=== PATIENT | male | born 1955 | race Caucasian/White ===

== ENCOUNTER 2020-01-04 22:34 | Inpatient (IN) ==
[2020-01-04 22:41] LABS: ABG Base Excess -8.2 mmol/L (-2.4-2.3); ABG HCO3 18.3 mmhg (22.0-26.0); ABG Oxygen Saturation 96 % (90-100); ABG PCO2 38.4 mmhg (35.0-45.0); ABG PO2 85.3 mmhg (80-100); ABG TCO2 19.5 mmhg (23-27)
[2020-01-04 22:43] LABS: Allen's Test Acceptable
--- NOTE | 2020-01-04 22:56 | Emergency Department Note ---
ED Disposition Clinical Impression: Acute exacerbation of chronic obstructive airways disease, Non-STEMI (non-ST elevated myocardial infarction) Disposition: Admitted as Observation Condition on Discharge: Good Additional Instructions: Dr. Crum for admission for this patient I also spoke to Dr. Espinal who agreed to consult and see this patient in the morning. Referrals: Provider,Referral, [Primary Care Provider] - - Critical Care Critical Care Time: No Attestation: On 01/04/20, the high probability of a clinically significant, sudden or life threatening deterioration of the following system(s) required my full and direct attention, intervention and personal management. The time I documented below is in addition to time spent performing reported procedures but includes the following listed in this critical care notation. Medical Decision Making - Medical Records Medical records reviewed: Yes: I reviewed the patient's medical records. - [place] Inquiry Pt receiving controlled substance: No Vital Signs: 01/04/20 22:33 01/04/20 22:34 01/04/20 22:49 Temperature 97.8 F Temperature Source Oral Pulse Rate 128 H Pulse Rate [Left Radial] 125 H Respiratory Rate 21 Blood Pressure [Right Arm] 139/59 L Blood Pressure Mean [Right Arm] 85 Blood Pressure Source [Right Arm] Automatic Cuff Blood Pressure Position [Right Arm] Sitting 02 Sat by Pulse Oximetry 86 L 95 Oxygen Delivery Method Room Air Nasal Cannula Oxygen Flow Rate (LPM) 4 01/04/20 23:39 Temperature Temperature Source Pulse Rate 122 H Pulse Rate [Left Radial] Respiratory Rate Blood Pressure [Right Arm] Blood Pressure Mean [Right Arm] Blood Pressure Source [Right Arm] Blood Pressure Position [Right Arm] 02 Sat by Pulse Oximetry Oxygen Delivery Method Oxygen Flow Rate (LPM) - Lab Data Lab results reviewed: Yes: I reviewed the patient's lab results. Lab Results 01/04/20 22:35: Specimen Source Right radial, O2 % 4 lpm nc, 36%., ABG pH 7.30 L , ABG pCO2 38.4, ABG pO2 85.3, ABG HCO3 18.3 L, ABG Total CO2 19.5 L, ABG O2 Saturation 96, ABG Base Excess -8.2 L, Artur Test Acceptable 01/04/20 22:59: NT-Pro-B Natriuret Pep 1240 H 01/04/20 22:59: WBC 11.1 H, RBC 4.83, Hgb 16.4, Hct 47.5, MCV 98.3 H, MCH 33.9 H , MCHC 34.5, RDW 13.5, Plt Count 233, MPV 9.2, Neut % (Auto) 85.9 H, Lymph % (Auto) 5.2 L, [place] % (Auto) 8.4, Eos % (Auto) 0.3, Baso % (Auto) 0.2, Neut # (Auto) 9.6 H, Lymph # (Auto) 0.6 L, [place] # (Auto) 0.9, Eos # (Auto) 0.0, Baso # (Auto) 0.0, Total Counted 100, Neutrophils % (Manual) 88 H, Lymphocytes % (Manual) 8 L, Monocytes % (Manual) 3, Basophils % (Manual) 1.0, Platelet Estimate Normal, RBC Morphology Not Reportable, Macrocytosis 1+ 01/04/20 22:59: Sodium 114 L*, Potassium 4.5, Chloride 75 L, Carbon Dioxide 21 L , Anion Gap 22.5 H, BUN 5 L, Creatinine 0.80, Estimated Creat Clear 84, Estimated GFR 97, Est GFR ( Amer) 117, Glucose 121 H, Calcium 8.3 L, Troponin I 3.14 H 01/04/20 22:59: Lactate 2.5 H 01/05/20 00:00: D-Dimer 0 H* 01/05/20 02:12: Troponin I 4.34 H Result diagrams: 01/04/20 22:59 01/04/20 22:59 Orders (Tests/Meds): ED MEDICATIONS Generic Name Dose Route Start Last Admin Trade Name Pascualq PRN Reason Stop Dose Admin Atorvastatin Calcium 80 mg 01/05/20 21:00 Lipitor 40mg Tablet PO 02/04/20 20:59 HS MIRANDA Sodium Chloride 1,000 mls @ 999 mls/hr 01/05/20 00:15 Sod Chlor 0.9% 1000ml Bag IV 01/05/20 01:15 .Q1H1M MIRANDA Sodium Chloride 1,000 mls @ 999 mls/hr 01/05/20 01:30 Sod Chlor 0.9% 1000ml Bag IV 01/05/20 02:30 .Q1H1M MIRANDA Ceftriaxone Sodium 1 gm/ 50 mls @ 100 mls/hr 03/04/20 23:47 Sodium Chloride IV 01/18/20 23:46 Q24H [facility] Protocol Levalbuterol HCl 1.25 mg 01/05/20 23:21 01/04/20 23:38 Xopenex 1.25mg/3ml [facility] 01/05/20 23:22 1.25 mg ONCE ONE Administration Sodium Chloride 10 ml 01/04/20 22:50 Sodium Chloride 0.9% 10ml Vial IV 02/03/20 22:49 NEEDED PRN to Dilute Lorazepam inj Sodium Chloride 3 ml 01/05/20 00:19 Sodium Chloride 3% 15ml [facility] 02/04/20 00:18 ONCE PRN INDUCE [employer] Discontinued Medications Generic Name Dose Route Start Last Admin Trade Name Freq PRN Reason Stop Dose Admin Albuterol/Ipratropium 3 ml 01/04/20 22:35 01/04/20 22:51 Duoneb 3ml [facility] 01/04/20 22:36 3 ml ONCE ONE Administration Albuterol/Ipratropium 3 ml 01/04/20 22:50 01/05/20 02:40 Duoneb 3ml [facility] 01/04/20 22:51 Not Given ONCE ONE Aspirin 325 mg 01/05/20 00:25 01/05/20 00:49 Aspirin 325mg Tablet PO 01/05/20 00:26 325 mg ONCE ONE Administration Clopidogrel Bisulfate 300 mg 01/05/20 00:24 01/05/20 00:49 Plavix 300mg Tablet PO 01/05/20 00:25 300 mg ONCE ONE Administration Enoxaparin Sodium 90 mg 01/05/20 00:25 01/05/20 00:48 Lovenox 100mg/Ml Syringe SQ 01/05/20 00:26 90 mg ONCE ONE Administration Lorazepam 1 mg 01/04/20 22:50 01/04/20 23:01 Ativan 2mg/Ml Vial IV 01/04/20 22:51 1 mg ONCE ONE Administration Metoprolol Succinate 50 mg 01/05/20 01:08 01/05/20 01:10 Toprol Xl 50mg Tablet PO 01/05/20 01:09 50 mg ONCE ONE Administration Metoprolol Tartrate 25 mg 01/05/20 01:05 01/05/20 01:10 Lopressor 50mg Tablet PO 01/05/20 01:06 Not Given ONCE ONE Morphine Sulfate 4 mg 01/05/20 00:37 01/05/20 00:49 Morphine 4mg/Ml Syringe IV 01/05/20 00:38 4 mg ONCE ONE Administration ORDERS Category Date Time Status CTA Chest [CT angio chest] Stat Cat Scan 01/05/20 01:06 Ordered XR chest portable Stat Exams 01/04/20 23:34 Taken Troponin I Q3H Lab 01/05/20 05:30 Ordered Urinalysis and Microscopic Stat Lab 01/04/20 23:21 Ordered Blood Culture Stat Micro 01/04/20 22:59 Received Sputum Culture & Gram Stain Stat Micro 01/05/20 00:19 Received Arterial Blood Gas Stat RT 01/04/20 23:21 Ordered - Radiology Data #1 Image(s): Chest Preliminary Findings: Normal/NAD - CT Data CT Scan: Chest Time Received: 02:00 Preliminary Findings: Normal/NAD (No PE) - ECG Data Tracing #1 Normal Sinus Rhythm: No Arrhythmias present: sinus tach (ST segment deviations) - Tissue Perfus/Sepsis Re-Eval Sepsis Re-Evaluation Performed: Yes Date Performed: 01/05/20 Time Performed: 02:00 Medical Decision Narrative: Patient received 2 DuoNeb's and 1 Xopenex nebulizer here in the ED along with IV Solu-Medrol his acute shortness of breath has resolved he still feels quite anxious he did receive dual platelet therapy with aspirin and Plavix and also Lovenox for a non-STEMI with an elevated troponin at 3.19 his second troponin did come back at 4.29 the patient never complained of any chest pain. CTA of the chest was negative for PE. Resp/SOB HPI - General Chief Complaint: Shortness of Breath/Dyspnea Stated Complaint: SOB Time Seen by Provider: 01/04/20 22:34 Mode of Arrival: EMS Source of Information: Patient, Relative Limitations: No Limitations - History of Present Illness 64-year-old man presents to the ED with acute shortness of breath. He states that the shortness of breath really started this morning about 12 hours ago but has had a nonproductive cough over the last 2 to 3 days. Patient does have COPD and denies any chest pain. Patient also denies any diaphoresis. He is on a couple different inhalers he is on albuterol but has been without his ICS. Family states that he denies any recent sick contacts and they also deny that he has had any fever shakes or chills or any nausea or vomiting. Patient also denies any pain. - Related Data Home Medications Medication Instructions Recorded Confirmed Budesonide/Formoterol Fumarate 2 puffs IH BID 01/05/20 01/05/20 [Symbicort 160-4.5 Mcg Inhaler] Allergies Allergy/AdvReac Type Severity Reaction Status Date / Time No Known Allergies Allergy Verified 03/09/18 14:25 [facility] History - Hepatitis A Screen Attestation statement:: This patient has been screened for Hepatitis A risk factors. I have reviewed the patient's past medical history: Yes Amputation: No Fractures: Yes - Social History Smoking Status: Current every day smoker Tobacco Type: cigarettes # Packs/Day (cigarettes): 1 Alcohol Intake: never Alcohol Intake Frequency:: 3 or more drinks per day Occupational Status: disabled ROS Obtained: Yes All systems reviewed & no additional complaints - Constitutional Constitutional: Reports system reviewed and no additional complaints, except as docu - Eyes Eyes: Reports system reviewed and no additional complaints, except as docu - ENT Ears, Nose, Mouth, and Throat: Reports system reviewed and no additional complaints, except as docu - Cardiovascular Cardiovascular: Reports system reviewed and no additional complaints, except as docu - Respiratory Respiratory: Yes system reviewed and no additional complaints, except as docu - Gastrointestinal Gastrointestingal: Reports: system reviewed and no additional complaints, except as docu - Genitourinary Male Genitourinary: Reports system reviewed and no additional complaints, except as docu Female Genitourinary: Reports system reviewed and no additional complaints, except as docu - Musculoskeletal Musculoskeletal: Reports system reviewed and no additional complaints, except as docu - Integumentary/Breasts Skin/Breast: Reports system reviewed and no additional complaints, except as docu - Neurologic Neurologic: Reports system reviewed and no additional complaints, except as docu - Endocrine Endocrine: Reports system reviewed and no additional complaints, except as docu - Hematologic/Lymphatic Henatologic/Lymphatic: Reports system reviewed and no additional complaints, except as docu - Allergic/Immunologic Allergic/Immunologic: Reports system reviewed and no additional complaints, except as docu Physical Exam - General General appearance: alert, in distress - Head Head exam: atraumatic - Eye Eye exam: Present: normal appearance - ENT ENT exam: Present: normal exam, normal oropharynx - Neck Neck exam: Present: normal inspection, full ROM - Chest Chest inspection: Present: normal inspection, symmetric chest wall rise - Respiratory Respiratory exam: Present: wheezes, stridor - Cardiovascular Cardiovascular exam: Present: regular rate - Abdominal Exam Abdominal exam: Present: soft - Extremities Exam Extremities exam: Present: normal inspection - Back Exam Back exam: Present: normal inspection - Neurological Exam Neurological exam: Present: alert, oriented X3 - Psychiatric Psychiatric exam: Present: normal affect - Skin Skin exam: Present: warm - Lymphatic Lymphatic Findings: no adenopathy
[2020-01-04 23:37] LABS: Basophils % 0.2 % (0.1-2.0); Eosinophils % 0.3 % (0.1-12.0); Hematocrit 47.5 % (42.0-52.0); Hemoglobin 16.4 g/dL (14.1-18.0); Lymphocytes # 0.6 K/mm3 (0.7-4.5); Lymphocytes % 5.2 % (10-50); Mean Corpuscular HGB Conc 34.5 g/dL (31.8-35.4); Mean Corpuscular Volume 98.3 fl (80-94); Mean Platelet Volume 9.2 fl (7.4-10.4); Monocytes # 0.9 K/mm3 (0.1-1.0); Monocytes % 8.4 % (1.7-9.3); Neutrophils # 9.6 K/mm3 (1.8-7.8); Neutrophils % 85.9 % (37.0-80.0); Platelet Count 233 K/mm3 (142-424); Red Blood Count 4.83 M/mm3 (4.60-6.20); Red Cell Distribution Width 13.5 % (11.5-17.5); White Blood Count 11.1 K/mm3 (4.8-10.8)
[2020-01-04 23:43] LABS: Calcium 8.3 mg/dl (8.4-10.2)
[2020-01-05] LABS: Anion Gap 22.5 mEq/L (5-15)
[2020-01-05 00:06] LABS: Lymphocytes % 8 % (10-50); Macrocytosis 1+; Monocytes % 3 % (2-9); Neutrophils % 88 % (42-76); Total Cells Counted 100
[2020-01-05 06:23] LABS: Microscopic, Urine URINE MICROSCOPIC (MICROSCOPIC)
[2020-01-05 06:25] LABS: Appearance,Urine CLEAR (Clear); Blood, Urine TRACE-I (Negative); Color,Urine YELLOW (Yellow); Glucose,Urine (UA) Negative (Negative); Ketones,Urine TRACE (Negative); Leukocyte Esterase,Urine Negative (Negative); Protein,Urine TRACE (Negative); Urobilinogen,Urine 0.2 EU/dl (0.2)
[2020-01-05 06:46] LABS: Bacteria,Urine 1+ /lpf; Bilirubin,Urine Negative (Negative)
--- NOTE | 2020-01-05 07:47 | Pharmacy Consult Notes ---
[facility] Pharmacy VTE Monitoring - Patient Demographics Admission date: 01/05/20 Report Date: 01/05/20 Time: 07:47 Allergies/Adverse Reactions: Patient Allergies No Known Allergies Allergy (Verified 03/09/18 14:25) Height: 1.8 m Weight: 74.843 kg Patient Problems: Current Active Problems Acute exacerbation of chronic obstructive airways disease (Acute) Non-STEMI (non-ST elevated myocardial infarction) (Acute) - VTE Risk Labs: VTE Related Lab Results Hgb 16.4 g/dL (14.1-18.0) 01/04/20 22:59 Hct 47.5 % (42.0-52.0) 01/04/20 22:59 Plt Count 233 K/mm3 (142-424) 01/04/20 22:59 BUN 5 mg/dl (9-20) L 01/04/20 22:59 Creatinine 0.80 mg/dl (0.66-1.25) 01/04/20 22:59 Estimated Creat Clear 84 mL/min (50-200) 01/04/20 22:59 VTE Score: 6 VTE Risk Level: Moderate Risk - Prophylaxis VTE Prophylaxis Ordered?: Yes Types of VTE Prophylaxis: TEDS Knee High Location of Applied Device: Bilateral Lower Extremeties
--- NOTE | 2020-01-05 08:01 | Consult Report ---
History of Present Illness Consult date: 01/05/20 Requesting physician: Blayne Crum Consult reason: shortness of breath Chief complaint: NSTEMI Additional Medical History:: 1. Alcohol abuse 2. Hyponatremia, chronic, likely due to ETOH abuse A. CTA of chest, 01/2020, no evidence of suspicious pulmonary nodules/masses 3. COPD A. Tobacco use, since age 14 4. FH of heart disease in parents 5. elevated D-dimer, 01/2020, CTA of chest negative for PE History of present illness: 64-year-old man presents to the ED with acute shortness of breath. He states that the shortness of breath really started this morning about 12 hours ago but has had a nonproductive cough over the last 2 to 3 days. Patient does have COPD and denies any chest pain. Patient also denies any diaphoresis. He is on a couple different inhalers he is on albuterol but has been without his ICS. Family states that he denies any recent sick contacts and they also deny that he has had any fever shakes or chills or any nausea or vomiting. Patient also denies any pain. The above per Dr. Orozco Denies chest pain but relates some chest tightness recently. No history of CAD, HTN, HLD or diabetes per his knowledge. EKG in ER is sinus tach without acute ST segment changes. HR has improved since respiratory status has improved. BP is stable but borderline low. Elevated D-dimer noted but CTA of chest negative for PE. Pt with history of low Na and currently Na is 114. [facility] History Medical History: Denies:: Cancer, Diabetes Mellitus Type 1, Diabetes Mellitus Type 2 *Have you ever received a pneumonia vaccine?: Yes *Have you received a flu vaccine this season?: Yes Laterality Cases: Right: Arthroscopy Knee Other Surgeries: Yes: Colonoscopy, Hernia Repair (Inguinal) Amputation: No Fractures: Yes (R ankle) - *Social History Smoking Status: Current every day smoker Tobacco Type: cigarettes # Packs/Day (cigarettes): 2 Alcohol Intake: current Alcohol Intake Frequency:: 3 or more drinks per day Substance Use Type: marijuana, crack/cocaine, amphetamines *Occupational Status:: employed Housing: house Household Members: spouse *Travel in the last 8 weeks: None Family Hx:: Cancer, Coronary Artery Disease, Diabetes, Substance abuse, Alcoholism Meds Home Medications Medication Instructions Recorded Confirmed Type Budesonide/Formoterol Fumarate 2 puffs INHALATION BID 01/05/20 01/05/20 History [Symbicort 160-4.5 Mcg Inhaler] Ipratropium/Albuterol Sulfate 3 ml IH QIDP PRN 01/05/20 01/05/20 History [Duoneb 3mL neb] Allergies Allergy/AdvReac Type Severity Reaction Status Date / Time No Known Allergies Allergy Verified 03/09/18 14:25 Review of Systems - Review of Systems Review of systems:: pertinent systems reviewed and negative unless documented below - *Cardiovascular Reports shortness of breath with activity - *Respiratory Reports cough, Reports shortness of breath, Reports shortness of breath with activity - *Gastrointestinal Denies loose stools, Denies nausea, Denies vomiting - *Genitourinary Denies blood in urine - *Musculoskeletal Denies joint pain, Denies back pain - *Neurologic Denies dizziness, Denies fainting, Denies weakness Exam Vital signs and Labs for Last 24 Hours: Temp Pulse Resp BP Pulse Ox 97.8 F 82 21 100/64 L 95 01/05/20 05:00 01/05/20 07:00 01/05/20 07:00 01/05/20 07:00 01/05/20 07:00 Laboratory Results - last 24 hr 01/04/20 22:35: Specimen Source Right radial, O2 % 4 lpm nc, 36%., ABG pH 7.30 L , ABG pCO2 38.4, ABG pO2 85.3, ABG HCO3 18.3 L, ABG Total CO2 19.5 L, ABG O2 Saturation 96, ABG Base Excess -8.2 L, Artur Test Acceptable 01/04/20 22:59: NT-Pro-B Natriuret Pep 1240 H 01/04/20 22:59: WBC 11.1 H, RBC 4.83, Hgb 16.4, Hct 47.5, MCV 98.3 H, MCH 33.9 H , MCHC 34.5, RDW 13.5, Plt Count 233, MPV 9.2, Neut % (Auto) 85.9 H, Lymph % (Auto) 5.2 L, [place] % (Auto) 8.4, Eos % (Auto) 0.3, Baso % (Auto) 0.2, Neut # (Auto) 9.6 H, Lymph # (Auto) 0.6 L, [place] # (Auto) 0.9, Eos # (Auto) 0.0, Baso # (Auto) 0.0, Total Counted 100, Neutrophils % (Manual) 88 H, Lymphocytes % ([place]) 8 L, Monocytes % (Manual) 3, Basophils % (Manual) 1.0, Platelet Estimate Normal, RBC Morphology Not Reportable, Macrocytosis 1+ 01/04/20 22:59: Sodium 114 L*, Potassium 4.5, Chloride 75 L, Carbon Dioxide 21 L , Anion Gap 22.5 H, BUN 5 L, Creatinine 0.80, Estimated Creat Clear 84, Estimated GFR 97, Est GFR ( Amer) 117, Glucose 121 H, Calcium 8.3 L, Troponin I 3.14 H 01/04/20 22:59: Lactate 2.5 H 01/05/20 00:00: D-Dimer 2090 H* 01/05/20 02:12: Troponin I 4.34 H 01/05/20 03:46: Lactate 2.4 H 01/05/20 05:40: Troponin I 3.81 H 01/05/20 05:40: Lactate 2.0 01/05/20 06:15: Urine Color Yellow, Urine Appearance Clear, Urine pH 6.0, Ur Specific [place] 1.020, Urine Protein Trace, Urine Glucose (UA) Negative, Urine Ketones Trace, Urine Blood Trace-i, Urine Nitrate Negative, Urine Bilirubin Negative, Urine Urobilinogen 0.2, Ur Leukocyte Esterase Negative, Urine RBC 3-5, Urine WBC 5-10, Ur Squamous Epith Cells 3-5, Urine Bacteria 1+ I & O for Last 24 hours: Intake & Output 01/02/20 01/03/20 01/04/20 01/05/20 11:59 11:59 11:59 11:59 Intake Total Output Total 250 / 250 Balance -240 / -240 Weight 165 lb Microbiology Reports for the Last 24 Hours: Microbiology 01/05/20 00:19 Sputum - Expectorated Sputum Gram Stain - Final - *Routine HEENT Exam Head: Present: normocephalic Eye: Present: EOMI, PERRL ENT: Present: mucous membranes moist - *Routine Neck Exam Present: supple. Absent: JVD, carotid bruit - *Routine Respiratory Exam Present: decreased breath sounds, rhonchi, diminished air movement. Absent: ac cessory muscle use, rales, wheezes - *Routine Cardiovascular Exam Present: RRR. Absent: murmur, gallop, rubs - *Routine Abdominal Exam Present: soft. Absent: tenderness, distended, guarding - *Routine Extremities Exam Present: edema. Absent: calf tenderness - *Routine Neurological Exam Present: alert, oriented X3, moving all extremities Assessment and Plan (1) Acute exacerbation of chronic obstructive airways disease Current visit: Yes Status: Acute Category: Medical Code(s): J44.1 - Chronic obstructive pulmonary disease with (acute) exacerbation (2) Non-STEMI (non-ST elevated myocardial infarction) Current visit: Yes Status: Acute Category: Medical Code(s): I21.4 - Non-ST elevation (NSTEMI) myocardial infarction (3) Smoker Current visit: Yes Status: Acute Category: Social Hx Code(s): F17.200 - Nicotine dependence, unspecified, uncomplicated (4) Alcohol abuse Current visit: Yes Status: Acute Category: Social Hx Code(s): F10.10 - Alcohol abuse, uncomplicated (5) Hyponatremia Current visit: Yes Status: Acute Category: Medical Code(s): E87.1 - Hypo-osmolality and hyponatremia (6) Cor pulmonale Current visit: Yes Status: Acute Category: Medical Code(s): I27.81 - Cor pulmonale (chronic) - Assessment and plan all Dx Assessment and Plan for all problems:: 1. NSTEMI in conjunction with acute exacerbation of COPD. Peak troponin 4.34. Received ASA, plavix and lovenox in ER. No chest pain/tightness. Plan to proceed with [facility]. Will get echo to reassess biatrial enlargement noted on CTA of chest as well as LVEF. 2. COPD with acute exacerbation, defer to Dr. Crum 3. Tobacco use, cessation encouraged 4. ETOH abuse 5. Hyponatremia, chronic, replace slowly due to high fatality risk of central pontine myelinolysis 6. CHF with Cor pulmonale secondary to COPD/continued tobacco use
--- NOTE | 2020-01-05 09:19 | History & Physical Report ---
*Admission Date: 01/05/20 *Chief complaint: SOA *History of present illness: Mr Wells is a 64-year-old man who presents to the ED with acute shortness of breath. He states that the shortness of breath started yesterday. He has had a nonproductive cough over the last 2 to 3 days. He does have COPD and denies any chest pain, although he says his chest feels tight. Patient also denies any diaphoresis. He has no history of CAD, HTN, HLD or diabetes. EKG in ER showed sinus tach without acute ST segment changes. HR did improve when his respiratory status improved. BP has been stable but borderline low. He had an elevated D-dimer but CTA of chest was negative for PE. He does have a history of low Na and his sodium was 114 in the ER. He smokes approximately 2 packs of cigarettes a day and drinks about 6 alcoholic beverages daily. He is also a drug abuser. He has been seen by cardiology and they plan a cardiac cath today. [facility] History I have reviewed the patient's past medical history: Yes Medical History: Reports:: Chronic Obstructive Pulmonary Disease (COPD) Denies:: Cancer, Diabetes Mellitus Type 1, Diabetes Mellitus Type 2 *Have you ever received a pneumonia vaccine?: Yes *Have you received a flu vaccine this season?: Yes Laterality Cases: Right: Arthroscopy Knee Other Surgeries: Yes: Colonoscopy, Hernia Repair (Inguinal) Amputation: No Fractures: Yes (R ankle) - *Social History Smoking Status: Current every day smoker Tobacco Type: cigarettes # Packs/Day (cigarettes): 2 Alcohol Intake: current Alcohol Intake Frequency:: 3 or more drinks per day Substance Use Type: marijuana, crack/cocaine, amphetamines *Occupational Status:: employed Housing: house Household Members: spouse *Travel in the last 8 weeks: None Family Hx:: Cancer, Coronary Artery Disease, Diabetes, Substance abuse, Alcoholism Review of Systems - Constitutional Denies chills, Denies fever(s) - Eyes Denies blurry vision, Denies double vision - ENT Denies nasal congestion, Denies sore throat, Denies dizziness - *Cardiovascular Reports shortness of breath, Reports leg swelling, Denies chest pain - *Respiratory Reports cough, Reports shortness of breath, Reports wheezing - *Gastrointestinal Denies abdominal pain, Denies loose stools, Denies nausea, Denies vomiting - *Genitourinary Denies difficulty urinating, Denies painful urination - *Musculoskeletal Denies joint pain - *Neurologic Denies dizziness, Denies headache(s), Denies fainting, Denies weakness Meds Home Medications Medication Instructions Recorded Confirmed Type Budesonide/Formoterol Fumarate 2 puffs IH BID 01/05/20 01/05/20 History [Symbicort 160-4.5 Mcg Inhaler] Ipratropium/Albuterol Sulfate 3 ml IH QIDP PRN 01/05/20 01/05/20 History [Duoneb 3mL neb] Allergies Allergy/AdvReac Type Severity Reaction Status Date / Time No Known Allergies Allergy Verified 03/09/18 14:25 Exam Vital signs and Labs for Last 24 Hours: Temp Pulse Resp BP Pulse Ox 98.5 F 98 H 26 H 115/85 96 01/05/20 08:00 01/05/20 08:17 01/05/20 08:00 01/05/20 08:00 01/05/20 08:00 Laboratory Results - last 24 hr 01/04/20 22:35: Specimen Source Right radial, O2 % 4 lpm nc, 36%., ABG pH 7.30 L , ABG pCO2 38.4, ABG pO2 85.3, ABG HCO3 18.3 L, ABG Total CO2 19.5 L, ABG O2 Saturation 96, ABG Base Excess -8.2 L, Artur Test Acceptable 01/04/20 22:59: NT-Pro-B Natriuret Pep 1240 H 01/04/20 22:59: WBC 11.1 H, RBC 4.83, Hgb 16.4, Hct 47.5, MCV 98.3 H, MCH 33.9 H , MCHC 34.5, RDW 13.5, Plt Count 233, MPV 9.2, Neut % (Auto) 85.9 H, Lymph % (Auto) 5.2 L, [place] % (Auto) 8.4, Eos % (Auto) 0.3, Baso % (Auto) 0.2, Neut # (Auto) 9.6 H, Lymph # (Auto) 0.6 L, [place] # (Auto) 0.9, Eos # (Auto) 0.0, Baso # (Auto) 0.0, Total Counted 100, Neutrophils % (Manual) 88 H, Lymphocytes % (Manual) 8 L, Monocytes % (Manual) 3, Basophils % (Manual) 1.0, Platelet Estimate Normal, RBC Morphology Not Reportable, Macrocytosis 1+ 01/04/20 22:59: Sodium 114 L*, Potassium 4.5, Chloride 75 L, Carbon Dioxide 21 L , Anion Gap 22.5 H, BUN 5 L, Creatinine 0.80, Estimated Creat Clear 84, Estimated GFR 97, Est GFR ( Amer) 117, Glucose 121 H, Calcium 8.3 L, Troponin I 3.14 H 01/04/20 22:59: Lactate 2.5 H 01/05/20 00:00: D-Dimer 2090 H* 01/05/20 02:12: Troponin I 4.34 H 01/05/20 03:46: Lactate 2.4 H 01/05/20 05:40: Troponin I 3.81 H 01/05/20 05:40: Lactate 2.0 01/05/20 06:15: Urine Color Yellow, Urine Appearance Clear, Urine pH 6.0, Ur Specific [place] 1.020, Urine Protein Trace, Urine Glucose (UA) Negative, Urine Ketones Trace, Urine Blood Trace-i, Urine Nitrate Negative, Urine Bilirubin Negative, Urine Urobilinogen 0.2, Ur Leukocyte Esterase Negative, Urine RBC 3-5, Urine WBC 5-10, Ur Squamous Epith Cells 3-5, Urine Bacteria 1+ I & O for Last 24 hours: Intake & Output 01/02/20 01/03/20 01/04/20 01/05/20 11:59 11:59 11:59 11:59 Intake Total Output Total 250 / 250 Balance -240 / -240 Weight 165 lb Microbiology Reports for the Last 24 Hours: Microbiology 01/05/20 00:19 Sputum - Expectorated Sputum Gram Stain - Final - Constitutional no acute distress - *Routine HEENT Exam Head: Present: normocephalic Eye: Present: EOMI, PERRL ENT: Present: mucous membranes dry - *Routine Neck Exam Present: supple. Absent: lymphadenopathy - *Routine Respiratory Exam Present: wheezes (bilaterally) - *Routine Cardiovascular Exam Present: RRR - *Routine Abdominal Exam Present: soft, normoactive bowel sounds. Absent: tenderness - *Routine Extremities Exam Present: edema (1+ LE edema bilaterally). Absent: cyanosis, clubbing - *Routine Skin Exam Present: warm. Absent: rash - *Routine Neurological Exam Present: alert, oriented X3 H&P: Result - Impressions CXR - COPD with CHF and interstitial edema with right lower lobe atelectasis CTA - 1. No evidence of pulmonary embolus. 2. COPD with centrilobular emphysema. 3. CHF with interstitial edema with dilated right and left atrium andprominent reflux of contrast into the hepatic veins which may be seen with right heart strain Assessment and Plan (1) Acute exacerbation of chronic obstructive airways disease Current visit: Yes Status: Acute Category: Medical Code(s): J44.1 - Chronic obstructive pulmonary disease with (acute) exacerbation (2) Non-STEMI (non-ST elevated myocardial infarction) Current visit: Yes Status: Acute Category: Medical Code(s): I21.4 - Non-ST elevation (NSTEMI) myocardial infarction (3) Smoker Current visit: Yes Status: Acute Category: Social Hx Code(s): F17.200 - Nicotine dependence, unspecified, uncomplicated (4) Alcohol abuse Current visit: Yes Status: Acute Category: Social Hx Code(s): F10.10 - Alcohol abuse, uncomplicated (5) Hyponatremia Current visit: Yes Status: Acute Category: Medical Code(s): E87.1 - Hypo- osmolality and hyponatremia (6) Cor pulmonale Current visit: Yes Status: Acute Category: Medical Code(s): I27.81 - Cor pulmonale (chronic) - Assessment and plan all Dx Assessment and Plan for all problems:: Cardiology has seen the patient and ordered an echo. They plan a cardiac cath today.
--- NOTE | 2020-01-05 16:55 | Progress Note ---
Internal Medicine - PN: Subj *Date: 01/05/20 *Time: 16:51 Interval history: Patient is currently resting in bed. He is undergone left heart catheterization. At present he denies chest pain or tightness. His shortness of breath has improved. Nursing staff reports no wheezing although patient states he has been wheezing periodically over the last 24 hours. He tells me he drinks 6 beers per day and it is getting close to 48 hours since his last drink of alcohol. Exam Vital signs and Labs for Last 24 Hours: Temp Pulse Resp BP Pulse Ox 98.4 F 103 H 26 H 120/66 90 L 01/05/20 14:05 01/05/20 16:05 01/05/20 16:05 01/05/20 16:05 01/05/20 16:05 Laboratory Results - last 24 hr 01/04/20 22:35: Specimen Source Right radial, O2 % 4 lpm nc, 36%., ABG pH 7.30 L , ABG pCO2 38.4, ABG pO2 85.3, ABG HCO3 18.3 L, ABG Total CO2 19.5 L, ABG O2 Saturation 96, ABG Base Excess -8.2 L, Artur Test Acceptable 01/04/20 22:59: NT-Pro-B Natriuret Pep 1240 H 01/04/20 22:59: WBC 11.1 H, RBC 4.83, Hgb 16.4, Hct 47.5, MCV 98.3 H, MCH 33.9 H , MCHC 34.5, RDW 13.5, Plt Count 233, MPV 9.2, Neut % (Auto) 85.9 H, Lymph % (Auto) 5.2 L, [place] % (Auto) 8.4, Eos % (Auto) 0.3, Baso % (Auto) 0.2, Neut # (Auto) 9.6 H, Lymph # (Auto) 0.6 L, [place] # (Auto) 0.9, Eos # (Auto) 0.0, Baso # (Auto) 0.0, Total Counted 100, Neutrophils % (Manual) 88 H, Lymphocytes % (Manual) 8 L, Monocytes % (Manual) 3, Basophils % (Manual) 1.0, Platelet Estimate Normal, RBC Morphology Not Reportable, Macrocytosis 1+ 01/04/20 22:59: Sodium 114 L*, Potassium 4.5, Chloride 75 L, Carbon Dioxide 21 L , Anion Gap 22.5 H, BUN 5 L, Creatinine 0.80, Estimated Creat Clear 84, Estimated GFR 97, Est GFR ( Amer) 117, Glucose 121 H, Calcium 8.3 L, Troponin I 3.14 H 01/04/20 22:59: Lactate 2.5 H 01/05/20 00:00: D-Dimer 2090 H* 01/05/20 02:12: Troponin I 4.34 H 01/05/20 03:46: Lactate 2.4 H 01/05/20 05:40: Troponin I 3.81 H 01/05/20 05:40: Lactate 2.0 01/05/20 06:15: Urine Color Yellow, Urine Appearance Clear, Urine pH 6.0, Ur Specific [place] 1.020, Urine Protein Trace, Urine Glucose (UA) Negative, Urine Ketones Trace, Urine Blood Trace-i, Urine Nitrate Negative, Urine Bilirubin Negative, Urine Urobilinogen 0.2, Ur Leukocyte Esterase Negative, Urine RBC 3-5, Urine WBC 5-10, Ur Squamous Epith Cells 3-5, Urine Bacteria 1+ 01/05/20 12:52: Sodium 116 L I & O for Last 24 hours: Intake & Output 01/03/20 01/04/20 01/05/20 01/06/20 11:59 11:59 11:59 11:59 Intake Total 30 30 Output Total 550 / 550 500 / 500 Balance -540 / -540 -470 / -470 Weight 165 lb Microbiology Reports for the Last 24 Hours: Microbiology 01/05/20 00:19 Sputum - Expectorated Sputum Gram Stain - Final Narrative: Patient appears comfortable and is resting on room air. Lung exam reveals distant breath sounds but no rales, rhonchi, wheezes. Heart has a regular rate and rhythm. Abdomen is soft with mild distention but no hepatomegaly. Lower extremities have no edema Assessment and Plan (1) Acute exacerbation of chronic obstructive airways disease Current visit: Yes Status: Acute Category: Medical Code(s): J44.1 - Chronic obstructive pulmonary disease with (acute) exacerbation Improving. Patient will be given Advair in place of his Symbicort while hospitalized (2) Non-STEMI (non-ST elevated myocardial infarction) Current visit: Yes Status: Acute Category: Medical Code(s): I21.4 - Non-ST elevation (NSTEMI) myocardial infarction (3) Smoker Current visit: Yes Status: Acute Category: Social Hx Code(s): F17.200 - Nicotine dependence, unspecified, uncomplicated (4) Alcohol abuse Current visit: Yes Status: Acute Category: Social Hx Code(s): F10.10 - Alcohol abuse, uncomplicated Begin Serax 15 mg every 6 hours for withdrawal prevention (5) Hyponatremia Current visit: Yes Status: Acute Category: Medical Code(s): E87.1 - Hypo- osmolality and hyponatremia Chronic in nature. Should self-correct if patient is able to abstain from alcohol (6) Cor pulmonale Current visit: Yes Status: Acute Category: Medical Code(s): I27.81 - Cor pulmonale (chronic) (7) Cardiomyopathy, alcoholic Current visit: Yes Status: Acute Category: Medical Code(s): I42.6 - Alcoholic cardiomyopathy Await formal echocardiogram
[2020-01-06 06:07] LABS: Basophils % 0.3 % (0.1-2.0); Eosinophils % 0.1 % (0.1-12.0); Hematocrit 38.5 % (42.0-52.0); Lymphocytes # 1.4 K/mm3 (0.7-4.5); Lymphocytes % 17.3 % (10-50); Mean Corpuscular HGB Conc 33.7 g/dL (31.8-35.4); Mean Corpuscular Volume 99.7 fl (80-94); Mean Platelet Volume 8.8 fl (7.4-10.4); Monocytes % 12.3 % (1.7-9.3); Neutrophils # 5.7 K/mm3 (1.8-7.8); Neutrophils % 69.9 % (37.0-80.0); Platelet Count 163 K/mm3 (142-424); Red Blood Count 3.86 M/mm3 (4.60-6.20); Red Cell Distribution Width 13.7 % (11.5-17.5); White Blood Count 8.1 K/mm3 (4.8-10.8)
[2020-01-06 06:18] LABS: Anion Gap 9.2 mEq/L (5-15)
[2020-01-06 06:19] LABS: Bilirubin,Unconjugated 1.3 mg/dL (0.0-1.1); Calcium 7.9 mg/dl (8.4-10.2)
[2020-01-06 06:20] LABS: Albumin Level 3.1 g/dl (3.5-5.0); Bilirubin,Direct 0.1 mg/dl (0.0-0.4); Bilirubin,Indirect 1.3 mg/dL (0.0-0.9); Bilirubin,Total 1.4 mg/dl (0.2-1.3); Total Protein,Serum 5.6 g/dl (6.3-8.2)
--- NOTE | 2020-01-06 07:00 | Progress Note ---
Internal Medicine - PN: Subj *Date: 01/06/20 *Time: 06:57 Interval history: Patient had an uneventful night. O2 sats have remained in the low 90s on room air. This morning he awakens to verbal and tactile stimulus. He denies chest pain. He denies shortness of breath. Last breathing treatment was yesterday evening. Exam Vital signs and Labs for Last 24 Hours: Temp Pulse Resp BP Pulse Ox 98.0 F 80 19 95/65 L 98 01/06/20 04:00 01/06/20 04:00 01/06/20 04:00 01/06/20 04:00 01/06/20 04:00 Laboratory Results - last 24 hr 01/05/20 12:52: Sodium 116 L 01/05/20 18:04: Sodium 118 L 01/06/20 05:10: WBC 8.1 D, RBC 3.86 L, Hgb 13.0 L, Hct 38.5 L, MCV 99.7 H, MCH 33.6 H, MCHC 33.7, RDW 13.7, Plt Count 163 D, MPV 8.8, Neut % (Auto) 69.9, Lymph % (Auto) 17.3, [place] % (Auto) 12.3 H, Eos % (Auto) 0.1, Baso % (Auto) 0.3, Neut # (Auto) 5.7, Lymph # (Auto) 1.4, [place] # (Auto) 1.0, Eos # (Auto) 0.0, Baso # (Auto) 0.0 01/06/20 05:10: Sodium 126 L, Potassium 4.2, Chloride 89 L, Carbon Dioxide 32 H D, Anion Gap 9.2, BUN 18 D, Creatinine 0.60 L D, Estimated Creat Clear 77, Estimated GFR 135, Est GFR ( Amer) 163 D, Glucose 96, Calcium 7.9 L 01/06/20 05:10: Magnesium 2.4 H, Total Bilirubin 1.4 H, Direct Bilirubin 0.1, Conjugated Bilirubin 0.0, Indirect Bilirubin 1.3 H, Unconjugated Bilirubin 1.3 H , AST 162 H, ALT 72, Alkaline Phosphatase 63, Total Protein 5.6 L, Albumin 3.1 L I & O for Last 24 hours: Intake & Output 01/03/20 01/04/20 01/05/2006/20 11:59 11:59 11:59 11:59 Intake Total Output Total 550 / 550 3100 / 3100 Balance -540 / -540 -3070 / -3070 Weight 165 lb 165 lb Microbiology Reports for the Last 24 Hours: Microbiology 01/05/20 00:19 Sputum - Expectorated Sputum Gram Stain - Final Narrative: Patient appears comfortable. Lungs have expiratory wheezes. Heart has a regular rate and rhythm. Abdomen is soft. Lower extremities are warm to the touch and have no edema. Neurologically the patient is quite drowsy this morning as he is received Serax for alcohol withdrawal. Assessment and Plan (1) Acute exacerbation of chronic obstructive airways disease Current visit: Yes Status: Acute Category: Medical Code(s): J44.1 - Chronic obstructive pulmonary disease with (acute) exacerbation Change duo nebs to 4 times daily along with every 2 hours as needed (2) Non-STEMI (non-ST elevated myocardial infarction) Current visit: Yes Status: Acute Category: Medical Code(s): I21.4 - Non-ST elevation (NSTEMI) myocardial infarction (3) Smoker Current visit: Yes Status: Acute Category: Social Hx Code(s): F17.200 - Ni cotine dependence, unspecified, uncomplicated (4) Alcohol abuse Current visit: Yes Status: Acute Category: Social Hx Code(s): F10.10 - Alcohol abuse, uncomplicated (5) Hyponatremia Current visit: Yes Status: Acute Category: Medical Code(s): E87.1 - Hypo- osmolality and hyponatremia Sodium is correcting. IV fluids will be discontinued. (6) Cor pulmonale Current visit: Yes Status: Acute Category: Medical Code(s): I27.81 - Cor pulmonale (chronic) (7) Cardiomyopathy, alcoholic Current visit: Yes Status: Acute Category: Medical Code(s): I42.6 - Alcoholic cardiomyopathy PAPITO inhibitor will be held this morning due to low blood pressure - Assessment and plan all Dx Assessment and Plan for all problems:: PT eval today
--- NOTE | 2020-01-06 08:45 | Electrocardiograph Report ---
APPROVED REPORT Exam: Resting ECG HR:132 bpm ECG Measurements Heart Rate 132 AXES DE 140 P 72 QRSd 94 QRS 49 QT 314 T36 QTc 465 <Conclusion> Sinus tachycardia with premature supraventricular complexes Low voltage QRS Nonspecific ST abnormality Abnormal ECG Electronically signed by : Dangelo Pan, 01/06/2020 08:44:17
--- NOTE | 2020-01-06 09:44 | Progress Note ---
Subjective Date: 01/06/20 Time: 09:39 Principal diagnosis: NSTEMI Interval history: 64 yo WM in bed in NAD. States he does not feel well but no specific complaints. is in the room and is asking about outpatient rehab for his substance abuse. Exam Vital signs and Labs for Last 24 Hours: Temp Pulse Resp BP Pulse Ox 97.7 F 107 H 28 H 117/70 91 L 01/06/20 07:49 01/06/20 09:36 01/06/20 08:00 01/06/20 07:49 01/06/20 09:36 Laboratory Results - last 24 hr 01/05/20 12:52: Sodium 116 L 01/05/20 18:04: Sodium 118 L 01/06/20 05:10: WBC 8.1 D, RBC 3.86 L, Hgb 13.0 L, Hct 38.5 L, MCV 99.7 H, MCH 33.6 H, MCHC 33.7, RDW 13.7, Plt Count 163 D, MPV 8.8, Neut % (Auto) 69.9, Lymph % (Auto) 17.3, [place] % (Auto) 12.3 H, Eos % (Auto) 0.1, Baso % (Auto) 0.3, Neut # (Auto) 5.7, Lymph # (Auto) 1.4, [place] # (Auto) 1.0, Eos # (Auto) 0.0, Baso # (Auto) 0.0 01/06/20 05:10: Sodium 126 L, Potassium 4.2, Chloride 89 L, Carbon Dioxide 32 H D, Anion Gap 9.2, BUN 18 D, Creatinine 0.60 L D, Estimated Creat Clear 77, Estimated GFR 135, Est GFR ( Amer) 163 D, Glucose 96, Calcium 7.9 L 01/06/20 05:10: Magnesium 2.4 H, Total Bilirubin 1.4 H, Direct Bilirubin 0.1, Conjugated Bilirubin 0.0, Indirect Bilirubin 1.3 H, Unconjugated Bilirubin 1.3 H , AST 162 H, ALT 72, Alkaline Phosphatase 63, Total Protein 5.6 L, Albumin 3.1 L I & O for Last 24 hours: Intake & Output 01/03/20 01/04/20 01/05/20 01/06/20 11:59 11:59 11:59 11:59 Intake Total 270 / 270 Output Total 550 / 550 3100 / 3100 Balance -540 / -540 -2830 / -2830 Weight 165 lb 165 lb Microbiology Reports for the Last 24 Hours: Microbiology 01/05/20 00:19 Sputum - Expectorated Sputum Gram Stain - Final 01/05/20 00:19 Sputum - Expectorated Sputum Sputum Culture - Preliminary - *Routine HEENT Exam Head: Present: normocephalic Eye: Present: EOMI, PERRL ENT: Present: mucous membranes moist - *Routine Respiratory Exam Present: CTA bilaterally. Absent: accessory muscle use, rales, rhonchi, wheezes - *Routine Cardiovascular Exam Present: RRR. Absent: murmur, gallop, rubs - *Routine Extremities Exam Absent: edema, calf tenderness - *Routine Neurological Exam Present: alert, oriented X3, moving all extremities Seems tired but answers questions appropriately. Progress Note: A&P (1) Acute exacerbation of chronic obstructive airways disease Status: Acute Current Visit: Yes (2) Non-STEMI (non-ST elevated myocardial infarction) Status: Acute Current Visit: Yes (3) Smoker Status: Acute Current Visit: Yes (4) Alcohol abuse Status: Acute Current Visit: Yes (5) Hyponatremia Status: Acute Current Visit: Yes (6) Cor pulmonale Status: Acute Current Visit: Yes (7) Cardiomyopathy, alcoholic Status: Acute Current Visit: Yes Assessment and Plan for All Diagnoses:: 1. NSTEMI likely related to combination of exacerbation of COPD and alcoholic cardiomyopathy. Non-flow limiting CAD on cath. Medical therapy recommended and is being started but is limited due to low BP. 2. Hyponatremia, likely related to ETOH use. Improved. 3. Tobacco use, cessation encouraged 4. Cardiomyopathy, likely related to ETOH. ARB started yesterday. Will try starting low dose beta diego later today if BP allows. 5. ETOH abuse, will ask care management to assist in outpatient services. No signs of DT's at this time.
--- NOTE | 2020-01-07 07:30 | Progress Note ---
Internal Medicine - PN: Subj *Date: 01/07/20 *Time: 07:27 Interval history: Patient has no complaints this morning. He denies chest pain or tightness. He denies significant shortness of breath. His cough is productive of clear sputum. He ambulated in the room yesterday. He did have decrease in O2 sats overnight while on room air to 86%. Respiratory therapy reports patient is somewhat resistant to wearing the oxygen Exam Vital signs and Labs for Last 24 Hours: Temp Pulse Resp BP Pulse Ox 97.5 F L 74 16 127/79 86 L 01/07/20 04:00 01/07/20 07:12 01/07/20 04:00 01/07/20 04:00 01/07/20 07:12 I & O for Last 24 hours: Intake & Output 01/04/20 01/05/20 01/06/20 01/07/20 11:59 11:59 11:59 11:59 Intake Total 10 / 10 270 / 270 1780 / 1780 Output Total 550 / 550 3100 / 3100 1160 / 1160 Balance -540 / -540 -2830 / -2830 620 / 620 Weight 165 lb 165 lb 169 lb 4 oz Microbiology Reports for the Last 24 Hours: Microbiology 01/04/20 22:59 Blood Blood Culture - Preliminary NO GROWTH AFTER 48 HOURS 01/04/20 22:59 Blood Blood Culture - Preliminary NO GROWTH AFTER 48 HOURS 01/05/20 00:19 Sputum - Expectorated Sputum Gram Stain - Final 01/05/20 00:19 Sputum - Expectorated Sputum Sputum Culture - Preliminary Narrative: Patient does not appear to be in any distress. Nasal cannula is in place. Lungs are distant but there are no wheezes today. Heart has a regular rate and rhythm. Abdomen is soft, nontender, nondistended Assessment and Plan (1) Acute exacerbation of chronic obstructive airways disease Current visit: Yes Status: Acute Category: Medical Code(s): J44.1 - Chronic obstructive pulmonary disease with (acute) exacerbation Continue steroids, antibiotics, aerosols and supplemental oxygen. Patient is a candidate for discharge tomorrow if he continues to improve at this rate (2) Non-STEMI (non-ST elevated myocardial infarction) Current visit: Yes Status: Acute Category: Medical Code(s): I21.4 - Non-ST elevation (NSTEMI) myocardial infarction Continue aspirin, irbesartan, low-dose beta-diego (3) Smoker Current visit: Yes Status: Acute Category: Social Hx Code(s): F17.200 - Nicotine dependence, unspecified, uncomplicated (4) Alcohol abuse Current visit: Yes Status: Acute Category: Social Hx Code(s): F10.10 - Alcohol abuse, uncomplicated (5) Hyponatremia Current visit: Yes Status: Acute Category: Medical Code(s): E87.1 - Hypo- osmolality and hyponatremia (6) Cor pulmonale Current visit: Yes Status: Acute Category: Medical Code(s): I27.81 - Cor pulmonale (chronic) (7) Cardiomyopathy, alcoholic Current visit: Yes Status: Acute Category: Medical Code(s): I42.6 - Alcoholic cardiomyopathy
[2020-01-07 07:46] LABS: Basophils % 0.1 % (0.1-2.0); Eosinophils % 0.3 % (0.1-12.0); Hematocrit 35.3 % (42.0-52.0); Hemoglobin 11.7 g/dL (14.1-18.0); Lymphocytes # 0.5 K/mm3 (0.7-4.5); Lymphocytes % 9.2 % (10-50); Mean Corpuscular HGB Conc 33.3 g/dL (31.8-35.4); Mean Corpuscular Volume 100.1 fl (80-94); Mean Platelet Volume 8.2 fl (7.4-10.4); Monocytes # 0.4 K/mm3 (0.1-1.0); Monocytes % 6.1 % (1.7-9.3); Neutrophils # 4.9 K/mm3 (1.8-7.8); Neutrophils % 84.3 % (37.0-80.0); Platelet Count 157 K/mm3 (142-424); Red Blood Count 3.52 M/mm3 (4.60-6.20); Red Cell Distribution Width 13.9 % (11.5-17.5); White Blood Count 5.8 K/mm3 (4.8-10.8)
[2020-01-07 08:38] LABS: Calcium 7.9 mg/dl (8.4-10.2)
--- NOTE | 2020-01-08 08:36 | Discharge Summary ---
General - General Admission date:: 01/05/20 Discharge date: 01/08/20 HPI HPI: Mr Wells is a 64-year-old man who presents to the ED with acute shortness of breath. He states that the shortness of breath started yesterday. He has had a nonproductive cough over the last 2 to 3 days. He does have COPD and denies any chest pain, although he says his chest feels tight. Patient also denies any diaphoresis. He has no history of CAD, HTN, HLD or diabetes. EKG in ER showed sinus tach without acute ST segment changes. HR did improve when his respiratory status improved. BP has been stable but borderline low. He had an elevated D-dimer but CTA of chest was negative for PE. He does have a history of low Na and his sodium was 114 in the ER. He smokes approximately 2 packs of cigarettes a day and drinks about 6 alcoholic beverages daily. He is also a drug abuser. He has been seen by cardiology and they plan a cardiac cath today. Hospital Course Hospital Course: Patient was admitted with diagnosis of non-ST elevation ID and COPD exacerbation. On the morning of January 04 he was taken to the [facility]. Patient was found to have [id number] coronary artery disease with ejection fraction of 45%. Echocardiogram subsequently showed ejection fraction of 30 to 40%. Patient was hypotensive during the first few days hospitalization which limited the ability to initiate appropriate medical therapy for his coronary artery disease and left ventricular systolic dysfunction. Ultimately both beta- blockers and arms were started. Patient's COPD was treated with duo nebs and intravenous steroids. Patient did have intermittent drops in his O2 sats. On the day of discharge patient had had an O2 sat of 84% on room air at rest overnight. Home oxygen will be arranged. Patient has a history of alcoholism and had not had any drinks for approximately 48 hours prior to presentation to the hospital. While in the hospital he was maintained on Serax to prevent alcohol withdrawal. Objective Vital signs: Temp Pulse Resp BP Pulse Ox 98.4 F 63 18 123/66 95 01/08/20 08:00 01/08/20 08:00 01/08/20 08:00 01/08/20 08:00 01/08/20 08:00 Narrative: On the day of discharge patient is resting comfortably. Lungs are distant but clear without rales, rhonchi, wheezes. Heart has regular rate and rhythm. Ab domen was soft and nontender. Lower extremities had no edema Results Labs on day of discharge: Labs from last 24 hours 01/07/20 01/07/20 06:20 06:20 WBC 5.8 D RBC 3.52 L Hgb 11.7 L Hct 35.3 L MCV 100.1 H MCH 33.3 H MCHC 33.3 RDW 13.9 Plt Count 157 MPV 8.2 Neut % (Auto) 84.3 H Lymph % (Auto) 9.2 L Haines % (Auto) 6.1 Eos % (Auto) 0.3 Baso % (Auto) 0.1 Neut # (Auto) 4.9 Lymph # (Auto) 0.5 L Haines # (Auto) 0.4 Eos # (Auto) 0.0 Baso # (Auto) 0.0 Sodium 128 L Potassium 4.0 Chloride 91 L Carbon Dioxide 34 H Anion Gap 7.0 BUN 10 D Creatinine 0.50 L Estimated Creat Clear 79 Estimated GFR 166 Est GFR ( Amer) 201 D Glucose 141 H Calcium 7.9 L Preliminary micro results at discharge 01/04/20 22:59 Blood Culture - Preliminary Blood NO GROWTH AFTER 48 HOURS 01/04/20 22:59 Blood Culture - Preliminary Blood NO GROWTH AFTER 48 HOURS DS: Diagnosis - Discharge Diagnosis (1) Acute exacerbation of chronic obstructive airways disease Status: Acute (2) Non-STEMI (non-ST elevated myocardial infarction) Status: Acute (3) Smoker Status: Acute (4) Alcohol abuse Status: Acute (5) Hyponatremia Status: Acute (6) Cor pulmonale Status: Acute (7) Cardiomyopathy, alcoholic Status: Acute Discharge Plan - Patient Discharge Instructions ACTIVITY: Continue current activity DIET: continue same diet Patient Instructions: DI for Heart Attack, Heart Attack, Cardiomyopathy, DI for Cardiomyopathy - Follow up Plan Follow up with: Dangelo Shaw MD [Staff Physician] - Disposition: Home, Self-Long-Term Medications: Home Medications Medication Instructions Recorded Confirmed Type Budesonide/Formoterol Fumarate 2 puffs INHALATION BID 01/05/20 01/05/20 History [Symbicort 160-4.5 Mcg Inhaler] Ipratropium/Albuterol Sulfate 3 ml IH QIDP PRN 01/05/20 01/05/20 History [Duoneb 3mL neb] Aspirin [Aspir 81] 81 mg PO DAILY #30 tablet.dr 01/08/20 Rx Losartan Potassium 25 mg PO DAILY #30 tab 01/08/20 Rx Metoprolol Succinate 25 mg PO DAILY #30 tab.er.24h 01/08/20 Rx predniSONE [Deltasone 10mg tablet] 10 mg PO DAILY 5 Days #5 tab 01/08/20 Rx Prescriptions/Medication Reconciliation: New predniSONE [Deltasone 10mg tablet] 10 mg PO DAILY 5 Days #5 tab Losartan Potassium 25 mg PO DAILY #30 tab Metoprolol Succinate 25 mg PO DAILY #30 tab.er.24h Aspirin [Aspir 81] 81 mg PO DAILY #30 tablet.dr Continued Budesonide/Formoterol Fumarate [Symbicort 160-4.5 Mcg Inhaler] 2 puffs INHALATION BID Ipratropium/Albuterol Sulfate [Duoneb 3mL neb] 3 ml IH QIDP PRN PRN Reason: SHORTNESS OF AIR - Problem Reconciliation Problems Reviewed?: Yes
== END 2020-01-08 10:45 | disposition home or self-care (01) | DRG 281 ==
LOC: ER 22:34 → 2ND 01-05 02:58 → ICU 01-05 03:13 → 2ND 01-06 13:40
PROVIDERS: ADMIT Family Medicine; ATTEND Family Medicine
CPT/HCPCS: 36415; 71010; 71045; 71275; 80048; 80076; 81001; 82803; 83605; 83735; 83880; 84295; 84484; 85007; 85025; 85378; 87040; 87070; 87205; 93005; 93306; 93458; 94640; 94760; 94761; 96365; 96367; 96372; 96375; 97116; 97162; 99285; C1725; C1769; J1644; Q9967

== ENCOUNTER → 2020-03-02 06:13 | Outpatient (CLI) | payer BC, SELFPAY ==
--- NOTE | 2020-03-02 | CA_ITS ---
APPROVED REPORT Exam: Pharmacologic Technologist: Kya Juan, Ht: 6 ft 0 in Wt: 160 lbs BSA: 1.94 m2 HR: 93 bpm BP: 117/78 mmHg Rhythm: SINUS RHYTHM WITH PVC'S Medical History Medical History: COPD, HTN, Smoking, SOB Medications: Metoprolol,,,,, Losartan,,,,, SyMBICORT,,,,, Albuterol,,,,, Prednisone,,,,, Prednisone,,,,, Cardiac Risk Factors: HTN, SOB, Smoking Stress Test Details Test: LEXISCAN HR Resting HR: 99 bpm Max Heart Rate (APMHR): 154 bpm Max HR Achieved: 151 bpm Target HR (85% APMHR): 130 bpm % of APMHR: 98 Recovery HR: 98 bpm BP Resting BP: 117/78 mmHg Max BP: 136/63 mmHg Recovery BP: 122.0/66.0 mmHg ECG Resting ECG: SINUS RHYTHMWITH PVC'S Clinical Exercise duration: 04:00 min Highest Stage Achieved: Exercise capacity: 1.0 METs Stress ECG Conclusion LEXISCAN PORTION COMPLETED. PATIENT C/O SOA AT PEAK INFUSION. NO CHEST PAIN. POSITIVE FOR SOA DURING PEAK INFUSION. RESOLVED IN RECOVERY. OCCASIONAL PVC. OCCASIONAL PAC. INTERMITTENT A-FIB ? LESS THAN 1.5MM ST DEPRESSION. IMAGES TO FOLLOW. Electronically signed by : Jam Marion, 03/02/2020 11:38:03
--- NOTE | 2020-03-02 06:23 | NM_ITS ---
APPROVED REPORT Exam: Nuclear Stress Test Indication: cad, mi, tob use, c.p., sob Patient Location: Outpatient Stress Tech: Emelia Mezankson [place] Tech:ALBERTO Barron RT (R)(N)(M) Ht: 6 ft 0 in Wt: 160 lbs HR: 93 bpm BP: 117/78 mmHg BSA: 1.94 m2 History: cad, mi, tob use, c.p., sob Procedure: Patient received a 0.4 mg of intravenous Lexiscan, resting heart rate 93 bpm, resting blood pressure 117/78 mmHg, with Lexiscan maximum heart rate achived was 115 bpm which is Less than 85 % of the maximum predicted heart rate and blood pressure was 136/63 mmHg. With Lexiscan, patient denied any complaint of chest pain. Electrocardiogram Resting electrocardiogram showed sinus rhythm, with Lexiscan there is less than 1.[address] segment depression noted from the baseline EKG, there is intermittent short run of nonsustained supraventricular tachycardia seen. Cardiac Stress and Resting SPECT Images: Cardiac Stress and Resting SPECT images were obtained using technetium 99m Myoview 31.2 mCi stress and 10.29 mCi at rest. Gated SPECT for analysis of segmental wall motion and calculation of the ejection fraction also done. Cardiac stress and resting SPECT images show a fixed defect involving the inferior and inferior apical wall which is consistent left. Of myocardial scarring, in addition there is a small area of reversible defect involving the apex. Computer derived ejection fraction is 60% with mild inferior and inferior apical wall hypokinesis. Right ventricle is mildly enlarged with normal contractility. Conclusion: 1. The EKG portion of the Lexiscan Myoview is nondiagnostic. 2. Scintigraphic evidence of myocardial scarring involving the inferior inferior apical wall, in addition, there is a small area of reversible ischemia involving the apex. Computer derived ejection fraction 60% with segmental wall motion abnormality described above, right ventricle is mildly enlarged with normal contractility. 3. Abnormal Lexiscan Myoview study. Electronically signed by : Jam Marion, 03/02/2020 11:41:56
--- NOTE | 2020-03-02 08:29 | CA_ITS ---
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 Right Ventricle Right atrium and right ventricular mildly enlarged with normal contractility. Aortic Valve Aortic valve is minimally thickened and fibrosed, there is no aortic stenosis. Mitral Valve Mitral valve is grossly normal. Tricuspid Valve Tricuspid valve is grossly normal. Pulmonic Valve No significant pericardial effusion noted. Great Vessels Aortic root is normal size. Pericardium No significant pericardial effusion noted. Conclusion 1. Mild biatrial abdomen, normal left ventricular size, visually estimated ejection fraction 55% with no regional wall motion abnormality. 2. Mildly enlarged right ventricle with normal contractility. 3. No significant pericardial effusion noted 4. Limited study was performed. Electronically signed by : Jam Marion, 03/02/2020 10:25:39
== END ==
PROVIDERS: PCP Family Medicine; Visit Provider Family Medicine
DX: I51.9 Heart disease, unspecified (principal); I21.4 Non-ST elevation (NSTEMI) myocardial infarction
CPT/HCPCS: 78452; 93017; 93308; A9502; J2785

== ENCOUNTER → 2020-04-03 09:57 | Outpatient (CLI) | payer BC, SELFPAY ==
--- NOTE | 2020-04-03 10:04 | CA_ITS ---
APPROVED REPORT EXAM: Limited 2D, Doppler, and color-flow Echocardiogram Content Strategy Lead: Cata Newton RVT Ht: 6 ft 0 in Wt: 151lbs BSA: 1.89 BP: 137/92 mmHg Indications: DEFINITY, CM,ABN EKG,ALCHHOL ABUSE,COPD,SMOKER,HTN Echo Enhancing Agent Indication: Endocardial border delineation Agent(s) / Amount(s) Used: Definity 2 cc Conclusion 1. Difficulty contrast was utilized to delineate the endocardial surfaces. 2. Normal left ventricular size, preserved left ventricular systolic function, visually estimated ejection fraction 55% with no regional wall motion abnormality, there is no left ventricular thrombus seen. Electronically signed by : Jam Marion, 04/03/2020 18:36:53
[2020-04-03 12:31] LABS: Chloride 98 mmol/L (98-107); Sodium 135 mmol/L (136-145)
[2020-04-03 12:34] LABS: Blood Urea Nitrogen 14 mg/dl (9-20); Calcium 8.9 mg/dl (8.4-10.2); Carbon Dioxide 32 mmol/L (22.0-30.0); Estimated Glomerular Filt Rate 113 ml/min (>60); GFR (African American) 137 ML/MIN (>60); Glucose 108 mg/dl (74-100)
[2020-04-03 12:43] LABS: NT Pro Brain Natriuretic Pep. 195 pg/mL (0-125)
== END ==
PROVIDERS: PCP Family Medicine; Visit Provider Internal Medicine Cardiovascular Disease
DX: F10.10 Alcohol abuse, uncomplicated (principal); I42.6 Alcoholic cardiomyopathy; J44.1 Chronic obstructive pulmonary disease with (acute) exacerbation
CPT/HCPCS: 80048; 83880; 93308; Q9957

== ENCOUNTER → 2021-09-13 15:14 | Outpatient (CLI) | payer BC, SELFPAY ==
--- NOTE | 2021-09-16 09:04 | PC.NURSE ---
informed patient that he is positive
== END ==
PROVIDERS: PCP Family Medicine; Visit Provider Nurse Practitioner
DX: U07.1 COVID-19 (principal)
CPT/HCPCS: C9803; U0003; U0005

== ENCOUNTER 2022-08-31 13:35 | Emergency (ER) | payer BC, SELFPAY ==
[2022-08-31 14:35] VITALS: BP 133/76; PULSE 79; RESP 16; TEMP 36.7; O2SAT 96; BMI 21.4
--- NOTE | 2022-08-31 14:59 | EXP.UTC ---
Discharge Plan Disposition Patient Disposition: Home, Self-Care Condition: Good Prescriptions Prescriptions: New azithromycin [azithromycin] 250 mg tablet 250 mg PO DIRECTED Qty: 6 0RF Rx Instructions: Take two (2) tablets on day #1, then one (1) tablet day #2 thru #5 No Action multivitamin Tablet 1 tab PO DAILY losartan 100 mg tablet 100 mg PO DAILY Qty: 30 2RF metoprolol succinate [Toprol XL] 100 mg tablet extended release 24 hr 100 mg PO DAILY Qty: 30 2RF budesonide-formoterol 10.2 GM HFA aerosol inhaler 2 puffs inhalation BID ipratropium-albuterol 3 ML solution for nebulization 3 ml IH QIDP PRN (Reason: SHORTNESS OF AIR) aspirin 81 MG tablet,delayed release (DR/EC) 81 mg PO DAILY Qty: 30 0RF Referrals Follow up/Referrals: María Tirado APRN [Primary Care Provider] - See instructions Activity Restrictions/Add. Instructions Additional Instructions/Restrictions: Start antibiotic patient to take as ordered for a full length of time even if you feel better. Sinus infections do not get better overnight. It may take 2-3 days to notice much improvement so be sure to use conservative measures as discussed for symptoms. Increase fluids Humidifier/vaporizer as needed Tylenol and ibuprofen as needed for fever or pain. If symptoms do not improve or get worse return or be seen in the ER Follow-up with primary care this week Clinical Impressions Clinical Impression: Sinusitis Instructions Patient Instructions: DI for Sinusitis, Sinusitis Discharge ED Provider: Scotty ([facility])Kary [facility] [place] HPI General Stated complaint: cough, congestion, runny nose Mode of Arrival: Ambulatory Source of Information: Patient Limitations: No Limitations Time Seen by Provider: 08/31/22 15:00 Description of Symptoms (Recalled from Triage Doc. by RN): PATIENT C/O PRODUCTIVE COUGH WITH DISCOLORED SPUTUM HEENT Symptoms (Recalled from RN notes): No Resp Symptoms (Recalled from RN notes): Yes Skin Symptoms (Recalled from RN notes): No MS Symptoms (Recalled from RN notes): No Functional Status (Recalled from RN notes): WNL History of Present Illness Provider Complaint: 66 yr old male presents for sinus pressure, sinus congestion and sore throat. pt states he is coughing and blowing out thick green sputum Related Data Home Medications Medication Instructions Recorded Confirmed budesonide-formoterol HFA 160 2 puffs inhalation BID COPD 01/05/20 04/26/20 mcg-4.5 mcg/actuation aerosol inhaler ipratropium 0.5 mg-albuterol 3 mg 3 ml IH QIDP PRN SHORTNESS OF AIR 01/05/20 04/26/20 (2.5 mg base)/3 mL nebulization soln multivitamin 1 tab PO DAILY 04/26/20 04/26/20 Previous Rx's Medication Instructions Recorded aspirin 81 mg tablet,delayed 81 mg PO DAILY ##30 01/08/20 release losartan 100 mg tablet 100 mg PO DAILY #30 tabs 03/29/20 metoprolol succinate 100 mg 100 mg PO DAILY #30 tabs 03/29/20 tablet,extended release 24 hr (Toprol XL) azithromycin 250 mg tablet 250 mg PO DIRECTED #6 tabs 08/31/22 Allergies Allergy/AdvReac Type Severity Reaction Status Date / Time No Known Allergies Allergy Verified 04/26/20 11:41 Worker's Comp Is this a Worker's Comp case?: No PFSH PFSH 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
[2022-08-31 15:08] VITALS: BP 133/76; PULSE 79; RESP 16; TEMP 36.7; O2SAT 96
== END 2022-08-31 15:13 | disposition home or self-care (01) ==
PROVIDERS: Emergency Provider Nurse Practitioner Family; PCP Nurse Practitioner Family
DX: J32.9 Chronic sinusitis, unspecified (principal)
CPT/HCPCS: 99212; G0463

== ENCOUNTER → 2023-07-14 12:06 | Outpatient (CLI) | payer BC, SELFPAY | PROVIDERS: PCP Internal Medicine; Visit Provider Internal Medicine | DX: E11.42 Type 2 diabetes mellitus with diabetic polyneuropathy (principal); E11.59 Type 2 diabetes mellitus with other circulatory complications; I73.9 Peripheral vascular disease, unspecified; I25.10 Atherosclerotic heart disease of native coronary artery without angina pectoris; E78.5 Hyperlipidemia, unspecified; E53.8 Deficiency of other specified B group vitamins; Z12.5 Encounter for screening for malignant neoplasm of prostate ==

== ENCOUNTER 2024-07-25 19:49 | Inpatient (IN) | payer BC, MEDICARE, SELFPAY ==
[2024-07-25] VITALS (11 sets, daily range): BP systolic 110–148; BP diastolic 61–88; PULSE 100–119; RESP 16–28; TEMP 36.6–37.3; O2SAT 90–96; BMI 20.3; BMI 20.2
--- NOTE | 2024-07-25 19:50 | XR_ITS ---
PROCEDURE INFORMATION: Exam: XR Chest Exam date and time: 07/25/2024 8:06 PM Age: 68 years old Clinical indication: Shortness of breath; Additional info: SOA TECHNIQUE: Imaging protocol: Radiologic exam of the chest. Views: 1 view. COMPARISON: CT ANGIO CHEST 01/05/2020 2:10 AM FINDINGS: Lungs: Lungs are hyperinflated. Heterogeneous opacities are seen over both lung bases, right worse than left. Pleural spaces: No pleural effusion. No pneumothorax. Heart/Mediastinum: Cardiac silhouette is normal in size for technique. Bones/joints: Age appropriate. IMPRESSION: Heterogeneous bibasilar airspace opacities suggest pneumonia or significant aspiration event. Background pulmonary hyperinflation.
--- NOTE | 2024-07-25 19:55 | ED_ITS ---
Discharge Plan Disposition Patient Disposition: Admitted Clinical Impressions Clinical Impression: COPD exacerbation, Pneumonia Discharge ED Provider: Shona Joseph HPI General Chief Complaint: Shortness of Breath/Dyspnea Stated Complaint: copd exacerbation Time Seen by Provider: 07/25/24 19:50 History of Present Illness HPI narrative: This patient is a 68-year-old male with a history of COPD on 2.5 L nasal cannula at home, CAD status post stenting, hypertension, and alcoholic cardiomyopathy presenting to the emergency department for evaluation with concern for shortness of breath. He reports that he feels like he may be having a COPD flare. He states that he is been feeling bad for about a week now with increased cough, increased pedal production, and shortness of breath. He called EMS today for shortness of breath and EMS noted that he was on his home oxygen when they got there, however his tubing was extremely long and was kinked. They were not sure that he was getting anything. They placed him on their oxygen and he had a normal O2 saturation. They gave him a DuoNeb en route as well as 125 mg of IV Solu-Medrol. They noted the ECG showed sinus tachycardia with no ST abnormalities. Patient denies any pain at this time, only the shortness of breath and wheezing. Related Data Home Medications ?Medication ?Instructions ?Recorded ?Confirmed multivitamin 1 tab PO DAILY 04/26/20 03/18/24 Previous Rx's ?Medication ?Instructions ?Recorded cefdinir 300 mg capsule 300 mg PO BID 10 days #20 caps 03/18/24 budesonide-formoterol HFA 160 2 puff inhalation BID 30 days 06/17/24 mcg-4.5 mcg/actuation aerosol #10.2 grams inhaler (Symbicort) ipratropium 0.5 mg-albuterol 3 mg 3 ml inhalation Q4-6H PRN 06/17/24 (2.5 mg base)/3 mL nebulization shortness of breath or wheezing 30 soln days #2 ea albuterol sulfate 90 mcg/actuation See Rx Instructions .Route 07/15/24 aerosol inhaler .COMPLEX #8.5 grams Allergies Allergy/AdvReac Type Severity Reaction Status Date / Time No Known Allergies Allergy Verified 03/18/24 15:11 [facility] Disclaimer: The information contained in this section may have been updated after the patient was seen, as this information can be updated by other users. Medical History Dyspnea Abnormal EKG HTN (hypertension) Cardiomyopathy, alcoholic Hyponatremia Non-STEMI (non-ST elevated myocardial infarction) Surgical History History of hernia repair History of right knee surgery Family History Family/Other No significant family history Social History (Updated 07/25/24 @ 22:57 by Krys Aguilera RN) Smoking Status: Current every day smoker tobacco type: cigarettes packs per day: 2 second hand exposure: Yes alcohol intake: current alcohol intake frequency: other substance use type: marijuana, crack/cocaine and amphetamines current occupational status: retired Travel in the last 8 weeks: Inside the [place] household members: spouse housing: house 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 ROS Obtained: Yes All systems reviewed & no additional complaints except as documented Physical Exam General General appearance: alert and cachectic Comment: Mild respiratory distress Head Head exam: atraumatic and normocephalic Eye Eye exam: Present normal appearance, PERRL and EOMI ENT ENT exam: Present normal exam, normal oropharynx, mucous membranes moist and normal external ear exam Neck Neck exam: Present normal inspection, full ROM and trachea midline; Absent tenderness Chest Chest inspection: Present normal inspection and symmetric chest wall rise; Absent tenderness Respiratory Respiratory exam: Present respiratory distress, wheezes, accessory muscle use and prolonged expiratory phase; Absent stridor Cardiovascular Cardiovascular exam: Present normal rhythm and tachycardia Abdominal Exam Abdominal exam: Present soft; Absent distention, tenderness or guarding Extremities Exam Extremities exam: Present normal inspection, full ROM and normal capillary refill; Absent tenderness or edema Back Exam Back exam: Present normal inspection and full ROM; Absent tenderness Neurological Exam Neurological exam: Present alert, oriented X3, CN II-XII intact and normal gait; Absent motor sensory deficit Psychiatric Psychiatric exam: Present normal affect and normal mood Skin Skin exam: Present warm and dry HEART Score HEART Score HEART Score assessment performed?: Yes History (anamnesis): Slightly suspicious ECG: Normal Age: >65 years Risk factors: Atherosclerosis history Troponin: </= normal limit HEART Score: 4 Critical Care Critical Care Time Critical Care Time: No Medical Decision Making Medical Records Medical records reviewed: Yes I reviewed the patient's medical records. [place] Inquiry Pt receiving controlled substance: No Vital Signs Vital Signs: 07/25/24 19:49 07/25/24 20:00 07/25/24 20:09 Temperature 99.1 F Temperature Source Oral Pulse Rate 112 H Pulse Rate [Right Brachial] 110 H Respiratory Rate 28 H 16 Blood Pressure 116/72 Blood Pressure [Right Arm] 148/88 H Blood Pressure Mean 86 Blood Pressure Mean [Right Arm] 108 Blood Pressure Source Blood Pressure Source [Right Arm] Automatic Cuff Blood Pressure Position Blood Pressure Position [Right Arm] Sitting 02 Sat by Pulse Oximetry 96 94 L 96 Oxygen Delivery Method Room Air Nasal Cannula Oxygen Flow Rate (LPM) 3 07/25/24 20:09 07/25/24 20:09 07/25/24 20:30 Temperature Temperature Source Pulse Rate 109 H 106 H 112 H Pulse Rate [Right Brachial] Respiratory Rate 28 H Blood Pressure 110/68 Blood Pressure [Right Arm] Blood Pressure Mean 79 Blood Pressure Mean [Right Arm] Blood Pressure Source Blood Pressure Source [Right Arm] Blood Pressure Position Blood Pressure Position [Right Arm] 02 Sat by Pulse Oximetry 96 Oxygen Delivery Method Nasal Cannula Oxygen Flow Rate (LPM) 3 07/25/24 21:00 07/25/24 21:30 07/25/24 22:00 Temperature Temperature Source Pulse Rate 109 H 101 H Pulse Rate [Right Brachial] Respiratory Rate 17 23 24 Blood Pressure 120/68 116/68 111/61 Blood Pressure [Right Arm] Blood Pressure Mean 82 79 70 Blood Pressure Mean [Right Arm] Blood Pressure Source Blood Pressure Source [Right Arm] Blood Pressure Position Blood Pressure Position [Right Arm] 02 Sat by Pulse Oximetry 90 L 91 L 93 L Oxygen Delivery Method Nasal Cannula Oxygen Flow Rate (LPM) 3 07/25/24 22:10 Temperature 99.0 F Temperature Source Oral Pulse Rate 101 H Pulse Rate [Right Brachial] Respiratory Rate 24 Blood Pressure 111/61 Blood Pressure [Right Arm] Blood Pressure Mean Blood Pressure Mean [Right Arm] Blood Pressure Source Automatic Cuff Blood Pressure Source [Right Arm] Blood Pressure Position Sitting Blood Pressure Position [Right Arm] 02 Sat by Pulse Oximetry Oxygen Delivery Method Nasal Cannula Oxygen Flow Rate (LPM) 3 Lab Data Labs: Lab Results 07/25/24 19:30: WBC 18.8 H, RBC 3.90 L, Hgb 14.2, Hct 44.7, MCV 114.4 H, MCH 36.3 H, MCHC 31.8, RDW 13.3, Plt Count 561 H, MPV 8.8, Neut % (Auto) 87.1 H, L ymph % (Auto) 6.8 L, [place] % (Auto) 5.8, Eos % (Auto) 0.0 L, Baso % (Auto) 0.3, N eut # (Auto) 16.3 H, Lymph # (Auto) 1.3, [place] # (Auto) 1.1 H, Eos # (Auto) 0.0, Baso # (Auto) 0.1, Total Counted 100, Neutrophils % (Manual) 87 H, Lymphocytes % (Manual) 12, Monocytes % (Manual) 1 L, RBC Morphology Normal, D-Dimer 0.92 H, S odium 133 L, Potassium 3.9, Chloride 99, Carbon Dioxide 27, Anion Gap 10.9, BUN 10, Creatinine 0.40 L, Estimated Creat Clear 66, Estimated GFR 213, Est GFR ( Amer) 257, Glucose 108 H, Calcium 9.1, Magnesium 1.7, Total Bilirubin 1.8 H, AST 26, ALT 26, Alkaline Phosphatase 95, Troponin I < 0.01, NT-Pro-B Natriuret Pep 396 H, Total Protein 7.6 D, Albumin 3.8, Globulin 3.8 H, A lbumin/Globulin Ratio 1.0 L 07/25/24 19:50: VBG pH 7.46 H, VBG pCO2 33.8 L, VBG pO2 64.4 H, VBG HCO3 23.5, VBG Total CO2 24.5, VBG O2 Saturation 93.1 H, VBG Base Excess -0.3, VBG Lactic Acid 1.2 07/25/24 19:30 07/25/24 19:30 Response Orders (Tests/Meds): ED MEDICATIONS Discontinued Medications Generic Name Dose Route Start Last Admin Trade Name Freq PRN Reason Stop Dose Admin Albuterol/Ipratropium 9 ml 07/25/24 19:50 07/25/24 20:09 Ipratropium/Albuterol 3 Ml Neb IH 07/25/24 19:51 9 ml ONCE ONE Administration Magnesium Sulfate 2 gm in 50 mls @ 50 mls/hr 07/25/24 20:00 07/25/24 20:09 Magnesium Sulfate 2gm/50ml Premix IV 07/25/24 20:59 50 mls/hr ONCE ONE Administration Ceftriaxone Sodium 2 gm/ 100 mls @ 200 mls/hr 07/25/24 21:40 07/25/24 21:48 Sodium Chloride IV 07/25/24 22:09 200 mls/hr ONCE ONE Administration Azithromycin 500 mg/ Sodium 250 mls @ 250 mls/hr 07/25/24 21:40 07/25/24 22:37 Chloride IV 07/25/24 21:41 250 mls/hr ONCE ONE Administration Sodium Chloride 1,000 mls @ 999 mls/hr 07/25/24 21:41 07/25/24 21:48 Sod Chlor 0.9% 1000ml Bag IV 07/25/24 22:41 999 mls/hr .Q1H1M ONE Administration Iopamidol 70 ml 07/25/24 20:57 07/25/24 20:58 Iopamidol-370 (76%);100ml Bottle IV 07/25/24 20:58 70 ml ONCE ONE Administration Sodium Chloride 50 ml 07/25/24 20:57 07/25/24 20:58 0.9 % Sodium Chloride 50 Ml Vial IV 07/25/24 20:58 50 ml ONCE ONE Administration Sodium Chloride 10 ml 07/25/24 20:57 07/25/24 20:58 Sodium Chloride 0.9% 10ml Syr (Rad Only) IV 07/25/24 20:58 10 ml ONCE ONE Administration ORDERS Category Date Time Status CT angio chest PE protocol Stat Cat Scan 07/25/24 20:26 Completed CXR --portable [XR chest portable] Stat Exams 07/25/24 19:50 Completed BNP [NT Pro Brain Natriuretic Pep.] Stat Lab 07/25/24 19:30 Completed CBC w/Auto Diff [Complete Blood Count Auto Diff] Stat Lab 07/25/24 19:30 Completed CMP [Comprehensive Metabolic Panel] Stat Lab 07/25/24 19:30 Completed D-Dimer Stat Lab 07/25/24 19:30 Completed HIV (1&2) Antibody Rapid Stat Lab 07/25/24 19:30 Received Hep C Ab with Reflex to RNA Stat Lab 07/25/24 19:30 Received Magnesium Stat Lab 07/25/24 19:30 Completed Trop I [Troponin I] Stat Lab 07/25/24 19:30 Completed Troponin I Q3H Lab 07/25/24 23:00 Ordered Troponin I Q3H Lab 07/26/24 02:00 Ordered Blood Culture Stat Micro 07/25/24 20:11 Received VBG [Venous Blood Gas] Stat RT 07/25/24 19:50 Completed ECG Data Tracing #1: Attestation: I reviewed this ECG and interpreted as documented below: ECG Narrative: Sinus tachycardia with occasional premature complexes. No acute ST changes concerning for ischemia. ECG initial impression date: 07/25/24 ECG initial impression time: 20:00 MDM Narrative Medical Decision Narrative: In summary, this patient is a 68-year-old male presenting to the Emergency Department for evaluation of shortness of breath and cough. Differential diagnoses considered include but are not limited to COPD exacerbation, pneumonia, respiratory failure, ACS, CHF. Ruling out the most morbid conditions drove assessment. It should be noted patient's history includes COPD and CAD which may or may not be at goal therapy. This complicates all aspects of care by increasing patient's risk for morbidity. I reviewed patient's past medical records and noted previous evaluations for COPD exacerbation in the past. On exam, the patient is lying in bed in mild respiratory distress with tachypnea, pursed lip breathing, prolonged expiratory phase, and wheezing. He notes that he feels a little bit better after getting 1 DuoNeb and Solu-Medrol with EMS. Workup included lab evaluation to evaluate for infectious and cardiac causes of the patient's symptoms as well as chest x-ray and EKG. EKG does not show any acute ST changes concerning for ischemia. Patient was given DuoNebs x 3 as well as IV magnesium. I independently interpreted chest x-ray prior to the radiologist read and noted concerns for pneumonia. Please see their read for final interpretation. Labs were obtained that demonstrated leukocytosis, elevated D-dimer. Given leukocytosis, tachycardia, tachypnea, patient meets SIRS criteria. He was given 1 L bolus of IV fluids but did not receive a full sepsis bolus, as he has mildly elevated BNP with history of cardiac dysfunction so I feel sepsis bolus could be detrimental. He was given IV Rocephin and azithromycin for coverage of community-acquired pneumonia. Given elevated D- dimer, CT PE was ordered. no PE noted. On reassessment, patient had great improvement after administration of as above. Vitals are reassuring on cardiac telemetry with only mild tachycardia. Oxygen saturation is normal on his home nasal cannula. At this time, it is felt that he is appropriate for admission for sepsis secondary to pneumonia and COPD exacerbation. Patient was admitted in stable condition for further evaluation and management.
--- NOTE | 2024-07-25 19:58 | ECG_ITS ---
APPROVED REPORT Exam: Resting ECG HR:103 bpm ECG Measurements Heart Rate 103 AXES MA 137 P 81 QRSd 80 QRS 31 QT 329 T 49 QTc 389 Conclusion SINUS TACHYCARDIA WITH OCCASIONAL VENTRICULAR PREMATURE COMPLEXES WITH FREQUENT SUPRAVENTRICULAR PREMATURE COMPLEXES LOW QRS VOLTAGE IN EXTREMITY LEADS [QRS DEFLECTION < 0.5 mV IN LIMB LEADS] Electronically signed by : ALISHA GARVEY, 07/25/2024 23:37:54
[2024-07-25 20:05] LABS: Basophils # 0.1 K/mm3 (0-0.2); Basophils % 0.3 % (0.1-2.0); Hematocrit 44.7 % (42.0-52.0); Hemoglobin 14.2 g/dL (14.1-18.0); Lymphocytes # 1.3 K/mm3 (0.7-4.5); Lymphocytes % 6.8 % (10-50); Mean Corpuscular HGB Conc 31.8 g/dL (31.8-35.4); Mean Corpuscular Hemoglobin 36.3 pg (27.0-31.2); Mean Corpuscular Volume 114.4 fl (80-94); Mean Platelet Volume 8.8 fl (7.4-10.4); Monocytes # 1.1 K/mm3 (0.1-1.0); Monocytes % 5.8 % (1.7-9.3); Neutrophils # 16.3 K/mm3 (1.8-7.8); Neutrophils % 87.1 % (37.0-80.0); Platelet Count 561 K/mm3 (142-424); Red Cell Distribution Width 13.3 % (11.5-17.5); White Blood Count 18.8 K/mm3 (4.8-10.8)
[2024-07-25] MEDS: IPRATROPIUM/ALBUTEROL 3 ML NEB 9 ML IH (20:09)
[2024-07-25] MEDS: MAGNESIUM SULFATE IN WATER 2 GM/50 ML PIGGYBACK IV (20:09)
[2024-07-25 20:10] LABS: Albumin Level 3.8 g/dl (3.5-5.0); Chloride 99 mmol/L (98-107); Sodium 133 mmol/L (136-145)
[2024-07-25 20:11] LABS: Potassium 3.9 mmoL/L (3.5-5.1)
[2024-07-25 20:12] LABS: Lactate Venous 1.2 mmol/L (0.4-2.0); VBG Base Excess -0.3 mmol/L (-2.4-2.3); VBG HCO3 23.5 mmol/L (23-30); VBG Oxygen Saturation 93.1 % (50-70); VBG PCO2 33.8 mmol/L (35-51); VBG PH 7.46 mmol/L (7.31-7.41); VBG PO2 64.4 mmol/L (28-40); VBG Total CO2 24.5 mmol/L (23-27)
[2024-07-25 20:13] LABS: Alanine Aminotransferase 26 U/L (12-78); Alkaline Phosphatase 95 U/L (38-126); Anion Gap 10.9 mEq/L (5-15); Aspartate Amino Transferase 26 U/L (17-59); Bilirubin,Total 1.8 mg/dl (0.2-1.3); Blood Urea Nitrogen 10 mg/dl (9-20); Carbon Dioxide 27 mmol/L (22.0-30.0); Creatinine Clearance Estimated 66 mL/min (50-200); Estimated Glomerular Filt Rate 213 ml/min (>60); GFR (African American) 257 ML/MIN (>60); Globulin 3.8 g/dL (1.3-3.2); Total Protein,Serum 7.6 g/dl (6.3-8.2)
[2024-07-25 20:14] LABS: Calcium 9.1 mg/dl (8.4-10.2); Glucose 108 mg/dl (74-100); MANUAL DIFFERENTIAL MANUAL DIFFERENTIAL (MANUAL DIFF)
--- NOTE | 2024-07-25 20:16 | PC.NURSE ---
Collected a Hep C/HIV panel a VBG and blood cultures and sent all of those to the lab
[2024-07-25 20:18] LABS: D-Dimer 0.92 ug/mL (0.0-0.5)
[2024-07-25 20:24] LABS: NT Pro Brain Natriuretic Pep. 396 pg/mL (0-125)
--- NOTE | 2024-07-25 20:26 | CT_ITS ---
PROCEDURE INFORMATION: Exam: CTA Chest With Contrast Exam date and time: 07/25/2024 8:51 PM Age: 68 years old Clinical indication: Shortness of breath; Additional info: Chest pain SOA elevated d-dimer TECHNIQUE: Imaging protocol: Computed tomographic angiography of the chest with contrast. Exam focused on the arteries. 3D rendering (Not supervised by radiologist): MIP and/or 3D reconstructed images were created by the technologist. Radiation optimization: All CT scans at this facility use at least one of these dose optimization techniques: automated exposure control; mA and/or kV adjustment per patient size (includes targeted exams where dose is matched to clinical indication); or iterative reconstruction. Contrast material: ISOVUE; Contrast volume: 70 ml; Contrast route: INTRAVENOUS (IV); COMPARISON: CT ANGIO CHEST 01/05/2020 2:10 AM FINDINGS: Pulmonary arteries: Patient cardiorespiratory motion limits exam sensitivity for small or peripheral emboli, but no large or central emboli are seen. Aorta: Mild calcific plaque. No aortic aneurysm. No aortic dissection or penetrating ulcer. Thyroid: Homogeneous thyroid. Lungs: Severe centrilobular emphysema. Ovoid airspace opacity in the left upper lobe measures 1.5 x 2.4 x 1.8 cm, new from prior exam more than 4 years ago. Extensive bilateral basilar airspace disease as a posterior preponderance although the lingula and right middle lobe are involved. Diffuse bronchial wall thickening with multifocal endobronchial debris. Calcified granuloma right upper lobe. Pleural spaces: Small non loculated bilateral pleural effusions. No pneumothorax on either side. Heart: Unremarkable. No cardiomegaly. No pericardial effusion. Lymph nodes: Non pathologically enlarged mediastinal and hilar lymph nodes are noted. No axillary or supraclavicular adenopathy. Liver: Visualized liver parenchyma is homogeneous. Spleen: Scattered splenic calcifications. Adrenal glands: Normal adrenals. Bones/joints: Unchanged midthoracic compression deformities. No acute fracture or bony destructive lesion. Motion artifact limits assessment of the sternum. Soft tissues: Unremarkable. IMPRESSION: 1. No findings of acute pulmonary embolism; however, of respiratory motion artifact limits assessment the posterior basilar branches. 2. Extensive bibasilar airspace disease is compelling for pneumonia. Non loculated bilateral pleural effusions are noted, and there is multifocal endobronchial debris. Aspiration event is not excluded. 3. Indeterminate ovoid opacity at the left apex is new from prior. Morphology is indeterminate, potentially reflecting scarring, but neoplasm is not excluded. Recommend follow-up to document resolution acute pulmonary opacity and left upper lobe indeterminate opacity after completion of medical therapy. COMMENTS: The presence of pulmonary emphysema on CT is an independent risk factor for lung cancer. In the absence of a history or active diagnosis of lung cancer, it is recommended that this patient with emphysema be evaluated for enrollment in a low dose CT lung cancer screening program.
[2024-07-25 20:30] LABS: Troponin I < 0.01 ng/ml (0.00-0.034)
--- NOTE | 2024-07-25 20:30 | PC.NURSE ---
Pt gave permission to speak to on phone Alexandra gave update on pt condition
[2024-07-25] MEDS: SODIUM CHLORIDE 0.9% 10ML SYR (RAD ONLY) 10 ML IV (20:58)
[2024-07-25] MEDS: IOPAMIDOL-370 (76%);100ML BOTTLE 70 ML IV (20:58)
[2024-07-25] MEDS: 0.9 % SODIUM CHLORIDE 50 ML VIAL IV (20:58)
[2024-07-25 21:35] LABS: Magnesium 1.7 mg/dl (1.6-2.3)
--- NOTE | 2024-07-25 21:40 | PC.NURSE ---
contacted house for bed assignment. dx: copd exac, pneumonia. hospitalist
[2024-07-25] MEDS: CEFTRIAXONE SODIUM 2 GM in 0.9 % SODIUM CHLORIDE 100 ML IV (21:48)
[2024-07-25] MEDS: 0.9 % SODIUM CHLORIDE 1000ML 1,000 ML 999 ML IV (21:48)
[2024-07-25 21:55] LABS: Lymphocytes % 12 % (10-50); Monocytes % 1 % (2-9); Neutrophils % 87 % (42-76); Total Cells Counted 100
[2024-07-25 21:58] LABS: RBC Morphology Normal
--- NOTE | 2024-07-25 22:09 | PC.NURSE ---
Nurse to nurse report to Krys CANAS.
--- NOTE | 2024-07-25 22:35 | PC.NURSE ---
Patient arrived to floor via stretcher from ED at 22:21.
[2024-07-25] MEDS: AZITHROMYCIN 500 MG in 0.9 % SODIUM CHLORIDE 250 ML 250 MG IV (22:37)
--- NOTE | 2024-07-25 23:30 | P.HP_ITS ---
History of Present Illness *Admission Date: 07/25/24 *Reason for visit:: SOB,SPAIN *History of present illness: 68-year-old smoker with COPD on 2 L home oxygen, history of myocardial infarction 45 years ago who presents with SOB, SPAIN x 1 week. Patient states symptoms have gotten progressively worse, and patient visited emergency room for evaluation. Patient also complains of rapid heart rate, and rapid breathing pattern in conjunction with sweating and chills related to shortness of breath. Patient complains of hurting to breathe with left side of lungs hurting worse than right side of his lungs for past few days. CTA chest done emergency room shows no pulmonary embolus, but per my interpretation bibasilar airspace disease indicative of possible pneumonia. White blood count emergency room 18.8. Procalcitonin, CRP, lactic acid ordered by me at time of admission and pending while this note is being written. Denies known sick contacts, abdominal pain, chest pain, known sick contacts, recent travel, ataxia, or blurry vision. [facility] Disclaimer: The information contained in this section may have been updated after the patient was seen, as this information can be updated by other users. Medical History Dyspnea Abnormal EKG HTN (hypertension) Cardiomyopathy, alcoholic Hyponatremia Non-STEMI (non-ST elevated myocardial infarction) Surgical History History of hernia repair History of right knee surgery Family History Family/Other No significant family history Social History (Updated 07/25/24 @ 22:57 by Krys Aguilera RN) Smoking Status: Current every day smoker tobacco type: cigarettes packs per day: 2 second hand exposure: Yes alcohol intake: current alcohol intake frequency: other substance use type: marijuana, crack/cocaine and amphetamines current occupational status: retired Travel in the last 8 weeks: Inside the [place] household members: spouse housing: house 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 Review of Systems Constitutional Constitutional: Reports system reviewed and no additional complaints, except as documented Meds Home Medications and Allergies Home Medications ?Medication ?Instructions ?Recorded ?Confirmed ?Type multivitamin 1 tab PO DAILY 04/26/20 03/18/24 History cefdinir 300 mg capsule 300 mg PO BID 10 days #20 caps 03/18/24 03/18/24 Rx budesonide-formoterol HFA 160 2 puff inhalation BID 30 days 06/17/24 Rx mcg-4.5 mcg/actuation aerosol #10.2 grams inhaler (Symbicort) ipratropium 0.5 mg-albuterol 3 mg 3 ml inhalation Q4-6H PRN 06/17/24 Rx (2.5 mg base)/3 mL nebulization shortness of breath or wheezing 30 soln days #2 ea albuterol sulfate 90 mcg/actuation See Rx Instructions .Route 07/15/24 Rx aerosol inhaler .COMPLEX #8.5 grams New Prescriptions to Start Prescriptions: Allergies Allergy/AdvReac Type Severity Reaction Status Date / Time No Known Allergies Allergy Verified 03/18/24 15:11 Exam Data for Last 24 hours Vital signs and Labs for Last 24 Hours: Temp Pulse Resp BP Pulse Ox O2 Del Method O2 Flow Rate 97.8 F 119 H 20 111/61 95 Nasal Cannula 3 07/25/24 22:43 07/25/24 22:43 07/25/24 22:43 07/25/24 22:43 07/25/24 22:43 07/25/24 23:00 07/25/24 23:00 Laboratory Results - last 24 hr 07/25/24 19:30: WBC 18.8 H, RBC 3.90 L, Hgb 14.2, Hct 44.7, MCV 114.4 H, MCH 36.3 H, MCHC 31.8, RDW 13.3, Plt Count 561 H, MPV 8.8, Neut % (Auto) 87.1 H, Lymph % (Auto) 6.8 L, [place] % (Auto) 5.8, Eos % (Auto) 0.0 L, Baso % (Auto) 0.3, Neut # (Auto) 16.3 H, Lymph # (Auto) 1.3, [place] # (Auto) 1.1 H, Eos # (Auto) 0.0, Baso # (Auto) 0.1, Total Counted 100, Neutrophils % (Manual) 87 H, Lymphocytes % (Manual) 12, Monocytes % (Manual) 1 L, RBC Morphology Normal, D-Dimer 0.92 H, Sodium 133 L, Potassium 3.9, Chloride 99, Carbon Dioxide 27, Anion Gap 10.9, BUN 10, Creatinine 0.40 L, Estimated Creat Clear 66, Estimated GFR 213, Est GFR ( Amer) 257, Glucose 108 H, Calcium 9.1, Magnesium 1.7, Total Bilirubin 1.8 H, AST 26, ALT 26, Alkaline Phosphatase 95, Troponin I < 0.01, NT-Pro-B Natriuret Pep 396 H, Total Protein 7.6 D, Albumin 3.8, Globulin 3.8 H, Alb umin/Globulin Ratio 1.0 L 07/25/24 19:50: VBG pH 7.46 H, VBG pCO2 33.8 L, VBG pO2 64.4 H, VBG HCO3 23.5, VBG Total CO2 24.5, VBG O2 Saturation 93.1 H, VBG Base Excess -0.3, VBG Lactic Acid 1.2 I & O for Last 24 hours: Intake & Output 07/22/24 07/23/24 07/24/24 07/25/24 23:59 23:59 23:59 23:59 Weight 68.039 kg *Routine HEENT Exam Head: Present normocephalic Eye: Present EOMI and normal accommodation ENT: Present mucous membranes moist and mucous membranes dry *Routine Neck Exam Neck: Present supple and full ROM *Routine Respiratory Exam Respiratory: Present decreased breath sounds, prolonged expiratory phase and wheezes (bibasilar wheezes) *Routine Cardiovascular Exam Cardiovascular: Present tachycardia *Routine Abdominal Exam Abdominal: Present soft *Routine Rectal Exam Rectal:: deferred *Routine Genitalia Exam Genitalia:: deferred *Routine Skin Exam Skin: Present intact *Routine Neurological Exam Neurological: Present alert and oriented X3 H&P: Result Impressions CTA Chest: IMPRESSION: 1. No findings of acute pulmonary embolism; however, of respiratory motion artifact limits assessment the posterior basilar branches. 2. Extensive bibasilar airspace disease is compelling for pneumonia. Non loculated bilateral pleural effusions are noted, and there is multifocal endobronchial debris. Aspiration event is not excluded. 3. Indeterminate ovoid opacity at the left apex is new from prior. Morphology is indeterminate, potentially reflecting scarring, but neoplasm is not excluded. Recommend follow-up to document resolution acute pulmonary opacity and left upper lobe indeterminate opacity after completion of medical therapy. Assessment and Plan *Assessment and plan (1) Pneumonia: Status: Acute Category: Medical Code(s): J18.9 - Pneumonia, unspecified organism (2) Acute exacerbation of chronic obstructive airways disease: Status: Acute Category: Medical Code(s): J44.1 - Chronic obstructive pulmonary disease with (acute) exacerbation (3) Smoker: Status: Acute Category: Social Hx Code(s): F17.200 - Nicotine dependence, unspecified, uncomplicated (4) CAD (coronary artery disease): Status: Acute Category: Medical Code(s): I25.10 - Atherosclerotic heart disease of [place] coronary artery without angina pectoris (5) COPD exacerbation: Status: Acute Category: Medical Code(s): J44.1 - Chronic obstructive pulmonary disease with (acute) exacerbation Plan 73-year-old COPD on 2.5 L home oxygen who continues to smoke presents with shortness of breath, tachypnea, tachycardia. CTA chest shows no pulmonary embolus. Patient being admitted for COPD exacerbation secondary pneumonia. Plan as stated below: COPD exacerbation likely due to pneumonia: ? White blood count 18.8, I ordered procalcitonin, lactic acid, CRP all pending at time of this note being written. I also ordered sputum culture, and respiratory PCR panel to further evaluate acute infection causing COPD exacerbation. I started IV Rocephin 1 g every 24 hours x 7 days. I also started doxycycline 100 mg p.o. every 12 hours x 7 days. I ordered albuterol Atrovent nebulization treatments every 6 hours and albuterol nebulization treatments every 4 hours as needed shortness of breath. I also consulted pulmonary to see patient in a.m. for comanagement of patient's COPD e xacerbation. I reviewed CTA chest and pCXR done in emergency room showing bibasilar airspace disease without pulmonary embolus. Active smoker: Nicotine patch as needed. I provided 5 minutes of smoking sensation counseling to the patient during admission assessment. CAD: Reviewed patient's history with and noted patient suffered from myocardial infarction 4 to 5 years ago. Patient also personally confirmed this history. I reviewed EKG noting heart rate 103 bpm, occasional PVCs, low voltage QRS, without signs or symptoms of acute coronary syndrome. I also noted initial BNP 396, but I did not note any signs of pleural effusions or pulmonary vascular congestion on personal review of patient's CTA chest. Troponin I in emergency room < 0.01. I ordered 2 sets of additional troponins every 6 hours x 2 starting at 1 AM 07/26/2024. I also ordered telemetry monitoring for patient during hospitalization. PPx: Lovenox subcutaneous CODE STATUS full FEN: Cardiac diet MDM: [place]: Mod, patient has chronic COPD with acute exacerbation. Data: High, labs/imaging reviewed/ordered as listed in plan section. I personally discussed patient's COPD management with patient, patient's daughter, nursing staff, and patient's at time of hospital admission. I also personally discussed patient's case with the emergency room physician Dr. Joseph and noted that patient did poorly in emergency room after receiving DuoNebs x 2, 2 g magnesium, and IV Rocephin/doxycycline. I ordered sputum culture, respiratory PCR, lactic acid, procalcitonin, and CRP to better evaluate patient's infection status. Complexity: High, I decided to admit patient to hospital due to severity of patient's COPD exacerbation. Patient also requires intensive monitoring on IV Solu-Medrol 40 mg Q6.
[2024-07-25] MEDS: SODIUM CHLORIDE 3% 15ML NEB 3 ML IH (23:39)
[2024-07-25] MEDS: IPRATROPIUM/ALBUTEROL 3 ML NEB IH (23:39)
[2024-07-25] MEDS: DOXYCYCLINE HYCL 100 MG TABLET PO (23:45)
[2024-07-25] MEDS: METHYLPREDNISOLONE SOD SUCC 125MG VIAL 60 MG IV (23:45)
[2024-07-25 23:58] LABS: Troponin I < 0.01 ng/ml (0.00-0.034)
[2024-07-26] VITALS (10 sets, daily range): BP systolic 86–119; BP diastolic 47–74; PULSE 64–100; RESP 14–20; TEMP 36.6–36.7; O2SAT 92–96; BMI 18.1
[2024-07-26 00:13] LABS: C-Reactive Protein 194.1 mg/L (0-4)
[2024-07-26 00:26] LABS: Procalcitonin 0.115 ng/mL (0.0-2.0)
[2024-07-26 00:55] LABS: HIV (1&2) Antibody Rapid NONREACTIVE (NONREACTIVE)
[2024-07-26] MEDS: METHYLPREDNISOLONE SOD SUCC 125MG VIAL 60 MG IV ×2 (05:59→10:30)
[2024-07-26 06:07] LABS: Basophils % 0.1 % (0.1-2.0); Eosinophils % 0.2 % (0.1-12.0); Lymphocytes # 0.5 K/mm3 (0.7-4.5); Mean Corpuscular HGB Conc 32.1 g/dL (31.8-35.4); Mean Corpuscular Hemoglobin 36.7 pg (27.0-31.2); Mean Corpuscular Volume 114.3 fl (80-94); Mean Platelet Volume 8.9 fl (7.4-10.4); Monocytes # 0.2 K/mm3 (0.1-1.0); Monocytes % 1.9 % (1.7-9.3); Neutrophils # 11.4 K/mm3 (1.8-7.8); Neutrophils % 93.8 % (37.0-80.0); Platelet Count 441 K/mm3 (142-424); Red Blood Count 3.41 M/mm3 (4.60-6.20); Red Cell Distribution Width 13.3 % (11.5-17.5); White Blood Count 12.2 K/mm3 (4.8-10.8)
[2024-07-26 06:10] LABS: MANUAL DIFFERENTIAL MANUAL DIFFERENTIAL (MANUAL DIFF)
[2024-07-26 06:11] LABS: Hemoglobin 12.6 g/dL (14.1-18.0)
[2024-07-26 06:21] LABS: Anion Gap 5.5 mEq/L (5-15); Blood Urea Nitrogen 12 mg/dl (9-20); Calcium 8.1 mg/dl (8.4-10.2); Carbon Dioxide 29 mmol/L (22.0-30.0); Chloride 100 mmol/L (98-107); Creatinine Clearance Estimated 59 mL/min (50-200); Estimated Glomerular Filt Rate 164 ml/min (>60); GFR (African American) 199 ML/MIN (>60); Glucose 251 mg/dl (74-100); Potassium 3.5 mmoL/L (3.5-5.1); Sodium 131 mmol/L (136-145)
[2024-07-26] MEDS: IPRATROPIUM/ALBUTEROL 3 ML NEB IH ×3 (06:30→19:32)
[2024-07-26 06:39] LABS: Troponin I < 0.01 ng/ml (0.00-0.034)
[2024-07-26 06:54] LABS: Adenovirus,PCR Not Detected (NotDetected); Bordetella Pertussis Not Detected (NotDetected); Chlamydophila Pneumoniae, PCR Not Detected (NotDetected); Coronavirus 19, PCR Not Detected (NotDetected); Coronavirus 229E Not Detected (NotDetected); Coronavirus NL63 Not Detected (NotDetected); Coronavirus OC43 Not Detected (NotDetected); Coronovirus HKU1,PCR Not Detected (NotDetected); Human Metapneumovirus Not Detected (NotDetected); Influenza A, PCR Not Detected (NotDetected); Influenza AH1, 2009 Not Detected (NotDetected); Influenza AH1, PCR Not Detected (NotDetected); Influenza AH3,PCR Not Detected (NotDetected); Influenza B, PCR Not Detected (NotDetected); Mycoplasma Pneumoniae, PCR Not Detected (NotDetected); Parainfluenza 1, PCR Not Detected (NotDetected); Parainfluenza 2, PCR Not Detected (NotDetected); Parainfluenza 3, PCR Not Detected (NotDetected); Parainfluenza 4, PCR Not Detected (NotDetected); Respiratory Syncytial Virus Not Detected (NotDetected); Rhinovirus/Enterovirus Not Detected (NotDetected)
[2024-07-26 06:57] LABS: Procalcitonin 0.136 ng/mL (0.0-2.0)
--- NOTE | 2024-07-26 08:33 | HMH.PHAINT1 ---
Pharmacy Intervention Comments: MEDICATION RECONCILIATION COMPLETED ON PATIENT USING EXTERNAL FILL HISTORY FROM PHARMACY. -CECILIA KUNZ, AVIVAD
[2024-07-26] MEDS: ENOXAPARIN 40MG/0.4ML SYRINGE 40 MG SQ (08:57)
--- NOTE | 2024-07-26 10:01 | P.CONS_ITS ---
History of Present Illness History of present illness: Mr. Nuñez is a 68-year-old male with reported history of CAD COPD chronic hypoxic respiratory failure on 2 L oxygen supplementation presented to the ER with worsening respiratory distress and was admitted for further evaluation and management. Current smoker greater than [id number] smoking history. Diagnosis of COPD. On Home Symbicort Inhaler. Patient Also Admits Heavy Intake of Alcohol to near Passing out in the Last 2 Months. Concern for Aspiration Pneumonia As Possible Etiology of the Noted Airspace Disease. [facility] Disclaimer: The information contained in this section may have been updated after the patient was seen, as this information can be updated by other users. Medical History (Updated 07/26/24 @ 12:04 by Rosalva Krishnan MD) Acute and chronic respiratory failure with hypoxia Dyspnea Abnormal EKG HTN (hypertension) Cardiomyopathy, alcoholic Hyponatremia Non-STEMI (non-ST elevated myocardial infarction) Surgical History History of hernia repair History of right knee surgery Family History Family/Other No significant family history Social History (Updated 07/25/24 @ 22:57 by Krys Aguilera RN) Smoking Status: Current every day smoker tobacco type: cigarettes packs per day: 2 second hand exposure: Yes alcohol intake: current alcohol intake frequency: other substance use type: marijuana, crack/cocaine and amphetamines current occupational status: retired Travel in the last 8 weeks: [place] the [place] household members: spouse housing: house 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 Review of Systems Constitutional Constitutional: Reports anorexia, Reports body ache(s), Reports fatigue, Denies fever(s) and Reports lethargy Eyes Eyes: Denies eye discharge, Denies dry eyes, Denies irritation and Denies itchy eyes ENT Ears, Nose, Mouth, and Throat: Denies epistaxis, Denies facial pain, Denies lip swelling and Denies throat swelling *Cardiovascular Cardiovascular: Reports dyspnea and Reports dyspnea on exertion *Respiratory Respiratory: Reports change in phlegm color, Reports chest congestion, Reports cough, Reports dyspnea, Reports dyspnea on exertion, Reports excessive phlegm production and Reports wheezing *Gastrointestinal Gastrointestinal: Denies abdominal pain, Denies belching and Denies cramping *Musculoskeletal Musculoskeletal: Reports back pain, Reports myalgias and Reports other (No small joint swelling or Pain) Psychiatric Psychiatric: Denies homicidal ideation and Denies suicidal ideation Endocrine Endocrine: Reports fatigue and Denies heat intolerance Hematologic/Lymphatic Hematologic/Lymphatic: Denies easy bleeding and Denies lymphadenopathy Allergic/Immunologic Allergic/Immunologic: Denies itchy eyes, Denies lip swelling, Denies throat swelling and Reports wheezing Pulmonology Exam Inpatient Vital signs and Labs for Last 24 Hours: Temp Pulse Resp BP Pulse Ox O2 Del Method O2 Flow Rate 98.1 F 64 20 86/47 L 93 L Nasal Cannula 3 07/26/24 08:00 07/26/24 08:00 07/26/24 08:00 07/26/24 08:00 07/26/24 08:00 07/26/24 08:00 07/26/24 08:00 Laboratory Results - last 24 hr 07/25/24 19:30: WBC 18.8 H, RBC 3.90 L, Hgb 14.2, Hct 44.7, MCV 114.4 H, MCH 36.3 H, MCHC 31.8, RDW 13.3, Plt Count 561 H, MPV 8.8, Neut % (Auto) 87.1 H, L ymph % (Auto) 6.8 L, [place] % (Auto) 5.8, Eos % (Auto) 0.0 L, Baso % (Auto) 0.3, N eut # (Auto) 16.3 H, Lymph # (Auto) 1.3, [place] # (Auto) 1.1 H, Eos # (Auto) 0.0, Baso # (Auto) 0.1, Total Counted 100, Neutrophils % (Manual) 87 H, Lymphocytes % (Manual) 12, Monocytes % (Manual) 1 L, RBC Morphology Normal, D-Dimer 0.92 H, S odium 133 L, Potassium 3.9, Chloride 99, Carbon Dioxide 27, Anion Gap 10.9, BUN 10, Creatinine 0.40 L, Estimated Creat Clear 66, Estimated GFR 213, Est GFR ( Amer) 257, Glucose 108 H, Calcium 9.1, Magnesium 1.7, Total Bilirubin 1.8 H, AST 26, ALT 26, Alkaline Phosphatase 95, Troponin I < 0.01, NT-Pro-B Natriuret Pep 396 H, Total Protein 7.6 D, Albumin 3.8, Globulin 3.8 H, A lbumin/Globulin Ratio 1.0 L, HIV 1&2 Antibody Rapid Nonreactive 07/25/24 19:50: VBG pH 7.46 H, VBG pCO2 33.8 L, VBG pO2 64.4 H, VBG HCO3 23.5, VBG Total CO2 24.5, VBG O2 Saturation 93.1 H, VBG Base Excess -0.3, VBG Lactic Acid 1.2 07/25/24 23:04: Troponin I < 0.01 07/25/24 23:30: Lactate 1.0, C-Reactive Protein 194.1 H, Procalcitonin 0.115 07/26/24 05:56: WBC 12.2 H D, RBC 3.41 L, Hgb 12.6 L D, Hct 39.0 L, MCV 114.3 H, MCH 36.7 H, MCHC 32.1, RDW 13.3, Plt Count 441 H, MPV 8.9, Neut % (Auto) 93.8 H, Lymph % (Auto) 4.0 L, [place] % (Auto) 1.9, Eos % (Auto) 0.2, Baso % (Auto) 0.1, N eut # (Auto) 11.4 H, Lymph # (Auto) 0.5 L, [place] # (Auto) 0.2, Eos # (Auto) 0.0, Baso # (Auto) 0.0, Sodium 131 L, Potassium 3.5, Chloride 100, Carbon Dioxide 29, Anion Gap 5.5, BUN 12, Creatinine 0.50 L D, Estimated Creat Clear 59, Estimated GFR 164, Est GFR ( Amer) 199 D, Glucose 251 H D, Calcium 8.1 L, M agnesium 2.0 D, Troponin I < 0.01, C-Reactive Protein 178.0 H, Procalcitonin 0.136 I & O for Labs for Last 24 Hours: Intake & Output 07/23/24 07/24/24 07/25/24 07/26/24 23:59 23:59 23:59 23:59 Intake Total 1470 / 1470 Output Total 400 / 400 Balance 1070 / 1070 Weight 150 lb 0.005 oz 134 lb 6.4 oz Constitutional: Present moderate distress Head: Present normocephalic and atraumatic ENT: Present normal exam, normal oropharynx and mucous membranes moist Neck: Present normal inspection and full ROM Respiratory: Present prolonged expiratory phase, respiratory distress, rhonchi, diminished air movement and able to speak in complete sentences; Absent wheezes Cardiac: Present S1/S2, Tachycardia and radial pulses present GI: Present soft and distention; Absent tenderness or guarding Skin: Present intact; Absent cyanosis or jaundice Neuro: Present alert, awake and oriented x 3 Extremities: Present normal inspection; Absent clubbing or cyanosis Psychiatric: Present normal affect and cooperative Meds Home Medications and Allergies Home Medications ?Medication ?Instructions ?Recorded ?Confirmed ?Type multivitamin 1 tab PO DAILY 04/26/20 07/26/24 History budesonide-formoterol HFA 160 2 puff inhalation BID 30 days 06/17/24 07/26/24 Rx mcg-4.5 mcg/actuation aerosol #10.2 grams inhaler (Symbicort) albuterol sulfate 90 mcg/actuation 2 puff inhalation Q4HP PRN 07/26/24 07/26/24 History aerosol inhaler Shortness Of Breath ipratropium 0.5 mg-albuterol 3 mg 3 ml inhalation Q4HP PRN shortness 07/26/24 07/26/24 History (2.5 mg base)/3 mL nebulization of breath or wheezing soln New Prescriptions to Start Prescriptions: Allergies Allergy/AdvReac Type Severity Reaction Status Date / Time No Known Allergies Allergy Verified 03/18/24 15:11 Results Laboratory Findings 07/26/24 05:56 07/26/24 05:56 PT/INR, D-dimer D-Dimer 0.92 ug/mL (0.0-0.5) H 07/25/24 19:30 Abnormal lab findings: Abnormal Labs 07/25/24 07/25/24 07/25/24 19:30 19:50 23:30 WBC 18.8 H RBC 3.90 L Hgb Hct MCV 114.4 H MCH 36.3 H Plt Count 561 H Neut % (Auto) 87.1 H Lymph % (Auto) 6.8 L Eos % (Auto) 0.0 L Neut # (Auto) 16.3 H Lymph # (Auto) [place] # (Auto) 1.1 H Neutrophils % (Manual) 87 H Monocytes % (Manual) 1 L D-Dimer 0.92 H VBG pH 7.46 H VBG pCO2 33.8 L VBG pO2 64.4 H VBG O2 Saturation 93.1 H Sodium 133 L Creatinine 0.40 L Glucose 108 H Calcium Total Bilirubin 1.8 H C-Reactive Protein 194.1 H NT-Pro-B Natriuret Pep 396 H Globulin 3.8 H Albumin/Globulin Ratio 1.0 L 09/24/24 05:56 WBC 12.2 H D RBC 3.41 L Hgb 12.6 L D Hct 39.0 L MCV 114.3 H MCH 36.7 H Plt Count 441 H Neut % (Auto) 93.8 H Lymph % (Auto) 4.0 L Eos % (Auto) Neut # (Auto) 11.4 H Lymph # (Auto) 0.5 L [place] # (Auto) Neutrophils % (Manual) Monocytes % (Manual) D-Dimer VBG pH VBG pCO2 VBG pO2 VBG O2 Saturation Sodium 131 L Creatinine 0.50 L D Glucose 251 H D Calcium 8.1 L Total Bilirubin C-Reactive Protein 178.0 H NT-Pro-B Natriuret Pep Globulin Albumin/Globulin Ratio Assessment and Plan *Assessment and plan (1) Pneumonia: Status: Acute Category: Medical Code(s): J18.9 - Pneumonia, unspecified organism (2) Acute and chronic respiratory failure with hypoxia: Status: Acute Category: Medical Code(s): J96.21 - Acute and chronic respiratory failure with hypoxia (3) Smoker: Status: Acute Category: Social Hx Code(s): F17.200 - Nicotine dependence, unspecified, uncomplicated Plan Mr. Nuñez is a 68-year-old male with reported history of CAD COPD chronic hypoxic respiratory failure on 2 L oxygen supplementation presented to the ER with worsening respiratory distress and was admitted for further evaluation and management. Current smoker greater than [id number] smoking history. Diagnosis of COPD. On Home Symbicort Inhaler. Patient Also Admits Heavy Intake of Alcohol to near Passing out in the Last 2 Months. Concern for Aspiration Pneumonia As Possible Etiology of the Noted Airspace Disease. Afebrile. Neutrophilic predominant leukocytosis, improving. Venous blood gas upon admission showed hypeocapnic respiratory failure. Chest x-ray upon admission bilateral lower lobe dense consolidative changes, right greater than left. CTA upon admission, no evidence of segmental pulmonary embolism. Bilateral lower lobe consolidative changes with small free-flowing effusions. Concerning new new left upper lobe nodular opacity which was new from her prior CT scan from 2019. Patient noted patient was initiated on treatment for community-acquired mg with ceftriaxone doxycycline along with COPD exacerbation with methylprednisolone 60 mg every 6 hours. Upon initial examination moderate respiratory distress. No significant wheezing noted. On home baseline oxygen supplementation. Plan: -Continue oxygen supplementation to maintain O2 saturation above 90% and above. On home 2 Oxygen supplementation saturating 94% this morning. Initiate Trelegy 100 inhaler along with DuoNebs every 6 hours on as-needed basis Discontinue prednisone Continue ceftriaxone azithromycin pending sputum culture results next
[2024-07-26] MEDS: DOXYCYCLINE HYCL 100 MG TABLET PO ×2 (10:30→22:34)
[2024-07-26 11:06] LABS: Lymphocytes % 6 % (10-50); Macrocytosis 1+; Neutrophils % 94 % (42-76); Platelet Estimate Normal; Total Cells Counted 100
--- NOTE | 2024-07-26 12:08 | SW/DCPLANNER ---
I spoke w/ this patient regarding resources at time of discharge. Patient is interested in stopping drinking but is not currently interested in establishing outpatient/inpatient care. I have provided patient w/ [facility] resource list. I will continue to follow up w/ patient till discharge. Discharge date is unknown at this time.
[2024-07-26] MEDS: FLUTICASONE/UMECLIDIN/VILANTER 100/62.5/25MCG INHALER 1 PUFF IH (12:46)
[2024-07-26] MEDS: MULTIVITAMIN TABLET 1 EACH PO (18:34)
[2024-07-26] MEDS: NICOTINE 21MG/24HR PATCH 21 MG TD (19:59)
--- NOTE | 2024-07-26 20:18 | EXP.ACUTE.PN ---
Subjective *Date: 07/26/24 *Time: 22:55 Interval history: States he is feeling somewhat better. Weaned to 2 to 3 L on rounds. Wears 2 to 3 L at home. CRP still elevated 178. Discussed case with pulmonology, recommend monitoring 1 more night. No nausea or vomiting. No chest pain. Medical Exam Vital signs and Labs for Last 24 Hours: Vital Signs Temp Pulse Pulse Resp BP BP Pulse Ox 07/26/24 19:51 81 07/26/24 19:51 81 07/26/24 19:50 07/26/24 19:00 07/26/24 17:00 07/26/24 16:00 80 07/26/24 16:00 98.0 F 88 18 110/71 94 L 07/26/24 14:28 07/26/24 12:53 07/26/24 12:00 100 H 07/26/24 12:00 98.1 F 84 18 119/74 92 L 07/26/24 11:00 07/26/24 10:50 86 07/26/24 10:50 90 07/26/24 09:00 07/26/24 08:00 07/26/24 08:00 98.1 F 64 20 86/47 L 93 L 07/26/24 08:00 100 H 07/26/24 06:41 07/26/24 06:30 84 07/26/24 06:30 87 07/26/24 06:30 96 07/26/24 05:00 07/26/24 05:00 90 07/26/24 04:00 97.9 F 92 H 14 99/58 L 93 L 07/26/24 03:00 07/26/24 00:57 07/26/24 00:00 97.8 F 98 H 18 110/61 95 07/25/24 23:40 100 H 18 07/25/24 23:40 100 H 07/25/24 23:40 105 H 07/25/24 23:39 95 07/25/24 23:00 07/25/24 22:43 97.8 F 119 H 20 111/61 95 07/25/24 22:10 99.0 F 101 H 24 111/61 07/25/24 22:00 101 H 24 111/61 93 L 07/25/24 21:30 23 116/68 91 L 07/25/24 21:00 109 H 17 120/68 90 L 07/25/24 20:30 112 H 28 H 110/68 96 O2 Del Method O2 Flow Rate 07/26/24 19:51 07/26/24 19:51 07/26/24 19:50 Nasal Cannula 2.5 07/26/24 19:00 Nasal Cannula 2.5 07/26/24 17:00 Nasal Cannula 2.5 07/26/24 16:00 07/26/24 16:00 Nasal Cannula 3 07/26/24 14:28 Nasal Cannula 2.5 07/26/24 12:53 Nasal Cannula 2 07/26/24 12:00 07/26/24 12:00 Nasal Cannula 2 07/26/24 11:00 Nasal Cannula 3 07/26/24 10:50 07/26/24 10:50 07/26/24 09:00 Nasal Cannula 3 07/26/24 08:00 Nasal Cannula 3 07/26/24 08:00 Nasal Cannula 3 07/26/24 08:00 07/26/24 06:41 Nasal Cannula 3 07/26/24 06:30 07/26/24 06:30 07/26/24 06:30 Nasal Cannula 3 07/26/24 05:00 Nasal Cannula 3 07/26/24 05:00 07/26/24 04:00 07/26/24 03:00 Nasal Cannula 3 07/26/24 00:57 Nasal Cannula 3 07/26/24 00:00 Nasal Cannula 3 07/25/24 23:40 07/25/24 23:40 07/25/24 23:40 07/25/24 23:39 Nasal Cannula 3 07/25/24 23:00 Nasal Cannula 3 07/25/24 22:43 Nasal Cannula 3 07/25/24 22:10 Nasal Cannula 3 07/25/24 22:00 Nasal Cannula 3 07/25/24 21:30 07/25/24 21:00 07/25/24 20:30 Nasal Cannula 3 Intake and Output 07/26/24 07/26/24 07/26/24 07:59 15:59 23:59 Intake Total 990 / 2310 840 / 2310 480 / 2310 Output Total 200 / 650 450 / 650 Balance 790 / 1660 390 / 1660 480 / 1660 Intake: Intake, Oral Amount 840 / 1320 480 / 1320 Intake, Total IV Amount 990 / 990 0.9 % Sodium Chloride 1000ML 1, 740 / 740 000 ml @ 999 mls/hr IV .Q1H1M ONE Rx#:[id number] Azithromycin 500 mg In 0.9 % 250 / 250 Sodium Chloride 250 ml @ 250 mls/hr IV ONCE ONE Rx#:[id number] Output: Output, Urine Amount 200 / 650 450 / 650 Other: Number of Unmeasured Voids 0 Weight 60.963 kg Patient Weight 07/26/24 23:59 Weight 60.963 kg Laboratory Results - last 24 hr 07/25/24 00:19: Chlamy pneumoniae PCR Not detected, Adenovirus (PCR) Not detected, B. pertussis DNA (PCR) Not detected, Coronavirus OC43 (PCR) Not detected, Coronavirus HKU1 (PCR) Not detected, Coronavirus 229E (PCR) Not detected, SARS-CoV-2 (PCR) Not detected, Coronavirus NL63 (PCR) Not detected, Human Metapneumovir PCR Not detected, Influenza A (H1) PCR Not detected, Influ A (H1N1/09) PCR Not detected, Influenza A (H3) PCR Not detected, Influenza Type A (PCR) Not detected, Influenza Type B (PCR) Not detected, M. pneumoniae (PCR) Not detected, Parainfluenza 1 (PCR) Not detected, Parainfluenza 2 (PCR) Not detected, Parainfluenza 3 (PCR) Not detected, Parainfluenza 4 (PCR) Not detected, RSV (PCR) Not detected, Entero/Rhino (PCR) Not detected 07/25/24 19:30: Total Counted 100, Neutrophils % (Manual) 87 H, Lymphocytes % (Manual) 12, Monocytes % (Manual) 1 L, RBC Morphology Normal, D-Dimer 0.92 H, Sodium 133 L, Potassium 3.9, Chloride 99, Carbon Dioxide 27, Anion Gap 10.9, BUN 10, Creatinine 0.40 L, Estimated Creat Clear 66, Estimated GFR 213, Est GFR ( Amer) 257, Glucose 108 H, Calcium 9.1, Magnesium 1.7, Total Bilirubin 1.8 H, AST 26, ALT 26, Alkaline Phosphatase 95, Troponin I < 0.01, NT-Pro-B Natriuret Pep 396 H, Total Protein 7.6 D, Albumin 3.8, Globulin 3.8 H, Albumin/Globulin Ratio 1.0 L, HIV 1&2 Antibody Rapid Nonreactive 07/25/24 23:04: Troponin I < 0.01 07/25/24 23:30: Lactate 1.0, C-Reactive Protein 194.1 H, Procalcitonin 0.115 07/26/24 05:56: WBC 12.2 H D, RBC 3.41 L, Hgb 12.6 L D, Hct 39.0 L, MCV 114.3 H, MCH 36.7 H, MCHC 32.1, RDW 13.3, Plt Count 441 H, MPV 8.9, Neut % (Auto) 93.8 H, Lymph % (Auto) 4.0 L, [place] % (Auto) 1.9, Eos % (Auto) 0.2, Baso % (Auto) 0.1, Neut # (Auto) 11.4 H, Lymph # (Auto) 0.5 L, [place] # (Auto) 0.2, Eos # (Auto) 0.0, Baso # (Auto) 0.0, Total Counted 100, Neutrophils % (Manual) 94 H, Lymphocytes % (Manual) 6 L, Platelet Estimate Normal, RBC Morphology Not Reportable, Macrocytosis 1+, Sodium 131 L, Potassium 3.5, Chloride 100, Carbon Dioxide 29, Anion Gap 5.5, BUN 12, Creatinine 0.50 L D, Estimated Creat Clear 59, Estimated GFR 164, Est GFR ( Amer) 199 D, Glucose 251 H D, Calcium 8.1 L, Magnesium 2.0 D, Troponin I < 0.01, C-Reactive Protein 178.0 H, Procalcitonin 0.136 I & O for Labs for Last 24 Hours: Intake & Output 07/23/24 07/24/24 07/25/24 07/26/24 23:59 23:59 23:59 23:59 Intake Total 2310 / 2310 Output Total 650 / 650 Balance 1660 / 1660 Weight 68.039 kg 60.963 kg Microbiology Reports for the Last 24 Hours: Microbiology 07/26/24 00:59 Sputum - Expectorated Sputum Gram Stain - Final Constitutional: Present no acute distress, thin and chronically ill appearing Head: Present atraumatic and normocephalic ENT: Present normal exam Respiratory: Present prolonged expiratory phase, rhonchi, wheezes and normal respiratory effort; Absent crackles Cardiac: Present Reg Rate and Rhythm GI: Present soft and normal bowel sounds; Absent distention or tenderness Extremities: Present normal inspection and full ROM Skin: Present intact; Absent erythema Neuro: Present Grossly Intact, alert, awake, oriented x 3 and moves all extremities Assessment and Plan *Assessment and plan (1) Pneumonia: Status: Acute Category: Medical Code(s): J18.9 - Pneumonia, unspecified organism (2) Acute exacerbation of chronic obstructive airways disease: Status: Acute Category: Medical Code(s): J44.1 - Chronic obstructive pulmonary disease with (acute) exacerbation (3) Smoker: Status: Acute Category: Social Hx Code(s): F17.200 - Nicotine dependence, unspecified, uncomplicated (4) CAD (coronary artery disease): Status: Acute Category: Medical Code(s): I25.10 - Atherosclerotic heart disease of [place] coronary artery without angina pectoris (5) COPD exacerbation: Status: Acute Category: Medical Code(s): J44.1 - Chronic obstructive pulmonary disease with (acute) exacerbation Plan 73-year-old COPD on 2.5 L home oxygen who continues to smoke presents with shortness of breath, tachypnea, tachycardia. CTA chest shows no pulmonary embolus. Patient being admitted for COPD exacerbation secondary pneumonia. Plan as stated below: COPD exacerbation pneumonia: - Continue supplemental oxygen with goal sats greater 90%. Currently on 2 L. Initiate Trelegy 100 inhaler. Continue DuoNebs every 6 hours as needed. Recommend continuing ceftriaxone and azithromycin for pneumonia. Discontinue prednisone -Discussed case with pulmonology, continue antibiotics as above. White count improved to 12.2. Repeat CBC, CMP, magnesium ordered for the morning. -CRP elevated 178, down from 194 on admission. Pro-Dereje 0.136. -Sputum pending Active smoker: Nicotine patch as needed. I provided 5 minutes of smoking sensation counseling to the patient during admission assessment. CAD: Reviewed patient's history with and noted patient suffered from myocardial infarction 4 to 5 years ago. Patient also personally confirmed this history. I reviewed EKG noting heart rate 103 bpm, occasional PVCs, low voltage QRS, without signs or symptoms of acute coronary syndrome. I also noted initial BNP 396, but I did not note any signs of pleural effusions or pulmonary vascular congestion on personal review of patient's CTA chest. Troponin I in emergency room < 0.01. I ordered 2 sets of additional troponins every 6 hours x 2 starting at 1 AM 07/26/2024. I also ordered telemetry monitoring for patient during hospitalization. PPx: Lovenox subcutaneous CODE STATUS full FEN: Cardiac diet
[2024-07-26] MEDS: CEFTRIAXONE SODIUM 1 GM in 0.9 % SODIUM CHLORIDE 50 ML IV (22:04)
[2024-07-27] VITALS (8 sets, daily range): BP systolic 101–126; BP diastolic 67–78; PULSE 70–110; RESP 16–22; TEMP 36.6–36.7; O2SAT 93–98; BMI 18.3
--- NOTE | 2024-07-27 04:39 | PC.NURSE ---
Patient has remained alert and oriented x4 this shift. While resting, patient has maintained o2 level >90% with 2.5L NC, but when patient ambulated to/from restroom he became short of breath and o2 levels dropped to low 80s. Lung sounds diminished with wheezing noted. NSR on tele. CIWA scores q4h have scored less than 8. Patient has been awake most of the night, he states this is normal for him and that he will sleep about 20 minutes and then be awake for hours. Nicotine patch placed to right upper arm at approximately 2000. No needs expressed this shift. Call light within reach.
--- NOTE | 2024-07-27 06:07 | EXP.EVENT.NO ---
Patient admitted to nursing at home I frequently drink until I pass out. Patient's CIWA score is less than [address] formally [address] patient on CIWA, and write for PRN Ativan for CIWA scores greater than 8.
[2024-07-27] MEDS: FLUTICASONE/UMECLIDIN/VILANTER 100/62.5/25MCG INHALER 1 PUFF IH (06:39)
[2024-07-27] MEDS: IPRATROPIUM/ALBUTEROL 3 ML NEB IH ×2 (06:39→15:10)
[2024-07-27 06:58] LABS: Anion Gap 1.7 mEq/L (5-15); Blood Urea Nitrogen 14 mg/dl (9-20); Calcium 8.1 mg/dl (8.4-10.2); Carbon Dioxide 30 mmol/L (22.0-30.0); Chloride 101 mmol/L (98-107); Creatinine Clearance Estimated 60 mL/min (50-200); Estimated Glomerular Filt Rate 164 ml/min (>60); GFR (African American) 199 ML/MIN (>60); Glucose 136 mg/dl (74-100); Magnesium 1.7 mg/dl (1.6-2.3); Potassium 3.7 mmoL/L (3.5-5.1); Sodium 129 mmol/L (136-145)
[2024-07-27 07:11] LABS: Basophils % 0.1 % (0.1-2.0); Eosinophils % 0.1 % (0.1-12.0); Hematocrit 34.4 % (42.0-52.0); Lymphocytes # 1.1 K/mm3 (0.7-4.5); Lymphocytes % 8.2 % (10-50); Mean Corpuscular HGB Conc 32.7 g/dL (31.8-35.4); Mean Corpuscular Hemoglobin 36.5 pg (27.0-31.2); Mean Corpuscular Volume 111.5 fl (80-94); Mean Platelet Volume 7.6 fl (7.4-10.4); Monocytes # 0.7 K/mm3 (0.1-1.0); Monocytes % 4.9 % (1.7-9.3); Neutrophils # 11.8 K/mm3 (1.8-7.8); Neutrophils % 86.6 % (37.0-80.0); Platelet Count 439 K/mm3 (142-424); Red Blood Count 3.08 M/mm3 (4.60-6.20); White Blood Count 13.7 K/mm3 (4.8-10.8)
[2024-07-27 07:14] LABS: MANUAL DIFFERENTIAL MANUAL DIFFERENTIAL (MANUAL DIFF)
[2024-07-27 07:55] LABS: C-Reactive Protein 71.3 mg/L (0-4)
--- NOTE | 2024-07-27 08:05 | EXP.DC.SUM ---
General Admission date:: 07/25/24 Discharge date: 07/27/24 HPI HPI HPI: 68-year-old smoker with COPD on 2 L home oxygen, history of myocardial infarction 45 years ago who presents with SOB, SPAIN x 1 week. Patient states symptoms have gotten progressively worse, and patient visited emergency room for evaluation. Patient also complains of rapid heart rate, and rapid breathing pattern in conjunction with sweating and chills related to shortness of breath. Patient complains of hurting to breathe with left side of lungs hurting worse than right side of his lungs for past few days. CTA chest done emergency room shows no pulmonary embolus, but per my interpretation bibasilar airspace disease indicative of possible pneumonia. White blood count emergency room 18.8. Procalcitonin, CRP, lactic acid ordered by me at time of admission and pending while this note is being written. Denies known sick contacts, abdominal pain, chest pain, known sick contacts, recent travel, ataxia, or blurry vision. Hospital Course Hospital Course Hospital Course: 73-year-old COPD on 2.5 L home oxygen who continues to smoke presents with shortness of breath, tachypnea, tachycardia. CTA chest shows no pulmonary embolus. Patient being admitted for COPD exacerbation secondary pneumonia. Showing improvement during admission. Stable to discharge home with outpatient follow-up. Pulmonology assisted with care. Problems addressed as follows: COPD exacerbation pneumonia: - Continue supplemental oxygen with goal sats greater 90%. Remained on 2 L during admission. Pulmonology evaluated. Recommend initiating Trelegy 100 inhaler. DuoNebs during admission. Resume nebulizer/rescue inhaler at discharge. Recommend transitioning to cefdinir and azithromycin to complete 5 days of antibiotic therapy. White count stable at 13.7 on day of discharge. Plan for close follow-up with pulmonology in the coming weeks. CRP improving, down from 194 on admission to 71 on day of discharge. Pro-Dereje remains low. Sputum still pending. Given improvement, will discharge home on baseline oxygen with home health for further management. Active smoker: Nicotine patch as needed. Strongly encouraged to quit smoking CAD: Reviewed patient's history with and noted patient suffered from myocardial infarction 4 to 5 years ago. Patient also personally confirmed this history. I reviewed EKG noting heart rate 103 bpm, occasional PVCs, low voltage QRS, without signs or symptoms of acute coronary syndrome. I also noted initial BNP 396, but I did not note any signs of pleural effusions or pulmonary vascular congestion on personal review of patient's CTA chest. Troponin I in emergency room < 0.01. I ordered 2 sets of additional troponins every 6 hours x 2 starting at 1 AM 07/26/2024. Monitored on telemetry during admission. Troponins remain negative. No events during hospitalization. Therapy evaluated on day of discharge. Would benefit from home health. Also prescribed new oxygen order as he said his oxygen order at home is old and he needs his concentrator evaluated. Patient was unable to go without oxygen due to desats into the mid 80s on room air. Continues to necessitate 2 L oxygen chronically. Total time spent on discharge 32 minutes in counseling, documentation, chart review, and direct care with patient. Exam Data for Last 24 hours Vital signs and Labs for Last 24 Hours: Temp Pulse Resp BP Pulse Ox O2 Del Method O2 Flow Rate 98.1 F 84 17 112/67 94 L Nasal Cannula 2 07/27/24 08:00 07/27/24 08:00 07/27/24 08:00 07/27/24 08:00 07/27/24 08:00 07/27/24 08:00 07/27/24 08:00 Laboratory Results - last 24 hr 07/25/24 00:19: Chlamy pneumoniae PCR Not detected, Adenovirus (PCR) Not detected, B. pertussis DNA (PCR) Not detected, Coronavirus OC43 (PCR) Not detected, Coronavirus HKU1 (PCR) Not detected, Coronavirus 229E (PCR) Not detected, SARS-CoV-2 (PCR) Not detected, Coronavirus NL63 (PCR) Not detected, Human Metapneumovir PCR Not detected, Influenza A (H1) PCR Not detected, Influ A (H1N1/09) PCR Not detected, Influenza A (H3) PCR Not detected, Influenza Type A (PCR) Not detected, Influenza Type B (PCR) Not detected, M. pneumoniae (PCR) Not detected, Parainfluenza 1 (PCR) Not detected, Parainfluenza 2 (PCR) Not detected, Parainfluenza 3 (PCR) Not detected, Parainfluenza 4 (PCR) Not detected, RSV (PCR) Not detected, Entero/Rhino (PCR) Not detected 07/26/24 05:56: Total Counted 100, Neutrophils % (Manual) 94 H, Lymphocytes % (Manual) 6 L, Platelet Estimate Normal, RBC Morphology Not Reportable, Macrocytosis 1+ 07/27/24 05:44: WBC 13.7 H, RBC 3.08 L, Hct 34.4 L, MCV 111.5 H, MCH 36.5 H, MCHC 32.7, RDW 13.0, Plt Count 439 H, MPV 7.6, Neut % (Auto) 86.6 H, Lymph % (Auto) 8.2 L, [place] % (Auto) 4.9, Eos % (Auto) 0.1, Baso % (Auto) 0.1, Neut # (Auto) 11.8 H, Lymph # (Auto) 1.1, [place] # (Auto) 0.7, Eos # (Auto) 0.0, Baso # (Auto) 0.0, Sodium 129 L, Potassium 3.7, Chloride 101, Carbon Dioxide 30, Anion Gap 1.7 L, BUN 14, Creatinine 0.50 L, Estimated Creat Clear 60, Estimated GFR 164, Est GFR ( Amer) 199, Glucose 136 H D, Calcium 8.1 L, Magnesium 1.7 D, C-Reactive Protein 71.3 H D I & O for Last 24 hours: Intake & Output 07/24/24 07/25/24 07/26/24 07/27/24 23:59 23:59 23:59 23:59 Intake Total 2360 / 2360 200 / 200 Output Total 875 / 875 500 / 500 Balance 1485 / 1485 -300 / -300 Weight 68.039 kg 60.963 kg 61.49 kg Microbiology Reports for the Last 24 Hours: Microbiology 07/25/24 20:11 Blood Blood Culture - Preliminary NO GROWTH AFTER 24 HOURS 07/25/24 20:11 Blood Blood Culture - Preliminary NO GROWTH AFTER 24 HOURS 07/26/24 00:59 Sputum - Expectorated Sputum Gram Stain - Final Constitutional Constitutional: no acute distress, thin, chronically ill appearing and cooperative *Routine HEENT Exam Head: Present normocephalic Eye: Present EOMI and PERRL ENT: Present mucous membranes moist *Routine Neck Exam Neck: Present supple; Absent lymphadenopathy *Routine Respiratory Exam Respiratory: Present prolonged expiratory phase, wheezes and diminished air movement; Absent rhonchi or crackles *Routine Cardiovascular Exam Cardiovascular: Present RRR *Routine Abdominal Exam Abdominal: Present soft and normoactive bowel sounds; Absent tenderness *Routine Rectal Exam Patient deferred: visual exam *Routine Exam Patient deferred: penile exam *Routine Extremities Exam Extremities: Absent cyanosis, clubbing or edema Comments: thin; Thenar wasting *Routine Skin Exam Skin: Present warm; Absent rash *Routine Neurological Exam Neurological: Present alert, oriented X3 and moving all extremities; Absent altered mental status Comments: tremor at rest Results Data Completed and Pending Labs on day of discharge: Labs from last 24 hours 07/27/24 07/26/24 07/25/24 05:44 05:56 00:19 WBC 13.7 H RBC 3.08 L Hct 34.4 L MCV 111.5 H MCH 36.5 H MCHC 32.7 RDW 13.0 Plt Count 439 H MPV 7.6 Neut % (Auto) 86.6 H Lymph % (Auto) 8.2 L [place] % (Auto) 4.9 Eos % (Auto) 0.1 Baso % (Auto) 0.1 Neut # (Auto) 11.8 H Lymph # (Auto) 1.1 [place] # (Auto) 0.7 Eos # (Auto) 0.0 Baso # (Auto) 0.0 Total Counted 100 Neutrophils % (Manual) 94 H Lymphocytes % (Manual) 6 L Platelet Estimate Normal RBC Morphology Not Reportable Macrocytosis 1+ Sodium 129 L Potassium 3.7 Chloride 101 Carbon Dioxide 30 Anion Gap 1.7 L BUN 14 Creatinine 0.50 L Estimated Creat Clear 60 Estimated GFR 164 Est GFR ( Amer) 199 Glucose 136 H D Calcium 8.1 L Magnesium 1.7 D C-Reactive Protein 71.3 H D Chlamy pneumoniae PCR Not detected Adenovirus (PCR) Not detected B. pertussis DNA (PCR) Not detected Coronavirus OC43 (PCR) Not detected Coronavirus HKU1 (PCR) Not detected Coronavirus 229E (PCR) Not detected SARS-CoV-2 (PCR) Not detected Coronavirus NL63 (PCR) Not detected Human Metapneumovir PCR Not detected Influenza A (H1) PCR Not detected Influ A (H1N1/09) PCR Not detected Influenza A (H3) PCR Not detected Influenza Type A (PCR) Not detected Influenza Type B (PCR) Not detected M. pneumoniae (PCR) Not detected Parainfluenza 1 (PCR) Not detected Parainfluenza 2 (PCR) Not detected Parainfluenza 3 (PCR) Not detected Parainfluenza 4 (PCR) Not detected RSV (PCR) Not detected Entero/Rhino (PCR) Not detected Preliminary micro results at discharge 07/25/24 20:11 Blood Culture - Preliminary Blood NO GROWTH AFTER 24 HOURS 07/25/24 20:11 Blood Culture - Preliminary Blood NO GROWTH AFTER 24 HOURS DS: Diagnosis Discharge Diagnosis (1) Pneumonia: Status: Acute Code(s): J18.9 - Pneumonia, unspecified organism (2) Acute exacerbation of chronic obstructive airways disease: Status: Acute Code(s): J44.1 - Chronic obstructive pulmonary disease with (acute) exacerbation (3) Smoker: Status: Acute Code(s): F17.200 - Nicotine dependence, unspecified, uncomplicated (4) CAD (coronary artery disease): Status: Acute Code(s): I25.10 - Atherosclerotic heart disease of [place] coronary artery without angina pectoris (5) COPD exacerbation: Status: Acute Code(s): J44.1 - Chronic obstructive pulmonary disease with (acute) exacerbation Meds Home Medications and Allergies Home Medications ?Medication ?Instructions ?Recorded ?Confirmed ?Type multivitamin 1 tab PO DAILY 04/26/20 07/26/24 History albuterol sulfate 90 mcg/actuation 2 puff inhalation Q4HP PRN 07/26/24 07/26/24 History aerosol inhaler Shortness Of Breath ipratropium 0.5 mg-albuterol 3 mg 3 ml inhalation Q4HP PRN shortness 07/26/24 07/26/24 History (2.5 mg base)/3 mL nebulization of breath or wheezing soln azithromycin 250 mg tablet 500 mg (2 x 250 mg) PO DAILY 3 07/27/24 Rx days #6 tabs cefdinir 300 mg capsule 300 mg PO BID 3 days #6 caps 07/27/24 Rx fluticasone fur. 100 mcg-umeclid 1 inh inhalation DAILY #60 ea 07/27/24 Rx 62.5 mcg-vilant 25 mcg inhalat.powder (Trelegy Ellipta) nicotine 21 mg/24 hr daily 21 mg transdermal DAILYP PRN 07/27/24 Rx transdermal patch Nicotine Cravings #28 ea New Prescriptions to Start Prescriptions: Yrn Granados cefdinir Yrn Lawrence [id number] [Trelegy Ellipta] Yrn Lawrence nicotine Yrn Lawrence Allergies Allergy/AdvReac Type Severity Reaction Status Date / Time No Known Allergies Allergy Verified 03/18/24 15:11 Discharge Plan Disposition Patient Disposition: Home Health Service Condition: Fair Discharge Order Discharge Orders: Discharge Order (Routine); Ordered 07/27/24 Ordered By: Yrn Lawrence Follow up Plan Follow up with: María Tirado APRN [Primary Care Provider] - 08/03/24 10:45 am Rosalva Krishnan MD [Physician] - 08/09/24 1:00 pm Prescriptions/Medication Reconciliation: New Trelegy Ellipta 100-62.5-25 mcg Blister With Device 1 inh inhalation DAILY Qty: 60 0RF nicotine 21 mg/24 hr Patch 24 Hour 21 mg transdermal DAILYP PRN (Reason: Nicotine Cravings) Qty: 28 0RF azithromycin 250 mg Tablet 500 mg PO DAILY 3 Days Qty: 6 0RF cefdinir 300 mg capsule 300 mg PO BID 3 Days Qty: 6 0RF Continued multivitamin Tablet 1 tab PO DAILY ipratropium-albuterol 0.5 mg-3 mg(2.5 mg base)/3 mL solution for nebulization 3 ml inhalation Q4HP PRN (Reason: shortness of breath or wheezing) albuterol sulfate 90 mcg/actuation HFA aerosol inhaler 2 puff inhalation Q4HP PRN (Reason: Shortness Of Breath) Discontinued budesonide-formoterol [Symbicort] 160-4.5 mcg/actuation HFA aerosol inhaler 2 puff inhalation BID 30 Days Qty: 10.2 6RF Other Ambulatory Orders: Home Medical Equipment (Routine) Location: None Selected Ordered By: Yrn Lawrence Problem Reconciliation Problems Reviewed?: Yes Patient Discharge Instructions ACTIVITY: Continue current activity DIET: continue same diet Patient Instructions: DI for Chronic Obstructive Pulmonary Disease Print Language: Sami Providers Primary Care Provider: María Tirado Admit Provider: Ace Amanda Attending Provider: Ace Amanda
[2024-07-27 08:08] LABS: Procalcitonin 0.116 ng/mL (0.0-2.0)
[2024-07-27] MEDS: ENOXAPARIN 40MG/0.4ML SYRINGE 40 MG SQ (08:20)
[2024-07-27] MEDS: AZITHROMYCIN 250MG TABLET 500 MG PO (08:29)
--- NOTE | 2024-07-27 09:57 | P.PN_ITS ---
Subjective *Date: 07/27/24 *Time: 12:01 Interval history: No acute respiratory vents overnight. Patient denies any new respiratory complaints. Pulmonology Exam Inpatient Vital signs and Labs for Last 24 Hours: Temp Pulse Resp BP Pulse Ox O2 Del Method O2 Flow Rate 98.1 F 84 17 112/67 94 L Nasal Cannula 2.5 07/27/24 08:00 07/27/24 08:00 07/27/24 08:00 07/27/24 08:00 07/27/24 08:00 07/27/24 09:00 07/27/24 09:00 Laboratory Results - last 24 hr 07/25/24 00:19: Chlamy pneumoniae PCR Not detected, Adenovirus (PCR) Not detected, B. pertussis DNA (PCR) Not detected, Coronavirus OC43 (PCR) Not detected, Coronavirus HKU1 (PCR) Not detected, Coronavirus 229E (PCR) Not detected, SARS-CoV-2 (PCR) Not detected, Coronavirus NL63 (PCR) Not detected, Human Metapneumovir PCR Not detected, Influenza A (H1) PCR Not detected, Influ A (H1N1/09) PCR Not detected, Influenza A (H3) PCR Not detected, Influenza Type A (PCR) Not detected, Influenza Type B (PCR) Not detected, M. pneumoniae (PCR) Not detected, Parainfluenza 1 (PCR) Not detected, Parainfluenza 2 (PCR) Not detected, Parainfluenza 3 (PCR) Not detected, Parainfluenza 4 (PCR) Not det ected, RSV (PCR) Not detected, Entero/Rhino (PCR) Not detected 07/26/24 05:56: Total Counted 100, Neutrophils % (Manual) 94 H, Lymphocytes % ( Manual) 6 L, Platelet Estimate Normal, RBC Morphology Not Reportable, Macrocytosis 1+ 07/27/24 05:44: WBC 13.7 H, RBC 3.08 L, Hct 34.4 L, MCV 111.5 H, MCH 36.5 H, MCHC 32.7, RDW 13.0, Plt Count 439 H, MPV 7.6, Neut % (Auto) 86.6 H, Lymph % (Auto) 8.2 L, [place] % (Auto) 4.9, Eos % (Auto) 0.1, Baso % (Auto) 0.1, Neut # (Auto) 11.8 H, Lymph # (Auto) 1.1, [place] # (Auto) 0.7, Eos # (Auto) 0.0, Baso # (Auto) 0.0, Sodium 129 L, Potassium 3.7, Chloride 101, Carbon Dioxide 30, Anion Gap 1.7 L, BUN 14, Creatinine 0.50 L, Estimated Creat Clear 60, Estimated GFR 164, Est GFR ( Amer) 199, Glucose 136 H D, Calcium 8.1 L, Magnesium 1.7 D, C-Reactive Protein 71.3 H D, Procalcitonin 0.116 Temp Pulse Resp BP Pulse Ox O2 Del Method O2 Flow Rate 98.1 F 64 20 86/47 L 93 L Nasal Cannula 3 07/26/24 08:00 07/26/24 08:00 07/26/24 08:00 07/26/24 08:00 07/26/24 08:00 07/26/24 08:00 07/26/24 08:00 Laboratory Results - last 24 hr 07/25/24 19:30: WBC 18.8 H, RBC 3.90 L, Hgb 14.2, Hct 44.7, MCV 114.4 H, MCH 36.3 H, MCHC 31.8, RDW 13.3, Plt Count 561 H, MPV 8.8, Neut % (Auto) 87.1 H, Lymph % (Auto) 6.8 L, [place] % (Auto) 5.8, Eos % (Auto) 0.0 L, Baso % (Auto) 0.3, Neut # (Auto) 16.3 H, Lymph # (Auto) 1.3, [place] # (Auto) 1.1 H, Eos # (Auto) 0.0, Baso # (Auto) 0.1, Total Counted 100, Neutrophils % (Manual) 87 H, Lymphocytes % (Manual) 12, Monocytes % (Manual) 1 L, RBC Morphology Normal, D-Dimer 0.92 H, Sodium 133 L, Potassium 3.9, Chloride 99, Carbon Dioxide 27, Anion Gap 10.9, BUN 10, Creatinine 0.40 L, Estimated Creat Clear 66, Estimated GFR 213, Est GFR ( Amer) 257, Glucose 108 H, Calcium 9.1, Magnesium 1.7, Total Bilirubin 1.8 H, AST 26, ALT 26, Alkaline Phosphatase 95, Troponin I < 0.01, NT-Pro-B Natriuret Pep 396 H, Total Protein 7.6 D, Albumin 3.8, Globulin 3.8 H, Albumin/Globulin Ratio 1.0 L, HIV 1&2 Antibody Rapid Nonreactive 07/25/24 19:50: VBG pH 7.46 H, VBG pCO2 33.8 L, VBG pO2 64.4 H, VBG HCO3 23.5, VBG Total CO2 24.5, VBG O2 Saturation 93.1 H, VBG Base Excess -0.3, VBG Lactic Acid 1.2 07/25/24 23:04: Troponin I < 0.01 07/25/24 23:30: Lactate 1.0, C-Reactive Protein 194.1 H, Procalcitonin 0.115 07/26/24 05:56: WBC 12.2 H D, RBC 3.41 L, Hgb 12.6 L D, Hct 39.0 L, MCV 114.3 H, MCH 36.7 H, MCHC 32.1, RDW 13.3, Plt Count 441 H, MPV 8.9, Neut % (Auto) 93.8 H, Lymph % (Auto) 4.0 L, [place] % (Auto) 1.9, Eos % (Auto) 0.2, Baso % (Auto) 0.1, Neut # (Auto) 11.4 H, Lymph # (Auto) 0.5 L, [place] # (Auto) 0.2, Eos # (Auto) 0.0, Baso # (Auto) 0.0, Sodium 131 L, Potassium 3.5, Chloride 100, Carbon Dioxide 29, Anion Gap 5.5, BUN 12, Creatinine 0.50 L D, Estimated Creat Clear 59, Estimated GFR 164, Est GFR ( Amer) 199 D, Glucose 251 H D, Calcium 8.1 L, Magnesium 2.0 D, Troponin I < 0.01, C-Reactive Protein 178.0 H, Procalcitonin 0.136 I & O for Labs for Last 24 Hours: Intake & Output 07/24/24 07/25/24 07/26/24 07/27/24 23:59 23:59 23:59 23:59 Intake Total 2360 / 2360 200 / 200 Output Total 875 / 875 500 / 500 Balance 1485 / 1485 -300 / -300 Weight 150 lb 0.005 oz 134 lb 6.4 oz 135 lb 9 oz Intake & Output 07/23/24 07/24/24 07/25/24 07/26/24 23:59 23:59 23:59 23:59 Intake Total 1470 / 1470 Output Total 400 / 400 Balance 1070 / 1070 Weight 150 lb 0.005 oz 134 lb 6.4 oz Microbiology Reports for the Last 24 Hours: Microbiology 07/26/24 00:59 Sputum - Expectorated Sputum Gram Stain - Final 07/26/24 00:59 Sputum - Expectorated Sputum Sputum Culture - Preliminary 07/25/24 20:11 Blood Blood Culture - Preliminary NO GROWTH AFTER 24 HOURS 07/25/24 20:11 Blood Blood Culture - Preliminary NO GROWTH AFTER 24 HOURS Constitutional: Present moderate distress Head: Present normocephalic and atraumatic ENT: Present normal exam, normal oropharynx and mucous membranes moist Neck: Present normal inspection and full ROM Respiratory: Present prolonged expiratory phase, respiratory distress, rhonchi, diminished air movement and able to speak in complete sentences; Absent wheezes Cardiac: Present S1/S2, Tachycardia and radial pulses present GI: Present soft and distention; Absent tenderness or guarding Skin: Present intact; Absent cyanosis or jaundice Neuro: Present alert, awake and oriented x 3 Extremities: Present normal inspection; Absent clubbing or cyanosis Psychiatric: Present normal affect and cooperative Assessment and Plan *Assessment and plan (1) Pneumonia: Status: Acute Category: Medical Code(s): J18.9 - Pneumonia, unspecified organism (2) Acute and chronic respiratory failure with hypoxia: Status: Acute Category: Medical Code(s): J96.21 - Acute and chronic respiratory failure with hypoxia (3) Smoker: Status: Acute Category: Social Hx Code(s): F17.200 - Nicotine dependence, unspecified, uncomplicated Plan Mr. Nuñez is a 68-year-old male with reported history of CAD COPD chronic hypoxic respiratory failure on 2 L oxygen supplementation presented to the ER with worsening respiratory distress and was admitted for further evaluation and management. Current smoker greater than [id number] smoking history. Diagnosis of COPD. On Home Symbicort Inhaler. Patient Also Admits Heavy Intake of Alcohol to near Passing out in the Last 2 Months. Concern for Aspiration Pneumonia As Possible Etiology of the Noted Airspace Disease. Afebrile. Neutrophilic predominant leukocytosis, improving. Venous blood gas upon admission showed hypeocapnic respiratory failure. Chest x-ray upon admission bilateral lower lobe dense consolidative changes, right greater than left. CTA upon admission, no evidence of segmental pulmonary embolism. Bilateral lower lobe consolidative changes with small free-flowing effusions. Concerning new new left upper lobe nodular opacity which was new from her prior CT scan from 2019. Patient noted patient was initiated on treatment for community-acquired mg with ceftriaxone doxycycline along with COPD exacerbation with methylprednisolone 60 mg every 6 hours. Upon initial examination moderate respiratory distress. No significant wheezing noted. On home baseline oxygen supplementation. Interval update: No acute respiratory events overnight. Stable oxygen requirements. Improving leukocytosis. Plan: -Continue oxygen supplementation to maintain O2 saturation above 90% and above. On home 2L. Oxygen supplementation saturating 94% this morning. Continue Trelegy 100 inhaler along with DuoNebs every 6 hours on as-needed basis Will hold off on steroids Continue ceftriaxone azithromycin pending sputum culture results, antibiotics can be weaned to cefdinir to complete a total of 5-day course. # Thank you for involving pulmonary in this patient care will follow patient in pulmonary clinic 1 to 2 weeks.
[2024-07-27 10:41] LABS: HCV Ab Non Reactive (Non Reactive)
[2024-07-27] MEDS: DOXYCYCLINE HYCL 100 MG TABLET PO (11:18)
[2024-07-27 13:32] LABS: Hemoglobin 11.2 g/dL (14.1-18.0)
[2024-07-27 13:35] LABS: Anisocytosis 1+; Lymphocytes % 11 % (10-50); Macrocytosis 2+; Monocytes % 2 % (2-9); Neutrophils % 87 % (42-76); Platelet Estimate Normal; Total Cells Counted 100
--- NOTE | 2024-07-27 13:44 | HMH.PTEV ---
Physical Therapy Evaluation Rehab PT IP Evaluation Start: 07/27/24 10:31 Freq: ONCE Status: Active Protocol: Document 07/27/24 13:38 SALAZAR (Rec: 07/27/24 13:44 SALAZAR [id number]) Subjective/History History History Per H&P: 68-year-old smoker with COPD on 2 L home oxygen, history of myocardial infarction 45 years ago who presents with SOB, SPAIN x 1 week. Patient states symptoms have gotten progressively worse, and patient visited emergency room for evaluation. Patient also complains of rapid heart rate, and rapid breathing pattern in conjunction with sweating and chills related to shortness of breath. Patient complains of hurting to breathe with left side of lungs hurting worse than right side of his lungs for past few days. CTA chest done emergency room shows no pulmonary embolus, but per my interpretation bibasilar airspace disease indicative of possible pneumonia. White blood count emergency room 18.8. Procalcitonin, CRP, lactic acid ordered by me at time of admission and pending while this note is being written. Denies known sick contacts, abdominal pain, chest pain, known sick contacts, recent travel, ataxia, or blurry vision. Subjective Subjective Pt reports he lives in a single-story home with 5-6 JADE and 1 HR. Pt reports being IND with all mobility using a cane. Pt denies any falls in past 30 days. Pt lives with his who is around during the day. Pt left reclined in bed with needs met and O2 at 90% SpO2. New diagnosis of cancer in past 12 No months? Rehab PT IP Eval Objective Appearance Patient Behavior Appropriate,Cooperative Patient Orientation Person,Place,Birthday, Situation Difficulty following instructions none Speech Pattern Clear Ambulation Patient Able to Ambulate Yes Ambulation Observation IP General Gait Pattern Observation Wide Based Gait Ambulation Distance (feet) 20 Ambulation Assistive Device None Ambulation Ability Supervision/Stand by Rehab PT IP prob,goals,plan Problems Date of Evaluation: 07/27/24 PT IP Problems Other Other Pt Problem Endurance Rehab Potential Rehab Potential Innapropriate for Skilled Therapy Discharge Plan PT Discharge Plan Pt safe to d/c home when deemed medically necessary d/t current level of mobility, home set-up, and family support. Pt not appropriate for skilled acute care PT at this time d/t pt?s mobility being at baseline. PT recommending home health PT services to address endurance deficits. Eval Complexity Eval Charge Codes 87062 - Moderate Complexity PHYSICIAN CERTIFICATION: I certify the specified therapy services for Antony B Feeback are required, authorized, and reviewed every 30 days.
--- NOTE | 2024-07-28 09:02 | SW/DCPLANNER ---
Patient information/order has been faxed to Samantha hodge/ [facility]. Samantha Napoles stated that patient has been accepted for services. Patient discharged home yesterday 07/27/24.
--- NOTE | 2024-07-29 13:15 | SW/DCPLANNER ---
Hospital follow up phone called attempted x2: no answer.
== END 2024-07-27 16:36 | disposition home or self-care (01) | DRG 193 ==
LOC: ER 20:37 → 2ND 23:54
PROVIDERS: Internal Medicine; Admitting Provider Student in an Organized Health Care Education/Training Program; Emergency Provider Emergency Medicine; PCP Nurse Practitioner Family; Visit Provider Student in an Organized Health Care Education/Training Program
DX: J18.9 Pneumonia, unspecified organism (principal); J96.21 Acute and chronic respiratory failure with hypoxia; J44.1 Chronic obstructive pulmonary disease with (acute) exacerbation; I42.6 Alcoholic cardiomyopathy; J44.0 Chronic obstructive pulmonary disease with (acute) lower respiratory infection; F17.210 Nicotine dependence, cigarettes, uncomplicated; I25.10 Atherosclerotic heart disease of native coronary artery without angina pectoris; I25.2 Old myocardial infarction; Z99.81 Dependence on supplemental oxygen; Z79.899 Other long term (current) drug therapy; F17.200 Nicotine dependence, unspecified, uncomplicated
CPT/HCPCS: 36415; 71045; 71275; 80048; 80053; 82803; 83605; 83735; 83880; 84145; 84484; 85007; 85025; 85027; 85378; 86140; 86803; 87040; 87070; 87077; 87205; 87265; 87389; 87486; 87581; 87632; 87635; 93005; 94640; 94761; 97162; 99285; J0456; J0696; J1650; J2919; J3475; J7030; J7050; J7620; Q9967

== ENCOUNTER 2025-04-06 18:48 | Emergency (ER) | payer BC, MEDICARE, SELFPAY ==
[2025-04-06] VITALS (8 sets, daily range): BP systolic 114–151; BP diastolic 61–74; PULSE 94–121; RESP 19–31; TEMP 36.9; O2SAT 91–100; BMI 21.5
--- NOTE | 2025-04-06 18:52 | ED_ITS ---
Discharge Plan Disposition Patient Disposition: Xfer Short-Term Hosp Prescriptions Prescriptions: No Action multivitamin Tablet 1 tab PO DAILY albuterol sulfate 90 mcg/actuation HFA aerosol inhaler See Rx Instructions .ROUTE .COMPLEX Qty: 8.5 0RF Dose Instruction: INHALE 2 PUFFS BY MOUTH EVERY 4 TO 6 HOURS NEEDED FOR SHORTNESS OF BREATH OR WHEEZING Rx Instructions: INHALE 2 PUFFS BY MOUTH EVERY 4 TO 6 HOURS NEEDED FOR SHORTNESS OF BREATH OR WHEEZING ipratropium-albuterol 0.5 mg-3 mg(2.5 mg base)/3 mL solution for nebulization See Rx Instructions .ROUTE .COMPLEX Qty: 360 6RF Dose Instruction: INHALE 3 ML BY MOUTH EVERY 4 TO 6 HOURS NEEDED FOR SHORTNESS OF BREATH OR WHEEZING Rx Instructions: INHALE 3 ML BY MOUTH EVERY 4 TO 6 HOURS NEEDED FOR SHORTNESS OF BREATH OR WHEEZING Trelegy Ellipta 100-62.5-25 mcg Blister With Device 1 inh inhalation DAILY Qty: 60 0RF nicotine 21 mg/24 hr Patch 24 Hour 21 mg transdermal DAILYP PRN (Reason: Nicotine Cravings) Qty: 28 0RF azithromycin 250 mg Tablet 500 mg PO DAILY 3 Days Qty: 6 0RF cefdinir 300 mg capsule 300 mg PO BID 3 Days Qty: 6 0RF Referrals Follow up/Referrals: Provider,Referral, MD [Primary Care Provider, Medical] - See instructions Activity Restrictions/Add. Instructions Additional Instructions/Restrictions: To [facility] emergency department to the care of of Dr. Garrido Clinical Impressions Clinical Impression: Hypocalcemia, Hypomagnesemia, Hyponatremia, Hyperbilirubinemia, Multifocal pneumonia, Acute exacerbation of chronic obstructive pulmonary disease Fracture of inferior pubic ramus Qualifiers: Encounter type: initial encounter Fracture type: closed Laterality: left Q ualified Code(s): S32.592A - Other specified fracture of left pubis, initial encounter for closed fracture Closed fracture of superior pubic ramus Qualifiers: Encounter type: initial encounter Laterality: left Qualified Code(s): S32.512A - Fracture of superior rim of left pubis, initial encounter for closed fracture Stand Alone Forms Stand Alone Forms: Transfer Record - ED Print Language Print Language: Martiniquais Discharge ED Provider: Kirk Beltran General Adult HPI <KAMI Marques - Last Filed: 04/06/25 20:51> General Chief complaint: Shortness of Breath/Dyspnea Stated complaint: SOA Time Seen by Provider: 04/06/25 18:52 History of Present Illness HPI narrative: Patient presents via EMS initially with a chief complaint of shortness of breath and too weak to walk. On arrival patient states that he has been drinking today was in his truck and could not get out so he was too weak to walk. Patient relates that he fell yesterday because he was intoxicated. He does not recall if he passed out but does not believe that he did. Currently denies chest pain fever chills hemoptysis hematochezia melena nausea vomiting diarrhea. He reports that he has difficulty bearing weight since yesterday however. He reports that he is a daily drinker of whiskey and vodka depending on what he can find. He is a smoker. He has not seen a physician in many years. She reports that he has a history of cirrhosis but is on no home medications currently. Related Data Home Medications ?Medication ?Instructions ?Recorded ?Confirmed multivitamin 1 tab PO DAILY 04/26/2007/04 Previous Rx's ?Medication ?Instructions ?Recorded azithromycin 250 mg tablet 500 mg (2 x 250 mg) PO LUBNA Y 3 07/27/24 days #6 tabs cefdinir 300 mg capsule 300 mg PO BID 3 days #6 caps 07/27/24 fluticasone fur. 100 mcg-umeclid 1 inh inhalation LUBNA Y #60 ea 07/27/24 62.5 mcg-vilant 25 mcg inhalat.powder (Trelegy Ellipta) nicotine 21 mg/24 hr daily 21 mg transdermal DAILYP OK N 07/27/24 transdermal patch Nicotine Cravings #28 ea albuterol sulfate 90 mcg/actuation See Rx Instructions .Route 09/16/24 aerosol inhaler .COMPLEX #8.5 grams ipratropium 0.5 mg-albuterol 3 mg See Rx Instructions .Route 02/27/25 (2.5 mg base)/3 mL nebulization .COMPLEX #360 mL soln Allergies Allergy/AdvReac Type Severity Reaction Status Date / Time No Known Allergies Allergy Verified 03/18/24 15:11 [facility] <KAMI Marques - Last Filed: 04/06/25 20:51> [facility] Disclaimer: The information contained in this section may have been updated after the patient was seen, as this information can be updated by other users. Medical History (Updated 04/06/25 @ 20:38 by KAMI Marques) Acute and chronic respiratory failure with hypoxia Dyspnea Abnormal EKG HTN (hypertension) Cardiomyopathy, alcoholic Hyponatremia Non-STEMI (non-ST elevated myocardial infarction) Surgical History History of hernia repair History of right knee surgery Family History Family/Other No significant family history Social History (Updated 07/25/24 @ 22:57 by Krys Aguilera RN) Smoking Status: Current every day smoker tobacco type: cigarettes packs per day: 2 second hand exposure: Yes alcohol intake: current alcohol intake frequency: other substance use type: marijuana, crack/cocaine and amphetamines current occupational status: retired Travel in the last 8 weeks?: Inside the [place] household members: spouse housing: house 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 Have you lived/traveled outside US in past 30 days?: No Contact w/someone who lives/traveled outside US past 30 days?: No Exposure to someone with infectious disease in past 14 days?: No Do you have a fever (greater than 100.4 F or 38 C)?: No Have you tested positive for COVID-19?: No Exposed to someone with COVID-19 in past 14 days?: No Do you have a sore throat?: No Do you have a cough?: No Do you have any weakness?: No Do you have any diarrhea?: No Are you experiencing any unusual bleeding?: No Do you have any muscle aches/pain?: No Do you have any abdominal pain?: No Are you experiencing loss of taste or smell?: No Other Medical History Have you received the Flu Vaccine for this season: No Have you received the Pneumonia Vaccine: No <KAMI Marques - Last Filed: 04/06/25 20:51> ROS Obtained: Yes Systems reviewed as appropriate & no additional complaints except as documented Physical Exam <KAMI Marques - Last Filed: 04/06/25 20:51> General General appearance: alert and in no apparent distress Respiratory Respiratory exam: Present wheezes; Absent respiratory distress or accessory muscle use Cardiovascular Cardiovascular exam: Present regular rate Neurological Exam Neurological exam: Present alert, oriented X3 and CN II-XII intact Medical Decision Making <KAMI Marques - Last Filed: 04/06/25 20:51> Medical Records Medical records reviewed: Yes I reviewed the patient's medical records. Screening: Per USPSTF and CDC recommendations, given the prevalence of disease in our region, it is our hospital?s policy to screen for HIV and viral Hepatitis for all patients aged 18 and over and those with ongoing risk factors. [place] Inquiry Pt receiving controlled substance: No Vital Signs: 04/06/25 18:49 04/06/25 19:00 04/06/25 19:41 Temperature 98.4 F Temperature Source Oral Pulse Rate 102 H Pulse Rate [Right Radial] 94 H Respiratory Rate 20 19 20 Blood Pressure 114/61 Blood Pressure [Right Arm] 130/68 Blood Pressure Mean [Right Arm] 88 Blood Pressure Source [Right Arm] Automatic Cuff Blood Pressure Position [Right Arm] Supine 02 Sat by Pulse Oximetry 99 100 91 L Oxygen Delivery Method Nasal Cannula Oxygen Flow Rate (LPM) 2 04/06/25 19:54 04/06/25 20:10 04/06/25 20:26 Temperature Temperature Source Pulse Rate 105 H Pulse Rate [Right Radial] Respiratory Rate 23 31 H Blood Pressure 134/74 Blood Pressure [Right Arm] Blood Pressure Mean [Right Arm] Blood Pressure Source [Right Arm] Blood Pressure Position [Right Arm] 02 Sat by Pulse Oximetry 94 L 94 L Oxygen Delivery Method Nasal Cannula Oxygen Flow Rate (LPM) 3 04/06/25 20:26 04/06/25 20:26 04/06/25 20:29 Temperature Temperature Source Pulse Rate 114 H 108 H 107 H Pulse Rate [Right Radial] Respiratory Rate 29 H Blood Pressure 151/70 H Blood Pressure [Right Arm] Blood Pressure Mean [Right Arm] Blood Pressure Source [Right Arm] Blood Pressure Position [Right Arm] 02 Sat by Pulse Oximetry 100 Oxygen Delivery Method Oxygen Flow Rate (LPM) Lab Data Lab results reviewed: Yes I reviewed the patient's lab results. Lab Results 04/06/25 18:46: WBC 11.7 H, RBC 3.45 L, Hgb 12.6 L, Hct 35.6 L, MCV 103.2 H, MCH 36.5 H, MCHC 35.4, RDW 14.1, Plt Count 149, MPV 10.3, Neut % (Auto) 77.6, Lymph % (Auto) 12.5, [place] % (Auto) 9.2, Eos % (Auto) 0.0 L, Baso % (Auto) 0.3, Neut # (Auto) 9.1 H, Lymph # (Auto) 1.5, [place] # (Auto) 1.1 H, Eos # (Auto) 0.0, Baso # (Auto) 0.0, PT 11.0, INR 0.99, VBG pH 7.39, VBG pCO2 36.4, VBG pO2 183.9 H, VBG HCO3 21.6 L, VBG Total CO2 22.7 L, VBG O2 Saturation 99.3 H, VBG Base Excess - 3.4 L, VBG Lactic Acid 5.1 H, Sodium 123 L, Potassium 4.1, Chloride 93 L, Carbon Dioxide 24, Anion Gap 10.1, BUN 8 L, Creatinine 0.50 L, Estimated Creat Clear 65, Estimated GFR 164, Est GFR ( Amer) 198, Glucose 143 H, Calcium 8.0 L, Magnesium 1.5 L, Total Bilirubin 2.4 H, AST 55, ALT 28, Alkaline Phosphatase 84, Troponin I 0.08 H, Total Protein 6.6, Albumin 3.6, Globulin 3.0, Albumin/Globulin Ratio 1.2, Lipase 25, Procalcitonin 0.114, TSH 2.78, Free T4 Index 2.0 L, Thyroxine (T4) 5.2 L, T3 Uptake 39, Plasma/Serum Alcohol 214 H 04/06/25 19:14: Urine Color [place], Urine Appearance Clear, Urine pH 6.0, Ur Specific [place] 1.025, Urine Protein Trace, Urine Glucose (UA) Negative, Urine Ketones Negative, Urine Blood Negative, Urine Nitrate Negative, Urine Bilirubin Negative, Urine Urobilinogen 1.0, Ur Leukocyte Esterase Negative, Urine RBC Occasional, Urine WBC Occasional, Ur Squamous Epith Cells Occasional, Urine Bacteria Trace, Urine Mucus 4+ 04/06/25 19:47: Ammonia < 9 L 04/06/25 18:46 04/06/25 18:46 Orders (Tests/Meds): ED MEDICATIONS Generic Name Dose Route Start Last Admin Trade Name Freq PRN Reason Stop Dose Admin Calcium Gluconate/Sodium Chloride 2 gm in 100 mls @ 50 mls/hr 04/06/25 19:30 04/06/25 20:29 Calcium Gluconate 2,000mg/100ml Nacl Premix IV 04/06/25 21:29 50 mls/hr ONCE ONE Administration Ceftriaxone Sodium 1 gm/ 50 mls @ 100 mls/hr 04/06/25 20:30 04/06/25 20:30 Sodium Chloride IV 04/16/25 20:29 100 mls/hr Q24H MIRANDA Administration Azithromycin 500 mg/ Sodium 250 mls @ 250 mls/hr 04/06/25 20:30 04/06/25 20:29 Chloride IV 04/16/25 20:29 250 mls/hr Q24H MIRANDA Administration Discontinued Medications Generic Name Dose Route Start Last Admin Trade Name Freq PRN Reason Stop Dose Admin Albuterol/Ipratropium 9 ml 04/06/25 20:14 04/06/25 20:25 Ipratropium/Albuterol 3 Ml Neb IH 04/06/25 20:15 9 ml ONCE ONE Administration Sodium Chloride 1,000 mls @ 999 mls/hr 04/06/25 19:02 04/06/25 19:19 Sod Chlor 0.9% 1000ml Bag IV 04/06/25 20:02 999 mls/hr .Q1H1M ONE Administration Magnesium Sulfate 2 gm in 50 mls @ 50 mls/hr 04/06/25 19:27 04/06/25 20:29 Magnesium Sulfate 2gm/50ml Premix IV 04/06/25 20:26 50 mls/hr ONCE ONE Administration Iopamidol 80 ml 04/06/25 20:04 04/06/25 20:05 Iopamidol-370 (76%);100ml Bottle IV 04/06/25 20:05 80 ml ONCE ONE Administration Methylprednisolone Sodium Succinate 125 mg 04/06/25 20:24 04/06/25 20:41 Methylprednisolone Sod Succ 125mg Vial IV 04/06/25 20:25 125 mg ONCE ONE Administration Sodium Chloride 10 ml 04/06/25 20:04 04/06/25 20:05 Sodium Chloride 0.9% 10ml Syr (Rad Only) IV 04/06/25 20:05 10 ml ONCE ONE Administration Sodium Chloride 50 ml 04/06/25 20:04 04/06/25 20:05 0.9 % Sodium Chloride 50 Ml Vial IV 04/06/25 20:05 50 ml ONCE ONE Administration ORDERS Category Date Time Status CT angio head Stat Cat Scan 04/06/25 19:[address] angio neck Stat Cat Scan 04/06/25 19:[address] bony pelvis Stat Cat Scan 04/06/25 19:[address] cervical spine wo con Stat Cat Scan 04/06/25 19:[address] head/brain wo con Stat Cat Scan 04/06/25 19:[address] lumbar spine wo con Stat Cat Scan 04/06/25 19:[address] thoracic spine wo con Stat Cat Scan 04/06/25 19:04 Completed Chest XR -- portable [XR chest portable] Stat Exams 04/06/25 19:10 Completed XR hip LT 2-3V w/pelvis Stat Exams 04/06/25 19:02 Completed Ammonia Stat Lab 04/06/25 19:47 Completed Blood alcohol [Ethyl Alcohol] Stat Lab 04/06/25 18:46 Completed CBC w/Auto Diff [Complete Blood Count Auto Diff] Stat Lab 04/06/25 18:46 Completed CMP [Comprehensive Metabolic Panel] Stat Lab 04/06/25 18:46 Completed Hepatitis Panel Routine Lab 04/06/25 19:45 Received INR [Prothrombin Time INR] Stat Lab 04/06/25 18:46 Completed Lipase Stat Lab 04/06/25 18:46 Completed Magnesium Stat Lab 04/06/25 18:46 Completed Procalcitonin Stat Lab 04/06/25 18:46 Completed Thyroid Panel Stat Lab 04/06/25 18:46 Completed Trop I [Troponin I] Stat Lab 04/06/25 18:46 Completed Troponin I Q3H Lab 04/06/25 22:15 Ordered Troponin I Q3H Lab 04/07/25 01:15 Ordered UA [Urinalysis and Microscopic] Stat Lab 04/06/25 19:14 Completed Blood Culture Stat Micro 04/06/25 20:12 Received VBG [Venous Blood Gas] Stat RT 04/06/25 18:46 Completed Tissue Perfus/Sepsis Re-Eval Sepsis Re-Evaluation Performed: Yes Date Performed: 04/06/25 Time Performed: 20:41 HEART Score History (anamnesis): Slightly suspicious ECG: Non-specific disturbance Age: >65 years Risk factors: 3 or more risk factors Troponin: 1-3x normal limit HEART Score: 6 Medical Decision Narrative: In summary patient is a 69-year-old male who presents to the emergency department for evaluation of 2-week to walk left hip pain and shortness of breath. Patient is initially hemodynamically stable with a blood pressure 130/68 pulse 94 respiratory rate 20 satting at 99% on 2 L by nasal cannula that was put on him by EMS upon arrival, afebrile at 98.4. Physical exam is remarkable for visibly jaundiced 69-year-old gentleman who is currently in no acute distress. [place] Coma Score is 15 he is awake alert and oriented person place and circumstance currently cranial nerves II through XII are intact grossly to exam he has no focal neurologic deficits and his neuroexam is normal. NIH stroke score 0. Patient has pain on palpation to the posterior pelvis on the left side but is neurovascularly intact distally in all 4 extremities. Auscultation the breath sound reveals an expiratory wheezes and rhonchi in all 4 moore. Abdomen soft nontender no rebound or guarding no rigidity. Patient has too numerous to count abrasions and contusions over his extremities indicative of fall trauma.. Differential diagnosis includes intracranial bleed versus skull fracture versus spine fracture versus hip fracture versus pelvic fracture versus pneumonia versus COPD exacerbation versus electrolyte abnormalities etc. Initial workup will be conducted with hematologic labs VBG twelve-lead EKG CT scan noncontrasted of the head and spine bony pelvis plain film chest x-ray blood cultures. Initial interventions include crystalloid bolus for now until we have more data. Initial workup reviewed by me and his hematologic labs are significant for sodium of 123 chloride 93 gap of 10.1 BUN of 8 creatinine 0.5 glucose 143 calcium 8 with an albumin of 3.6 magnesium of 1.5 total bilirubin is 2.4 AST ALT and alk phos are normal ammonia is less than 9 initial troponin is 0.08 and serum alcohol 214 the remainder of his hematologic labs are nonactionable. My informal interpretation of the plain film imaging shows left superior and inferior pubic rami fracture along with a iliac wing and sacral ala fracture. My informal interpretation of his chest shows bilateral pulmonary nodules and what looks to be aspiration pneumonia, a hematoma on the left superior pubic rami fracture. radiology read his noncontrasted CT scan of the head as showing a left inferior occipital lobe infarct. I have ordered magnesium repletion calcium repletion and DuoNeb blood cultures azithromycin and Rocephin IV antibiotics. Patient presented outside the window as last known well was yesterday for stroke intervention and his NIH stroke score was 0 on arrival. Given this I had an interactive discussion with [facility] with Dr. Garrido regarding patient presentation ESTEBAN and management and he has been accepted to the [facility] emergency department for further evaluation and care. <Kirk Beltran MD - Last Filed: 04/06/25 21:17> Vital Signs: 04/06/25 18:49 04/06/25 19:00 04/06/25 19:41 Temperature 98.4 F Temperature Source Oral Pulse Rate 102 H Pulse Rate [Right Radial] 94 H Respiratory Rate 20 19 20 Blood Pressure 114/61 Blood Pressure [Right Arm] 130/68 Blood Pressure Mean [Right Arm] 88 Blood Pressure Source [Right Arm] Automatic Cuff Blood Pressure Position [Right Arm] Supine 02 Sat by Pulse Oximetry 99 100 91 L Oxygen Delivery Method Nasal Cannula Oxygen Flow Rate (LPM) 2 04/06/25 19:54 04/06/25 20:10 04/06/25 20:26 Temperature Temperature Source Pulse Rate 105 H Pulse Rate [Right Radial] Respiratory Rate 23 31 H Blood Pressure 134/74 Blood Pressure [Right Arm] Blood Pressure Mean [Right Arm] Blood Pressure Source [Right Arm] Blood Pressure Position [Right Arm] 02 Sat by Pulse Oximetry 94 L 94 L Oxygen Delivery Method Nasal Cannula Oxygen Flow Rate (LPM) 3 04/06/25 20:26 04/06/25 20:26 04/06/25 20:29 Temperature Temperature Source Pulse Rate 114 H 108 H 107 H Pulse Rate [Right Radial] Respiratory Rate 29 H Blood Pressure 151/70 H Blood Pressure [Right Arm] Blood Pressure Mean [Right Arm] Blood Pressure Source [Right Arm] Blood Pressure Position [Right Arm] 02 Sat by Pulse Oximetry 100 Oxygen Delivery Method Oxygen Flow Rate (LPM) Lab Data Lab Results 04/06/25 18:46: WBC 11.7 H, RBC 3.45 L, Hgb 12.6 L, Hct 35.6 L, MCV 103.2 H, MCH 36.5 H, MCHC 35.4, RDW 14.1, Plt Count 149, MPV 10.3, Neut % (Auto) 77.6, Lymph % (Auto) 12.5, [place] % (Auto) 9.2, Eos % (Auto) 0.0 L, Baso % (Auto) 0.3, Neut # (Auto) 9.1 H, Lymph # (Auto) 1.5, [place] # (Auto) 1.1 H, Eos # (Auto) 0.0, Baso # (Auto) 0.0, PT 11.0, INR 0.99, VBG pH 7.39, VBG pCO2 36.4, VBG pO2 183.9 H, VBG HCO3 21.6 L, VBG Total CO2 22.7 L, VBG O2 Saturation 99.3 H, VBG Base Excess - 3.4 L, VBG Lactic Acid 5.1 H, Sodium 123 L, Potassium 4.1, Chloride 93 L, Carbon Dioxide 24, Anion Gap 10.1, BUN 8 L, Creatinine 0.50 L, Estimated Creat Clear 65, Estimated GFR 164, Est GFR ( Amer) 198, Glucose 143 H, Calcium 8.0 L, Magnesium 1.5 L, Total Bilirubin 2.4 H, AST 55, ALT 28, Alkaline Phosphatase 84, Troponin I 0.08 H, Total Protein 6.6, Albumin 3.6, Globulin 3.0, Albumin/Globulin Ratio 1.2, Lipase 25, Procalcitonin 0.114, TSH 2.78, Free T4 Index 2.0 L, Thyroxine (T4) 5.2 L, T3 Uptake 39, Plasma/Serum Alcohol 214 H 04/06/25 19:14: Urine Color [place], Urine Appearance Clear, Urine pH 6.0, Ur Specific [place] 1.025, Urine Protein Trace, Urine Glucose (UA) Negative, Urine Ketones Negative, Urine Blood Negative, Urine Nitrate Negative, Urine Bilirubin Negative, Urine Urobilinogen 1.0, Ur Leukocyte Esterase Negative, Urine RBC Occasional, Urine WBC Occasional, Ur Squamous Epith Cells Occasional, Urine Bacteria Trace, Urine Mucus 4+ 04/06/25 19:47: Ammonia < 9 L Orders (Tests/Meds): ED MEDICATIONS Generic Name Dose Route Start Last Admin Trade Name Freq PRN Reason Stop Dose Admin Calcium Gluconate/Sodium Chloride 2 gm in 100 mls @ 50 mls/hr 04/06/25 19:30 04/06/25 20:29 Calcium Gluconate 2,000mg/100ml Nacl Premix IV 04/06/25 21:29 50 mls/hr ONCE ONE Administration Ceftriaxone Sodium 1 gm/ 50 mls @ 100 mls/hr 04/06/25 20:30 04/06/25 20:30 Sodium Chloride IV 04/16/25 20:29 100 mls/hr Q24H MIRANDA Administration Azithromycin 500 mg/ Sodium 250 mls @ 250 mls/hr 04/06/25 20:30 04/06/25 20:29 Chloride IV 04/16/25 20:29 250 mls/hr Q24H MIRANDA Administration Discontinued Medications Generic Name Dose Route Start Last Admin Trade Name Freq PRN Reason Stop Dose Admin Albuterol/Ipratropium 9 ml 04/06/25 20:14 04/06/25 20:25 Ipratropium/Albuterol 3 Ml Neb IH 04/06/25 20:15 9 ml ONCE ONE Administration Sodium Chloride 1,000 mls @ 999 mls/hr 04/06/25 19:02 04/06/25 19:19 Sod Chlor 0.9% 1000ml Bag IV 04/06/25 20:02 999 mls/hr .Q1H1M ONE Administration Magnesium Sulfate 2 gm in 50 mls @ 50 mls/hr 04/06/25 19:27 04/06/25 20:29 Magnesium Sulfate 2gm/50ml Premix IV 04/06/25 20:26 50 mls/hr ONCE ONE Administration Iopamidol 80 ml 04/06/25 20:04 04/06/25 20:05 Iopamidol-370 (76%);100ml Bottle IV 04/06/25 20:05 80 ml ONCE ONE Administration Methylprednisolone Sodium Succinate 125 mg 04/06/25 20:24 04/06/25 20:41 Methylprednisolone Sod Succ 125mg Vial IV 04/06/25 20:25 125 mg ONCE ONE Administration Sodium Chloride 10 ml 04/06/25 20:04 04/06/25 20:05 Sodium Chloride 0.9% 10ml Syr (Rad Only) IV 04/06/25 20:05 10 ml ONCE ONE Administration Sodium Chloride 50 ml 04/06/25 20:04 04/06/25 20:05 0.9 % Sodium Chloride 50 Ml Vial IV 04/06/25 20:05 50 ml ONCE ONE Administration ORDERS Category Date Time Status CT angio head Stat Cat Scan 04/06/25 19:[address] angio neck Stat Cat Scan 04/06/25 19:[address] bony pelvis Stat Cat Scan 04/06/25 19:[address] cervical spine wo con Stat Cat Scan 04/06/25 19:[address] head/brain wo con Stat Cat Scan 04/06/25 19:[address] lumbar spine wo con Stat Cat Scan 04/06/25 19:[address] thoracic spine wo con Stat Cat Scan 04/06/25 19:04 Completed Chest XR -- portable [XR chest portable] Stat Exams 04/06/25 19:10 Completed XR hip LT 2-3V w/pelvis Stat Exams 04/06/25 19:02 Completed Ammonia Stat Lab 04/06/25 19:47 Completed Blood alcohol [Ethyl Alcohol] Stat Lab 04/06/25 18:46 Completed CBC w/Auto Diff [Complete Blood Count Auto Diff] Stat Lab 04/06/25 18:46 Completed CMP [Comprehensive Metabolic Panel] Stat Lab 04/06/25 18:46 Completed Hepatitis Panel Routine Lab 04/06/25 19:45 Received INR [Prothrombin Time INR] Stat Lab 04/06/25 18:46 Completed Lipase Stat Lab 04/06/25 18:46 Completed Magnesium Stat Lab 04/06/25 18:46 Completed Procalcitonin Stat Lab 04/06/25 18:46 Completed Thyroid Panel Stat Lab 04/06/25 18:46 Completed Trop I [Troponin I] Stat Lab 04/06/25 18:46 Completed Troponin I Q3H Lab 04/06/25 22:15 Ordered Troponin I Q3H Lab 04/07/25 01:15 Ordered UA [Urinalysis and Microscopic] Stat Lab 04/06/25 19:14 Completed Blood Culture Stat Micro 04/06/25 20:12 Received VBG [Venous Blood Gas] Stat RT 04/06/25 18:46 Completed ECG Data Tracing #1: Independently interpreted by me rate is 93, rhythm is regular, axis is normal, no ST elevation in anatomical contiguous leads, low voltages, QTc 407 HEART Score HEART Score: 6 Medical Decision Narrative: In summary patient is a 69-year-old male who presents to the emergency department for evaluation of 2-week to walk left hip pain and shortness of breath. Patient is initially hemodynamically stable with a blood pressure 130/68 pulse 94 respiratory rate 20 satting at 99% on 2 L by nasal cannula that was put on him by EMS upon arrival, afebrile at 98.4. Physical exam is remarkable for visibly jaundiced 69-year-old gentleman who is currently in no acute distress. Dhav[place] Coma Score is 15 he is awake alert and oriented person place and circumstance currently cranial nerves II through XII are intact grossly to exam he has no focal neurologic deficits and his neuroexam is normal. NIH stroke score 0. Patient has pain on palpation to the posterior pelvis on the left side but is neurovascularly intact distally in all 4 extremities. Auscultation the breath sound reveals an expiratory wheezes and rhonchi in all 4 moore. Abdomen soft nontender no rebound or guarding no rigidity. Patient has too numerous to count abrasions and contusions over his extremities indicative of fall trauma.. Differential diagnosis includes intracranial bleed versus skull fracture versus spine fracture versus hip fracture versus pelvic fracture versus pneumonia versus COPD exacerbation versus electrolyte abnormalities etc. Initial workup will be conducted with hematologic labs VBG twelve-lead EKG CT scan noncontrasted of the head and spine bony pelvis plain film chest x-ray blood cultures. Initial interventions include crystalloid bolus for now until we have more data. Initial workup reviewed by me and his hematologic labs are significant for sodium of 123 chloride 93 gap of 10.1 BUN of 8 creatinine 0.5 glucose 143 calcium 8 with an albumin of 3.6 magnesium of 1.5 total bilirubin is 2.4 AST ALT and alk phos are normal ammonia is less than 9 initial troponin is 0.08 and serum alcohol 214 the remainder of his hematologic labs are nonactionable. My informal interpretation of the plain film imaging shows left superior and inferior pubic rami fracture along with a iliac wing and sacral ala fracture. My informal interpretation of his chest shows bilateral pulmonary nodules and what looks to be aspiration pneumonia, a hematoma on the left superior pubic rami fracture. radiology read his noncontrasted CT scan of the head as showing a left inferior occipital lobe infarct. I have ordered magnesium repletion calcium repletion and DuoNeb blood cultures azithromycin and Rocephin IV antibiotics. Patient presented outside the window as last known well was yesterday for stroke intervention and his NIH stroke score was 0 on arrival. Given this I had an interactive discussion with [facility] with Dr. Garrido regarding patient presentation ESTEBAN and management and he has been accepted to the [facility] emergency department for further evaluation and care. I was consulted by the TANK, and we discussed the complexity of the problems being addressed. I approved the treatment and management plan for this patient's care in the emergency department, thus performing a substantive portion of the medical decision making. Kirk Beltran MD Patient has a confusing story however I suspect the patient has had multiple falls over his sacrococcygeal region in the last 24 hours of undetermined mechanism resulted in multiple pelvic fractures he has a questionable small volume hematoma which will possibly need CT angiogram at the receiving tertiary care center. He also has a possible infarct in his occipital lobe with no large vessel occlusion. Given that is seen on noncontrasted CT scan puts him outside the window for thrombolytics especially given that he has small volume hemorrhage in his pelvis. Patient also has pneumonia in his right lower lobe and a severe COPD exacerbation has gotten 3 DuoNebs, methylprednisolone, magnesium sulfate, ceftriaxone, azithromycin he also has metabolic derangement that has been corrected with calcium as well. He has hyponatremia which waxes and wanes in the 120s. Serum ethanol level 214. Patient will proceed to via air EMS at this time. Critical Care <KAMI Marques - Last Filed: 04/06/25 20:51> Critical Care Time Critical Care Time: Yes Attestation: On 04/06/25, the high probability of a clinically significant, sudden or life threatening deterioration of the following system(s) required my full and direct attention, intervention and personal management. The time I documented below is in addition to time spent performing reported procedures but includes the following listed in this critical care notation. Total Time Total Critical Care Time: 70
--- NOTE | 2025-04-06 18:57 | ECG_ITS ---
APPROVED REPORT Exam: Resting ECG HR:93 bpm ECG Measurements Heart Rate 93 AXES WY 146 P 74 QRSd 90 QRS 66 QT 356 T 68 QTc 407 Conclusion SINUS RHYTHM LOW QRS VOLTAGE IN EXTREMITY LEADS [QRS DEFLECTION < 0.5 mV IN LIMB LEADS] No STEMI Electronically signed by : ANAHY VILLAFANA, 04/08/2025 03:55:14
--- NOTE | 2025-04-06 19:02 | XR_ITS ---
PROCEDURE INFORMATION: Exam: XR Left Hip Exam date and time: 04/06/2025 7:31 PM Age: 69 years old Clinical indication: Injury or trauma; Fall; Blunt trauma (contusions or hematomas); Left; Pelvic region; Additional info: Fall while intoxicated TECHNIQUE: Imaging protocol: Radiologic exam of the left hip. Views: 2 or 3 views hip with pelvis when performed. COMPARISON: CT BONY PELVIS 04/06/2025 7:29 PM FINDINGS: Bones/joints: Fractures of the left superior and inferior pubic rami noted with mild inferior displacement of the distal fracture component of the superior pubic ramus. No other fracture evident. Soft tissues: Unremarkable. IMPRESSION: Left superior and inferior pubic rami fractures.
--- NOTE | 2025-04-06 19:04 | CT_ITS ---
PROCEDURE INFORMATION: Exam: CT Cervical Spine Without Contrast Exam date and time: 04/06/2025 7:22 PM Age: 69 years old Clinical indication: Injury or trauma; Additional info: Fall while intoxicated TECHNIQUE: Imaging protocol: Computed tomography of the cervical spine without contrast. Total images: 510 Radiation optimization: All CT scans at this facility use at least one of these dose optimization techniques: automated exposure control; mA and/or kV adjustment per patient size (includes targeted exams where dose is matched to clinical indication); or iterative reconstruction. COMPARISON: CT HEAD/BRAIN WO CON 04/06/2025 7:20 PM FINDINGS: Bones: Cervical lordosis is maintained. Vertebral body height and alignment is preserved. The base of the dens and C1 and C2 articulations are maintained with moderate degenerative arthropathy. The cervicooccipital junction is intact. The facet joints are appropriately aligned with multilevel mild degenerative spondylosis. The posterior elements are intact. Moderate degenerative disc disease C4-C5 and C5-C6. Mild degenerative disc disease remainder of the cervical spine. Spinal canal contents are obscured by attenuation artifact. No concerning bone lesions. Mastoid air cells: Trace right mastoid effusion. Auditory system: Filling defect right external auditory canal compatible with cerumen. Lungs: Severe upper lobe emphysema. Minor biapical scarring. Calcified right apical granuloma. Soft tissues: No prevertebral soft tissue swelling. Unremarkable soft tissues of the neck. IMPRESSION: 1. No acute cervical fracture or traumatic subluxation. 2. Moderate multilevel degenerative disc disease greatest at C4-C5 and C5-C6. 3. Trace right mastoid effusion.
--- NOTE | 2025-04-06 19:04 | CT_ITS ---
PROCEDURE INFORMATION: Exam: CT Head Without Contrast Exam date and time: 04/06/2025 7:20 PM Age: 69 years old Clinical indication: Injury or trauma; Additional info: Fall while intoxicated TECHNIQUE: Imaging protocol: Computed tomography of the head without contrast. Total images: 610 Radiation optimization: All CT scans at this facility use at least one of these dose optimization techniques: automated exposure control; mA and/or kV adjustment per patient size (includes targeted exams where dose is matched to clinical indication); or iterative reconstruction. COMPARISON: No relevant prior studies available. FINDINGS: Brain: No acute intracranial hemorrhage, midline shift, or mass. Mild to moderate cortical and cerebellar atrophy. Small volume hypoattenuating parents of the inferior left occipital lobe, axial image 20 through 24 may reflect attenuation artifact from the calvarium however cannot exclude nonhemorrhagic infarct. Mild remote white matter small-vessel ischemic changes. Basilar cisterns are preserved. Cerebral ventricles: No ventriculomegaly. Paranasal sinuses: Mild mucosal thickening base of the frontal sinuses and bilateral anterior ethmoid air cells. No air-fluid levels. Mastoid air cells: Trace right mastoid effusion. Auditory system: Filling defect right external auditory canal compatible with cerumen. Orbital cavities: Bilateral orbital lens replacement. Bones: Remote nasal bone fracture. No skull fracture. Soft tissues: Unremarkable. Vasculature: Moderate calcifications bilateral intracranial internal carotid arteries. IMPRESSION: 1. Concerning findings for a small volume acute nonhemorrhagic inferior left occipital lobe infarct. Differential would include attenuation artifact from the skull base. Recommend follow-up MRI for clarification. 2. No acute post-traumatic process. 3. Atrophy and remote white matter small-vessel ischemic changes.
--- NOTE | 2025-04-06 19:04 | CT_ITS ---
PROCEDURE INFORMATION: Exam: CT Lumbar Spine Without Contrast Exam date and time: 04/06/2025 7:27 PM Age: 69 years old Clinical indication: Injury or trauma; Additional info: Fall while intoxicated TECHNIQUE: Imaging protocol: Computed tomography of the lumbar spine without contrast. Radiation optimization: All CT scans at this facility use at least one of these dose optimization techniques: automated exposure control; mA and/or kV adjustment per patient size (includes targeted exams where dose is matched to clinical indication); or iterative reconstruction. COMPARISON: CT LUMBAR SPINE WO CON 04/06/2025 7:27 PM FINDINGS: Bones/joints: Moderate loss of intervertebral disc space with degenerative changes involving L3 through L5. The vertebral bodies are maintained in height and alignment. No evidence of acute osseous abnormality. Vasculature: Moderate calcific atherosclerotic disease of the abdominal aorta without aneurysmal dilatation is present. Soft tissues: Unremarkable. IMPRESSION: No evidence of acute osseous abnormality.
--- NOTE | 2025-04-06 19:04 | CT_ITS ---
PROCEDURE INFORMATION: Exam: CT Thoracic Spine Without Contrast Exam date and time: 04/06/2025 7:24 PM Age: 69 years old Clinical indication: Injury or trauma; Additional info: Fall while intoxicated TECHNIQUE: Imaging protocol: Computed tomography of the thoracic spine without contrast. Radiation optimization: All CT scans at this facility use at least one of these dose optimization techniques: automated exposure control; mA and/or kV adjustment per patient size (includes targeted exams where dose is matched to clinical indication); or iterative reconstruction. COMPARISON: 1. CT CERVICAL SPINE WO CON 04/06/2025 7:[address] ANGIO CHEST PE PROTOCOL 07/25/2024 8:51 PM FINDINGS: Bones/joints: No acute fracture. Old moderate to moderately severe compression fractures of T5 through T7 and mild old superior endplate compression fracture of T3 and inferior endplate compression fracture of T9 and T11 redemonstrated. Increased kyphosis similar to previous. Vertebral body heights are otherwise intact. Soft tissues: Unremarkable. Lymph nodes: Stable small mediastinal lymph nodes compared to prior CT chest. Tracheobronchial tree: Retained secretions versus aspirated contents noted in the airways to the lower lobes [id number]. Lungs: Emphysematous changes. A 21 x 10 mm ovoid density again noted in the left upper lobe similar to previous CT of 07/25/2024. Interval development of a 10 mm nodule in the medial left lung apex on axial image 49 and coronal image 52. IMPRESSION: 1. No acute traumatic abnormality. 2. Emphysematous changes. 3. Interval development of a 10 mm nodule in the medial left upper lobe. Developing tumor can not be excluded. For both low risk and high risk patients, consider CT Chest at 3 months, PET/CT, or biopsy. (Reference: Sakina) . Pulmonary consultation also advised. 4. Stable ovoid 21 mm nodule in the anterior left upper lobe. 5. Retained secretions versus inspissated contents in the lower lobe airways. 6. Additional nonemergent findings as above. REFERENCES: Sakina Canchola et al. Guidelines for Management of Incidental Pulmonary Nodules Detected on CT Images: From the Fleischner Society 2017. Radiology. 2017;284(1):228-243.
--- NOTE | 2025-04-06 19:06 | CT_ITS ---
PROCEDURE INFORMATION: Exam: CT Pelvis Without Contrast, Skeleton Exam date and time: 04/06/2025 7:29 PM Age: 69 years old Clinical indication: Injury or trauma; Additional info: Fall while intoxicated TECHNIQUE: Imaging protocol: Computed tomography of the pelvis without contrast. Exam focused on the skeleton. Radiation optimization: All CT scans at this facility use at least one of these dose optimization techniques: automated exposure control; mA and/or kV adjustment per patient size (includes targeted exams where dose is matched to clinical indication); or iterative reconstruction. COMPARISON: CT BONY PELVIS 04/06/2025 7:29 PM FINDINGS: Intraperitoneal space: No evidence of free fluid, hemoperitoneum or retroperitoneal hematoma in the pelvis. Bones/joints: Soft tissue hematoma adjacent to the left superior pubic ramus fracture extending into the prevesical and paravesical spaces with approximately 15-20 cc total estimated volume of blood products. Acute mildly displaced fractures in the left superior and inferior pubic rami. Acute nondisplaced vertically oriented fracture in the posterior left iliac wing and lateral left sacral ala (zone 1). Pubic symphysis and bilateral sacroiliac joints remain congruent. Soft tissues: Soft tissue edema surrounds the left inferior pubic ramus fracture. No evidence of large intramuscular hematoma. IMPRESSION: 1. Acute mildly displaced fractures in the left superior and inferior pubic rami. 2. Acute nondisplaced vertically oriented fracture in the posterior left iliac wing and lateral left sacral ala (zone 1). 3. Soft tissue hematoma adjacent to the left superior pubic ramus fracture extending into the prevesical and paravesical spaces with approximately 15-20 cc total estimated volume of blood products.
--- NOTE | 2025-04-06 19:10 | XR_ITS ---
PROCEDURE INFORMATION: Exam: XR Chest Exam date and time: 04/06/2025 7:31 PM Age: 69 years old Clinical indication: Injury or trauma; Fall; Blunt trauma (contusions or hematomas); Additional info: Fall while intoxicated TECHNIQUE: Imaging protocol: Radiologic exam of the chest. Views: 1 view. COMPARISON: 1. CT ANGIO CHEST PE PROTOCOL 07/25/2024 8:51 PM 2. CR XR CHEST PORTABLE 07/25/2024 8:06 PM FINDINGS: Lungs: Emphysematous changes. Prominent increased bandlike and interstitial markings in both lower lung moore compatible with fibro atelectatic changes. Nodule in the left lung apex noted that corresponds to the 2.1 cm ovoid nodule seen in this area on recent CT of the thoracic spine and prior CT chest. Pleural spaces: Unremarkable. No pleural effusion. No pneumothorax. Heart/Mediastinum: Unremarkable. No cardiomegaly. Bones/joints: Unremarkable. Other findings: No acute traumatic abnormality. IMPRESSION: 1. No acute disease. COPD and lower lung field fibro atelectatic changes. 2. Left apical nodule corresponding to 2.1 cm [address]ule on recent CT. The new nodule seen on the current CT is not visible on this chest x-ray. Refer to CT report for recommendations.
[2025-04-06 19:14] LABS: Albumin Level 3.6 g/dl (3.5-5.0); Chloride 93 mmol/L (98-107); Sodium 123 mmol/L (136-145)
[2025-04-06 19:15] LABS: Potassium 4.1 mmoL/L (3.5-5.1)
[2025-04-06 19:16] LABS: VBG Base Excess -3.4 mmol/L (-2.4-2.3); VBG HCO3 21.6 mmol/L (23-30); VBG Oxygen Saturation 99.3 % (50-70); VBG PCO2 36.4 mmol/L (35-51); VBG PH 7.39 mmol/L (7.31-7.41); VBG PO2 183.9 mmol/L (28-40); VBG Total CO2 22.7 mmol/L (23-27)
[2025-04-06 19:17] LABS: Alanine Aminotransferase 28 U/L (12-78); Albumin/Globulin Ratio 1.2 (1.1-1.8); Alkaline Phosphatase 84 U/L (38-126); Anion Gap 10.1 mEq/L (5-15); Aspartate Amino Transferase 55 U/L (17-59); Bilirubin,Total 2.4 mg/dl (0.2-1.3); Blood Urea Nitrogen 8 mg/dl (9-20); Carbon Dioxide 24 mmol/L (22.0-30.0); Creatinine Clearance Estimated 65 mL/min (50-200); Estimated Glomerular Filt Rate 164 ml/min (>60); GFR (African American) 198 ML/MIN (>60); Glucose 143 mg/dl (74-100); Total Protein,Serum 6.6 g/dl (6.3-8.2)
[2025-04-06 19:18] LABS: Lipase 25 U/L (23-300); Magnesium 1.5 mg/dl (1.6-2.3)
[2025-04-06 19:19] LABS: Lactate Venous 5.1 mmol/L (0.4-2.0)
[2025-04-06] MEDS: 0.9 % SODIUM CHLORIDE 1000ML 1,000 ML 999 ML IV (19:19)
--- NOTE | 2025-04-06 19:19 | PC.NURSE ---
critical called from RT. Fatuma lactic 5.1
[2025-04-06 19:20] LABS: Microscopic, Urine URINE MICROSCOPIC (MICROSCOPIC)
[2025-04-06 19:23] LABS: Appearance,Urine CLEAR (Clear); Blood, Urine Negative (Negative); Color,Urine ORANGE (Yellow); Glucose,Urine (UA) Negative (Negative); Ketones,Urine Negative (Negative); Leukocyte Esterase,Urine Negative (Negative); Nitrate,Urine Negative (Negative); Protein,Urine TRACE (Negative); Specific Gravity, Urine 1.025 (1.005-1.030)
[2025-04-06 19:24] LABS: Basophils % 0.3 % (0.1-2.0); Hematocrit 35.6 % (42.0-52.0); Hemoglobin 12.6 g/dL (14.1-18.0); Immature Granulocytes # 0.05 10^3uL; Immature Granulocytes % 0.4 %; Lymphocytes # 1.5 K/mm3 (0.7-4.5); Lymphocytes % 12.5 % (10-50); Mean Corpuscular HGB Conc 35.4 g/dL (31.8-35.4); Mean Corpuscular Hemoglobin 36.5 pg (27.0-31.2); Mean Corpuscular Volume 103.2 fl (80-94); Mean Platelet Volume 10.3 fl (7.4-10.4); Monocytes # 1.1 K/mm3 (0.1-1.0); Monocytes % 9.2 % (1.7-9.3); Neutrophils # 9.1 K/mm3 (1.8-7.8); Neutrophils % 77.6 % (37.0-80.0); Nucleated Red Blood Cells # 0 10^3/uL; Nucleated Red Blood Cells % 0 %; Platelet Count 149 K/mm3 (142-424); Red Blood Count 3.45 M/mm3 (4.60-6.20); Red Cell Distribution Width 14.1 % (11.5-17.5); Red Cell Distribution Width-SD 53.6 fL; White Blood Count 11.7 K/mm3 (4.8-10.8)
[2025-04-06 19:29] LABS: Troponin I 0.08 ng/ml (0.00-0.034)
[2025-04-06 19:31] LABS: INR 0.99 (0.9-1.1)
[2025-04-06 19:34] LABS: Bilirubin,Urine Negative (Negative)
--- NOTE | 2025-04-06 19:45 | PC.NURSE ---
Dr. Beltran received phone call from [facility] stating that possible stroke seen on scan. Due to timing, and LKN along with NIH of 0, stroke alert not called per Dr. Beltran order but patient taken to CT scan for stroke scans immediately.
--- NOTE | 2025-04-06 19:51 | PC.NURSE ---
radiology called for stroke scans.
--- NOTE | 2025-04-06 19:52 | CT_ITS ---
PROCEDURE INFORMATION: Exam: CTA Head With Contrast, Arteriography Exam date and time: 04/06/2025 8:02 PM Age: 69 years old Clinical indication: Stroke-like symptoms; Dizziness/giddiness; Additional info: Fall while intoxicated TECHNIQUE: Imaging protocol: Computed tomographic angiography of the head with contrast. Exam focused on the arteries. Radiation optimization: All CT scans at this facility use at least one of these dose optimization techniques: automated exposure control; mA and/or kV adjustment per patient size (includes targeted exams where dose is matched to clinical indication); or iterative reconstruction. COMPARISON: CT HEAD/BRAIN WO CON 04/06/2025 7:20 PM FINDINGS: ANTERIOR CIRCULATION: Intracranial internal carotid arteries: Mild to moderate chronic predominantly calcific plaque in the mid-distal ICA resulting in chronic narrowing. Middle cerebral arteries: M1, M2 and their distal visualized branches are without acute flow limiting stenosis. Anterior cerebral arteries: A1, A2 and their distal visualized branches are without acute flow limiting stenosis. Anterior communicating artery is unremarkable. . POSTERIOR CIRCULATION: Vertebral arteries: Intracranial vertebral arteries and their visualized branches are without acute flow limiting stenosis. Basilar artery: The basilar artery and its visualized proximal branches are without acute flow limiting stenosis. Posterior cerebral arteries: P1, P2 and their distal visualized branches are without acute flow limiting stenosis. IMPRESSION: NO acute flow-limiting stenosis or large vessel occlusion. COMMENT: Recommend followup with MRI if persistent/new/worsening symptoms or symptoms unexplained by the current study. PROCEDURE INFORMATION: Exam: CTA Neck With Contrast Exam date and time: 04/06/2025 8:02 PM Age: 69 years old Clinical indication: Stroke-like symptoms; Dizziness/giddiness; Additional info: Fall while intoxicated TECHNIQUE: Imaging protocol: Computed tomographic angiography of the neck with contrast. Exam focused on the cervical segments of the vasculature. 3D rendering (Not supervised by radiologist): MIP and/or 3D reconstructed images were created by the technologist. Radiation optimization: All CT scans at this facility use at least one of these dose optimization techniques: automated exposure control; mA and/or kV adjustment per patient size (includes targeted exams where dose is matched to clinical indication); or iterative reconstruction. Contrast material: ISOVUE; Contrast volume: 80 ml; Contrast route: INTRAVENOUS (IV); COMPARISON: No relevant prior studies available. FINDINGS: Thoracic Vessels: Atherosclerotic disease of the visualized aortic arch without aortic aneurysm or dissection. No significant narrowing at the origin of the neck vessels. . Common Carotid Arteries: Common carotid arteries are without acute flow limiting stenosis. . Cervical Internal Carotid Arteries: Mild calcific/noncalcific plaque at the carotid bifurcation extending to the carotid bulb without acute flow-limiting stenosis of the cervical internal carotid arteries. No evidence of an aneurysm or a dissection. . Vertebral Arteries: Calcific plaque at the origin of RIGHT vertebral artery resulting in chronic narrowing at the origin. . Other Structures: Osteopenia, chronic degenerative changes in the visualized spine and shoulder joint(s). Likely chronic compression fractures of multiple thoracic vertebra. Severe emphysema in the visualized upper lung moore with with focal scarring in the LEFT upper lobe and associated nodules, largest measuring 2.4 x 1.1 cm. IMPRESSION: Chronic atherosclerotic disease without acute flow-limiting stenosis, no occlusion, aneurysm or dissection of the carotid and vertebral arteries in the neck. Severe emphysema with scarring in the LEFT upper lobe and LEFT lung nodules. Recommend followup using Fleischner Society Guidelines for Management of Incidentally Detected Pulmonary Nodules on CT in Adults based on nodule Type, nodule Size and patient Risk Factors. Other nonemergent/incidental findings as described. REFERENCES: NASCET CRITERIA. The degree of stenosis in the cervical segment of the internal carotid artery is based on NASCET criteria. Normal is no stenosis. Mild is less than 50% stenosis. Moderate is 50-69% stenosis. Severe is 70% to 99% stenosis. Total occlusion is no detectable patent lumen. COMMENT: The presence of pulmonary emphysema on CT is an independent risk factor for lung cancer. In the absence of a history or active diagnosis of lung cancer, it is recommended that this patient with emphysema be evaluated for enrollment in a low dose CT lung cancer screening program. ?
[2025-04-06 19:59] LABS: Procalcitonin 0.114 ng/mL (0.0-2.0); T4 (Thyroxine) 5.2 ug/dl (5.53-11.0); Triiodothryronine (T3) Uptake 39 % (23.5-40.5)
--- NOTE | 2025-04-06 20:02 | PC.NURSE ---
Pt taken to RAD by arnol @ 1954
[2025-04-06] MEDS: SODIUM CHLORIDE 0.9% 10ML SYR (RAD ONLY) 10 ML IV (20:05)
[2025-04-06] MEDS: IOPAMIDOL-370 (76%);100ML BOTTLE 80 ML IV (20:05)
[2025-04-06] MEDS: 0.9 % SODIUM CHLORIDE 50 ML VIAL IV (20:05)
[2025-04-06 20:09] LABS: Ethyl Alcohol 214 mg/dl (0-10)
[2025-04-06 20:13] LABS: Thyroid Stimulating Hormone 2.78 uIU/mL (0.465-4.68)
[2025-04-06 20:14] LABS: Ammonia < 9 umol/L (9-30)
[2025-04-06] MEDS: IPRATROPIUM/ALBUTEROL 3 ML NEB 9 ML IH (20:25)
--- NOTE | 2025-04-06 20:27 | PC.NURSE ---
call to [facility] for tsfx request @2024
[2025-04-06] MEDS: CALCIUM GLUC IN NACL, ISO-OSM 2 GM/100 ML BAG IV (20:29)
[2025-04-06] MEDS: MAGNESIUM SULFATE IN WATER 2 GM/50 ML PIGGYBACK IV (20:29)
[2025-04-06] MEDS: AZITHROMYCIN 500 MG in 0.9 % SODIUM CHLORIDE 250 ML 250 MG IV (20:29)
[2025-04-06] MEDS: CEFTRIAXONE 1 GM 1 GM in 0.9 % SODIUM CHLORIDE 50 ML IV (20:30)
--- NOTE | 2025-04-06 20:35 | PC.NURSE ---
RN on the phone with [employer], checking flights at this time
[2025-04-06 20:41] LABS: Bacteria,Urine Trace /lpf; Mucus,Urine 4+ /lpf; RBC,Urine Occasional #/hpf (0-3); Squamous Epithelial Cell,Urine Occasional #/hpf (0-5); WBC,Urine Occasional #/hpf (0-3)
[2025-04-06] MEDS: METHYLPREDNISOLONE SOD SUCC 125MG VIAL 125 MG IV (20:41)
--- NOTE | 2025-04-06 21:10 | PC.NURSE ---
Flight Crew present. Report given to Cammy Robison on flight crew. Prior to flight crew arrival report called to MISSAEL Chawla at [facility].
[2025-04-06 23:18] LABS: Reflex Lactic Add Lactic Reflex
[2025-04-08 08:16] LABS: HBsAg Screen Negative (Negative); HCV Ab Non Reactive (Non Reactive); Hep A Ab, IGM Negative (Negative); Hep B Core Ab, IgM Negative (Negative)
== END 2025-04-06 21:25 | disposition short-term general hospital (02) ==
PROVIDERS: Physician Assistant; Emergency Provider Emergency Medicine
DX: S32.592A Other specified fracture of left pubis, initial encounter for closed fracture (principal); J18.9 Pneumonia, unspecified organism; J44.1 Chronic obstructive pulmonary disease with (acute) exacerbation; F10.129 Alcohol abuse with intoxication, unspecified; E87.1 Hypo-osmolality and hyponatremia; E83.42 Hypomagnesemia; E80.6 Other disorders of bilirubin metabolism; E83.51 Hypocalcemia; W19.XXXA Unspecified fall, initial encounter; Y90.7 Blood alcohol level of 200-239 mg/100 ml; F17.210 Nicotine dependence, cigarettes, uncomplicated
CPT/HCPCS: 70450; 70496; 70498; 71045; 72125; 72128; 72131; 72192; 73502; 80053; 80074; 80320; 81001; 82140; 82803; 83690; 83735; 84145; 84436; 84443; 84479; 84484; 85025; 85610; 87040; 93005; 96365; 96367; 96375; 99291; J0456; J0612; J0696; J2919; J3475; J7030; J7050; Q9967

== ENCOUNTER 2025-06-09 18:09 | Emergency (ER) | payer BC, MEDICARE, SELFPAY ==
--- OUTSIDE RECORDS SUMMARY | 2025-04-06 21:46 | XMS_ITS | Encounter Summary ---
Author Organization Healthcare Address [address] [id number] Care Team Providers Care Combine Operator Name Role Phone María Tirado APRN Primary Care Provider [phone] Reason for Visit * Reason Comments Trauma Alert * Auth/Cert (Routine) Specialty Diagnoses / Procedures Referred By Contac t Referred To Contact Diagnoses Multiple closed fractures of pelvis without disruption of pelvic ring, initial encounter ([facility]) Possible Stroke, pelvic fracture, PNA Tres Elaine MD [address] [address] Phone: tel: fax: [facility] Emergency Department [address] [place] [address] Phone: tel: Referral ID Status Reason Start Date Expiration Date Visits Re quested Visits Authorized [id number] 1 1 Encounter Details Date Type Department Care Team (Latest Contact Info) Description 04/06/2025 9:46 PM EDT - 04/13/2025 2:20 PM EDT Hospital Encounter [facility] [address] [place] [address] Ricky Layne MD [address] [place] [address] Kyle Ji MD [address] [place] [address] Tres Elaine MD [address] [facility] [place] [address] Annabelle Ward MD [address] [place] [address] Abby Dorado MD [address] [place] [address] Lolita Payton MD [address] [facility] [address] [place] [address] Multiple closed fractures of pelvis without disruption of pelvic ring, initial encounter ([facility]) (Primary Dx) Discharge Disposition: Rehab Facility Social History Tobacco Use Types Packs/Day Years Used Date Smoking Tobacco: Every Day Cigarettes Tobacco Cessation:Ready to Q uit: Not Asked; Counseling Given: Not Answered Alcohol Use Standard Drinks/Week Comments Yes 40 (1 standard drink = 0.6 oz pu re alcohol) Humiliation, Afraid, Rape, and Kick questionnair e Answer Date Recorded Within the last year, have y ou been afraid of your partner or ex-partner? No 04/07/2025 Within the last year, have y ou been humiliated or emotionally abused in other ways by your partner or ex-partner? No Within the last year, have y ou been kicked, hit, slapped, or otherwise physically hurt by your partner or ex-partner? No 04/07/2025 Within the last year, have y ou been raped or forced to have any kind of sexual activity by your partner or ex-partner? No 04/07/2025 AUDIT-C Answer Date Recorded Q1: How often do you have a drink containing alcohol? 4 or more times a week 04/08/2025 Q2: How many drinks containi ng alcohol do you have on a typical day when you are drinking? 10 or more Q3: How often do you have si x or more drinks on one occasion? Daily or almost daily 04/08/2025 Hunger Vital Sign Answer Date Recorded Within the past 12 months, y ou worried that your food would run out before you got the money to buy more. Never true 04/07/20 25 Within the past 12 months, t he food you bought just didn't last and you didn't have money to get more. Never true 04/07/2025 PRAPARE - Transportation Answer Date Re corded In the past 12 months, has l ack of transportation kept you from medical appointments or from getting medications? No 04/2025 In the past 12 months, has l ack of transportation kept you from meetings, work, or from getting things needed for daily living? No 04/07/2025 Housing Stability Vital Sign Answer German e Recorded In the last 12 months, was t here a time when you were not able to pay the mortgage or rent on time? No 04/07/2025 In the past 12 months, how m any times have you moved where you were living? 0 04/07/2025 At any time in the past 12 m [facility], were you homeless or living in a fpc (including now)? No 04/07/2025 CAGE ASSESSMENT Answer Date Recorded Cage unable to access Not on file 04/08/2025 Maximum number of drinks you had on a given occasion in the last month? 5 or more drinks 04/08/2025 How many alcoholic Beverages do you typically drink in a week? 15 or more per week 04/08/2025 Have you ever felt you shoul d CUT down on your drinking? 0 04/08/2025 Have you been ANNOYED by peo ple criticizing your drinking? 0 04/08/2025 Have you felt GUILTY about your drinking? 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 1 04/08/2025 CAGE Questionnaire Score 1 025 Utilities Answer Date Recorded In the past 12 months has th e electric, gas, oil, or water company threatened to shut off services in your home? No 04/07/2025 Sex and Gender Information Value Date Recorded Sex Assigned at Male 04/06/2025 9:49 PM EDT Legal Sex Male 6:01 PM EDT Gender Identity Not on file Sexual Orientation Not on file documented as of this encounter Last Filed Vital Signs Vital Sign Reading Time Taken Comments Blood Pressure 92/58 04/13/2025 11:22 AM EDT Pulse 80 04/13/2025 1:42 PM EDT Temperature 36.6 C (97.9 F) 04/13/2025 11:22 AM EDT Respiratory Rate 16 04/13/2025 1:42 PM EDT Oxygen Saturation 93% 04/13/2025 11:22 AM EDT Inhaled Oxygen Concentration - - Weight 74.2 kg (163 lb 9.3 oz) 04/06/2025 10:00 PM EDT Height 180.3 cm (5' 11 ) 04/07/2025 10:12 AM EDT Body Mass Index 22.81 04/06/2025 10:00 PM EDT documented in this encounter Functional Status * AUDIT-C Score Answer Date of Assessment Author 12 04/08/2025 6:22 PM EDT Shantell Temple RN * Question Answer Date of Assessment Author Q1: How often do you have a drink containing alcohol? 4 or more times a week 04/08/2025 6:22 PM EDT Shantell Temple RN Q2: How many drinks containing alcohol do you have on a typical day when you are drinking? 10 or more 04/08/2025 6:22 PM EDT Shantell Temple RN Q3: How often do you have six or more drinks on one occasion? Daily or almost daily 04/08/2025 6:22 PM EDT Shantell Temple RN * Calculated C-SSRS Risk Score (Lifetime/Recent) Answer Date of Assessment Author No Risk Indicated 04/12/2025 6:00 PM EDT Bria Nogueira RN * Question Answer Date of Assessment Author 1. Wish to be (Past 1 Month) No 025 6:00 PM EDT Bria Nogueira RN 2. Non-Specific Active Suici efren Thoughts (Past 1 Month) No 04/12/2025 6:00 PM EDT Mike Nogueira RN 6. Suicidal Behavior (Lifetime) No 6:00 PM EDT Bria Nogueira RN documented as of this encounter Discharge Instructions * Discharge Instructions* Priya Flores, BIOLOGICAL SCIENCES PROFESSOR, DNP - 04/13/2025 12:55 PM EDT DVT prophylaxis: Enoxaparin 30 mg twice daily until 05/04 Procedures: Non-operative management; Post-mobility films completed and stable pelvis Mobility Restrictions: Touchdown weight bearing left lower extremity Wound Care: None Ok to shower/bathe with assistance Pain Medications: - You should take 650 mg Tylenol every 6 hours for mild - moderate pain. - You should take 500 mg methocarbamol 4 times per day for muscle spasms. - You have been prescribed pain medications to be taken as needed for severe pain. - You should take the stool softener prescribed as long as you are taking narcotics. - You may resume your previous medications unless otherwise instructed. Nutrition: - You may resume your normal diet (Regular) as tolerated, focusing on liquids to keep yourself hydrated. Activity: - No driving while on narcotics Potential Issues: - Call the office if you have a fever greater than 101 F - Call the office if you have severe abdominal discomfort, nausea and vomiting, or feeling unwell Incidental Findings: - Degenerative arthritis of lumbar spine Follow up: PCP: Follow up in 1-2 weeks post hospitalization for incidental findings and management of chronic conditions/medications Ortho: Follow up with KAMI Mcginnis on 05/03/2025 @ 11:50 am for evaluation of pelvic fractures, [facility]; [facility], [address] [place] [address], Room [address], [place] [address], # [phone]. SGT: [facility] as needed; [address] [place] [address], [facility] Room [address] [place] [address], #[phone]. Questions or Concerns and Appointments If there are questions or concerns after discharge from the hospital, please call [phone] and ask for [facility] Nurse. Working hours are Thursday - Thursday 8:00 AM to 4:00 PM. After hours, weekends and holidays please call [phone] and ask for the resident strength and conditioning coach for [facility]. For appointments please call [phone]. Medication requests should be made between the hours of 9:00 AM to 3:00 PM Thursday thru Thursday. Please note that based upon recent changes to [place] law related to prescribing opioid pain medications, our providers will not provide refills on controlled medications after your hospital discharge following a major surgery or trauma. [place]:260. documented in this encounter Medications at Time of Discharge acetaminophen (Tylenol) 325 MG tablet Take 2 tablets by mouth every 6 hours. Under [place] law, monthly prescriptions (30 days) can be refilled at 25 days and three-month prescriptions (90 days) at 80 days. Please contact the insurance company with questions if refills are denied. 5 albuterol 108 (90 Base) MCG/ACT inhaler Inhale 2 puffs every 4 to 6 hours as needed for wheezing or shortness of breath. folic acid (Folvite) 1 MG tablet Take 1 tablet by mouth daily. 5 ipratropium-albuter ol (Duo-Neb) 0.5-2.5 mg/3 mL nebulizer solution Take 3 mL by nebulization every 4 to 6 hours as needed for wheezing or shortness of breath. melatonin tablet Take 2 tablets by mouth nightly. 5 methocarbamol (Robaxin) 500 MG tablet Take 1 tablet by mouth every 8 hours. 5 mometasone-formoter ol (Dulera 100) 100-5 MCG/ACT inhaler Inhale 2 puffs 2 times a day. Rinse mouth with water after use to reduce aftertaste and incidence of candidiasis. Do not swallow. 5 nicotine (Nicoderm CQ) 21 MG/24HR patch Place 1 patch on the skin daily. 5 ondansetron ODT (Zofran-ODT) 4 MG disintegrating tablet Dissolve 1 tablet on the tongue every 6 hours as needed for nausea or vomiting. 5 polyethylene glycol (Miralax) 17 g packet Take 17 g by mouth daily. 5 senna-docusate (Elenita-Colace) 8.6-50 MG tablet Take 1 tablet by mouth 2 times a day. 5 thiamine (Vitamin B-1) 100 MG tablet Take 1 tablet by mouth daily. 5 enoxaparin (Lovenox) 30 MG/0.3ML solution prefilled syringe Inject 0.3 mL under the skin 2 times a day for 21 days. 5 05/04/20 25 documented as of this encounter Miscellaneous Notes * Query Clarification Note - Lolita Payton MD - 04/13/2025 2:20 PM EDT Physician Clarification Please review the following and provide your response below. Please review and consider documenting a diagnosis associated with the findings below. []Folic acid deficiency [x]Other (please specify) Chronic EtOH use with suspected thiamine and folate deficiency. [x]Labs without clinical significance This documentation will become part of the patient's medical record. * Query Clarification Note - Lolita Payton MD - 04/13/2025 1:46 PM EDT Physician Clarification Please review the following and provide your response below. Please review and consider documenting a diagnosis associated with the findings below. []Folic acid deficiency [x]Other (please specify) Chronic EtOH use, suspected thiamine and folate deficiency [x]Labs without clinical significance This documentation will become part of the patient's medical record. * Elsie Mcgrath RN - 04/13/2025 1:06 PM EDT Images from the original note were not included. [id number] Enoxaparin Injection Brand Name(s): Lovenox??; also available generically ?? This branded product is no longer on the market. Generic alternatives may be available. IMPORTANT WARNING: If you have epidural or spinal anesthesia or a spinal puncture while taking a 'blood thinner' such as enoxaparin, you are at risk for having a blood clot form in or around your spine that could causeyou to become paralyzed. Tell your doctor if you are taking other anticoagulants ('blood thinners')such as warfarin (Coumadin), anagrelide (Agrylin), aspirin or nonsteroidal anti-inflammatory drugs (ibuprofen, naproxen), cilostazol (Pletal), clopidogrel (Plavix), dipyridamole (Persantine), eptifibatide (Integrilin), prasugrel (Effient), sulfinpyrazone (Anturane), ticlopidine (Ticlid), and tirofiban (Aggrastat). If you experience any of the following symptoms, call your doctor immediately: numbness, tingling, leg weakness or paralysis, and loss of control over your bladder or bowels. Talk to your doctor about the risk of taking enoxaparin. Keep all appointments with your doctor. WHY is this medicine prescribed? Enoxaparin is used to prevent blood clots in the leg in patients who are on bedrest or who are having hip replacement, knee replacement, or stomach surgery. It is used in combination with aspirin to prevent complications from angina (chest pain) and heart attacks. It is also used in combination with warfarin to treat blood clots in the leg. Enoxaparin is in a class of medications called low molecular weight heparins. It works by stopping the formation of substances that cause clots. HOW should this medicine be used? Enoxaparin comes as an injection in a syringe to be injected just under the skin (subcutaneously) but not into your muscle. It is usually given twice a day. You will probably begin using the drug while you are in the hospital and then use it for a total of 10 to 14 days. Follow the directions on your prescription label carefully, and ask your doctor or pharmacist to explain any part you do not understand. Use enoxaparin exactly as directed. Do not inject more or less of it or inject it more often than prescribed by your doctor. Continue to use enoxaparin even if you feel well. Do not stop taking enoxaparin without talking to your doctor. Your healthcare provider will teach you how to give yourself the shot or arrangements will be made for someone else to give you the shot. Enoxaparin is usually injected in the stomach area. You must use a different area of the stomach each time you give the shot. If you have questions about where to give the shot, ask your healthcare provider. Each syringe has enough drug in it for one shot. Do not use the syringe and needle more than one time. Your doctor, pharmacist, or health care provider will tell you how to dispose of used needles and syringes to avoid accidental injury. Keep syringes and needles out of reach of children. To inject enoxaparin, follow these instructions: ? Wash your hands and the area of skin where you will give the shot. ? Look at the syringe to be sure the drug is clear and colorless or pale yellow. ? Take the cap off the needle. Do not push any air or drug out of the syringe before giving the shot unless your healthcare provider tells you to. ? Lie down and pinch a fold of skin between your finger and thumb. Push the entire needle into the skin and then press down on the syringe plunger to inject the drug. Hold onto the skin the entire time you give the shot. Do not rub the site after you give the shot. Are there OTHER USES for this medicine? This medication may be prescribed for other uses; ask your doctor or pharmacist for more information. What SPECIAL PRECAUTIONS should I follow? Before taking enoxaparin, ? tell your doctor and pharmacist if you are allergic to enoxaparin, heparin, any other drugs, or pork products. ? tell your doctor and pharmacist what prescription and nonprescription medications, vitamins, nutritional supplements, and herbal products you are taking or plan to take while receiving enoxaparin. Your doctor may need to change the doses of your medications or monitor you carefully for side effects. ? the following nonprescription products may interact with enoxaparin: aspirin and nonsteroidal anti-inflammatory drugs (NSAIDs) such as ibuprofen (Advil, Motrin, others) and naproxen (Aleve, Naprosyn, others). Be sure to let your doctor and pharmacist know that you are taking these medications before you start receiving enoxaparin. Do not start any of these medications while receiving enoxaparinwithout discussing with your healthcare provider. ? tell your doctor if you have an artificial heart valve and if you have or have ever had kidney disease, an infection in your heart, a stroke, a bleeding disorder, ulcers, or a low platelet count. ? tell your doctor if you are , plan to become , or are breast- feeding. If you become while taking enoxaparin, call your doctor. ? if you are having surgery, including dental surgery, tell the doctor or dentist that you are taking enoxaparin. What should I do IF I FORGET to take a dose? Inject the missed dose as soon as you remember it. However, if it is almost time for the next dose,skip the missed dose and continue your regular dosing schedule. Do not inject a double dose to makeup for a missed one. What SIDE EFFECTS can this medicine cause? If you experience any of the following symptoms or those listed in the IMPORTANT WARNING section, call your doctor immediately: ? unusual bleeding or bruising ? black or bloody stools ? blood in urine ? swollen ankles and/or feet If you experience a serious side effect, you or your doctor may send a report to the Food and Drug Administration's (FDA) MedWatch Adverse Event Reporting program online (https://www.fda.gov/Safety/MedWatch) or by phone ( ). What should I know about STORAGE and DISPOSAL of this medication? Keep this medication out of reach of children. Store the syringes at room temperature and away fromexcess heat and moisture (not in the bathroom). Do not use the syringe if it leaks or if the fluid is dark or contains particles. Unneeded medications should be disposed of in special ways to ensure that pets, children, and otherpeople cannot consume them. However, you should not flush this medication down the toilet. Instead,the best way to dispose of your medication is through a medicine take-back program. Talk to your pharmacist or contact your local garbage/recycling department to learn about take-back programs in your community. See the FDA's Safe Disposal of Medicines website (https://goo.gl/c4Rm4p) for more information if you do not have access to a take-back program. It is important to keep all medication out of sight and reach of children as many containers (such as weekly pill minders and those for eye drops, creams, patches, and inhalers) are not child-resistant and young children can open them easily. To protect young children from poisoning, always lock safety caps and immediately place the medication in a safe location - one that is up and away and out of their sight and reach. https://www.[facility] [[facility]][place].org What should I do in case of OVERDOSE? In case of overdose, call the poison control helpline at . Information is also available online at https://www.poisonhelp.org/help. If the victim has collapsed, had a seizure, has trouble breathing, or can't be awakened, immediately call emergency services at 911. What OTHER INFORMATION should I know? Keep all appointments with your doctor and the laboratory. Your doctor will order certain lab teststo monitor your enoxaparin therapy. Enoxaparin prevents blood from clotting so it may take longer than usual for you to stop bleeding if you are cut or injured. Avoid activities that have a high risk of causing injury. Call your doctorif bleeding is unusual. Do not let anyone else use your medication. Your prescription is probably not refillable. It is important for you to keep a written list of all of the prescription and nonprescription (kqev-kqh-jdcogoa) medicines you are taking, as well as any products such as vitamins, minerals, or otherdietary supplements. You should bring this list with you each time you visit a doctor or if you areadmitted to a hospital. It is also important information to carry with you in case of emergencies. This report on medications is for your information only, and is not considered individual patient advice. Because of the changing nature of drug information, please consult your physician or pharmacist about specific clinical use. The [place] [employer] represents that the information provided hereunder was formulated with a reasonable standard of care, and in conformity with professional standards in the field. The [place] [employer] makes no representations or warranties, express or implied, including, but not limited to, any implied warranty of merchantability and/or fitness for a particular purpose, with respect to such information and specifically disclaims all such warranties. Users are advised that decisions regarding drug therapy are complex medical decisions requiring the independent, informed decision of an appropriate health health care legal assistant, and the information is provided for informational purposes only. The entire monograph for a drug should be reviewed for a thorough understanding of the drug's actions, uses and side effects. The [place] [employer] does not endorse or recommend the use of any drug.The information is not a substitute for medical care. AHFS?? Patient Medication Information?. ?? Copyright, 2023. The [place] [employer]??, [address], [address], [place], [place]. All Rights Reserved. Duplication for commercial use must be authorized by [facility]. Selected Revisions: May 21, 2024. AHFS?? Patient Medication Information?. ?? Copyright, 2024 * Juan Granados RN - 04/13/2025 1:05 PM EDT Images from the original note were not included. [address] The Impact of Alcohol Use Disorder (AUD) Impact on the person, workplace, family, and society Alcohol use disorder (AUD) is considered a brain disorder that can be mild, moderate, or severe. Itis present when a person can't stop or control alcohol use even though the drinking is causing problems in all areas of their lives. AUD includes conditions people refer to as alcohol abuse, alcohol dependence, alcohol addiction, and the older term, alcoholism. People with alcohol use disorder must cope with problems caused by their drinking. These include problems with health, family, and work. Drinking can lead to fear and guilt, anger and insecurity. People with AUD are often in denial about all of this. This means they do not admit they have a problemwith alcohol. People with alcohol use disorder have more accidents while at work. Their job performance may go down. And they are often absent or late. All this costs the company in lost time and medical care. It may also cost the company in property damage. Coworkers may need to fill in or cover up for a personwith alcoholism. This can lead to anger. AUD also affects the whole family. Family members may feel alone, neglected, or abused. They may become angry or distrustful. They may also feel embarrassment, guilt, or fear. These feelings can leadto a lot of stress and upset in a family. People with alcohol use disorder are more often involved in traffic accidents. Other types of accidents and fires are also common. They more often abuse their children and spouses. And they are more likely to hurt or kill someone else or themselves. The human cost of these problems is huge. So is the financial cost. AUD costs the [place] billions of dollars every year. These costs are in the form ofmedical expenses and high insurance premiums. They are also in the form of property damage. What you can do If you are a coworker, family member, or friend, you can help. Start by learning more about alcoholuse disorder and its effects. Learn about the three levels of the AUD spectrum and the warning signs for each. And reach out for support. If a person with alcohol use disorder will not get help, you can still join a support group and gather resources. One of the best things you can do is to not be an enabler. That is, you can't make excuses for people who drink. This can help force them to take responsibility for their own actions. AUD affects not just the person who drinks. It also affects family and friendships. It affects the workplace and schools. And it affects the community. Last Reviewed Date: 2024 00:00:00 ?? [id number] The [employer]. All rights reserved. This information is not intended as a substitute for professional medical care. Always follow your healthcare professional's instructions. * [facility] - Juan Nascimento RN - 04/13/2025 1:05 PM EDT Images from the original note were not included. [id number] Fall Prevention Falls often take place due to slipping, tripping, or losing your balance. Millions of people fall every year and injure themselves. Among older adults in the [place] falls are the most common cause of traumatic brain injuries. Every 20 minutes, an older adult dies from a fall. Here are ways to reduceyour risk of falling again: ? Think about your fall. Was there anything that caused your fall that can be fixed, removed, or replaced? ? Make your home safe by keeping walkways clear of objects you may trip over, such as animal toys and electrical cords. ? If you are sad or depressed talk to your health care provider. Symptoms of depression, such as feeling under the weather, or physically slowed down, have been linked to an increased fall risk. ? Drink fluids throughout the day. Dehydration can lead to dizziness and increase your risk of falling. It's best to talk to your primary care providers about how much water you should drink. They know your medical history, your current prescriptions and your andb-uvh-afnabod medicines. As a general rule, the National [place] on Aging (NCA) recommends taking one-third of your body weight and drinking that number of ounces in fluids. For example, if you weigh 150 pounds, you would drink at least50 ounces, or about 6 cups, of fluid each day. Ask your provider if it's safe for you to use this formula. ? Use nonslip pads under rugs. Don't use area rugs or small throw rugs. ? Use nonslip mats in bathtubs and showers. ? Hang grab rails by the toilet and inside and outside the shower. ? Install handrails and lights on staircases. The handrails should be on both sides of the stairs. ? Use night lights. ? Don't walk in poorly lit areas. ? Don't stand on chairs or wobbly ladders. ? Use care when reaching overhead or looking up. This position can cause a loss of balance. ? Be sure your shoes fit well, are in good condition, and have nonslip bottoms. ? Wear shoes both inside and outside of your home. Don't go barefoot or wear slippers. ? Be cautious when going up and down stairs, curbs, and when walking on uneven sidewalks. ? If your balance is poor, consider using a cane or walker. Talk with your health care provider about having a balance assessment. ? If your fall was related to alcohol use, stop or limit alcohol intake. Ask your provider for helpif you think you may overuse alcohol and can't stop. ? If your fall was related to use of sleeping medicines, talk with your provider about this. You may need to reduce your dosage at bedtime if you wake up during the night to go to the bathroom. ? To reduce the need for nighttime bathroom trips: o Don't drink fluids for several hours before going to bed. o Empty your bladder before going to bed. o Men can keep a urinal at the bedside. ? Stay as active as you can. Balance, flexibility, strength, and endurance all come from exercise. They all play a role in preventing falls. Ask your provider which types of activity are right for you. Try to do some type of exercise every day. ? Get your eyes checked once a year or more often if your vision changes. Be extra cautious while adjusting to new prescription lenses. ? If you have pets, know where they are before you stand up or walk so you don't trip over them. ? Go over all your medicines with a pharmacist or other provider. This is to see if any of them could make you more likely to fall. Have this type of medicine review at least once every year. ? If your provider advises a new medicine, ask if the side effects will affect your balance. ? Don't move quickly from one position to another. For instance, don't stand up fast from sitting. This can cause dizziness and may lead to a fall. ? Sit down when putting on pants, socks, and shoes. This will make you less likely to lose your balance and fall. ? Always let your provider know if you have fallen since your last visit. ? Contact your provider right away if you're having balance problems or falling more often. Last Reviewed Date: 2024 00:00:00 ?? [id number] [employer]. All rights reserved. This information is not intended as a substitute for professional medical care. Always follow your healthcare professional's instructions. * [facility] - Juan Nascimento RN - 04/13/2025 1:05 PM EDT Images from the original note were not included. [id number] Understanding Alcohol Use Disorder (AUD) Alcohol use disorder (AUD) is a disabling pattern of alcohol use with high rates of physical and emotional problems. Some of these include: ? Problems controlling drinking ? Always thinking about drinking ? Continuing to use alcohol even when it causes physical, emotional, social, and money problems ? Needing to drink more alcohol to get the same effect ? Having withdrawal symptoms when drinking is stopped It's a disease in which a person is dependent on a drug--alcohol. AUD can be mild, moderate, or severe. But even a mild disorder can lead to problems. In the past, AUD was called alcohol abuse or alcoholism. AUD can harm a person?s physical and mental health. It can also affect their behavior. And it can negatively impact personal and family relationships. AUD isn't a character flaw or a moral failure. It should be treated as a medical condition. It is best treated with a combination of behavioral change, support, and medicines. Relapses can occur. They are part of the disease. Effects of AUD Behavioral effects Drinking is the main behavior of people with AUD. They develop a private relationship with drinking. They guard it. They give it their time, money, and focus. This may happen at the expense of familyand friends. They lie for it and think about it all the time. They may risk losing their families for it. They may risk their lives for it. Despite the harm it causes, they can?t control the drinking. Health risks People with AUD are at high risk for health problems. These include heart disease and cancer. They also include mental illness. People with the disease may not heal from illness normally. Unless drinking is stopped, it can cause . may result from organ failure, cancer, or common viruses. may also result from accidents or suicide. Physical effects Alcohol can be like a poison to the body. It kills cells. Heavy drinking over a long time can greatly harm the body?s organs. These can include the brain, heart, liver, and pancreas. Chronic drinkingalso harms the digestive tract. It can make the blood thin and unable to clot. This causes bruisingand even fatal bleeding. It harms the immune system as well. This leaves the body at risk for serious disease. Psychological effects AUD can lead to a type of distorted thinking. One of the most common forms of this is denial. This is when the person denies that drinking is a problem. They may deny that any of the problems in their life are caused by drinking. They may blame others for problems they have. Last Reviewed Date: 2023 00:00:00 ?? [id number] [employer]. All rights reserved. This information is not intended as a substitute for professional medical care. Always follow your healthcare professional's instructions. * Jeannine VillanuevaJuan Daniel RN - 04/13/2025 1:05 PM EDT Images from the original note were not included. 66210 Using an Incentive Spirometer An incentive spirometer is a handheld device that helps you do deep breathing exercises after surgery. It also helps lower the risk of breathing problems if you have a lung disease or condition. These exercises expand your lungs, aid in circulation, and may help prevent pneumonia. Deep breathing exercises also help you breathe better and improve lung function by: ? Keeping your lungs clear. ? Making your breathing muscles stronger. ? Helping prevent respiratory complications or problems. The incentive spirometer gives you a way to take an active part in your recovery. A nurse or respiratory therapist will teach you breathing exercises. To do these exercises, you will breathe in through your mouth and not your nose. The incentive spirometer only works correctly if you breathe in through your mouth. Deep breathing expands the lungs, aids circulation, and helps prevent pneumonia. Your health care provider or their staff will tell you how to use the device, your targeted volume(s), and provide other helpful tips to prevent complications (such as pain, dizziness, feeling lightheaded) when blowing in the incentive spirometer. Steps to clear lungs Step 1. Exhale normally. Then, inhale normally. ? Relax and breathe out. Step 2. Place your lips tightly around the mouthpiece. ? Make sure the device is upright and not tilted. ? Sit up and breathe out (exhale) fully. ? Tightly seal your lips around the mouthpiece. Step 3. Inhale as much air as you can through the mouthpiece. Don't breathe through your nose. ? Breathe in (inhale) slowly and deeply. ? Hold your breath long enough to keep the balls, piston, or disk raised for at least 3 to 5 seconds, or as instructed by your health care provider. ? Exhale slowly to allow the balls, piston, or disk to fall before repeating. Note: Some spirometers have an indicator to let you know that you are breathing in too fast. If theindicator goes off, breathe in more slowly. Step 4. Repeat the exercise regularly. ? Do sets of 10 exercises every hour while you're awake, or as instructed by your health care provider. Don't do more than 30 breaths in each set. ? If you were taught deep breathing and coughing exercises, do them regularly as instructed by yourprovider, nurse, or respiratory therapist. Follow-up care Make a follow-up appointment as directed by your health care provider. Also, follow up with your provider as advised if your symptoms don't improve or continue to get worse. When to contact your doctor Contact your health care provider right away if you have: ? A fever 100.4?? (38??C) or higher, or as advised by your provider. ? Brownish, bloody, or smelly sputum (phlegm that you cough up). Call 911 Call 911 if any of these occur: ? Shortness of breath that doesn't get better after taking your medicine ? Cool, moist, pale, or blue skin ? Trouble breathing or swallowing, wheezing ? Fainting or loss of consciousness ? Feeling of dizziness or weakness, or a sudden drop in blood pressure ? Feeling very ill ? Lightheadedness ? Chest pain or rapid heart rate Last Reviewed Date: 2025 00:00:00 ?? [id number] [employer]. All rights reserved. This information is not intended as a substitute for professional medical care. Always follow your healthcare professional's instructions. * [facility] - Juan Nascimento RN - 04/13/2025 1:05 PM EDT Images from the original note were not included. [id number] Pneumonia (Adult) Pneumonia is an infection inside the lungs. It's in the small air sacs (alveoli). It may be caused by a virus, fungus, or bacteria. Pneumonia caused by bacteria is treated with an antibiotic medicine. Severe cases may need to be treated in the hospital. Milder cases can be treated at home. Symptomsmay include fever, chills, and cough (dry or with phlegm). You may have a headache, muscle weakness, trouble breathing, and pain. These symptoms often get worse in the first 2 days. But they often start to get better in the first week of treatment. Home care Follow these guidelines when caring for yourself at home: ? Get plenty of rest. Take naps as needed. Don?t let yourself get too tired when you go back to your activities. Go back to activities as directed by your healthcare provider. ? Stop smoking. This is the most important step you can take to help treat pneumonia. If you need help to stop, talk with your healthcare provider. ? Stay away from secondhand smoke. Don?t let anyone smoke in your home or your car. ? Wash your hands often with soap and clean, running water. Rub for at least 20 seconds. Make sure to clean under your nails and between your fingers. When you can't wash your hands, use hand marketing technology coordinator with at least 60% alcohol. ? Cover your mouth and nose when coughing or sneezing. Use a tissue or the inside of your elbow. Don't cough or sneeze into your hands. Throw used tissues away. Be sure to wash your hands after coughing, sneezing, or blowing your nose. ? Limit close contact with other people while you are sick. ? Stay away from crowds during cold and flu season. Consider wearing a mask in crowds. ? Use pain medicine as directed. You may use acetaminophen or ibuprofen to control fever or pain, unless another medicine was prescribed. If you have chronic liver or kidney disease, talk with your healthcare provider before using these medicines. Also talk with your provider if you?ve had a stomach ulcer or bleeding in your stomach or intestines. Don?t give aspirin to a child younger than age 19unless directed by the provider. Taking aspirin can put a child at risk for Urmila syndrome. This is a rare but very serious disorder. It most often affects the brain and the liver. ? Drink plenty of water and other fluids. This can make mucus thinner and easier to cough up. Ask your healthcare provider how much water you should drink. For many people, 6 to 8 glasses (8 ounces each) a day is a good goal. Other fluids include sport drinks, sodas without caffeine, juices, tea, or soup. If you also have heart or kidney disease, check with your provider before you drink extra fluids. ? Eat as you are able. You may not feel hungry, so a light diet is fine. Follow the treatment plan as advised by your healthcare provider. ? Take medicines as instructed by your healthcare provider. If you were given an antibiotic medicine, take it until it's all gone, even if you are feeling better after a few days. ? Try to stay away from air pollution. If you live in an area with air pollution, track the Air Quality Index reports. Plan your outdoor activities when air quality is OK. Follow-up care Follow up with your healthcare provider in the next 2 to 3 days, or as advised. Following up with your provider as directed is important to make sure you are getting better. You may need more tests if you aren't getting better. Take steps to prevent future infections. Ask your healthcare provider what vaccines are right for you and when to get them. This may include the influenza (flu), COVID-19, and pneumococcal vaccines. Call 911 Call 911 if any of these occur: ? Unable to speak or swallow ? Lips or skin looks blue, purple, or clark ? Feeling dizzy ? Fainting ? Unable to be awake or aware ? Feeling of doom ? Trouble breathing or wheezing ? Shortness of breath gets worse or doesn't get better with treatment ? Rapid breathing (more than 25 breaths per minute) ? Coughing up blood ? Chest pain gets worse with breathing or doesn't get better with treatment When to get medical advice Call your healthcare provider right away if any of these occur: ? You don?t get better in the first 2 to 3 days of treatment ? Fever of 100.4??F (38??C) or higher, or as directed by your healthcare provider ? Shaking chills ? Cough with phlegm that doesn't get better, or get worse ? Shortness of breath with activities ? Weakness, dizziness, or fainting that gets worse ? Thirst or dry mouth that gets worse ? Sinus pain, headache, or a stiff neck ? Chest pain with breathing or coughing ? Symptoms that get worse or don't get better Last Reviewed Date: 2024 00:00:00 ?? [id number] The [employer]. All rights reserved. This information is not intended as a substitute for professional medical care. Always follow your healthcare professional's instructions. * [facility] - Juan Nascimento RN - 04/13/2025 1:05 PM EDT Images from the original note were not included. 1287 What Your Weight Bearing Status Means Your doctor?s orders: Non-Weight Bearing (NWB) Do not put any weight on your arm or leg at all. If your leg is injured, do not let it touch the floor when you sit, stand, or walk. When you walk, hold your leg off the ground. Touch Down Weight Bearing (TDWB) You may rest your leg on the ground when you sit, stand, or walk - for balance only. Do not put your body weight on that leg. It should only support the weight of your leg. This is also called ?Zxezmh-se-Shc Weight Bearing,? ?Toe-Touch Weight Bearing,? or ?Foot-Flat Weight Bearing.? Weight Bearing for Transfers Only You may place just enough body weight on the arm or leg to move from the bed to a chair, wheelchair, or bedside commode. You must stay in a seated or squatting position while moving. Do not stand, take steps, or put your full body weight on the arm or leg. Partial Weight Bearing (PWB) Your doctor will tell you how much weight you can put on your arm or leg. The weight may be in pounds or as a percent of body weight. Do not put more weight on the arm or leg than the doctor allows. Protected Weight Bearing (pWBAT) Protected weight bearing means your doctor would like you to use an assistive device while walking for extra support. While using a device such as a walker or cane, put as much weight as feels comfortable on your arm or leg. If you have pain, put less weight on the arm or leg. Weight Bearing as Tolerated (WBAT) You may put your full body on the injured arm or leg if pain allows. This is close to full weight bearing. Put more and more weight on the arm or leg as you heal and have less pain. There is no limitto how much weight you should put on your arm or leg - just let your comfort and pain level to guide you. You can use an assistive device such as a walker, crutches, or cane as needed for more support if you have pain or weakness with walking. Weight Bearing as Tolerated Through Elbow Do not place any weight through your wrist or hand until your injury heals. You may place as much weight as you can stand through your elbow as you change positions, get up, or move - such as when you use a platform walker. Passive Range of Motion as Tolerated Do not move the joint in your arm or leg on your own. As your pain allows, another person may move the joint for you. This may be a therapist, doctor, nurse, or family caregiver. Range of Motion as Tolerated (ROMAT) You can move your joint as much as feels comfortable. There is no limit to how much you can move the joint. Move the arm or leg joint more and more as you heal and have less pain. It is very important to keep your joints moving as you heal. This is also called ?Active Range of Motion as Tolerated.? Activity as Tolerated (AAT) You may use your arm or leg as much as your pain allows. There is no limit to how much weight you should place on the arm or leg. And there is no limit to the range of motion for the arm or leg. Use the arm or leg more and more as you heal and have less pain. * [facility] - Juan Nascimento RN - 04/13/2025 1:05 PM EDT Images from the original note were not included. [id number] Stable Pelvic Fracture You have a break or fracture of the pelvic bone. Your fracture is stable because the bones are not out of place and there are no signs of serious internal bleeding. No surgery or other special treatment will be needed. As long as your pain is controlled by oral medicine, you can be treated at home.A broken pelvis will take about 12 weeks to heal. It can be painful to move for the first 3 to 4 weeks. Home care ? Physical therapy and pain medicine are treatments for stable pelvic fractures. During this time, you will need help with bathing, using the bathroom, and meals. A bedpan or bedside commode may be easier to use than getting up to use the bathroom. As soon as possible, begin sitting or walking to prevent problems with prolonged bed rest (muscle weakness, back stiffness and pain that get worse, orblood clots in the legs). A walker, crutches, or cane will make walking easier in the first few weeks. If you have injuries above both legs, you may need to use a wheelchair for a period of time so that you can keep from bearing weight on either leg. ? Home health care may be available to provide in-home nursing services. Check with your health care provider, the hospital?s social service department, or a private nursing agency to see if your insurance will cover this kind of care. ? During the first 2 days after the injury there will probably be localized swelling and bruising on the skin over the pelvis. During this time apply an ice pack to the painful area for no more than 20 minutes every 1 to 2 hours to reduce swelling and pain. To make an ice pack, put ice cubes in a plastic bag that seals at the top. Wrap the ice pack in a clean, thin towel or cloth. Never put ice or an ice pack directly on your skin. ? You may use tojl-str-frvmihp pain medicine to control pain, unless another medicine was prescribed. Take pain medicine as directed. Call your healthcare provider if your pain is not well-controlled. A dose change or stronger medicine may be needed. Talk with your provider before using these medicines if you have chronic liver or kidney disease, have had ulcers, or are taking blood thinners. Follow-up care Follow up with your health care provider, or as advised. This will help to make sure the bone is healing correctly. If X-rays were taken, you will be told of any new findings that may affect your care. Call 911 Call 911 if you have: ? Increasing swelling, pain or redness of a leg. ? Chest pain or shortness of breath. When to get medical advice Contact your health care provider right away if you have: ? Pain becomes worse or you are unable to walk with help for more than 3 days. ? Blood in your urine or bleeding from the urethra (the opening where urine comes out). ? Trouble passing urine or unable to pass stool due to pain. ? Fever of 100.4??F (38??C) or higher, or as directed by your provider. ? Chills. Last Reviewed Date: 2024 00:00:00 ?? Student [employer]. All rights reserved. This information is not intended as a substitute for professional medical care. Always follow your healthcare professional's instructions. * Discharge Summary - Priya Flores Joy, BIOLOGICAL SCIENCES PROFESSOR, DNP - 04/13/2025 12:55 PM EDT Hospitalization Admit Date/Time: 04/06/2025 9:46 PM Admitting Attending: Tres Elaine Discharge Date: 04/13/2025 Discharge Attending Physician: Lolita Payton MD PCP name and Address: María Tirado, BIOLOGICAL SCIENCES PROFESSOR [address] / [place] [address] Referring provider name and address: Lucas Goodman PA [address] [place] [address] [place] [address] Chief Concern, Brief History of Present Illness, and Hospital Course Antony Wells is a 69 yo Male with a PMHX of Alcohol use disorder (10-15 drinks per day), and COPD(uses 2.5L NC at home) who presents from an OSH on 04/06 following a fall. +ETOH. Injuries include: Pelvic fractures, Pneumonia, and possible Left occipital infarct. Past 24h: Patient is sitting up in the chair. Awake and alert. VSS. NAD. NAEON. On 2L via NC, no SOA. Pain appears to be controlled with current pain regimen. AM labs reviewed and magnesium stable. Tolerating PO diet, no N/V, abd pain. Last BM was 04/12. Patient has been approved to transfer to [facility] for inpatient acute rehab. Patient showed concerned about medications and if he will have his breathing treatments at rehab. Explained to patient he will receive the same medications yvette does here during the hospitalization. Patient medically ready for rehab. He will be transported via [facility] shuttle van around 1415. Discussed plan of care with RN, CM, and Pharm D who is in understanding. No further concerns per patient or nursing. Physical therapy and occupational therapy evaluated the patient during hospitalization and recommend acute rehab. At the time of discharge the patient was hemodynamically stable, tolerating PO, voiding spontaneously, normal bowel function, mobilizing appropriately, with their pain controlled with PO medication. At this time, the patient has obtained the maximum benefit from the present hospital stay, and so will be discharged to [facility]. DVT prophylaxis: Enoxaparin 30 mg twice daily until 05/04 Procedures: Non-operative management; Post-mobility films completed and stable pelvis Mobility Restrictions: Touchdown weight bearing left lower extremity Wound Care: None Ok to shower/bathe with assistance Pain Medications: - You should take 650 mg Tylenol every 6 hours for mild - moderate pain. - You should take 500 mg methocarbamol 4 times per day for muscle spasms. - You have been prescribed pain medications to be taken as needed for severe pain. - You should take the stool softener prescribed as long as you are taking narcotics. - You may resume your previous medications unless otherwise instructed. Nutrition: - You may resume your normal diet (Regular) as tolerated, focusing on liquids to keep yourself hydrated. Activity: - No driving while on narcotics Potential Issues: - Call the office if you have a fever greater than 101 F - Call the office if you have severe abdominal discomfort, nausea and vomiting, or feeling unwell Incidental Findings: - Degenerative arthritis of lumbar spine Follow up: PCP: Follow up in 1-2 weeks post hospitalization for incidental findings and management of chronic conditions/medications Ortho: Follow up with KAMI Mcginnis on 05/03/2025 @ 11:50 am for evaluation of pelvic fractures, [facility]; [facility], [address] [place] [address], Room D1, [place] [address], # [phone]. SGT: [facility] as needed; [address] [place] [address], [facility] Room [address] [place] [address], #[phone]. Questions or Concerns and Appointments If there are questions or concerns after discharge from the hospital, please call [phone] and ask for [facility] Nurse. Working hours are Thursday - Thursday 8:00 AM to 4:00 PM. After hours, weekends and holidays please call [phone] and ask for the resident strength and conditioning coach for [facility]. For appointments please call [phone]. Medication requests should be made between the hours of 9:00 AM to 3:00 PM Thursday thru Thursday. Please note that based upon recent changes to [place] law related to prescribing opioid pain medications, our providers will not provide refills on controlled medications after your hospital discharge following a major surgery or trauma. [place], [place] 201 KAR9:260. Medication List .. acetaminophen 325 MG tablet Commonly known as: Tylenol Take 2 tablets by mouth every 6 hours. Under [place] law, monthly prescriptions (30 days) can be refilled at 25 days and three-month prescriptions (90 days) at 80 days. Please contact the insurance company with questions if refills are denied. albuterol 108 (90 Base) MCG/ACT inhaler Inhale 2 puffs every 4 to 6 hours as needed for wheezing or shortness of breath. enoxaparin 30 MG/0.3ML solution prefilled syringe Commonly known as: Lovenox Inject 0.3 mL under the skin 2 times a day for 21 days. folic acid 1 MG tablet Commonly known as: Folvite Take 1 tablet by mouth daily. Start taking on: April 14, 2025 ipratropium-albuterol 0.5-2.5 mg/3 mL nebulizer solution Commonly known as: Duo-Neb Take 3 mL by nebulization every 4 to 6 hours as needed for wheezing or shortness of breath. melatonin tablet Take 2 tablets by mouth nightly. methocarbamol 500 MG tablet Commonly known as: Robaxin Take 1 tablet by mouth every 8 hours. mometasone-formoterol 100-5 MCG/ACT inhaler Commonly known as: Dulera 100 Inhale 2 puffs 2 times a day. Rinse mouth with water after use to reduce aftertaste and incidence of candidiasis. Do not swallow. nicotine 21 MG/24HR patch Commonly known as: Nicoderm CQ Place 1 patch on the skin daily. Start taking on: April 14, 2025 ondansetron ODT 4 MG disintegrating tablet Commonly known as: Zofran-ODT Dissolve 1 tablet on the tongue every 6 hours as needed for nausea or vomiting. polyethylene glycol 17 g packet Commonly known as: Miralax Take 17 g by mouth daily. Start taking on: April 14, 2025 senna-docusate 8.6-50 MG tablet Commonly known as: Elenita-Colace Take 1 tablet by mouth 2 times a day. thiamine 100 MG tablet Commonly known as: Vitamin B-1 Take 1 tablet by mouth daily. Start taking on: April 14, 2025 Where to Get Your Medications Information about where to get these medications is not yet available Ask your nurse or doctor about these medications acetaminophen 325 MG tablet enoxaparin 30 MG/0.3ML solution prefilled syringe folic acid 1 MG tablet melatonin tablet methocarbamol 500 MG tablet mometasone-formoterol 100-5 MCG/ACT inhaler nicotine 21 MG/24HR patch ondansetron ODT 4 MG disintegrating tablet polyethylene glycol 17 g packet senna-docusate 8.6-50 MG tablet thiamine 100 MG tablet Discharge Diagnosis Medical Problems Active and Resolved Hospital Problems Hospital Multiple closed fractures of pelvis without disruption of pelvic ring, initial encounter ([facility]) Overview Addendum 04/10/2025 3:44 PM by Priya Flores APRN, DNP ORT consulted - Non-operative management - Ambulated 30 feet, PMF stable - TDWB LLE - MMPC - PT/OT * (Principal) Fall Overview Addendum 04/08/2025 1:18 PM by Priya Flores APRN, DNP Admitted SGT Tertiary exam 04/08 Alcohol use disorder Overview Addendum 04/10/2025 3:46 PM by Priya Flores APRN, DNP + alcohol use on arrival 10-15 drinks daily CIWA, bilateral hand tremors 04/10: Discontinued CIWA Declined ACES consult Monitor COPD (chronic obstructive pulmonary disease) ([facility]) Overview Signed 04/07/2025 7:45 AM by Priya Flores APRN, DNP Baseline 2.5 L via NC at home Neb treatments Continue with supplemental oxygen Pulmonary hygiene/IS Community acquired pneumonia Overview Signed 04/07/2025 7:46 AM by Priya Flores APRN, DNP On admission Pulmonary hygiene, IS, neb treatments Occipital cerebral infarction ([facility]) Overview Signed 04/07/2025 7:48 AM by Priya Flores APRN, DNP Left Per OSH CTH Neurology consulted - NIHSS on evaluation is 2 (left leg weakness) - Repeat CTH here does not show any acute or chronic stroke - No further stroke work up recommended. ABLA (acute blood loss anemia) Overview Signed 04/07/2025 7:48 AM by Priya Flores APRN, DNP Likely r/t trauma Trend H&H Transfuse if Hgb < 7.0 if needed Thrombocytopenia (CMS/HCC) Overview Signed 04/07/2025 7:49 AM by Priya Flores APRN, DNP On admission Likely due to trauma Monitor Hyperglycemia Overview Signed 04/07/2025 7:50 AM by Priya Flores APRN, DNP Likely reactive 2/2 trauma Monitor Hyponatremia Overview Signed 04/07/2025 7:50 AM by Priya Flores APRN, DNP Likely chronic from alcohol use Monitor and treat when necessary Hypocalcemia Overview Signed 04/07/2025 7:51 AM by Priya Flores APRN, DNP Likely reactive 2/2 trauma Monitor Protein malnutrition (CMS/HCC) Overview Addendum 04/10/2025 3:45 PM by Priya Flores APRN, DNP Low total protein and albumin Optimize nutrition Nutritional supplements started 04/10 Total bilirubin, elevated Overview Signed 04/07/2025 7:53 AM by Priya Flores APRN, DNP Likely due to daily alcohol intake Monitor High serum lactate Overview Addendum 04/09/2025 3:06 PM by Priya Flores APRN, DNP Lactate 4.3 04/09: 1.4 stable Fluid resuscitation Monitor EKG, abnormal Overview Addendum 04/08/2025 1:16 PM by Priya Flores APRN, DNP Sinus tachycardia with nonspecific ST and T wave abnormal Likely due to trauma Monitor Degenerative arthritis of lumbar spine Overview Signed 04/07/2025 7:55 AM by Priya Flores APRN, DNP Moderate degenerative changes in lumbar spine. Including advanced facet arthritis Incidental finding on imaging Follow-up with PCP for surveillance Serum phosphorus decreased Overview Addendum 04/10/2025 3:43 PM by Priya Flores APRN, DNP Replete PRN Improved, stable 04/10 Monitor Hypomagnesemia Overview Signed 04/07/2025 7:56 AM by Priya Flores APRN, DNP Replete PRN Monitor Smoker Overview Signed 04/08/2025 1:20 PM by Priya Flores APRN, DNP 1-2 PPD Education smoking cessation NRT offered Post Discharge Instructions DVT prophylaxis: Enoxaparin 30 mg twice daily until 05/04 Procedures: Non-operative management; Post-mobility films completed and stable pelvis Mobility Restrictions: Touchdown weight bearing left lower extremity Wound Care: None Ok to shower/bathe with assistance Pain Medications: - You should take 650 mg Tylenol every 6 hours for mild - moderate pain. - You should take 500 mg methocarbamol 4 times per day for muscle spasms. - You have been prescribed pain medications to be taken as needed for severe pain. - You should take the stool softener prescribed as long as you are taking narcotics. - You may resume your previous medications unless otherwise instructed. Nutrition: - You may resume your normal diet (Regular) as tolerated, focusing on liquids to keep yourself hydrated. Activity: - No driving while on narcotics Potential Issues: - Call the office if you have a fever greater than 101 F - Call the office if you have severe abdominal discomfort, nausea and vomiting, or feeling unwell Incidental Findings: - Degenerative arthritis of lumbar spine Follow up: PCP: Follow up in 1-2 weeks post hospitalization for incidental findings and management of chronic conditions/medications Ortho: Follow up with KAMI Mcginnis on 05/03/2025 @ 11:50 am for evaluation of pelvic fractures, [facility]; [facility], [address] [place] [address], Room [address]1, [place] [address], # [phone]. SGT: [facility] as [facility]; [address] [place] [address] [place] [address], #[phone]. Outpatient Follow-Up Future Appointments Date Time Provider Department Center 05/03/2025 11:50 AM Marie Ruffin PA [facility] Pertinent Physical Exam At Time of Discharge Physical Exam Vitals and nursing note reviewed. Constitutional: General: He is sleeping. He is not in acute distress. HENT: Head: Normocephalic. Nose: Nose normal. Mouth/Throat: Mouth: Mucous membranes are moist. Pharynx: Oropharynx is clear. Eyes: Extraocular Movements: Extraocular movements intact. Conjunctiva/sclera: Conjunctivae normal. Cardiovascular: Rate and Rhythm: Normal rate and regular rhythm. Pulses: Normal pulses. Heart sounds: Normal heart sounds. Pulmonary: Effort: Pulmonary effort is normal. No respiratory distress. Breath sounds: Examination of the right-lower field reveals decreased breath sounds. Examination ofthe left-lower field reveals decreased breath sounds. Decreased breath sounds present. Comments: 2L via NC Chest: Chest wall: No tenderness. Abdominal: General: There is no distension. Palpations: Abdomen is soft. Tenderness: There is no abdominal tenderness. There is no guarding. Musculoskeletal: General: Swelling, tenderness and signs of injury (Pelvic fractures) present. Cervical back: Normal range of motion and neck supple. No rigidity or tenderness. Comments: All compartments are soft and compressible. Pulses are palpable and present. Skin: General: Skin is warm and dry. Capillary Refill: Capillary refill takes less than 2 seconds. Neurological: General: No focal deficit present. Mental Status: He is oriented to person, place, and time. Motor: Tremor (Bilateral hands) present. Psychiatric: Mood and Affect: Mood normal. Behavior: Behavior is cooperative. Discharge Disposition/Condition Disposition: [facility] Condition: Stable (s/sx potential problems absent or manageable) I spent >30 minutes of patient care and instruction time in preparation for this discharge. Cosigned by Lolita Payton MD at 04/13/2025 1:44 PM EDT * Progress Notes - Analilia Perez RN - 04/13/2025 11:14 AM EDT Case Management Discharge Note Antony Wells 69 y.o. male CSN: [id number] Admission: 04/06/2025 9:46 PM Primary Problem: Fall Primary Computerized [employer] Recorder: Primary Caregiver: Self Assistance Available at Discharge: Facility, then family Housing Circumstances-Z Codes: Housing Circumstances (select all that apply): None Applicable Patient Referred to Financial or Community Resources: NA Discharge Facility/Level of Care Needs: Discharge Facility/Level of Care Needs: 62-Rehab facilty Patient's Choice of Community Agency(s): NA Patient/Family Anticipated Services at Transition: Patient/Family Anticipated Services at Transition: rehabilitation services, penitentiary DME/Equipment Needed after Discharge: Equipment Currently Used at Home: oxygen, cane, straight, nebulizer Readmission Within the Last 30 Days: Readmission Within the Last 30 Days: no previous admission in last 30 days Medicare Documentation: NA Follow-up: [facility] ([facility]) [address] [id number] Go today [facility] REPORT [phone] Discharge Transportation: Transportation Anticipated: medical transport Transportation Home at Discharge: Medical Transport Has discharge transport been arranged?: Yes What day is the transport expected?: 04/13/25 What time is the transport expected?: 1415 (Booked on [facility] van with 2L NC leaving from [facility] lounge at 1415. Please have him downstairs by 1400.) Analilia Perez RN * Progress Notes - Marquise Valdes - 04/13/2025 11:02 AM EDT Physical Therapy Treatment Patient Name: Antony Wells Today's Date: 04/13/2025 PT Discharge Recommendations: Acute rehab Equipment Recommended: Defer to facility Subjective Patient motivated to walk in the hallway. Participants in Care Family/Caregiver Present: No Presentation Oxygen Therapy: Supplemental oxygen O2 Delivery Method: Nasal cannula O2 Flow Rate (L/min): 2 L/min Lines and Tubes: Intravenous access Pre-Session: Supine, Head of bed elevated, Lines intact Pre-Session Comments: RN agreeable to therapy session. Post-Session: Sitting in chair, Lines intact, RN notified, Call light in reach Post-Session Comments: All needs in reach. Precautions Left Lower Extremity Weight Bearing Status: Touch Down Weight Bearing with foot flat Medical Precautions: Fall precautions Objective Pain Pt with generalized reports of pain in left LE/hip. Pain not objectively rated. Pt positioned for comfort at end of session. Delirium Screening [place] Agitation Sedation Scale (RASS): Alert and calm Confusion Assessment Method-ICU (CAM-ICU/PCAM-ICU) Feature 3: Altered Level of Consciousness: Negative Bed Mobility Bed Mobility Exam: Supine to Sit Level of [place]: Contact guard Physical/Nonphysical Assist: HOB elevated, Verbal Cues, Minimal cues Assistive Device: Bed rails Transfers Transfer Exam: Sit to stand Level of [place]: Minimum assist (75% patient's effort) Physical/Nonphysical Assist: Nonverbal cues (demo/gestures), Verbal Cues, Minimal cues Assistive Device: Walker, rolling Transfer Exam: Stand to Sit Level of [place]: Minimum assist (75% patient's effort) Physical/Nonphysical Assist: Nonverbal cues (demo/gestures), Verbal Cues, Minimal cues Assistive Device: Walker, rolling Ambulation Device: Rolling walker Assistance: Contact guard assist, Minimal verbal cues, Minimal tactile cues, Chair follow Distance : 30' Ambulation Comments: Patient ambulated with decreased step height/length and slow gait speed with excessive forward trunk flexion. Therapist provided cues throughout gait for maintaining TDWB status. Balance Postural Appearance Posture: Forward head, Rounded shoulders, Stooped posture Static Sitting Balance Static Sitting-Balance Support: Feet supported Static Sitting-Level of Assistance: Standby assist Dynamic Sitting Balance Dynamic Sitting-Balance Support: Feet supported Level of Assistance: Standby assisst Static Standing Balance Static Standing-Balance Support: Right upper extremity support, Left upper extremity support Static Standing-Level of Assistance: Contact guard Dynamic Standing Balance Dynamic Standing-Balance Support: Left upper extremity support, Right upper extremity support Dynamic Standing Level of Assistance: Contact guard Participation in Functional Tasks: Contact guard Therapeutic Activity (25 minutes) Therapist educated patient on current weight bearing guidelines and demonstrated precautions. Therapist answered questions patient had regarding timeline and mobility restrictions and discussed plan of care/goals. Therapist instructed patient in safe transfers including hand/foot placement and widebase of support while pushing off of seated surface. He required a seated rest break after transitioning to bedside chair and was then wheeled out in the hallway in order to be able to ambulate in a straight line. Patient required brief breaks and increased time throughout session due to shortness of air/fatigue. Therapist provided cues for focus on pacing and energy conservation in order to improve endurance/activity tolerance this session. Patient was able to ambulate 30' before requiring a seated rest break. Therapist educated patient on importance of continued mobility and time spent out of bed for decreasing risk of further decline in function and skin breakdown. Assessment Patient with no significant change in mobility this date. He continues to be limited by L hip pain,rapid fatigue, and TDWB status leading to increased unsteadiness and fall risk. Vital signs remained WNL with no adverse effects to treatment. PT Recommendations Discharge Destination: Acute rehab Discharge Equipment: Defer to facility Plan Continue with plan of care and progress mobility as tolerated. PT Goals PT GOAL DETAILS Goal Established Date Time Frame Goal Status PT Goal 1: Pt will complete supine <> sit transfer from flat surface with SBA to simulate home environment 04/09/25 2 weeks PT Goal 2: Pt will complete sit <> stand and bed <> chair transfer with least restrictive AD and SBA to progress towards PLOF 04/09/25 2 weeks PT Goal 3: Pt will ambulate ~75ft with least restrictive AD and SBA to progress towards household distances 04/09/25 2 weeks PT Goal 4: Pt will ascend/descend 8 steps and [place] to safely enter/exit his home 04/09/25 2 weeks PT Goal 5: Pt and family will be [facility] HEP, safety and discharge recommendations 04/09/25 2 weeks Written by Marquise Valdes on 04/13/25 at 1:24 PM. * Progress Notes - Anamaria Carlson - 04/13/2025 11:01 AM EDT Occupational Therapy Treatment Patient Name: Antony Wells Today's Date: 04/13/2025 OT Discharge Recommendations: Acute rehab Equipment Recommended: Defer to facility Subjective Pt agreeable to OT session. Participants in Care Family/Caregiver Present: No Facilities Officer: Not Applicable Presentation Oxygen Therapy: Supplemental oxygen O2 Delivery Method: Nasal cannula O2 Flow Rate (L/min): 2 L/min Lines and Tubes: Intravenous access Pre-Session: Supine, Head of bed elevated, Lines intact Pre-Session Comments: RN agreeable to session. Post-Session: Sitting in chair, Lines intact, RN notified, Call light in reach Post-Session Comments: Pt positioned for comfort. All needs met/within reach. RN notified of no chair alarm available in room. Precautions Left Lower Extremity Weight Bearing Status: Touch Down Weight Bearing with foot flat Medical Precautions: Fall precautions Objective Pain Pt with generalized reports of pain in left LE/hip. Pain not objectively rated. Pt positioned for comfort at end of session. Delirium Screening [place] Agitation Sedation Scale (RASS): Alert and calm Confusion Assessment Method-ICU (CAM-ICU/PCAM-ICU) Feature 3: Altered Level of Consciousness: Negative Cognition Cognition Overall Cognitive Status: Within Functional Limits Arousal/Alertness: Appropriate responses to stimuli Mood/Behavior: Alert Orientation Level: Oriented X4 Single Step Commands: 100% of the time Multi-Step Commands: Consistently Method of Communication: Verbal Safety Judgment: Good awareness of safety precautions Awareness of Errors: Assistance required to identify errors made, Assistance required to correct errors made Deficit Awareness: Decreased awareness of deficits Attention Span: Appears intact Bed Mobility Bed Mobility Exam: Scooting/Bridging Level of [place]: Contact guard (to scoot out to EOB while seated) Physical/Nonphysical Assist: Verbal Cues, Minimal cues Assistive Device: Bed rails Bed Mobility Exam: Supine to Sit Level of [place]: Contact guard Physical/Nonphysical Assist: HOB elevated, Verbal Cues, Minimal cues Assistive Device: Bed rails Transfers Transfer Exam: Sit to stand Level of [place]: Minimum assist (75% patient's effort) Physical/Nonphysical Assist: Nonverbal cues (demo/gestures), Verbal Cues, Minimal cues Assistive Device: Walker, rolling Transfer Exam: Stand to Sit Level of [place]: Minimum assist (75% patient's effort) Physical/Nonphysical Assist: Nonverbal cues (demo/gestures), Verbal Cues, Minimal cues Assistive Device: Walker, rolling Transfer Exam: Bed to Chair/Chair to Bed Level of [place]: Minimum assist (75% patient's effort) Physical/Nonphysical Assist: Nonverbal cues (demo/gestures), Verbal Cues, Minimal cues Type of Transfer: Sidesteps Assistive Device: Walker, rolling Self-Care Interventions Self Care/Home Management (ADLs) Time Entry: 24 Self_Care Interventions: Pt actively participated in self-care interventions this date with an emphasis on functional mobility, endurance, and ADL retraining. Pt engaged in bed mobility, functional transfers, and short ambulation distances to address performance skill deficits impeding occupational independence. Pt engaged in bed mobility tasks to prepare for participation in ADL activity. Pt completed supine to sit transition with contact guard assist and scooted to EOB with contact guard assist. Pt benefited from skilled occupational therapy interventions including: Monitoring of vitals to ensure activity tolerance MIN verbal and tactile cues to facilitate sequencing during functional tasks Provision of increased time frames to support optimal level of pt participation Task/activity modification with grading as needed to achieve safety while also providing appropriate functional challenge Skilled organization and management of medical lines/tubes to reduce fall risk with mobility aspects of ADLs Environmental set-up to ensure safety and accessibility to all needed areas of treatment space Education on energy conservation and work simplification Toileting Toileting Level of Assistance: Contact guard, Minimum assistance Where Assessed: Other (Comment) (EOB > recliner chair transfer; hallway) Toileting Interventions: Pt declining the need to utilize restroom/BSC this date so therapist facilitated engagement in simulated BSC transfer to address performance skills necessary for toileting ADL. Therapist facilitated engagement in functional transfer prior to engagement in higher level functional mobility tasks to address performance skills and determine appropriate grading up of activity and safety with engagement in functional tasks. Pt required min assistance to complete sit to stand portion of transfer with use of rolling walker. Pt required min verbal cues to sequence side steps to recliner from EOB with min assistance. Pt required min assist and min verbal cues for hand placement and to ensure a controlled descent with stand to sit portion of transfer. Increased time providedto allow pt to rest so as to maximize activity tolerance necessary for continued engagement in functional activity. Pt completed a sit to stand transfer from recliner chair with min A and use of rolling walker to prepare for engagement in functional mobility tasks necessary for higher level toileting ADL participation. Pt demonstrated the ability to ambulate a short household distance with CGA and use of rolling walker. Pt required min verbal cues for pacing, posture, and adherence to weight bearing precautions during ambulation. Pt noted to demonstrate decreased adherence to weight bearing precautions as he fatigued and required a return to sitting. Pt required min A and min multimodal cues to ensure a controlled descent with stand to sit transfer onto recliner chair. Pt noting increasedSOB upon completion of ambulation. Pt provided with cues for PLB. Pt SpO2 noted to be at 90% at that time. Assessment Pt tolerated session activities fair as evidenced by monitoring of vitals throughout session. Patient demonstrated good rehab effort this date. Pt demonstrated improvement in functional endurance as evidenced by his ability to engage in household distance ambulation with decreased rest breaks as compared to previous OT session However, pt continues to require environmental modification, verbal cues, and physical assistance to maximize safety with engagement in functional activity secondary to limitations with strength, functional endurance, balance, and activity tolerance. Patient would benefit from continued skilled OT intervention to increase overall performance in ADLs, strength and functional endurance. OT will continue to follow pt and complete POC. OT Recommendations Discharge Destination: Acute rehab Discharge Equipment: Defer to facility Plan OT will progress ADL and IADL performance. OT will continue to follow pt and see as prescribed 2-5x/week. Goals OT GOAL DETAILS Goal Established Date Time Frame Goal Status OT Goal 1: Pt will complete grooming while seated EOB with SBA x1. 04/09/25 2 weeks OT Goal 2: Pt will accomplish elenita hygiene s/p toileting with SBA x1. 04/09/25 2 weeks OT Goal 3: Pt will complete LB dressing (AE PRN) with SBA x1. 04/09/25 2 weeks OT Goal 4: Pt will verbalize and adhere to WB precautions during functional engagement at least 2/2sessions without additional cueing required. 04/09/25 Written by Anamaria Carlson on 04/13/25 at 1:08 PM. * Progress Notes - Priya Flores, BIOLOGICAL SCIENCES PROFESSOR, DNP - 04/12/2025 11:39 AM EDT 04/12/25 Antony Wells HPI Antony Wells is a 69 yo Male with a PMHX of Alcohol use disorder (10-15 drinks per day), and COPD(uses 2.5L NC at home) who presents from an OSH on 04/06 following a fall. +ETOH. Injuries include: Pelvic fractures, Pneumonia, and possible Left occipital infarct. Past 24 Hours: Patient is resting in the bed. VSS. NAD. NAEON. On 2L via NC, no SOA. Pain appears to be controlledwith current pain regimen. AM labs reviewed with hypomagnesemia. Replaced with IV magnesium. Will repeat lab in the AM. Tolerating PO diet, no N/V, abd pain. Last BM was 04/12. [facility] continues to review for admission. Patient is frustrated and if not able to go to [facility], would [facility]. Will update CM about choice. Discussed plan of care with RN, CM, and Pharm D who is in understanding. No further concerns per patient or nursing. Edited by: Priya Flores, BIOLOGICAL SCIENCES PROFESSOR, DNP at 04/12/20251426 Relevant review of systems was obtained as able and is negative unless stated above in HPI. Vital signs: Vitals: 04/12/25 1419 BP: Pulse: 85 Resp: Temp: SpO2: 94% Physical Exam Vitals and nursing note reviewed. Constitutional: General: He is sleeping. He is not in acute distress. HENT: Head: Normocephalic. Nose: Nose normal. Mouth/Throat: Mouth: Mucous membranes are moist. Pharynx: Oropharynx is clear. Eyes: Extraocular Movements: Extraocular movements intact. Conjunctiva/sclera: Conjunctivae normal. Cardiovascular: Rate and Rhythm: Normal rate and regular rhythm. Pulses: Normal pulses. Heart sounds: Normal heart sounds. Pulmonary: Effort: Pulmonary effort is normal. No respiratory distress. Breath sounds: Examination of the right-lower field reveals decreased breath sounds. Examination ofthe left-lower field reveals decreased breath sounds. Decreased breath sounds present. Comments: 2L via NC Chest: Chest wall: No tenderness. Abdominal: General: There is no distension. Palpations: Abdomen is soft. Tenderness: There is no abdominal tenderness. There is no guarding. Musculoskeletal: General: Swelling, tenderness and signs of injury (Pelvic fractures) present. Cervical back: Normal range of motion and neck supple. No rigidity or tenderness. Comments: All compartments are soft and compressible. Pulses are palpable and present. Skin: General: Skin is warm and dry. Capillary Refill: Capillary refill takes less than 2 seconds. Neurological: General: No focal deficit present. Mental Status: He is oriented to person, place, and time. Motor: Tremor (Bilateral hands) present. Psychiatric: Behavior: Behavior is cooperative. Thought Content: Thought content normal. Judgment: Judgment normal. Comments: Frustrated mood Intake/Output Summary (Last 24 hours) at 04/12/20251426 Last data filed at 04/12/2025 1000 Gross per 24 hour Intake 600 ml Output 1400 ml Net -800 ml Lines/Drains/Tubes: Patient Lines/Drains/Airways Status Active Airway None Output by Drain (mL) 04/10/25 0700 - 04/10/25 18504/10/25 1900 - 04/11/25 0659 04/11/25 07 - 04/11/25 1859 04/11/25 190 - 04/12/25 0659 04/12/25 07 - 04/12/25 1427 Patient has no LDAs of requested type attached. Labs in last 18 hours: CBC WBC ?? Hb ?? Plt ?? Hct ?? ANC ?? INR ??, PTT ??, Anti-Xa ?? MCV ?? BMP Na ?? Cl ?? BUN ?? Glu ?? K ?? Co2 ?? Cr ?? Ca ?? iCa ?? Mg 1.8 (L), Phos ?? Lactate ?? LFT AST ?? AlkPhos ?? T Prot ?? ALK ?? Bili ?? Alb ?? D.Bili ?? Lab Trends: H/H Results from last 7 days Lab Units 04/08/25 0813 04/07/25 0343 04/06/25 2202 HEMOGLOBIN g/dL 11.2* 11.9* 11.9* HEMATOCRIT % 31.5* 32.7* 32.2* INR Results from last 7 days Lab Units 04/07/25 0343 04/06/25 2202 INR 1.1 1.1 Cr Results from last 7 days Lab Units 04/08/25 0813 04/07/25 0343 04/06/25 2202 CREATININE mg/dL 0.44* 0.38* 0.40* Medications reviewed. Vital signs reviewed. Labs reviewed. Radiography reviewed. Assessment and Plan: Medical Problems and Relevant Plans Hospital Problems POA * (Principal) Fall Yes Overview Addendum 04/08/2025 1:18 PM by Priya Flores APRN, DNP Admitted SGT Tertiary exam 04/08 Multiple closed fractures of pelvis without disruption of pelvic ring, initial encounter ([facility]) Yes Overview Addendum 04/10/2025 3:44 PM by Priya Flores APRN, DNP ORT consulted - Non-operative management - Ambulated 30 feet, PMF stable - TDWB LLE - MMPC - PT/OT Alcohol use disorder Yes Overview Addendum 04/10/2025 3:46 PM by Priya Flores APRN, DNP + alcohol use on arrival 10-15 drinks daily CIWA, bilateral hand tremors 04/10: Discontinued CIWA Declined ACES consult Monitor COPD (chronic obstructive pulmonary disease) (CMS/HCC) Yes Overview Signed 04/07/2025 7:45 AM by Priya Flores APRN, DNP Baseline 2.5 L via NC at home Neb treatments Continue with supplemental oxygen Pulmonary hygiene/IS Community acquired pneumonia Yes Overview Signed 04/07/2025 7:46 AM by Priya Flores APRN, DNP On admission Pulmonary hygiene, IS, neb treatments Occipital cerebral infarction (CMS/HCC) Yes Overview Signed 04/07/2025 7:48 AM by Priya Flores APRN, DNP Left Per OSH CTH Neurology consulted - NIHSS on evaluation is 2 (left leg weakness) - Repeat CTH here does not show any acute or chronic stroke - No further stroke work up recommended. ABLA (acute blood loss anemia) Yes Overview Signed 04/07/2025 7:48 AM by Priya Flores APRN, DNP Likely r/t trauma Trend H&H Transfuse if Hgb < 7.0 if needed Thrombocytopenia (CMS/HCC) Yes Overview Signed 04/07/2025 7:49 AM by Priya Flores APRN, DNP On admission Likely due to trauma Monitor Hyperglycemia Yes Overview Signed 04/07/2025 7:50 AM by Priya Flores APRN, DNP Likely reactive 2/2 trauma Monitor Hyponatremia Yes Overview Signed 04/07/2025 7:50 AM by Priya Flores APRN, DNP Likely chronic from alcohol use Monitor and treat when necessary Hypocalcemia Yes Overview Signed 04/07/2025 7:51 AM by Priya Flores APRN, DNP Likely reactive 2/2 trauma Monitor Protein malnutrition (CMS/HCC) Yes Overview Addendum 04/10/2025 3:45 PM by Priya Flores APRN, DNP Low total protein and albumin Optimize nutrition Nutritional supplements started 04/10 Total bilirubin, elevated Yes Overview Signed 04/07/2025 7:53 AM by Priya Flores APRN, DNP Likely due to daily alcohol intake Monitor High serum lactate Yes Overview Addendum 04/09/2025 3:06 PM by Priya Flores APRN, DNP Lactate 4.3 6/8: 1.4 stable Fluid resuscitation Monitor EKG, abnormal Yes Overview Addendum 04/08/2025 1:16 PM by Priya Flores APRN, DNP Sinus tachycardia with nonspecific ST and T wave abnormal Likely due to trauma Monitor Degenerative arthritis of lumbar spine Yes Overview Signed 04/07/2025 7:55 AM by Priya Flores APRN, DNP Moderate degenerative changes in lumbar spine. Including advanced facet arthritis Incidental finding on imaging Follow-up with PCP for surveillance Serum phosphorus decreased No Overview Addendum 04/10/2025 3:43 PM by Priya Flores APRN, DNP Replete PRN Improved, stable 04/10 Monitor Hypomagnesemia Yes Overview Signed 04/07/2025 7:56 AM by Priya Flores APRN, DNP Replete PRN Monitor Smoker Yes Overview Signed 04/08/2025 1:20 PM by Priya Flores APRN, DNP 1-2 PPD Education smoking cessation NRT offered Non-Hospital Problems Substance use Overview Signed 04/08/2025 1:26 PM by Priya Flores APRN, DNP Former Per pt in the s and s Plan: - ORT: [place] non-operative management; PMF's stable; TDWB LLE - PT/OT - Pulmonary hygiene/IS, Neb treatments, Inhaler, Supplemental oxygen - DVT Ppx - Hypomagnesemia; Replaced w/ IV 4g magnesium - AM mag lab ordered - [facility] - Bowel regimen Discharge Dispo: Acute Rehab, referred, [facility] reviewing Edited by: Priya Flores APRN, DNP at 04/12/2025 0657 Priya Flores APRN, DNP * Consults - Ada Craft RD - 04/12/2025 11:36 AM EDT Adult Nutrition Evaluation Note Antony Wells 69 y.o. male CSN: [id number] Room/Bed 126/126A Nutrition evaluation type: assessment Reason for evaluation: [facility] Hospital course: 69 yo M s/p fall. +ETOH. Hyponatremia. Injuries include: Pelvic fractures, Pneumonia, and possible Left occipital infarct. Past medical/ surgical history: Past Medical History[1] Surgical History[2] Social history: Additional comments: 04/13: Pt unavailable. Vitals and Basic Assessment: BP: (!) 103/40 Temp: 36.6 ??C (97.8 ??F) Oxygen Therapy: Supplemental oxygen O2 Delivery Method: Nasal cannula Dhaval Coma Scale Score: 15 Aston Scale Score: 20 Allergies: NKFA Medications: Current Scheduled Medications[3] Current Continuous Medications[4] Current PRN Medications[5] Meds were reviewed: Yes Labs: Results from last 7 days Lab Units 04/10/25 0418 04/09/25 0123 04/08/25 0813 04/07/25 0343 04/06/25 2202 04/06/25 2202 SODIUM mmol/L -- -- 131* 126* -- 129* POTASSIUM mmol/L -- -- 4.0 4.3 -- 4.2 CHLORIDE mmol/L -- -- 97 92* -- 94* CO2 mmol/L -- -- 27 21* -- 18* BUN mg/dL -- -- 12 5* -- 6* CREATININE mg/dL -- -- 0.44* 0.38* -- 0.40* EGFR mL/min/1.73m*2 -- -- 113.3 118.5 -- 116.6 GLUCOSE mg/dL -- -- 109* 165* -- 118* CALCIUM mg/dL -- -- 7.6* 8.1* -- 8.2* PHOSPHORUS mg/dL 2.9 2.4* 1.8* 2.4* < > -- < > = values in this interval not displayed. Anthropometrics: Ht; 1.803 m (5' 11 ) Wt: 74.2 kg BMI: 22.81 Wt Evaluation: normal IBW: 78 kg %IBW : 95 Adjusted Body Weight: Weight History: Wt Readings from Last 7 Encounters: 04/06/25 74.2 kg (163 lb 9.3 oz) Estimated Needs: Current Nutrition Intake: Diet: Reg diet. Supplements: Boost [facility] TID Intake: 25% x 1 meal I/o's: Intake/Output Summary (Last 24 hours) at 04/12/2025 1137 Last data filed at 04/12/2025 1000 Gross per 24 hour Intake 600 ml Output 1400 ml Net -800 ml Nutrition Support: Diet Experience & Nutrition History: Diet Education: Will monitor Pertinent Home Medications: Noted Metabolic Cart Study Results: Nutrition Focused Physical Exam: Physical exam performed on (date): pending. Assessment of Malnutrition: Nutrition Problem: Increased nutrient needs pro related to Increased metabolic needs for healing as evidenced by s/p fall with fractures. Status of Nutrition Diagnosis: New Nutrition Interventions and Recommendations: Cont with Reg diet. Cont Boost [facility]. MVI. Record PO intake. Nutrition Monitoring and Goals: Monitor tolerance and adequacy of po intake / enteral infusion, wt changes, bowel fxn, labs, skin integrity; and follow up per acuity Patient will consume >50% of most meals. Acuity Level: [address], LD [1] Past Medical History: Diagnosis Date COPD (chronic obstructive pulmonary disease) (CMS/HCC) Hypertension [2] Past Surgical History: Procedure Laterality Date HERNIA REPAIR [3] acetaminophen, 650 mg, Oral, q6h MIRANDA enoxaparin, 30 mg, Subcutaneous, BID folic acid, 1 mg, Oral, Daily ipratropium-albuterol, 3 mL, Nebulization, q6h RT magnesium sulfate, 4 g, Intravenous, Once melatonin, 6 mg, Oral, Nightly methocarbamol, 500 mg, Oral, q8h mometasone-formoterol, 2 puff, Inhalation, BID nicotine, 1 patch, Transdermal, Daily polyethylene glycol, 17 g, Oral, Daily senna-docusate, 1 tablet, Oral, BID sodium chloride, 10 mL, Intravenous, q12h thiamine, 100 mg, Oral, Daily [4] [5] PRN medications: ondansetron ODT OR ondansetron OR [DISCONTINUED] ondansetron, Insert peripheral IV AND Saline lock IV AND sodium chloride AND sodium chloride * Progress Notes - Analilia Perez RN - 04/11/2025 1:45 PM EDT Case Management Adult Progress Note Antony Wells 69 y.o. male CSN: [id number] Admission: 04/06/2025 9:46 PM Primary Problem: Fall Medically ready for rehab. [facility] reviewing for possible admission. Denial from [facility]. Analilia Perez RN * Progress Notes - Priya Flores APRN, DNP - 04/11/2025 11:15 AM EDT 04/11/25 Antony Wells HPI Antony Wells is a 69 yo Male with a PMHX of Alcohol use disorder (10-15 drinks per day), and COPD(uses 2.5L NC at home) who presents from an OSH on 04/06 following a fall. +ETOH. Injuries include: Pelvic fractures, Pneumonia, and possible Left occipital infarct. Past 24 Hours: Patient is resting comfortably in the bed. VSS. NAD. NAEON. On 2L via NC, no SOA. Pain appears to be controlled with current pain regimen. AM labs reviewed with hypomagnesemia. Replaced with IV magnesium. Tolerating PO diet, no N/V, abd pain. Last BM was 04/09. Completed CAP treatment yesterday. [facility] reports that [facility] is reviewing for possible admission. [facility] denied admission. Discussed with RN about speaking with the patient's spouse. She reports his works during the day and cannot answer the phone. RN states when patient's calls, she will update her. Discussed plan of care with RN, CM, and Pharm D who is in understanding. No further concerns per patient or nursing. Edited by: Priya Flores APRN, DNP at 04/11/2025 1520 Relevant review of systems was obtained as able and is negative unless stated above in HPI. Vital signs: Vitals: 04/11/25 1401 BP: Pulse: 74 Resp: 14 Temp: SpO2: Physical Exam Vitals and nursing note reviewed. Constitutional: General: He is sleeping. He is not in acute distress. HENT: Head: Normocephalic. Nose: Nose normal. Mouth/Throat: Mouth: Mucous membranes are moist. Pharynx: Oropharynx is clear. Eyes: Extraocular Movements: Extraocular movements intact. Conjunctiva/sclera: Conjunctivae normal. Cardiovascular: Rate and Rhythm: Normal rate and regular rhythm. Pulses: Normal pulses. Heart sounds: Normal heart sounds. Pulmonary: Effort: Pulmonary effort is normal. No respiratory distress. Breath sounds: Examination of the right-lower field reveals decreased breath sounds. Examination ofthe left-lower field reveals decreased breath sounds. Decreased breath sounds present. Comments: 2L via NC Chest: Chest wall: No tenderness. Abdominal: General: There is no distension. Palpations: Abdomen is soft. Tenderness: There is no abdominal tenderness. There is no guarding. Musculoskeletal: General: Swelling, tenderness and signs of injury (Pelvic fractures) present. Cervical back: Normal range of motion and neck supple. No rigidity or tenderness. Comments: All compartments are soft and compressible. Pulses are palpable and present. Skin: General: Skin is warm and dry. Capillary Refill: Capillary refill takes less than 2 seconds. Neurological: General: No focal deficit present. Mental Status: He is oriented to person, place, and time. Motor: Tremor (Bilateral hands) present. Psychiatric: Mood and Affect: Mood normal. Behavior: Behavior normal. Thought Content: Thought content normal. Judgment: Judgment normal. Intake/Output Summary (Last 24 hours) at 04/11/2025 1520 Last data filed at 04/11/2025 0603 Gross per 24 hour Intake 360 ml Output 225 ml Net 135 ml Lines/Drains/Tubes: Patient Lines/Drains/Airways Status Active Airway None Output by Drain (mL) 04/09/25 07 - 04/09/25 1859 04/09/25 190 - 04/10/25 0659 04/10/25 07 - 04/10/25 1859 04/10/25 190 - 04/11/25 0659 04/11/25 07 - 04/11/25 1520 Patient has no LDAs of requested type attached. Labs in last 18 hours: CBC WBC ?? Hb ?? Plt ?? Hct ?? ANC ?? INR ??, PTT ??, Anti-Xa ?? MCV ?? BMP Na ?? Cl ?? BUN ?? Glu ?? K ?? Co2 ?? Cr ?? Ca ?? iCa ?? Mg 1.7 (L), Phos ?? Lactate ?? LFT AST ?? AlkPhos ?? T Prot ?? ALK ?? Bili ?? Alb ?? D.Bili ?? Lab Trends: H/H Results from last 7 days Lab Units 04/08/25 0813 04/07/25 0343 04/06/25 2202 HEMOGLOBIN g/dL 11.2* 11.9* 11.9* HEMATOCRIT % 31.5* 32.7* 32.2* INR Results from last 7 days Lab Units 04/07/25 0343 04/06/25 2202 INR 1.1 1.1 Cr Results from last 7 days Lab Units 04/08/25 0813 04/07/25 0343 04/06/25 2202 CREATININE mg/dL 0.44* 0.38* 0.40* Medications reviewed. Vital signs reviewed. Labs reviewed. Radiography reviewed. Assessment and Plan: Medical Problems and Relevant Plans Hospital Problems POA * (Principal) Fall Yes Overview Addendum 04/08/2025 1:18 PM by Priya Flores APRN, DNP Admitted SGT Tertiary exam 04/08 Multiple closed fractures of pelvis without disruption of pelvic ring, initial encounter ([facility]) Yes Overview Addendum 04/10/2025 3:44 PM by Priya Flores APRN, DNP ORT consulted - Non-operative management - Ambulated 30 feet, PMF stable - TDWB LLE - MMPC - PT/OT Alcohol use disorder Yes Overview Addendum 04/10/2025 3:46 PM by Priya Flores APRN, DNP + alcohol use on arrival 10-15 drinks daily CIWA, bilateral hand tremors 04/10: Discontinued CIWA Declined ACES consult Monitor COPD (chronic obstructive pulmonary disease) ([facility]) Yes Overview Signed 04/07/2025 7:45 AM by Priya Flores APRN, DNP Baseline 2.5 L via NC at home Neb treatments Continue with supplemental oxygen Pulmonary hygiene/IS Community acquired pneumonia Yes Overview Signed 04/07/2025 7:46 AM by Priya Flores APRN, DNP On admission Pulmonary hygiene, IS, neb treatments Occipital cerebral infarction (CMS/HCC) Yes Overview Signed 04/07/2025 7:48 AM by Priya Flores APRN, DNP Left Per OSH CTH Neurology consulted - NIHSS on evaluation is 2 (left leg weakness) - Repeat CTH here does not show any acute or chronic stroke - No further stroke work up recommended. ABLA (acute blood loss anemia) Yes Overview Signed 04/07/2025 7:48 AM by Priya Flores APRN, DNP Likely r/t trauma Trend H&H Transfuse if Hgb < 7.0 if needed Thrombocytopenia (CMS/HCC) Yes Overview Signed 04/07/2025 7:49 AM by Priya Flores APRN, DNP On admission Likely due to trauma Monitor Hyperglycemia Yes Overview Signed 04/07/2025 7:50 AM by Priya Flores APRN, DNP Likely reactive 2/2 trauma Monitor Hyponatremia Yes Overview Signed 04/07/2025 7:50 AM by Priya Flores APRN, DNP Likely chronic from alcohol use Monitor and treat when necessary Hypocalcemia Yes Overview Signed 04/07/2025 7:51 AM by Priya Flores APRN, DNP Likely reactive 2/2 trauma Monitor Protein malnutrition (CMS/HCC) Yes Overview Addendum 04/10/2025 3:45 PM by Priya Flores APRN, DNP Low total protein and albumin Optimize nutrition Nutritional supplements started 04/10 Total bilirubin, elevated Yes Overview Signed 04/07/2025 7:53 AM by Priya Flores APRN, DNP Likely due to daily alcohol intake Monitor High serum lactate Yes Overview Addendum 04/09/2025 3:06 PM by Priya Flores APRN, DNP Lactate 4.3 04/09: 1.4 stable Fluid resuscitation Monitor EKG, abnormal Yes Overview Addendum 04/08/2025 1:16 PM by Priya Flores APRN, DNP Sinus tachycardia with nonspecific ST and T wave abnormal Likely due to trauma Monitor Degenerative arthritis of lumbar spine Yes Overview Signed 04/07/2025 7:55 AM by Priya Flores APRN, DNP Moderate degenerative changes in lumbar spine. Including advanced facet arthritis Incidental finding on imaging Follow-up with PCP for surveillance Serum phosphorus decreased No Overview Addendum 04/10/2025 3:43 PM by rPiya Flores APRN, DNP Replete PRN Improved, stable 04/10 Monitor Hypomagnesemia Yes Overview Signed 04/07/2025 7:56 AM by Priya Flores APRN, DNP Replete PRN Monitor Smoker Yes Overview Signed 04/08/2025 1:20 PM by Priya Flores APRN, DNP 1-2 PPD Education smoking cessation NRT offered Non-Hospital Problems Substance use Overview Signed 04/08/2025 1:26 PM by Priya Flores APRN, DNP Former Per pt in the s and Plan: - ORT: [place] non-operative management; PMF's stable; TDWB LLE - PT/OT - Pulmonary hygiene/IS, Neb treatments, Inhaler, Supplemental oxygen - Treating CAP with IV abx completed 04/10 - DVT Ppx - Hypomagnesemia; Replaced w/ IV magnesium - AM mag lab ordered - [facility] - Bowel regimen Discharge Dispo: Acute Rehab, referred, [facility] reviewing Edited by: Priya Flores APRN, DNP at 04/11/2025 1520 Priya Flores APRN, DNP * Progress Notes - Priya Flores APRN, DNP - 04/10/2025 10:28 AM EDT 04/10/25 Antony Wells HPI Antony Wells is a 69 yo Male with a PMHX of Alcohol use disorder (10-15 drinks per day), and COPD(uses 2.5L NC at home) who presents from an OSH on 04/06 following a fall. +ETOH. Injuries include: Pelvic fractures, Pneumonia, and possible Left occipital infarct. Past 24 Hours: Patient is resting comfortably in the bed. VSS. NAD. NAEON. On 2L via NC, no SOA. Continue treatment of CAP with antibiotics ending later on tonight. Orthopedic reports that post mobility films of pelvic fractures are stable. Pain appears to be controlled with current pain regimen. Am labs reviewedwith phosphorus stable and continues to be hypomagnesia. Replaced with PO mag. Patient has improvedwith CIWA and has not needed medications for withdrawals. Discontinue CIWA and medications. Tolerating PO diet, no N/V, abd pain. Last BM was 04/09. CM has referred patient to [facility] and afew subacute rehabs in [place]. Attempted to call the again and no answer. Will continue to reach out to the to update. Discussed plan of care with RN, CM, and Pharm D who is in understanding. No further concerns per patient or nursing. Edited by: Priya Flores, BIOLOGICAL SCIENCES PROFESSOR, DNP at 04/10/2025 1548 Relevant review of systems was obtained as able and is negative unless stated above in HPI. Vital signs: Vitals: 04/10/25 1543 BP: 131/79 Pulse: 89 Resp: 23 Temp: 36.7 ??C (98.1 ??F) SpO2: 95% Physical Exam Vitals and nursing note reviewed. Constitutional: General: He is sleeping. He is not in acute distress. HENT: Head: Normocephalic. Nose: Nose normal. Mouth/Throat: Mouth: Mucous membranes are moist. Pharynx: Oropharynx is clear. Eyes: Extraocular Movements: Extraocular movements intact. Conjunctiva/sclera: Conjunctivae normal. Cardiovascular: Rate and Rhythm: Normal rate and regular rhythm. Pulses: Normal pulses. Heart sounds: Normal heart sounds. Pulmonary: Effort: Pulmonary effort is normal. No respiratory distress. Breath sounds: Examination of the right-lower field reveals decreased breath sounds. Examination ofthe left-lower field reveals decreased breath sounds. Decreased breath sounds present. Comments: 2L via NC Chest: Chest wall: No tenderness. Abdominal: General: There is no distension. Palpations: Abdomen is soft. Tenderness: There is no abdominal tenderness. There is no guarding. Musculoskeletal: General: Swelling, tenderness and signs of injury (Pelvic fractures) present. Cervical back: Normal range of motion and neck supple. No rigidity or tenderness. Comments: All compartments are soft and compressible. Pulses are palpable and present. Skin: General: Skin is warm and dry. Capillary Refill: Capillary refill takes less than 2 seconds. Neurological: General: No focal deficit present. Mental Status: He is oriented to person, place, and time. Motor: Tremor (Bilateral hands) present. Psychiatric: Mood and Affect: Mood normal. Behavior: Behavior normal. Thought Content: Thought content normal. Judgment: Judgment normal. No intake or output data in the 24 hours ending 04/10/25 1548 Lines/Drains/Tubes: Patient Lines/Drains/Airways Status Active Airway None Output by Drain (mL) 04/08/25 07 - 04/08/25 1859 04/08/25 1900 - 04/09/25 0659 04/09/25 07 - 04/09/25 1859 04/09/25 1900 - 04/10/25 0659 04/10/25 07 - 04/10/25 1548 Patient has no LDAs of requested type attached. Labs in last 18 hours: CBC WBC ?? Hb ?? Plt ?? Hct ?? ANC ?? INR ??, PTT ??, Anti-Xa ?? MCV ?? BMP Na ?? Cl ?? BUN ?? Glu ?? K ?? Co2 ?? Cr ?? Ca ?? iCa ?? Mg 1.8 (L), Phos 2.9 Lactate ?? LFT AST ?? AlkPhos ?? T Prot ?? ALK ?? Bili ?? Alb ?? D.Bili ?? Lab Trends: H/H Results from last 7 days Lab Units 04/08/25 0813 04/07/25 0343 04/06/25 2202 HEMOGLOBIN g/dL 11.2* 11.9* 11.9* HEMATOCRIT % 31.5* 32.7* 32.2* INR Results from last 7 days Lab Units 04/07/25 0343 04/06/25 2202 INR 1.1 1.1 Cr Results from last 7 days Lab Units 04/08/25 0813 04/07/25 0343 04/06/25 2202 CREATININE mg/dL 0.44* 0.38* 0.40* Medications reviewed. Vital signs reviewed. Labs reviewed. Radiography reviewed. Assessment and Plan: Medical Problems and Relevant Plans Hospital Problems POA * (Principal) Fall Yes Overview Addendum 04/08/2025 1:18 PM by Priya Flores, BIOLOGICAL SCIENCES PROFESSOR, DNP Admitted SGT Tertiary exam 04/08 Multiple closed fractures of pelvis without disruption of pelvic ring, initial encounter ([facility]) Yes Overview Addendum 04/10/2025 3:44 PM by Priya Flores APRN, DNP ORT consulted - Non-operative management - Ambulated 30 feet, PMF stable - TDWB LLE - [facility] - PT/OT Alcohol use disorder Yes Overview Addendum 04/10/2025 3:46 PM by Priya Flores APRN, DNP + alcohol use on arrival 10-15 drinks daily CIWA, bilateral hand tremors 04/10: Discontinued CIWA Declined ACES consult Monitor COPD (chronic obstructive pulmonary disease) ([facility]) Yes Overview Signed 04/07/2025 7:45 AM by Priya Flores APRN, DNP Baseline 2.5 L via NC at home Neb treatments Continue with supplemental oxygen Pulmonary hygiene/IS Community acquired pneumonia Yes Overview Signed 04/07/2025 7:46 AM by Priya Flores APRN, DNP On admission Pulmonary hygiene, IS, neb treatments Occipital cerebral infarction ([facility]) Yes Overview Signed 04/07/2025 7:48 AM by Priya Flores APRN, DNP Left Per OSH CTH Neurology consulted - NIHSS on evaluation is 2 (left leg weakness) - Repeat CTH here does not show any acute or chronic stroke - No further stroke work up recommended. ABLA (acute blood loss anemia) Yes Overview Signed 04/07/2025 7:48 AM by Priya Flores APRN, DNP Likely r/t trauma Trend H&H Transfuse if Hgb < 7.0 if needed Thrombocytopenia ([facility]) Yes Overview Signed 04/07/2025 7:49 AM by Priya Flores APRN, DNP On admission Likely due to trauma Monitor Hyperglycemia Yes Overview Signed 04/07/2025 7:50 AM by Priya Flores APRN, DNP Likely reactive 2/2 trauma Monitor Hyponatremia Yes Overview Signed 04/07/2025 7:50 AM by Priya Flores APRN, DNP Likely chronic from alcohol use Monitor and treat when necessary Hypocalcemia Yes Overview Signed 04/07/2025 7:51 AM by Priya Flores APRN, DNP Likely reactive 2/2 trauma Monitor Protein malnutrition (CMS/HCC) Yes Overview Addendum 04/10/2025 3:45 PM by Priya Flores APRN, DNP Low total protein and albumin Optimize nutrition Nutritional supplements started 04/10 Total bilirubin, elevated Yes Overview Signed 04/07/2025 7:53 AM by Priya Flores APRN, DNP Likely due to daily alcohol intake Monitor High serum lactate Yes Overview Addendum 04/09/2025 3:06 PM by Priya Flores APRN, DNP Lactate 4.3 04/09: 1.4 stable Fluid resuscitation Monitor EKG, abnormal Yes Overview Addendum 04/08/2025 1:16 PM by Priya Flores APRN, DNP Sinus tachycardia with nonspecific ST and T wave abnormal Likely due to trauma Monitor Degenerative arthritis of lumbar spine Yes Overview Signed 04/07/2025 7:55 AM by Priya Flores APRN, DNP Moderate degenerative changes in lumbar spine. Including advanced facet arthritis Incidental finding on imaging Follow-up with PCP for surveillance Serum phosphorus decreased No Overview Addendum 04/10/2025 3:43 PM by Priya Flores APRN, DNP Replete PRN Improved, stable 04/10 Monitor Hypomagnesemia Yes Overview Signed 04/07/2025 7:56 AM by Priya Flores APRN, DNP Replete PRN Monitor Smoker Yes Overview Signed 04/08/2025 1:20 PM by Priya Flores APRN, DNP 1-2 PPD Education smoking cessation NRT offered Non-Hospital Problems Substance use Overview Signed 04/08/2025 1:26 PM by Priya Flores APRN, DNP Former Per pt in the s and Plan: - ORT: [place] non-operative management; Ambulated 30 feet, discussed with Ortho and PMFs ordered/pending; TDWB LLE - PT/OT - CIWA discontinued - Pulmonary hygiene/IS, Neb treatments, Inhaler, Supplemental oxygen - Treating CAP with IV abx and ending on 04/10 - DVT Ppx - Phosphorus stable and magnesium low - Replaced magnesium - AM mag lab ordered - MMPC: Discontinued oxycodone - Started PO nutritional supplements Discharge Dispo: Acute Rehab, referred Edited by: Priya Flores APRN, DNP at 04/10/2025 1545 Priya Flores APRN, DNP * Progress Notes - Analilia Perez RN - 04/10/2025 9:37 AM EDT Case Management Adult Progress Note Antony Wells 69 y.o. male CSN: [id number] Admission: 04/06/2025 9:46 PM Primary Problem: Fall Referrals sent to [facility] and the 3 subacute facilities in [place]. Analilia Perez RN * Progress Notes - Doreen Naidu - 04/09/2025 11:12 AM EDT Physical Therapy Evaluation Patient Name: Antony Wells Today's Date: 04/09/2025 PT Discharge Recommendations: Acute rehab Equipment Recommended: Defer to facility History Antony Wells is 69 y.o. male admitted 04/06/2025 for work-up of Fall. Problem List Active Hospital Problems Diagnosis Date Noted Smoker 04/08/2025 Multiple closed fractures of pelvis without disruption of pelvic ring, initial encounter ([facility]) 04/07/2025 Fall 04/07/2025 Alcohol use disorder 04/07/2025 COPD (chronic obstructive pulmonary disease) ([facility]) 04/07/2025 Pneumonia 04/07/2025 Occipital cerebral infarction ([facility]) 04/07/2025 ABLA (acute blood loss anemia) 04/07/2025 Thrombocytopenia ([facility]) 04/07/2025 Hyperglycemia 04/07/2025 Hyponatremia 04/07/2025 Hypocalcemia 04/07/2025 Protein malnutrition ([facility]) 04/07/2025 Total bilirubin, elevated 04/07/2025 High serum lactate 04/07/2025 EKG, abnormal 04/07/2025 Degenerative arthritis of lumbar spine 04/07/2025 Serum phosphorus decreased 04/07/2025 Hypomagnesemia 04/07/2025 Procedures Past Medical History Patient has a past medical history of COPD (chronic obstructive pulmonary disease) ([facility]) and Hypertension. Past Surgical History Patient has a past surgical history that includes Hernia repair. Precautions Left Lower Extremity Weight Bearing Status: Touch Down Weight Bearing with foot flat Medical Precautions: Fall precautions Subjective RN and pt agreeable to therapy session. Participants in Care Family/Caregiver Present: No Facilities Officer: Not Applicable PRESENTATION Oxygen Supplemental oxygen Nasal cannula 2 L/min Telemetry no Lines and Tubes Peripheral IV 04/06/25 Anterior;Proximal;Right Forearm (Active) Peripheral IV 04/06/25 Left Antecubital (Active) Pre-Session Supine, Head of bed elevated, Lines intact. RN agreeable to therapy session. RN clearedpatient for OT session. Post-Session Supine, Head of bed elevated, RN notified, Call light in reach, Lines intact, Bed alarm (zone 1, 2, 3). All needs in reach. All needs met. Bracing (if applicable) Home Living/Set-up Lives With: Significant other Home Type: House Home Adaptive Equipment: Rolling walker Home Layout: Split level, Able to live on one level with bedroom/bathroom (8 steps to enter withoutrailings) Bathroom: Tub/Shower: Tub/Shower combo Home Living Comments: Independent prior to admission. Prior Level of Function Receives Help From: No assist required prior to admission Level of Mobility: Ambulatory- community Mobility [place]: Independent gait without device History of Falls: Yes (reason for admission but otherwise no falls) ADL Performance: Independent Patient/Family Goals Objective Pain Pain Score (0-10): Pt does not rate Location: LLE Intervention: ambulation/increased activity, position adjusted, pillow support provided, and emotional support provided Response: comfortable at end of session Delirium Screening [place] Agitation Sedation Scale (RASS): Alert and calm Confusion Assessment Method-ICU (CAM-ICU/PCAM-ICU) Feature 3: Altered Level of Consciousness: Negative Cognition Overall Cognitive Status: Within Functional Limits Arousal/Alertness: Appropriate responses to stimuli Mood/Behavior: Alert Orientation Level: Oriented X4 Single Step Commands: Consistently Multi-Step Commands: Consistently Method of Communication: Verbal Vision - Basic Assessment Patient Visual Report: no glasses at baseline- no acute vision changes Right Upper Extremity Examination RUE Assessment: Within Functional Limits Manual Muscle Testing - RUE: Within functional limits Sensation Light Touch: Right Upper Extremity: Intact Left Upper Extremity Examination LUE ROM Assessment LUE Assessment: Within Functional Limits Manual Muscle Testing - LUE Manual Muscle Testing - LUE: Within functional limits Sensation Light Touch: Left Upper Extremity: Intact Right Lower Extremity Examination RLE ROM Assessment RLE Assessment: Within Functional Limits Manual Muscle Testing - RLE Manual Muscle Testing - RLE: Within functional limits Sensation Light Touch: Right Lower Extremity: Intact Left Lower Extremity Examination LLE Assessment: Within Functional Limits Manual Muscle Testing: (at least 3/5) Sensation Light Touch: Left Lower Extremity: Intact Therapeutic Activity (12 minutes) Pt participated in therAct focused on increasing pt's independence with bed mobility, transfers, and balance and increasing his tolerance to upright mobility. Please see specific sections. Pt educated on discharge recommendations and POC. Pt encouraged to get up to chair daily to increase out of bed tolerance and decrease ill effects of prolonged bedrest. Pt verbalized understanding. Bed Mobility Bed Mobility Interventions: Pt required cues for initiation and sequencing of supine to sit transfer with good carry over. Bed Mobility Exam: Supine to Sit Level of [place]: Contact guard Physical/Nonphysical Assist: Verbal Cues, Nonverbal cues (demo/gestures), Additional assist utilized for safety Bed Mobility Exam: Sit to Supine Level of [place]: Stand-by assist Physical/Nonphysical Assist: Nonverbal cues (demo/gestures), Verbal Cues, Additional assist utilized for safety Transfers Transfer Interventions: Prior to mobility, therapist provided visual demonstration for proper transfer technique while adhering to TDWB of LLE. Pt then returned demo, completing a sit to stand transfer with Hunter. For stand to sit, cues provided for reaching back for surface, extending LLE and eccentric control. Pt with good carry over. Transfer Exam: Sit to stand Level of [place]: Minimum assist (75% patient's effort) Physical/Nonphysical Assist: Verbal Cues, Nonverbal cues (demo/gestures), Additional assist utilized for safety Assistive Device: Walker, rolling Transfer Exam: Stand to Sit Level of [place]: Minimum assist (75% patient's effort) Physical/Nonphysical Assist: Verbal Cues, Additional assist utilized for safety, Nonverbal cues (demo/gestures) Assistive Device: Walker, rolling Balance Postural Appearance Posture: Forward head, Rounded shoulders, Stooped posture Static Sitting Balance Static Sitting-Balance Support: Feet supported Static Sitting-Level of Assistance: Standby assist Dynamic Sitting Balance Dynamic Sitting-Balance Support: Feet supported Dynamic Sitting-Balance: Lateral weight shifts, Anterior/Posterior weight shifts Level of Assistance: Standby assisst Static Standing Balance Static Standing-Balance Support: Right upper extremity support, Left upper extremity support Static Standing-Level of Assistance: Contact guard Dynamic Standing Balance Dynamic Standing-Balance Support: Left upper extremity support, Right upper extremity support Dynamic Standing-Balance: Lateral weight shifts, Anterior/Posterior weight shifts Dynamic Standing Level of Assistance: Minimum assistance Gait Training (15 minutes) Device: Rolling walker Assistance: Minimum assistance Distance: 30ft with 3 standing rest breaks Gait Analysis: 3 point gait pattern, decreased RLE foot clearance, flexed posture Gait Training Interventions: Prior to gait training, RW was fit appropriately for pt's height. therapist provided visual demonstration for 3 point gait pattern to adhere to weight beraing restrictions. Pt then completed ~30ft of gait training with RW and Hunter using this tehcnique. He required min cues throughout for sequencing. Min cues also provided for increasing weight bearing through BUEs to increase foot clearance on RLE. With cues, improvement noted. Pt required prolonged standing rest breaks throughout 2/2 decreased activity tolerance and respiratory requirements. Cues provided for pursed lip breathing techniques. Team notified pt has completed post mobility distances. Standardized Assessments Standardized Assessments Standardized Assessments: AMPA 6-Clicks Mobility Assessment [facility] 6-Clicks Mobility Assessment Difficulty patient has turning over in bed (including adjusting bedclothes, sheets, and blankets)?:A little Difficulty patient has sitting down on and standing up from a chair with arms (wheelchair, bedside commode, etc.)?: A little Difficulty patient has moving from lying on back to sitting on the side of the bed?: A little How much help does the patient need moving to and from a bed to a chair (including a wheelchair)?: A little How much help does the patient need to walk in hospital room?: A little How much help does the patient need climbing 3-5 steps with a railing?: Unable [facility] 6-Clicks Mobility Assessment Total : 16 Assessment PT evaluation completed this date in addition to therAct and gait training. At this time, pt requires CGA-Hunter for all mobility. He is limited by pain, decreased activity tolerance and TDWB status ofLLE. He was able to complete 30ft of gait required for post mobility films. Prior to hospitalization, pt was fully IND and at this time is functioning far below his baseline and requires assistance for all mobility. He is unable to get into his home which requires navigating 8 steps. Based on current presentation, he is most appropriate for acute rehab at time of discharge to help maximize his independence with functional mobility, decrease risk of falls, and ensure a safe transition to home environment. While in the hospital, he will continue to benefit from skilled PT services to address deficits, progress mobility as tolerated, and help facilitate safe discharge planning. Impairments: Decreased endurance, ventilation, and/or gas exchange, Impaired gait dynamics/performance, Impaired functional mobility/transfers, Impaired balance, Impaired postural/trunk control, Pain, Decreased strength Activity Limitations: Inability to sit independently, Inability to ambulate independently, Inability to ambulate community distances, Inability to complete ADLs independently, Inability to transfer independently, Inability to ambulate household distances Participation Restrictions: Self-care, Home management, Community leisure Activity Tolerance: Tolerates 30 min activity with multiple rests Evaluation/Treatment Tolerance: Patient limited by fatigue, Patient limited by pain Diagnosis: decreased functional mobility 2/2 medical diagnosis Rehab Potential: Good, to achieve stated therapy goals Eval Complexity History Profile: 1 - 2 personal factors and/or comorbidities Clinical Presentation: Evolving clinical presentation with changing characteristics Clinical Decision Making: Moderate complexity PT Recommendations Discharge Destination: Acute rehab Discharge Equipment: Defer to facility Plan Planned PT Interventions Bed mobility training, Balance training, Gait training, Transfer training, Postural re-education, Functional Mobility PT Frequency 3 - 5 times per week PT Duration 2 weeks Goals PT GOAL DETAILS Time Frame PT Goal 1: Pt will complete supine <> sit transfer from flat surface with SBA to simulate home environment 2 weeks PT Goal 2: Pt will complete sit <> stand and bed <> chair transfer with least restrictive AD and SBA to progress towards PLOF 2 weeks PT Goal 3: Pt will ambulate ~75ft with least restrictive AD and SBA to progress towards household distances 2 weeks PT Goal 4: Pt will ascend/descend 8 steps and Hunter to safely enter/exit his home 2 weeks PT Goal 5: Pt and family will be IND [facility] HEP, safety and discharge recommendations 2 weeks Written by Doreen Naidu on 04/09/25 at 1:23 PM. * Progress Notes - Pascual Ayana Macias - 04/09/2025 11:11 AM EDT Occupational Therapy Evaluation Patient Name: Antony Wells Today's Date: 04/09/2025 OT Discharge Recommendations: Acute rehab Equipment Recommended: Defer to facility History Antony Wells is 69 y.o. male admitted 04/06/2025 for work-up of Fall. Problem List Active Hospital Problems Diagnosis Date Noted Smoker 04/08/2025 Multiple closed fractures of pelvis without disruption of pelvic ring, initial encounter ([facility]) 04/07/2025 Fall 04/07/2025 Alcohol use disorder 04/07/2025 COPD (chronic obstructive pulmonary disease) ([facility]) 04/07/2025 Pneumonia 04/07/2025 Occipital cerebral infarction ([facility]) 04/07/2025 ABLA (acute blood loss anemia) 04/07/2025 Thrombocytopenia ([facility]) 04/07/2025 Hyperglycemia 04/07/2025 Hyponatremia 04/07/2025 Hypocalcemia 04/07/2025 Protein malnutrition ([facility]) 04/07/2025 Total bilirubin, elevated 04/07/2025 High serum lactate 04/07/2025 EKG, abnormal 04/07/2025 Degenerative arthritis of lumbar spine 04/07/2025 Serum phosphorus decreased 04/07/2025 Hypomagnesemia 04/07/2025 Past Medical History Patient has a past medical history of COPD (chronic obstructive pulmonary disease) ([facility]) and Hypertension. Past Surgical History Patient has a past surgical history that includes Hernia repair. Precautions Left Lower Extremity Weight Bearing Status: Touch Down Weight Bearing with foot flat Medical Precautions: Fall precautions Subjective Pt agreeable towards participation. Reports dyspnea is worsened post fall in comparison to baseline. I was able to mow the lawn before! Participants in Care Family/Caregiver Present: No Facilities Officer: Not Applicable Presentation Oxygen Therapy: Supplemental oxygen O2 Delivery Method: Nasal cannula O2 Flow Rate (L/min): 2 L/min Pre-Session: Supine, Head of bed elevated, Lines intact Pre-Session Comments: RN agreeable to therapy session. Post-Session: Supine, Head of bed elevated, RN notified, Call light in reach, Lines intact, Bed alarm (zone 1, 2, 3) Post-Session Comments: All needs in reach. Home Living/Set-up Lives With: Significant other Home Type: House Home Adaptive Equipment: Rolling walker Home Layout: Split level, Able to live on one level with bedroom/bathroom (8 steps to enter withoutrailings) Bathroom: Tub/Shower: Tub/Shower combo Home Living Comments: Independent prior to admission. Prior Level of Function Receives Help From: No assist required prior to admission Level of Mobility: Ambulatory- community Mobility [place]: Independent gait without device History of Falls: Yes (reason for admission but otherwise no falls) ADL Performance: Independent Patient/Family Goals Statement To improve current functional status. Objective Pain Pt with pain in L LE- did not quantify. Positioned for comfort at conclusion of session. RN aware. Delirium Screening [place] Agitation Sedation Scale (RASS): Alert and calm Confusion Assessment Method-ICU (CAM-ICU/PCAM-ICU) Feature 3: Altered Level of Consciousness: Negative Cognition Overall Cognitive Status: Within Functional Limits Arousal/Alertness: Appropriate responses to stimuli Mood/Behavior: Alert Orientation Level: Oriented X4 Single Step Commands: Consistently Multi-Step Commands: Consistently Method of Communication: Verbal Vision - Basic Assessment Patient Visual Report: no glasses at baseline- no acute vision changes Right Upper Extremity Examination RUE ROM Assessment RUE Assessment: Within Functional Limits Manual Muscle Testing - RUE: Within functional limits Sensation Light Touch: Right Upper Extremity: Intact Left Upper Extremity Examination LUE ROM Assessment LUE Assessment: Within Functional Limits Manual Muscle Testing - LUE: Within functional limits Sensation Light Touch: Left Upper Extremity: Intact Right Lower Extremity Examination RLE ROM Assessment RLE Assessment: Within Functional Limits Manual Muscle Testing - RLE: Within functional limits Sensation Light Touch: Right Lower Extremity: Intact Left Lower Extremity Examination LLE ROM Assessment LLE Assessment: Within Functional Limits Manual Muscle Testing: (at least 3/5) Sensation Light Touch: Left Lower Extremity: Intact Bed Mobility Bed Mobility Interventions: Pt required cues for initiation and sequencing of supine to sit transfer with good carry over. Bed Mobility Exam: Supine to Sit Level of [place]: Contact guard Physical/Nonphysical Assist: Verbal Cues, Nonverbal cues (demo/gestures), Additional assist utilized for safety Bed Mobility Exam: Sit to Supine Level of [place]: Stand-by assist Physical/Nonphysical Assist: Nonverbal cues (demo/gestures), Verbal Cues, Additional assist utilized for safety Transfers Transfer Exam: Sit to stand Level of [place]: Minimum assist (75% patient's effort) Physical/Nonphysical Assist: Verbal Cues, Nonverbal cues (demo/gestures), Additional assist utilized for safety Assistive Device: Walker, rolling Transfer Exam: Stand to Sit Level of [place]: Minimum assist (75% patient's effort) Physical/Nonphysical Assist: Verbal Cues, Additional assist utilized for safety, Nonverbal cues (demo/gestures) Assistive Device: Walker, rolling Balance Postural Appearance Posture: Forward head, Rounded shoulders, Stooped posture Static Sitting Balance Static Sitting-Balance Support: Feet supported Static Sitting-Level of Assistance: Standby assist Dynamic Sitting Balance Dynamic Sitting-Balance Support: Feet supported Dynamic Sitting-Balance: Lateral weight shifts, Anterior/Posterior weight shifts Level of Assistance: Standby assisst Static Standing Balance Static Standing-Balance Support: Right upper extremity support, Left upper extremity support Static Standing-Level of Assistance: Contact guard Dynamic Standing Balance Dynamic Standing-Balance Support: Left upper extremity support, Right upper extremity support Dynamic Standing-Balance: Lateral weight shifts, Anterior/Posterior weight shifts Dynamic Standing Level of Assistance: Minimum assistance Self-Care Interventions Self Care/Home Management (ADLs) Time Entry: 33 -At beginning of session, pt encouraged to don anti-slip socks in preparation for out of bed engagement. Pt unable to tolerate forward trunk flexion nor figure-4 sitting in which assistance was provided for sock donning. Pt was effortful via knee extension for improved ease of access and maintaining sitting balance. -Education provided regarding L LE TDWB status prior to functional mobility completion. Pt reportedcomprehension, albeit frustration, with the shift in weight bearing status. Pt was able to functionally mobilize short household distance, however, required frequent rest breaks in standing due to dyspnea. This ultimately required additional time for brief functional mobility completion which per pt report is a considerable change in comparison to baseline. Pt encouraged to return to sitting during rest breaks in which he deferred, rather resting with elbows on RW and CGA provided for balance st abilization. Functional mobility was encouraged to simulate skills necessary for managing to go to/from the bathroom. -At conclusion of session, pt reported considerable fatigue prompting return back to supine. O2 (when monitored) was 90%+ throughout session despite dyspnea. Lower Extremity Dressing Sock Level of Assistance: Dependent LE Dressing Where Assessed: Edge of bed Standardized Assessments Janey Index Feeding: Independent Bathing: Independent (or in Shower) Grooming: Independent face/hair/teeth/shaving (implements provided) Dressing: Needs help but can do about half unaided Bowels: Continent Bladder: Continent Toilet Use: Needs some help but can do some things alone Transfers (Bed to Chair and Back): Minor help (verbal or physical) Mobility (on Level Surfaces): Immobile or < 50 yards Stairs: Unable Total Score: 60 Assessment Pt on this date presents with reduced activity tolerance, L LE TDWB status, and pain s/p fall. These factors in compilation negatively impedes safety and independence with self-care completion evidenced by additional time, frequent rest breaks, and CGA necessary for functionally mobilizing short household distance. Per pt, he was active prior to admission including driving, managing self-care, and household activities. With this in mind, OT will continue to follow while hospitalized but is currently most appropriate for acute inpatient rehabilitation upon discharge. Acute rehabilitation will provide intensive skilled therapy services in hopes of improving functional status, decreasing caregiver level of burden, and increasing quality of life. OT Findings: Impaired ADL performance, Impaired IADL performance, Decreased endurance/ventilation/gas exchange, Impaired functional mobility, Impaired postural/trunk control, Impaired balance Evaluation/Treatment Tolerance: Patient limited by pain, Patient limited by fatigue Rehab Potential: Good, to achieve stated therapy goals Barriers to Discharge: Comorbidities Eval Complexity Occupational Profile: Expanded review of medical/therapy records and additional review of physical,cognitive, or psychosocial history Performance Deficits: Activities of daily living (ADLs), Instrumental activities of daily living (IADLs), Leisure, Body functions, Body structures, Motor skills, Process skills, Habits, Routines, Roles, Physical, Personal Clinical Decision Making: Moderate Overall Eval complexity: Moderate OT Recommendations Discharge Destination: Acute rehab Discharge Equipment: Defer to facility Plan Planned OT Interventions ADL retraining, IADL retraining, Balance training, Motor coordination training, Strengthening, Transfer training, Functional mobility, Bed mobility Training, Caregiver education OT Frequency 2 - 5 times per week OT Duration 2 weeks Goals OT GOAL DETAILS Time Frame OT Goal 1: Pt will complete grooming while seated EOB with SBA x1. 2 weeks OT Goal 2: Pt will accomplish elenita hygiene s/p toileting with SBA x1. 2 weeks OT Goal 3: Pt will complete LB dressing (AE PRN) with SBA x1. 2 weeks OT Goal 4: Pt will verbalize and adhere to WB precautions during functional engagement at least 2/2sessions without additional cueing required. 2 weeks Written by Ayana Garner on 04/09/25 at 1:28 PM. * Progress Notes - Priya Flores, BIOLOGICAL SCIENCES PROFESSOR, DNP - 04/09/2025 8:32 AM EDT 04/09/25 Antony Wells HPI Antony Wells is a 69 yo Male with a PMHX of Alcohol use disorder (10-15 drinks per day), and COPD(uses 2.5L NC at home) who presents from an OSH on 04/06 following a fall. +ETOH. Injuries include: Pelvic fractures, Pneumonia, and possible Left occipital infarct. Past 24 Hours: Patient is resting comfortably in the bed. Easily awaken. A&O. VSS. NAD. NAEON. On 2L via NC, no SOA. He states he did not sleep overnight and finally started to sleep this morning. Added scheduled melatonin. Let the nursing staff know to not disturb patient at night with medications and vital signs. He states that he would like to awaken for his neb treatments. Patient reports that his pain is improving in his LLE. Will continue current pain regimen. Continue to discuss with patient about PT/OT evaluation of therapy and his need to mobilize 30 feet for post mobility x-rays with Ortho. Lungs are noticeably improved and continues to pull 1500 on IS. Treating for CAP. Continues to have bilateral hand tremors. Scoring on CIWA. Tolerating PO diet, no N/V, abd pain. Last BM was RN LABOR AND DELIVERY. Voiding spontaneously. Reviewed AM labs and continued to replace electrolytes. Lactate lab stable. PT/OT reached and reported that evaluation was completed. Patient mobilized 30 feet with the recommendationof acute rehab. Discussed with the Ortho Team and PMFs will be ordered and pending. Attempted to update who I spoke with in person yesterday. Did not answer the phone. Will attempt to call back later. Discussed plan of care with patient and RN who is in understanding. No further concerns per patient or nursing. Edited by: Priya Flores, BIOLOGICAL SCIENCES PROFESSOR, DNP at 04/09/2025 1503 Relevant review of systems was obtained as able and is negative unless stated above in HPI. Vital signs: Vitals: 04/09/25 1258 BP: 131/76 Pulse: 109 Resp: 24 Temp: 36.4 ??C (97.6 ??F) SpO2: 96% Physical Exam Vitals and nursing note reviewed. Constitutional: General: He is not in acute distress. HENT: Head: Normocephalic. Nose: Nose normal. Mouth/Throat: Mouth: Mucous membranes are moist. Pharynx: Oropharynx is clear. Eyes: Extraocular Movements: Extraocular movements intact. Conjunctiva/sclera: Conjunctivae normal. Cardiovascular: Rate and Rhythm: Normal rate and regular rhythm. Pulses: Normal pulses. Heart sounds: Normal heart sounds. Pulmonary: Effort: Pulmonary effort is normal. No respiratory distress. Breath sounds: Examination of the right-lower field reveals decreased breath sounds. Examination ofthe left-lower field reveals decreased breath sounds. Decreased breath sounds present. Comments: 2L via NC Chest: Chest wall: No tenderness. Abdominal: General: There is no distension. Palpations: Abdomen is soft. Tenderness: There is no abdominal tenderness. There is no guarding. Musculoskeletal: General: Swelling, tenderness and signs of injury (Pelvic fractures) present. Cervical back: Normal range of motion and neck supple. No rigidity or tenderness. Comments: All compartments are soft and compressible. Pulses are palpable and present. Skin: General: Skin is warm and dry. Capillary Refill: Capillary refill takes less than 2 seconds. Neurological: General: No focal deficit present. Mental Status: He is alert and oriented to person, place, and time. Motor: Tremor (Bilateral hands) present. Psychiatric: Mood and Affect: Mood normal. Behavior: Behavior normal. Thought Content: Thought content normal. Judgment: Judgment normal. Intake/Output Summary (Last 24 hours) at 04/09/2025 1510 Last data filed at 04/08/2025 2211 Gross per 24 hour Intake 700 ml Output -- Net 700 ml Lines/Drains/Tubes: Patient Lines/Drains/Airways Status Active Airway None Output by Drain (mL) 04/07/25 0700 - 04/07/25 1859 04/07/25 1900 - 04/08/25 0659 04/08/25 07 - 04/08/25 1859 04/08/25 190 - 04/09/25 0659 04/09/25 07 - 04/09/25 1510 Patient has no LDAs of requested type attached. Labs in last 18 hours: CBC WBC ?? Hb ?? Plt ?? Hct ?? ANC ?? INR ??, PTT ??, Anti-Xa ?? MCV ?? BMP Na ?? Cl ?? BUN ?? Glu ?? K ?? Co2 ?? Cr ?? Ca ?? iCa ?? Mg 1.8 (L), Phos 2.4 (L) Lactate ?? LFT AST ?? AlkPhos ?? T Prot ?? ALK ?? Bili ?? Alb ?? D.Bili ?? Lab Trends: H/H Results from last 7 days Lab Units 04/08/25 0813 04/07/25 0343 04/06/25 2202 HEMOGLOBIN g/dL 11.2* 11.9* 11.9* HEMATOCRIT % 31.5* 32.7* 32.2* INR Results from last 7 days Lab Units 04/07/25 0343 04/06/25 2202 INR 1.1 1.1 Cr Results from last 7 days Lab Units 04/08/25 0813 04/07/25 0343 04/06/25 2202 CREATININE mg/dL 0.44* 0.38* 0.40* Medications reviewed. Vital signs reviewed. Labs reviewed. Radiography reviewed. Assessment and Plan: Medical Problems and Relevant Plans Hospital Problems POA * (Principal) Fall Yes Overview Addendum 04/08/2025 1:18 PM by Priya Flores APRN, DNP Admitted SGT Tertiary exam 04/08 Multiple closed fractures of pelvis without disruption of pelvic ring, initial encounter ([facility] [place]) Yes Overview Addendum 04/09/2025 3:07 PM by Priya Flores APRN, DNP ORT consulted - Non-operative management - Ambulated 30 feet, PMF pending - [facility]OT Alcohol use disorder Yes Overview Addendum 04/09/2025 3:06 PM by Priya Flores APRN, DNP + alcohol use on arrival 10-15 drinks daily CIWA Declined ACES consult Monitor COPD (chronic obstructive pulmonary disease) (CMS/HCC) Yes Overview Signed 04/07/2025 7:45 AM by Priya Flores APRN, DNP Baseline 2.5 L via NC at home Neb treatments Continue with supplemental oxygen Pulmonary hygiene/IS Community acquired pneumonia Yes Overview Signed 04/07/2025 7:46 AM by Priya Flores APRN, DNP On admission Pulmonary hygiene, IS, neb treatments Occipital cerebral infarction (CMS/HCC) Yes Overview Signed 04/07/2025 7:48 AM by Priya Flores APRN, DNP Left Per OSH CTH Neurology consulted - NIHSS on evaluation is 2 (left leg weakness) - Repeat CTH here does not show any acute or chronic stroke - No further stroke work up recommended. ABLA (acute blood loss anemia) Yes Overview Signed 04/07/2025 7:48 AM by Priya Flores APRN, DNP Likely r/t trauma Trend H&H Transfuse if Hgb < 7.0 if needed Thrombocytopenia (CMS/HCC) Yes Overview Signed 04/07/2025 7:49 AM by Priya Flores APRN, DNP On admission Likely due to trauma Monitor Hyperglycemia Yes Overview Signed 04/07/2025 7:50 AM by Priya Flores APRN, DNP Likely reactive 2/2 trauma Monitor Hyponatremia Yes Overview Signed 04/07/2025 7:50 AM by Priya Flores APRN, DNP Likely chronic from alcohol use Monitor and treat when necessary Hypocalcemia Yes Overview Signed 04/07/2025 7:51 AM by Priya Flores APRN, DNP Likely reactive 2/2 trauma Monitor Protein malnutrition (CMS/HCC) Yes Overview Signed 04/07/2025 7:52 AM by Priya Flores APRN, DNP Low total protein and albumin Optimize nutrition Nutritional supplements when necessary Total bilirubin, elevated Yes Overview Signed 04/07/2025 7:53 AM by Priya Flores APRN, DNP Likely due to daily alcohol intake Monitor High serum lactate Yes Overview Addendum 04/09/2025 3:06 PM by Priya Flores APRN, DNP Lactate 4.3 68: 1.4 stable Fluid resuscitation Monitor EKG, abnormal Yes Overview Addendum 04/08/2025 1:16 PM by Priya Flores APRN, DNP Sinus tachycardia with nonspecific ST and T wave abnormal Likely due to trauma Monitor Degenerative arthritis of lumbar spine Yes Overview Signed 04/07/2025 7:55 AM by Priya Flores APRN, DNP Moderate degenerative changes in lumbar spine. Including advanced facet arthritis Incidental finding on imaging Follow-up with PCP for surveillance Serum phosphorus decreased No Overview Signed 04/07/2025 7:56 AM by Priya Flores APRN, DNP Replete PRN Monitor Hypomagnesemia Yes Overview Signed 04/07/2025 7:56 AM by Priya Flores APRN, DNP Replete PRN Monitor Smoker Yes Overview Signed 04/08/2025 1:20 PM by Priya Flores APRN, DNP 1-2 PPD Education smoking cessation NRT offered Non-Hospital Problems Substance use Overview Signed 04/08/2025 1:26 PM by Priya Flores APRN, DNP Former Per pt in the s and Plan: - ORT: [place] non-operative management; Ambulated 30 feet, discussed with Ortho and PMFs ordered/pending; PWBAT LLE - PT/OT evaluated with HELEN SURESH protocol - Pulmonary hygiene/IS, Neb treatments, Inhaler, Supplemental oxygen - Treating CAP with IV abx - DVT Ppx - Replaced phosphorus and magnesium - AM phos and mag labs ordered Discharge Dispo: Acute Rehab Edited by: Priya Flores APRN, DNP at 04/09/2025 1504 Priya Flores APRN, DNP * Progress Notes - Priya Flores APRN, DNP - 04/08/2025 9:30 AM EDT TRAUMA SURGERY TERTIARY SURVEY 04/08/25 Antony Wells HPI Antony Wells is a 69 yo Male with a PMHX of Alcohol use disorder (10-15 drinks per day), and COPD(uses 2.5L NC at home) who presents from an OSH on 04/06 following a fall. +ETOH. Injuries include: Pelvic fractures, Pneumonia, and possible Left occipital infarct. Past 24 Hours: Patient is resting comfortably in the bed. Easily awaken. A&O. VSS. NAD. NAEON. On 2L via NC, no SOA. Discussed with patient about PT/OT evaluation of therapy to recommend disposition of home vs rehab. Explain to patient that he will need to ambulate at least 30 feet to have post mobility x-rays for Ortho to monitor the stability of pelvic fractures. Patient reports that his pain has increased in left hip with movement. He states that pain regimen is controlling his pain currently. Tertiaryexam completed. Rhonchi lungs noted. Educated on IS use. Demonstrated and he is able to pull [id number] on IS. CIWA continues with noticeable bilateral hand tremors. Patient admits to drinking 10-15 beers and shots daily. Brief alcohol intervention. Decline Addiction Medicine consult. Smokes 1-[address]. Former substance user. Tolerating PO diet, no N/V, abd pain. Last BM was RN LABOR AND DELIVERY. Voiding spontaneously. Reviewed AM labs and replaced electrolytes. PT/OT continues to pend. Discussed plan of care with patient and RN who is in understanding. No further concerns per patient or nursing. Edited by: Priya Flores, BIOLOGICAL SCIENCES PROFESSOR, DNP at 04/08/2025 8693 Are there limits on this patient's care or advanced wishes/documents available? No Past Medical History: Active Ambulatory Problems Diagnosis Date Noted Substance use 04/08/2025 Resolved Ambulatory Problems Diagnosis Date Noted No Resolved Ambulatory Problems Past Medical History: Diagnosis Date COPD (chronic obstructive pulmonary disease) ([facility] [place]) Hypertension Past Surgical History: Surgical History[1] Home Medications: Prior to Admission medications Medication Sig Start Date End Date Taking? Authorizing Provider albuterol 108 (90 Base) MCG/ACT inhaler Inhale 2 puffs every 4 to 6 hours as needed for wheezing orshortness of breath. Yes Enoch Jacques MD ipratropium-albuterol (Duo-Neb) 0.5-2.5 mg/3 mL nebulizer solution Take 3 mL by nebulization every 4 to 6 hours as needed for wheezing or shortness of breath. Yes Enoch Jacques MD Social History: Pt has reports current alcohol use of about 40.0 - 70.0 standard drinks of alcohol per week. No history on file for tobacco use and drug use. (details as available below) Social History Substance and Sexual Activity Alcohol Use Yes Alcohol/week: 40.0 - 70.0 standard drinks of alcohol Types: 40 - 70 Standard drinks or equivalent per week Social History Substance and Sexual Activity Drug Use Not on file Tobacco Use History[2] Audit-C for Alcohol Misuse Screening Lab Results Component Value Date ETOH 126 (H) 04/06/2025 Q1: How often did you have a drink containing alcohol in the past year? Four or more times a week = 4 Q2: How many drinks did you have on a typical day when you were drinking in the past year? 10 or more = 4 Q3: How often did you have six or more drinks on one occasion in the past year? Daily or almost daily = 4 The AUDIT-C is scored on a scale of 0-12 (scores of 0 reflect no alcohol use). In men, a score of 4or more is considered positive; in women, a score of 3 or more is considered positive. Generally, the higher the AUDIT-C score, the more likely it is that the patient's drinking is affecting his/her health and safety. If screening positive (men = 4 women = 3), proceed with referral for alcohol misuse. TOTAL SCORE: 12 Brief Intervention Performed: Yes Referral to Treatment Made: No due to declined Addiction Medicine consult; does not want to stop atthis time Injured Trauma Survivor Screen (ITSS) for Depression / PTSD Risk Before this injury: Have you ever taken a medication for, or been given a mental health diagnosis? No = +0 Has there ever been a time in your life you have been bothered by feeling down or hopeless or lost all interest in things you usually enjoyed for more than 2 weeks? No = +0 When you were injured or right after: Did you think you were going to ? No = +0 Do you think this was done to you intentionally? No = +0 Since your injury: Have you felt emotionally detached from your loved ones? No = +0 Do you find yourself crying and are unsure why? No = +0 Have you felt more restless, tense or jumpy than usual? No = +0 Have you found yourself unable to stop worrying? No = +0 Do you find yourself thinking that the world is unsafe and that people are not to be trusted? No = +0 Total Score: 0 0-1 = teaching 2-5 = Consult to Trauma Mental Health Professional or Cook Chill Technician 6-9 = Psychiatry Consult Relevant review of systems was obtained as able and is negative unless stated above in HPI. Vital signs: Vitals: 04/08/25 0903 BP: 123/85 Pulse: 82 Resp: 22 Temp: 36.8 ??C (98.2 ??F) SpO2: 99% Tertiary exam as documented below: Physical Exam Vitals and nursing note reviewed. Constitutional: General: He is not in acute distress. HENT: Head: Normocephalic. Nose: Nose normal. Mouth/Throat: Mouth: Mucous membranes are moist. Pharynx: Oropharynx is clear. Eyes: Extraocular Movements: Extraocular movements intact. Conjunctiva/sclera: Conjunctivae normal. Neck: Comments: No midline cervical pain or -TTP; per pt neck is stiff Cardiovascular: Rate and Rhythm: Normal rate and regular rhythm. Pulses: Normal pulses. Heart sounds: Normal heart sounds. Pulmonary: Effort: Pulmonary effort is normal. No respiratory distress. Breath sounds: Rhonchi present. Chest: Chest wall: No tenderness. Abdominal: General: There is no distension. Palpations: Abdomen is soft. Tenderness: There is no abdominal tenderness. There is no guarding. Musculoskeletal: General: Swelling, tenderness and signs of injury (Pelvic fractures) present. Cervical back: Normal range of motion and neck supple. No rigidity or tenderness. Comments: No spinal tenderness with palpation and compression to T/L spine. No pelvic tenderness with rotation and palpation. All compartments are soft and compressible. Pulses are palpable and present. Skin: General: Skin is warm and dry. Capillary Refill: Capillary refill takes less than 2 seconds. Neurological: General: No focal deficit present. Mental Status: He is alert and oriented to person, place, and time. Motor: Tremor (Bilateral hands) present. Psychiatric: Mood and Affect: Mood normal. Behavior: Behavior normal. Thought Content: Thought content normal. Judgment: Judgment normal. Intake/Output Summary (Last 24 hours) at 04/08/2025 1327 Last data filed at 04/08/2025 1124 Gross per 24 hour Intake -- Output 825 ml Net -825 ml Lines/Drains/Tubes: Patient Lines/Drains/Airways Status Active Airway None Output by Drain (mL) 04/06/25 0700 - 04/06/25 1859 04/06/25 1900 - 04/07/25 0659 04/07/25 07 - 04/07/25 1859 04/07/25 1900 - 04/08/25 0659 04/08/25 0700 - 04/08/25 1327 Patient has no LDAs of requested type attached. Labs in last 18 hours: CBC WBC 7.10 Hb 11.2 (L) Plt 112 (L) Hct 31.5 (L) ANC ?? INR ??, PTT ??, Anti-Xa ?? MCV 105 (H) BMP Na 131 (L) Cl 97 BUN 12 Glu 109 (H) K 4.0 Co2 27 Cr 0.44 (L) Ca 7.6 (L) iCa ?? Mg 1.8 (L), Phos 1.8 (L) Lactate ?? LFT AST ?? AlkPhos ?? T Prot ?? ALK ?? Bili ?? Alb ?? D.Bili ?? Lab Trends: H/H Results from last 7 days Lab Units 04/08/25 0813 04/07/25 0343 04/06/25 2202 HEMOGLOBIN g/dL 11.2* 11.9* 11.9* HEMATOCRIT % 31.5* 32.7* 32.2* INR Results from last 7 days Lab Units 04/07/25 0343 04/06/25 2202 INR 1.1 1.1 Cr Results from last 7 days Lab Units 04/08/25 0813 04/07/25 0343 04/06/25 2202 CREATININE mg/dL 0.44* 0.38* 0.40* Radiology: I have seen the patient and performed a tertiary exam and reviewed all pertinent laboratory data. Reviewed CXR, pelvic XR, CT head, CT C/T/L spines, CTA head/neck/chest/abd/pelvis. All injuries and findings listed; no new injuries identified. Assessment and Plan: Medical Problems and Relevant Plans Hospital Problems POA * (Principal) Fall Yes Overview Addendum 04/08/2025 1:18 PM by Priya Flores, BIOLOGICAL SCIENCES PROFESSOR, DNP Admitted SGT Tertiary exam 04/08 Multiple closed fractures of pelvis without disruption of pelvic ring, initial encounter (CMS/HCC) Yes Overview Signed 04/08/2025 1:18 PM by Priya Flores APRN, DNP ORT consulted - Non-operative management - PMF after ambulating 30 feet; pending - [facility] - PT/OT Alcohol use disorder Yes Overview Addendum 04/07/2025 7:46 AM by Priya Flores APRN, DNP + alcohol use on arrival 10-15 drinks daily CIWA ACES consult pending if patient is interested Monitor COPD (chronic obstructive pulmonary disease) (CMS/HCC) Yes Overview Signed 04/07/2025 7:45 AM by Priya Flores APRN, DNP Baseline 2.5 L via NC at home Neb treatments Continue with supplemental oxygen Pulmonary hygiene/IS Pneumonia Yes Overview Signed 04/07/2025 7:46 AM by Priya Flores APRN, DNP On admission Pulmonary hygiene, IS, neb treatments Occipital cerebral infarction (CMS/[facility] [place]) Yes Overview Signed 04/07/2025 7:48 AM by Priya Flores APRN, DNP Left Per OSH CTH Neurology consulted - NIHSS on evaluation is 2 (left leg weakness) - Repeat CTH here does not show any acute or chronic stroke - No further stroke work up recommended. ABLA (acute blood loss anemia) Yes Overview Signed 04/07/2025 7:48 AM by Priya Flores APRN, DNP Likely r/t trauma Trend H&H Transfuse if Hgb < 7.0 if needed Thrombocytopenia (CMS/HCC) Yes Overview Signed 04/07/2025 7:49 AM by Priya Flores APRN, DNP On admission Likely due to trauma Monitor Hyperglycemia Yes Overview Signed 04/07/2025 7:50 AM by Priya Flores APRN, DNP Likely reactive 2/2 trauma Monitor Hyponatremia Yes Overview Signed 04/07/2025 7:50 AM by Priya Flores APRN, DNP Likely chronic from alcohol use Monitor and treat when necessary Hypocalcemia Yes Overview Signed 04/07/2025 7:51 AM by Priya Flores APRN, DNP Likely reactive 2/2 trauma Monitor Protein malnutrition (CMS/HCC) Yes Overview Signed 04/07/2025 7:52 AM by Priya Flores APRN, DNP Low total protein and albumin Optimize nutrition Nutritional supplements when necessary Total bilirubin, elevated Yes Overview Signed 04/07/2025 7:53 AM by Priya Flores APRN, DNP Likely due to daily alcohol intake Monitor High serum lactate Yes Overview Signed 04/07/2025 7:53 AM by Priya Flores APRN, DNP Lactate 4.3 Fluid resuscitation Monitor EKG, abnormal Yes Overview Addendum 04/08/2025 1:16 PM by Priya Flores APRN, DNP Sinus tachycardia with nonspecific ST and T wave abnormal Likely due to trauma Monitor Degenerative arthritis of lumbar spine Yes Overview Signed 04/07/2025 7:55 AM by Priya Flores APRN, DNP Moderate degenerative changes in lumbar spine. Including advanced facet arthritis Incidental finding on imaging Follow-up with PCP for surveillance Serum phosphorus decreased No Overview Signed 04/07/2025 7:56 AM by Priya Flores APRN, DNP Replete PRN Monitor Hypomagnesemia Yes Overview Signed 04/07/2025 7:56 AM by Priya Flores APRN, DNP Replete PRN Monitor Smoker Yes Overview Signed 04/08/2025 1:20 PM by Priya Flores APRN, DNP 1-2 PPD Education smoking cessation NRT offered Non-Hospital Problems Substance use Overview Signed 04/08/2025 1:26 PM by Priya Flores APRN, DNP Former Per pt in the s and Plan: - ORT: [place] non-operative management; PMF's pending; PWBAT LLE - PT/OT evaluation pending - CIWA protocol - Pulmonary hygiene/IS, Neb treatments, Inhaler, Supplemental oxygen - Treating CAP with IV abx - DVT Ppx - Tertiary exam 04/08 completed - Reviewed imaging and labs - Replaced phosphorus and magnesium - AM phos, mag, and lactate labs ordered Discharge Dispo: Pending PT/OT Edited by: Priya Flores APRN, DNP at 04/08/2025 1317 Priya Flores APRN, DNP New diagnoses, need for imaging or specialty consultation identified as present on admission via tertiary survey: YES [1] Past Surgical History: Procedure Laterality Date HERNIA REPAIR [2] Social History Tobacco Use Smoking Status Not on file Smokeless Tobacco Not on file * Progress Notes - Michele Vasquez MD - 04/08/2025 6:23 AM EDT Orthopedic Surgery Progress Note 04/08/25 SUBJECTIVE: No acute events overnight. Doing well. Pain controlled. Tolerating diet. No nausea, vomiting, fevers, or chills. CIWA without issues overnight. OBJECTIVE Vitals: 04/08/25 0540 BP: 122/78 Pulse: 74 Resp: 18 Temp: 36.8 ??C (98.2 ??F) SpO2: 99% PHYSICAL EXAM AAOx3 No acute distress Non-labored breathing on room air Pulses regular BUE - no TTP or pain with ROM - 5/5 Bic, Tri, WF, WE, FF, FE, EPL, FPL, and Fabd - Sensation intact to light touch in median, ulnar, and radial nerve distributions - Fingers warm and well perfused - Capillary refill <2 sec, 2+ radial artery pulse BLE Inspection - no pain with logroll or hip flexion Motor - TA, GSC, EHL, FHL intact Sensory - SP, DP, Sural, Saph, Tibal nerves intact to light touch Vascular - 2+ DP/PT pulses, capillary refill <2sec, toes warm and well perfused ASSESSMENT Antony Wells is a 69 y.o. male with L SPR/IPR (non-op), L crescent fx (non-op). PLAN Mobility Orders Mobility Protocol: Ortho/Trauma/Spine Mobility Guidelines Spinal Precautions: No cranial, cervical or thoracolumbar spinal precautions necessary Extremity Precautions: Extremity Precautions Extremity: LLE Mobility Restrictions (LLE): Touchdown weight bearing (TDWB) Type of Brace (LLE): None Other mobility precautions: Other precautions Other mobility precautions: Other Other: Keep HOB 30 Degrees, OK to Reverse Trendelenburg. -DVT prophylaxis - per protocol -PT/OT - pending -Disposition: Post mobility films of pelvis after ambulation with PT/OT. No surgery planned at thistime -Follow-up: Marie Ruffin PA-C in 3-4 weeks Orthopaedic Trauma Service Pager: [phone] Cosigned by Angel Bryant MD at 04/14/2025 7:19 PM EDT * Significant Event - Fab Mascorro MD - 04/07/2025 2:40 PM EDT Neurology Significant Event Note Repeat CTH at 0400 on 04/07/25 does not show any acute or chronic stroke. No further stroke work up recommended at this time. Neurology will sign off. Please reach out to Neurology with any additional questions or concerns. Fab Mascorro MD PGY-3, Neurology * Progress Notes - Day Grady RN - 04/07/2025 11:07 AM EDT Case Management Adult Initial Progress Note Antony Wells 69 y.o. male CSN: [id number] Admission: 04/06/2025 9:46 PM Primary Problem: Fall Sales Compensation Analyst reviewed chart and spoke with patient to complete this Initial Case Management Assessment. PCP: María Tirado APRN Emergency Contact: Extended Emergency Contact Information Primary Emergency Contact: Bonnie Wells Mobile Relation: Spouse Preferred language: Bangladeshi Facilities Officer needed? No Secondary Emergency Contact: heracliosamia Relation: Son Insurance: Primary Visit Coverage Payer Plan Sponsor Code Group Number Group Name GENERIC BCBS/ANTHEM GENERIC BCBS/ANTHEM [id number] Primary Visit Coverage Subscriber Subscriber ID Subscriber Name Subscriber SSN Subscriber Address [id number] [address] [place] [address] Secondary Visit Coverage Payer Plan Sponsor Code Group Number Group Name MEDICARE MEDICARE PART A ONLY Secondary Visit Coverage Subscriber Subscriber ID Subscriber Name Subscriber SSN Subscriber Address [id number] Antony Wells [id number] [address] [place] [address] Patient information: Primary Caregiver: Self Support System: Immediate family Daily Living Activities: Functional Status: Independent Living Arrangements: Spouse/Significant other Type of Residence: Private residence, Single [address] [place] [address] Smoker in the Home?: Yes Current DME: Equipment Currently Used at Home: oxygen, cane, straight, nebulizer Current DME Provider: [employer] Income Information: Income Source: Retired Income/Expense Information: Income meets expenses Current Resources Utilized: None Housing Circumstances-Z Codes: Housing Circumstances (select all that apply): None Applicable Patient Referred to: Anticipated Discharge Date: TBD Patient's Discharge Goal: Return home with family, agreeable to [facility] in [place] if indicated Assistance Available at Discharge: and son Discharge Transport: son Follow Up Transport: self/son Home Health / Home Infusion / Outpatient Dialysis Services: Current DME Provider: [employer] [facility] [employer] Living Will/Advance Directive/Power of Conference Planning Manager /Guardian: Unable to assess: No Have you reviewed your Advance Directive and is it valid for this stay?: Not applicable Advance Directive: Patient does not have advance directive Information Provided on Healthcare Directives: No Pre-existing DNR/DNI Order: No Patient Requests Assistance: No Additional Comments: Demographics, PCP and insurance confirmed. Patient lives with in [facility] prior to admission performed all ADLs independently. Home O2 and nebulizer supplied by [employer] [facility], patient reports oxygen HS. No current HH, HD, or HI. and son will provide assistance as needed at home and transportation upon discharge. No discharge planning needs assessed at thistime. Day Grady RN * Discharge Instr - Activity - Torey Meraz RN - 04/07/2025 9:57 AM EDT Move around as you are able. Do not drive while taking narcotic medications. Use assistive equipment as instructed. Touch down weight bearing through left leg. * Significant Event - Priya Flores APRN, DNP - 04/07/2025 8:58 AM EDT Antony Wells is a 69 yo Male with a PMHX of Alcohol use disorder (10-15 drinks per day), and COPD(uses 2.5L NC at home) who presents from an OSH on 04/06 following a fall. +ETOH. Injuries include: Pelvic fractures, Pneumonia, and possible Left occipital infarct. Patient sitting up in bed A&O. VSS. NAD. On 5L via NC, no SOA. Non-operative management of pelvic fractures per Ortho. Patient will need PMF's pending once he ambulates 30+ feet. PT/OT pending. Resumed diet and discontinued IVF. No N/V, abd pain. Discussed with patient about treating his CAP with IV antibiotics. Reviewed with patient about his alcohol intake and smoking. Admitted to drinking beers and shots daily. Decline the use of Addiction Medicine. Offered NRT and accepted. Patient reports that his pain has increased. Reviewed and adjusted pain regimen. Discussed plan of care with patient, RN, CM, and Pharm D who is in understanding. No further concerns per patient or nursing. Plan - Neurology: Repeat CTH shows no acute or chronic stroke; no further stroke workup; signed off - ORT: [place] non-operative management; PMF's pending; PWBAT LLE - Resumed diet; discontinue IVF - PT/OT evaluation pending - CIWA protocol - Pulmonary hygiene/IS, Neb treatments, Inhaler, Supplemental oxygen - Replaced phosphorus and magnesium - Treating CAP with IV abx - NRT given - DVT Ppx - Tertiary exam 04/08 - Declined ACES - Resume home medications when appropriate Discharge Dispo: Pending PT/OT * Hospital Course - Priya Flores APRN, DNP - 04/07/2025 7:55 AM EDT Antony Wells is a 69 yo Male with a PMHX of Alcohol use disorder (10-15 drinks per day), and COPD(uses 2.5L NC at home) who presents from an OSH on 04/06 following a fall. +ETOH. Injuries include: Pelvic fractures, Pneumonia, and possible Left occipital infarct. Past 24h: Patient is sitting up in the chair. Awake and alert. VSS. NAD. NAEON. On 2L via NC, no SOA. Pain appears to be controlled with current pain regimen. AM labs reviewed and magnesium stable. Tolerating PO diet, no N/V, abd pain. Last BM was 04/12. Patient has been approved to transfer to [facility] for inpatient acute rehab. Patient showed concerned about medications and if he will have his breathing treatments at rehab. Explained to patient he will receive the same medications yvette does here during the hospitalization. Patient medically ready for rehab. He will be transported via [facility] shuttle van around 1415. Discussed plan of care with RN, CM, and Pharm D who is in understanding. No further concerns per patient or nursing. Physical therapy and occupational therapy evaluated the patient during hospitalization and recommend acute rehab. At the time of discharge the patient was hemodynamically stable, tolerating PO, voiding spontaneously, normal bowel function, mobilizing appropriately, with their pain controlled with PO medication. At this time, the patient has obtained the maximum benefit from the present hospital stay, and so will be discharged to [facility]. DVT prophylaxis: Enoxaparin 30 mg twice daily until 05/04 Procedures: Non-operative management; Post-mobility films completed and stable pelvis Mobility Restrictions: Touchdown weight bearing left lower extremity Wound Care: None Ok to shower/bathe with assistance Pain Medications: - You should take 650 mg Tylenol every 6 hours for mild - moderate pain. - You should take 500 mg methocarbamol 4 times per day for muscle spasms. - You have been prescribed pain medications to be taken as needed for severe pain. - You should take the stool softener prescribed as long as you are taking narcotics. - You may resume your previous medications unless otherwise instructed. Nutrition: - You may resume your normal diet (Regular) as tolerated, focusing on liquids to keep yourself hydrated. Activity: - No driving while on narcotics Potential Issues: - Call the office if you have a fever greater than 101 F - Call the office if you have severe abdominal discomfort, nausea and vomiting, or feeling unwell Incidental Findings: - Degenerative arthritis of lumbar spine Follow up: PCP: Follow up in 1-2 weeks post hospitalization for incidental findings and management of chronic conditions/medications Ortho: Follow up with KAMI Mcginnis on 05/03/2025 @ 11:50 am for evaluation of pelvic fractures, [facility]; [facility], [address] [place] [address] First Floor, Wing, [address], [place] [address], # [phone]. SGT: [facility] as needed; [address] [place] [address] First Floor, Wing [address] [address], #[phone]. Questions or Concerns and Appointments If there are questions or concerns after discharge from the hospital, please call [phone] and ask for Blue Surgery Nurse. Working hours are Thursday - Thursday 8:00 AM to 4:00 PM. After hours, weekends and holidays please call [phone] and ask for the resident strength and conditioning coach for [facility]. For appointments please call [phone]. Medication requests should be made between the hours of 9:00 AM to 3:00 PM Thursday thru Thursday. Please note that based upon recent changes to [place] law related to prescribing opioid pain medications, our providers will not provide refills on controlled medications after your hospital discharge following a major surgery or trauma. [place] 218[place], [place] 201 KAR9:260. * Consults - Mike Warner MD - 04/07/2025 2:32 AM EDTAssociated Order(s): IP CONSULT TO ORTHOPAEDICS Orthopaedic Trauma Surgery Consult Time consulted: 2299 Time of patient evaluation: 2319 Chief Complaint: left sided pelvic pain HPI: Antony Wells is a 69 y.o. male with a history of COPD (2.5 L baseline), CAD, alcoholism (10-15 drinks per day). Who presents to the emergency department with chief complaint of left-sided pelvic pain. Patient states that at 2:00 a.m. yesterday morning he sustained a fall and had to crawl to his truck which took several hours. He then rested in his truck for several more hours before driving to the alcohol store where he was able to purchase alcohol through the drive-through window. He then proceeded to return home and drink in his truck for several more hours. When he was unable to getout of his truck he called EMS and he was taken to outside hospital. He was subsequently sent to for further evaluation and care after he was found to have left-sided pelvic ring injuries. Patientdenies walking following the fall. He has had right foot left left foot left ankle right wrist Of note, after speaking with the patient's son, the patient has relatively low functional demands. The for this the patient will walk at anyone time is from the front door of his house to his car which is roughly 20-30 yd away. Past Medical History: Past Medical History[1] Family History: Reviewed and found to be non contributory to HPI/ml Family or Personal History of DVT/PE: denies MRSA history: denies Metal Allergies: denies Tobacco: 1.5-2ppd Alcohol: 10-15 drinks per day Illicit substance use: denies Lives in [facility] Occupation/Employment: retired Ambulation: cane for assistance Past Surgical History: Surgical History[2] Medications: Medications Ordered Prior to Encounter[3] Allergies: Allergies[4] ROS: A 14 point review of systems was conducted and was negative except aforementioned in the HPI, and if present the following systems listed below: Physical Exam: Vitals: 04/07/25 0224 BP: (!) 145/82 Pulse: 108 Resp: (!) 27 Temp: 36.7 ??C (98.1 ??F) SpO2: 97% General: Alert. Tremors present concerning for current alcohol withdrawal Psych: Appropriate mood and affect Eyes: EOMI HEENT: NCAT, MMM Resp: Good effort, symmetric chest expansion, no respiratory difficulty CV: No lymphedema, peripheral perfusion intact, pulses as below Skin: No grossly palpable masses, rashes, or lesions are noted except those specifically mentioned below on each extremity. Musculoskeletal Exam: Chest: Clavicles non tender to palpation Pelvis: Lateral compression resulted in pain on the left side of the pelvis, posteriorly, there is tenderness to palpation over the left SI joint RUE: skin intact, no deformity, soft compartments, no pain with passive stretch, non tender to palpation ROM: Full/painless/stable at shoulder, elbow, and wrist Motor: 5/5 AIN, PIN, ulnar nerve motor function. 5/5 elbow flexion, extension. 5/5 shoulder ER, IR,abduction, flexion. Sensory: Sensation intact to light touch axillary, radial, median, ulnar nerve distributions Vascular: 2+ radial pulse, cap refill <2 sec, digits WWP LUE: skin intact, no deformity, soft compartments, no pain with passive stretch, non tender to palpation ROM: Full/painless/stable at shoulder, elbow, and wrist Motor: 5/5 AIN, PIN, ulnar nerve motor function. 5/5 elbow flexion, extension. 5/5 shoulder ER, IR,abduction, flexion Sensory: Sensation intact to light touch axillary, radial, median, ulnar nerve distributions Vascular: 2+ radial pulse, cap refill <2 sec, digits WWP RLE: skin intact, no deformity, soft compartments, no pain with passive stretch, non tender to palpation ROM: Full/painless/stable at hip, knee, and ankle Motor: 5/5 EHL, FHL, TA, GSC. 4/5 knee flexion, extension. Sensory: Sensation intact to light touch deep peroneal, superficial peroneal, tibial, sural, saphenous nerve distributions Vascular: 2+ dorsalis pedis and posterior tibial pulse, cap refill <2 sec, digits WWP LLE: skin intact, no pain with logroll of the hip, there tenderness to palpation over the posteriorpelvis at the SI joint, there was no tenderness to palpation anteriorly at the pubis ROM: Full/painless/stable at hip, knee, and ankle Motor: 5/5 EHL, FHL, TA, GSC. 4/5 knee flexion, extension. Sensory: Sensation intact to light touch deep peroneal, superficial peroneal, tibial, sural, saphenous nn. Vascular: 2+ dorsalis pedis and posterior tibial pulse, cap refill <2 sec, digits WWP Imaging: Radiographic studies were personally reviewed and demonstrate the following: -x-ray and CT bony pelvis demonstrate acute traumatic left superior pubic ramus, inferior pubic ramus, left sacral ala, left crescent fractures Assessment & Plan: Antony Wells is a 69 y.o. male with the following orthopedic injuries: Acute traumatic closed left superior pubic ramus, inferior pubic ramus, left sacral ala, left crescent fractures - plan for touchdown weightbearing - pain control - admit SGT - will trial non operative management and continue follow patient's ability to mobilize WChu Warner MD PGY-2, Orthopaedic Surgery [facility] Orthopaedic Trauma Service Pager: [phone] Orthopaedic Recon/Spine/Foot and Ankle Service Pager: [phone] [1] No past medical history on file. [2] No past surgical history on file. [3] No current facility-administered medications on file prior to encounter. No current outpatient medications on file prior to encounter. [4] Not on File Cosigned by Zuhair Avilez MD at 04/07/2025 4:24 PM EDT Associated attestation - Zuhair Avilez MD - 04/07/2025 4:24 PM EDT I did not see or evaluate this patient however I discussed the case with the resident team and agree with the note and plan as documented. * Consults - Honey Langford MBChB - 04/07/2025 12:58 AM EDTAssociated Order(s): Inpatient consult to neurology Inpatient consult to neurology Consult performed by: Honey Langford MBChB Consult ordered by: Tres Elaine MD Reason for consult: Left occipital infarct History Of Present Illness Antony Wells is a 69 y.o. male with PMH of alcohol use disorder, COPD presenting to emergency department as a trauma alert after a fall. He initially presented to outside hospital after a fall yesterday when he was drunk and had multiple CT scans including CTH and CTA head neck. His other CT scan showed pelvic fracture and pneumonia. Neurology was consulted for possible left occipital infarct seen on outside hospital CTH. Patient denies any history of stroke or stroke like symptoms, vision loss or speech changes. He is endorsing left leg weakness which is on the same side as his hip fracture and says movement is limited by pain. NIHSS on evaluation is 2 (left leg weakness). CTH done at outside hospital was reported as left occipital infarct . CTA showed no large vessel occlusion or significant stenosis. Patient stroke risk factors include age, Home AP/AC use - none Pertinent labs/vitals on admission: Platelets- 130 BP-126/67 Glucose-118 PT/INR- 14.6/1.1 ROS All 14 points systems have been reviewed and negative except stated in HPI. Past Medical History Past Medical History[1] Surgical History Surgical History[2] Family History Family History[3] Social History Allergies Allergies[4] Medications Current Medications[5] Last Recorded Vitals Visit Vitals BP 126/67 Pulse 109 Temp 36.8 ??C (98.3 ??F) Wt 74.2 kg (163 lb 9.3 oz) SpO2 98% Physical exam: GEN: lying in bed; in NAD HEENT: normocephalic, atraumatic, conjunctiva clear, moist mucous membranes CV: regular rate and rhythm on monitor, no LE edema PULM: non-labored breathing, symmetrical chest rise ABD soft, nondistended EXT: no cyanosis, or erythema SKIN: no rashes or lesions Psych: appropriate mood and behavior NEURO: Mental Status: A&O x 3, interactive, able to follow commands Memory and cognition: grossly normal Speech: No aphasia, Intact Articulation CN 2-12: II - PERRLA, VFs full to confrontation III, IV, - EOMI , no nystagmus V - Facial sensation intact bilaterally VII - Brow raise and smile symmetrical VIII - Intact hearing to casual conversation IX, X - Palate elevation symmetric, uvula midline XI - SCM and Trapezius strength intact XII - Tongue protrudes midline Motor: Bilateral upper extremity tremor. RUE: 5/5 LUE: 5/5 RLE: 5/5 LLE: 2/5, movement limited by pain. Sensory: intact light touch and pinprick throughout Reflexes: 2+ throughout , toes downgoing bilaterally Coordination: no ataxia with [id number] Gait/Station: deferred Cortical: no extinction to double simultaneous stimulation, tactile and visual NIH Stroke Scale Interval: Baseline Time: 04/06/25 @ Person Administering Scale: Honey Langford [facility] Administer stroke scale items in the order listed. Record performance in each category after each subscale exam. Do not go back and change scores. Follow directions provided for each exam technique. Scores should reflect what the patient does, not what the clinician thinks the patient can do. The clinician should record answers while administering the exam and work quickly. Except where indicated, the patient should not be coached (i.e., repeated requests to patient to make a special effort). 1a Level of consciousness: 0=alert; keenly responsive 1b. LOC questions: 0=Performs both tasks correctly 1c. LOC commands: 0=Performs both tasks correctly 2. Best Gaze: 0=normal 3. Visual: 0=No visual loss 4. Facial Palsy: 0=Normal symmetric movement 5a. Motor left arm: 0=No drift, limb holds 90 (or 45) degrees for full 10 seconds 5b. Motor right arm: 0=No drift, limb holds 90 (or 45) degrees for full 10 seconds 6a. motor left le=Some effort against gravity, limb cannot get to or maintain (if cured) 90 (or45) degrees, drifts down to bed, but has some effort against gravity 6b Motor right le=No drift, limb holds 90 (or 45) degrees for full 10 seconds 7. Limb Ataxia: 0=Absent 8. Sensory: 0=Normal; no sensory loss 9. Best Language: 0=No aphasia, normal 10. Dysarthria: 0=Normal 11. Extinction and Inattention: 0=No abnormality Total: 2 Relevant Results Labs in last 18 hours - were personally reviewed and interpreted and notable for: mild anemia with hemoglobin of 11.9, thrombocytopenia of 130, hyponatemia of 129, mild hypocalcemia of 8.2, mild hypoalbuminemia of 3.2, hyperbilirubinemia of 2.1, hyperlactatemia of 4.3, ethanol elevated at 126, unremarkable urinalysis, UDS pos for fentanyl Images: Personally reviewed and interpreted and notable for: -CTH 04/06/25(OSH): Poor quality CT head. No hemorrhage, possible hypodensity of left occipital lobe. -Repeat CTH at hospital; No hemorrhage, no acute or chronic infract. -CTA 04/06/25 (OSH): No significant stenosis or large vessel occlusion. Assessment/Plan Antony Wells is a 69 y.o. male with PMH of alcohol use disorder, COPD presenting to emergency department as a trauma alert after a fall. He initially presented to outside hospital after a fall yesterday when he was drunk and had multiple CT scans including CTH and CTA head neck. His other CT scan showed pelvic fracture and pneumonia. Neurology was consulted for CTH done at outside hospital which was read as left occipital infarct.. #Hx of fall with hip fracture -LKN: 04/05/25 -NIHSS on arrival : -Mechanism: Currently under investigation. -Candidate for IV thrombolysis (tpa): No, no concern for acute stroke. -Candidate for thrombectomy: No, there was no large vessel occlusion. -Risk Factors: age, Recommendation: -Quality of outside hospital CT head was poor. Repeat CTH here does not show any acute or chronic stroke. -No further stroke work up recommended. Staffed with Dr. Ruiz , who is agreeable to the above plan. Thank you for the opportunity to participate in the care of this patient. Please page the stroke neurology service pager with quesitons. Honey Langford, PGY-3, Neurology Please Note: This document was created using [employer] Direct voice recognition software. As a result, errors may occur. When identified, these ice house supervisor errors have been corrected. While every attempt is made to correct errors during dictation, errors may still exist. Electronically Signed by: Honey Langford [facility] - 04/07/2025 - 12:59 AM [1] No past medical history on file. [2] No past surgical history on file. [3] No family history on file. [4] Not on File [5] Current Facility-Administered Medications: acetaminophen (Tylenol) tablet 650 mg, 650 mg, Oral, q6h Jami JEAN Manasa, MD dextrose 5 % and lactated Ringer's infusion, 75 mL/hr, Intravenous, Continuous, Krystal Farrell MD diazePAM (Valium) tablet 10 mg, 10 mg, Oral, q4h PRN OR diazePAM (Valium) injection 10 mg, 10 mg, Intravenous, q4h PRN OR diazePAM (Valium) tablet 15 mg, 15 mg, Oral, q2h PRN OR diazePAM (Valium) injection 15 mg, 15 mg, Intravenous, q2h PRN OR diazePAM (Valium) injection 20 mg, 20 mg, Intravenous, q30 min PRN, Jasmin Cain MD folic acid (Folvite) tablet 1 mg, 1 mg, Oral, Daily, Jasmin Cain MD, 1 mg at 04/06/252230 [COMPLETED] lactated Ringer's bolus 1,000 mL, 1,000 mL, Intravenous, Once, Stopped at 04/07/25 0050FOLLOWED BY lactated Ringer's infusion, 75 mL/hr, Intravenous, Continuous, Jasmin Cain MD, Last Rate: 75 mL/hr at 04/07/25 0039, 75 mL/hr at 04/07/25 0039 methocarbamol (Robaxin) tablet 500 mg, 500 mg, Oral, q8h, Krystal Farrell MD ondansetron ODT (Zofran-ODT) disintegrating tablet 4 mg, 4 mg, Oral, q6h PRN OR ondansetron (Zofran) injection 4 mg, 4 mg, Intravenous, q6h PRN OR ondansetron (Zofran) 4 MG/5ML solution 4 mg,4 mg, Oral, q6h PRN, Krystal Farrell MD oxyCODONE (Roxicodone) immediate release tablet 2.5 mg, 2.5 mg, Oral, q6h PRN OR oxyCODONE (Roxicodone) immediate release tablet 5 mg, 5 mg, Oral, q6h PRN, Krystal Farrell MD Insert peripheral IV, , , Once AND Saline lock IV, , , Once AND sodium chloride 0.9 % flush10 mL, 10 mL, Intravenous, q12h, 10 mL at 04/07/25 0050 AND sodium chloride 0.9 % flush 10 mL, 10 mL, Intravenous, PRN, Krystal Farrell MD [START ON 04/09/2025] thiamine (Vitamin B-1) tablet 100 mg, 100 mg, Oral, Daily, Jasmin Cain MD thiamine (Vitamin B1) injection 200 mg, 200 mg, Intravenous, q8h, Jasmin Cain MD, 200 mg at 04/06/25 2231 No current outpatient medications on file. Cosigned by Elicia Tanner MD at 04/10/2025 2:52 PM EDT Associated attestation - Elicia Tanner MD - 04/10/2025 2:52 PM EDT I saw and evaluated the patient with the resident/fellow. I discussed the case with the resident/fellow and agree with the findings and plan as documented. * H&P - Krystal Farrell MD - 04/07/2025 12:23 AM EDTAssociated Order(s): Consult to Trauma Surgery Trauma Alert? Yes Trauma Alert Consult to Trauma Surgery Consult performed by: Krystal Farrell MD Consult ordered by: Ricky Layne MD Time of Consultation: 10:30pm Time of Trauma Evaluation: 11pm Arrival Date: 04/06/25 Arrival Time: 9:45pm Referring Hospital: [facility] Injury Date: 04/06/25 Injury Time: 1-3am Transport Mode: Mode of Arrival: Air Mechanism of Injury Fall Distance ground level/from truck Farm Related Injury: no Work Related Injury: no History Of Present Illness Antony Wells is a 69 y.o. male with PMH of HTN, COPD on 2L NC, prior NH, priro hernia repair, 1.5-2 ppd tobacco use, and alcohol abuse (drank 12 shots of vodka yesterday and 7 beers so far today) presenting as transfer after fall today. Notes that early today, he fell from truck onto his butt. Went to OSH and then transferred with concern for possible stroke, aspiration pneumonia, and pelvic fractures. Ethanol level high. ED with repeat imaging completed here. Trauma surgery consulted for evaluation. Old Chart Reviewed: yes Total fluids given prior to arrival - ml. Loss of Consciousness: unknown Past Medical History He has a past medical history of COPD (chronic obstructive pulmonary disease) ([facility]) and Hypertension. Reviewed as documented above Surgical History He has a past surgical history that includes Hernia repair. Reviewed as documented above Family History Family History[1] Reviewed as documented above Social History He has no history on file for tobacco use, alcohol use, and drug use. Reviewed as documented above Allergies Patient has no allergy information on record. Reviewed as documented above Medications Current Medications[2] Reviewed as documented above Occupational History Occupational history[3] Employer: No address on file. Reviewed as documented above Immunizations not reviewed VACCINE / DOSE Flu Tetanus Pneumovax Shingles Review of Systems Relevant review of systems was obtained as able and is negative unless stated above in HPI. Physical Exam Eyes: Extraocular Movements: Extraocular movements intact. Cardiovascular: Rate and Rhythm: Tachycardia present. Pulmonary: Effort: No respiratory distress. Comments: On nasal cannula Abdominal: Palpations: Abdomen is soft. Musculoskeletal: Cervical back: No rigidity. Comments: L arm bruising and ecchymosis; bilateral knee abrasions/scabs, L hip posterior pain Skin: General: Skin is warm. Neurological: General: No focal deficit present. Mental Status: He is alert. Mental status is at baseline. Psychiatric: Mood and Affect: Mood normal. Thought Content: Thought content normal. Rectal exam was deferred. Last Recorded Vitals Blood pressure (!) 155/99, pulse 98, temperature 36.6 ??C (97.9 ??F), temperature source Oral, resp. rate 21, weight 74.2 kg (163 lb 9.3 oz), SpO2 100%. Dhaval Dhaval Coma Scale Best Eye Response: Spontaneous Best Verbal Response: Oriented Best Motor Response: Follows commands [place] Coma Scale Score: 15 Intubated No Recent Results Labs in last 18 hours CBC WBC 8.36 Hb 11.9 (L) Plt 124 (L) Hct 32.7 (L) ANC ?? INR 1.1, PTT 32, Anti-Xa ?? BMP Na 126 (L) Cl 92 (L) BUN 5 (L) Glu 165 (H) K 4.3 Co2 21 (L) Cr 0.38 (L) Ca 8.1 (L) iCa 4.3 (L) Mg 1.5 (L), Phos 2.4 (L) Lactate ?? LFT AST 49 AlkPhos 93 T Prot 5.9 (L) ALK 21 Bili 2.4 (H) Alb ?? D.Bili ?? Radiology FAST:Not Done Images associated: N/A Images personally reviewed and consistent with the following: Plain Films: CXR, PXR, hips CT Scans: head, c/t/l spine Angiography: head/neck Impression: possible L occipital infarct, not visible on repeat CTH - L superior and inferior pubic rami fxs - Subtle fracture posterior at the left iliac bone extending anteriorly towards the left sacroiliacjoint - Small extraperitoneal hematoma and soft tissue swelling associated with the pelvic fractures Medical Problems Problem List * (Principal) Fall Overview Signed 04/07/2025 7:44 AM by Priya Flores APRN, DNP Admitted SGT Tertiary exam ? Multiple closed fractures of pelvis without disruption of pelvic ring, initial encounter ([facility]) Alcohol use disorder Overview Addendum 04/07/2025 7:46 AM by Priya Flores APRN, DNP + alcohol use on arrival 10-15 drinks daily CIWA ACES consult pending if patient is interested Monitor COPD (chronic obstructive pulmonary disease) ([facility] [place]) Overview Signed 04/07/2025 7:45 AM by Priya Flores APRN, DNP Baseline 2.5 L via NC at home Neb treatments Continue with supplemental oxygen Pulmonary hygiene/IS Pneumonia Overview Signed 04/07/2025 7:46 AM by Priya Flores APRN, DNP On admission Pulmonary hygiene, IS, neb treatments Occipital cerebral infarction (CMS/HCC) Overview Signed 04/07/2025 7:48 AM by Priya Flores APRN, DNP Left Per OSH CTH Neurology consulted - NIHSS on evaluation is 2 (left leg weakness) - Repeat CTH here does not show any acute or chronic stroke - No further stroke work up recommended. ABLA (acute blood loss anemia) Overview Signed 04/07/2025 7:48 AM by Priya Flores APRN, DNP Likely r/t trauma Trend H&H Transfuse if Hgb < 7.0 if needed Thrombocytopenia (CMS/HCC) Overview Signed 04/07/2025 7:49 AM by Priya Flores APRN, DNP On admission Likely due to trauma Monitor Hyperglycemia Overview Signed 04/07/2025 7:50 AM by Priya Flores APRN, DNP Likely reactive 2/2 trauma Monitor Hyponatremia Overview Signed 04/07/2025 7:50 AM by Priya Flores APRN, DNP Likely chronic from alcohol use Monitor and treat when necessary Hypocalcemia Overview Signed 04/07/2025 7:51 AM by Priya Flores APRN, DNP Likely reactive 2/2 trauma Monitor Protein malnutrition (CMS/HCC) Overview Signed 04/07/2025 7:52 AM by Priya Flores APRN, DNP Low total protein and albumin Optimize nutrition Nutritional supplements when necessary Total bilirubin, elevated Overview Signed 04/07/2025 7:53 AM by Priya Flores APRN, DNP Likely due to daily alcohol intake Monitor High serum lactate Overview Signed 04/07/2025 7:53 AM by Priya Flores APRN, DNP Lactate 4.3 Fluid resuscitation Monitor EKG, abnormal Overview Signed 04/07/2025 7:54 AM by Priya Flores APRN, DNP Sinus tachycardia with nonspecific ST an T wave abnormal Likely due to trauma Monitor Degenerative arthritis of lumbar spine Overview Signed 04/07/2025 7:55 AM by Priya Flores APRN, DNP Moderate degenerative changes in lumbar spine. Including advanced facet arthritis Incidental finding on imaging Follow-up with PCP for surveillance Serum phosphorus decreased Overview Signed 04/07/2025 7:56 AM by Priya Flores APRN, DNP Replete PRN Monitor Hypomagnesemia Overview Signed 04/07/2025 7:56 AM by Priya Flores APRN, DNP Replete PRN Monitor Plan: - admit Sgt - monitor labs - neurology consulted; repeated CTH - ortho consulted - NPO - CIWA - got abx at OSH for aspiration pneumonia concern; CT reviewed, holding abx for now [1] No family history on file. [2] Current Facility-Administered Medications Medication Dose Route Frequency Provider Last Rate Last Admin acetaminophen (Tylenol) tablet 650 mg 650 mg Oral q6h MIRANDA Krystal Farrell MD 650 mg at 04/07/25 0658 azithromycin (Zithromax) 500 mg in sodium chloride 0.9% 250 mL IVPB (vial adapter required) 500 mg Intravenous q24h Priya Flores APRN, DNP cefTRIAXone (Rocephin) 2 g in sodium chloride 0.9% 100 mL IVPB (vial adapter required) 2 g Intravenous q24h Priya Flores APRN, DNP dextrose 5 % and lactated Ringer's infusion 75 mL/hr Intravenous Continuous Krystal Farrell MD 75mL/hr at 04/07/25 0118 75 mL/hr at 04/07/25 0118 diazePAM (Valium) tablet 10 mg 10 mg Oral q4h PRN Jasmin Cain MD Or diazePAM (Valium) injection 10 mg 10 mg Intravenous q4h PRN Jasmin Cain MD Or diazePAM (Valium) tablet 15 mg 15 mg Oral q2h PRN Jasmin Cain MD Or diazePAM (Valium) injection 15 mg 15 mg Intravenous q2h PRN Jasmin Cain MD Or diazePAM (Valium) injection 20 mg 20 mg Intravenous q30 min PRN Jasmin Cain MD folic acid (Folvite) tablet 1 mg 1 mg Oral Daily Jasmin Cain MD 1 mg at 04/07/25 0828 ipratropium-albuterol (Duo-Neb) 0.5-2.5 mg/3 mL nebulizer solution 3 mL 3 mL Nebulization q6h RT Priya Flores APRN, DNP 3 mL at 04/07/25 0744 lactated Ringer's infusion 75 mL/hr Intravenous Continuous Jasmin Cain MD 75 mL/hr at 04/07/25 0039 75 mL/hr at 04/07/25 0039 magnesium sulfate IVPB 2 g 2 g Intravenous Once Priya Flores APRN, DNP 25 mL/hr at 04/07/25 0828 2 g at 04/07/25 0828 methocarbamol (Robaxin) tablet 500 mg 500 mg Oral q8h Krystal Farrell MD 500 mg at 04/07/25 0828 ondansetron ODT (Zofran-ODT) disintegrating tablet 4 mg 4 mg Oral q6h PRN Krystal Farrell MD Or ondansetron (Zofran) injection 4 mg 4 mg Intravenous q6h PRN Krystal Farrell MD Or ondansetron (Zofran) 4 MG/5ML solution 4 mg 4 mg Oral q6h PRN Krystal Farrell MD oxyCODONE (Roxicodone) immediate release tablet 2.5 mg 2.5 mg Oral q6h PRN Krystal Farrell MD Or oxyCODONE (Roxicodone) immediate release tablet 5 mg 5 mg Oral q6h PRN Krystal Farrell MD 5 mg at04/07/25 0714 sodium chloride 0.9 % flush 10 mL 10 mL Intravenous q12h Krystal Farrell MD 10 mL at 04/07/25 0050 And sodium chloride 0.9 % flush 10 mL 10 mL Intravenous PRN Krystal Farrell MD [START ON 04/09/2025] thiamine (Vitamin B-1) tablet 100 mg 100 mg Oral Daily Jasmin Cain MD thiamine (Vitamin B1) injection 200 mg 200 mg Intravenous q8h Jasmin Cain MD 200 mg at 658 No current outpatient medications on file. [3] Cosigned by Annabelle Ward MD at 04/07/2025 4:41 PM EDT Associated attestation - Annabelle Ward MD - 04/07/2025 4:41 PM EDT I saw and evaluated the patient with the resident/fellow. I discussed the case with the resident/fellow and agree with the findings and plan as documented. * Consults - Lanre Ruiz - 04/06/2025 9:50 PM EDT Pastoral Care Note Ciso responded to trauma alert. Medical team tended to patient. No family present at this time. Pastoral Care Provided For: Patient Patient Profile: Consult Reasons: Trauma alert Unable to Assess: No family present at this time, Unavailable Spiritual Assessment: Interventions: Interventions Provided: Other (Comment) (medical team with patient. no family present.) Pastoral Care Outcomes: * ED Provider Notes - Jasmin Cain MD - 04/06/2025 9:46 PM EDT - HPI Chief Complaint Patient presents with Trauma Alert Chief Complaint: Trauma Alert Antony Wells is a 69 y.o. male with pmh of alcohol use disorder, COPD on 2-1/2 L nasal cannula presenting with a chief complaint of trauma alert. Patient was brought to outside hospital due to a fall. He had multiple CT scans done at the outside hospital that showed he had a soft tissue hematoma adjacent to the left superior pubic ramus fracture extending into the prevesical and paravesical spac es, acutely mildly displaced fractures in the left superior and inferior pubic rami, acute nondisplaced vertically oriented fracture of the post left iliac wing and lateral left sacral ala. patient was additionally found to have a pneumonia and was treated with azithromycin and Rocephin, 3 DuoNebs at the outside hospital as well. Patient said his last drink was about 4 hours ago. Patient History Past Medical History[1] Surgical History[2] Family History[3] Social History[4] Allergies: Allergies[5] Physical Exam ED Triage Vitals Temp Heart Rate Resp BP 04/06/25 2149 04/06/25219904/06/25219904/06/252200 36.8 ??C (98.3 ??F) 91 18 (!) 118/94 SpO2 Temp src Heart Rate Source Patient Position 04/06/252199 -- -- -- 96 % BP Location FiO2 (%) -- -- Physical Exam Constitutional: Appearance: He is not ill-appearing. HENT: Head: Atraumatic. Mouth/Throat: Mouth: Mucous membranes are moist. Eyes: General: Right eye: No discharge. Left eye: No discharge. Extraocular Movements: Extraocular movements intact. Conjunctiva/sclera: Conjunctivae normal. Pupils: Pupils are equal, round, and reactive to light. Comments: Able to count fingers at about 3 ft Cardiovascular: Rate and Rhythm: Tachycardia present. Pulses: Normal pulses. Pulmonary: Effort: Pulmonary effort is normal. No respiratory distress. Chest: Chest wall: No tenderness. Abdominal: Palpations: Abdomen is soft. Tenderness: There is no abdominal tenderness. There is no guarding or rebound. Musculoskeletal: Cervical back: Normal range of motion. No rigidity. Right lower leg: No edema. Left lower leg: No edema. Skin: Capillary Refill: Capillary refill takes less than 2 seconds. Neurological: Mental Status: He is alert and oriented to person, place, and time. Cranial Nerves: No cranial nerve deficit. Sensory: No sensory deficit. Motor: No weakness. Coordination: Coordination normal. CIWA-Ar Total: 4 Dhaval Coma Scale Score: 15 ED Course & MDM - Assessment: 69 y.o. male presents to ED with complaint of trauma alert. It should be noted that the chronic conditions includes alcohol use disorder, COPD, which currently is not at goal therapy. This complicates the clinical picture because it Comorbidities: complicates the clinical workup Differential Diagnosis: Intracranial injury, intra-abdominal injury, alcohol intoxication, pelvic fractures Upon initial evaluation patient came in his a trauma alert due to pelvic fractures, ATLS was ran and significant for left-sided pelvic tenderness. Patient had full trauma scans done at outside hospital, but after discussion with Orthopedic surgery they would like a repeat CT scan. I then had interactive discussion with the Trauma surgery team and patient admitted to their service for further management. Additionally patient was placed on CIWA as he is a chronic alcohol drinker. Labs independently interpreted by me pertinent for hyponatremia, anemia, mildly elevated anion gap. In order to fully explore the differential diagnosis the following treatments and tests were ordered: ED Medication Administration from 04/06/20252032 to 04/07/2025 0016 Date/Time Order Dose Route Action 04/06/20252230 EDT folic acid (Folvite) tablet 1 mg 1 mg Oral Given 04/06/20252230 EDT thiamine (Vitamin B1) injection 200 mg 200 mg Intravenous Given 04/06/20252233 EDT lactated Ringer's bolus 1,000 mL 1,000 mL Intravenous New Bag All Other Orders Ordered Status Ordering Provider 04/06/252155 Check pulse oximetry Every 4 hours Acknowledged JASMIN CAIN 04/06/252223 Consult to Trauma Surgery Once Specialty: Trauma Surgery Provider: (Not yet assigned) Acknowledged JASMIN CAIN 04/06/25 222 ED to floor bed request Once Acknowledged JASMIN CAIN 04/06/25 222 Once Canceled MIKE WARNER 04/06/25 2223 XR Hips Bilateral 2 Views Once In process MIKE WARNER 04/06/25 222 Once Canceled MIKE WARNER 04/06/[address] Bony Pelvis Once Comments: Without Contrast Please include 3D Reconstruction with Tumble and Spin. Please include 5 view Pelvis Ghost Recon. Final result JASMIN CAIN 04/06/25 221 Consult to Orthopaedics Surgery Once Specialty: Orthopaedic Surgery Provider: (Not yet assigned) Acknowledged JASMIN CAIN 04/06/25 215 Vital Signs Every 1 hour Acknowledged JASMIN CAIN 04/06/252155 Neuro checks Every 1 hour Acknowledged JASMIN CAIN 04/06/252155 Oxygen Therapy - Device: Nasal Cannula Continuous Order ID Start Status Ordering Provider [id number] 04/06/252156 Completed JASMIN CAIN [id number] 04/07/25 08 Acknowledged JASMIN CAIN [id number] 04/07/251999 Acknowledged JASMIN CAIN 04/08/25 0800 Scheduled JASMIN CAIN 04/08/251999 Scheduled JASMIN CAIN 04/09/25 08 Scheduled CAIN, JASMIN [place] 04/09/251999 Scheduled CAIN, JASMIN [place] 04/10/25 08 Scheduled CAIN, JASMIN M 04/10/251999 Scheduled CAIN, JASMIN M 04/11/25 08 Scheduled CAIN, JASMIN M 04/11/251999 Scheduled CAIN, JASMIN M 04/12/25 08 Scheduled CAIN, JASMIN M 04/12/251999 Scheduled CAIN, JASMIN M 04/13/25 08 Scheduled CAIN, JASMIN M 04/13/251999 Scheduled CAIN, JASMIN M 04/14/25 08 Scheduled CAIN, JASMIN M 04/14/251999 Scheduled CAIN, JASMIN M Acknowledged CAIN, JASMIN M 04/06/252155 Complete baseline CIWA score. Follow the appropriate protocol for vital sign frequency and to assess the patient's need for symptom based treatment. Until discontinued [facility] 04/06/252155 RASS Assessment after each benzodiazepine dose for sedation. Until discontinued [facility] 04/06/252155 If patient is sleeping, do not wake the patient up to give Benzodiazepine or assess the patient's CIWA score. Assess the CIWA score when patient awakens. (CIWA Score 1-7) Until discontinued Comments: CIWA Score 1- 7 (None-Mild): No medication indicated; Continue CIWA Q4 hours; If CIWA <8 for 72 hours, discontinue protocol and Benzodiazepine orders. After each Benzodiazepine dose: * Assess @ 15min for signs of sedation [facility] 04/06/252155 If patient is sleeping, do not wake the patient up to give Benzodiazepine or assess the patient's CIWA score. Assess the CIWA score when patient awakens. (CIWA Score 8-14) Until discontinued Comments: CIWA Score 8- 14 (Moderate): Call MD before dose if CIWA remains >8 on 3 consecutive assessments (12 hours). Marked Liver Disease and patients >60yo: * Repeat CIWA and Vital signs in 2 hours and dose Benzodiazepine according to the order in [facility]. After each Benzodiazepine dose: * Assess @ 15min for signs of sedation [facility] 04/06/252155 If patient is sleeping, do not wake the patient up to give Benzodiazepine or assess the patient's CIWA score. Assess the CIWA score when patient awakens. (CIWA Score 15-24) Until discontinued Comments: CIWA Score 15- 24 (Severe): Call MD for all CIWA >15 Marked Liver Disease and patients>60yo: * Repeat CIWA and Vital signs in 1 hours and dose Benzodiazepine according to the order in Epic. After each Benzodiazepine dose: * Assess @ 15min for signs of sedation Acknowledged JASMIN CAIN 04/06/252155 If patient is sleeping, do not wake the patient up to give Benzodiazepine or assess the patient's CIWA score. Assess the CIWA score when patient awakens. Assess the CIWA score when patient awakens. (CIWA >/= 25 (Very severe)) Until discontinued Comments: CIWA >/= 25 (Very severe): Call MD for all CIWA > 15. 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 Until discontinued Acknowledged JASMIN CAIN 04/06/252155 Continuous Pulse Oximetry Until discontinued Acknowledged JASMIN CAIN 04/06/252155 CMP STAT Comments: Trauma Alert Final result JASMIN CAIN 04/06/252155 CBC w/o diff STAT Comments: Trauma Alert Final result JASMIN CAIN 04/06/252155 PT-INR STAT Comments: Trauma Alert Final result JASMIN CAIN 04/06/252155 APTT (PTT) STAT Comments: Trauma Alert Final result JASMIN CAIN 04/06/252155 Ethyl Alcohol Plasma STAT Comments: Trauma Alert Final result JASMIN CAIN 04/06/252155 Drug Abuse Screen, Urine STAT Comments: Trauma Alert Acknowledged JASMIN CAIN 04/06/252155 Urinalysis with reflex microscopic (Culture NOT Included) STAT Comments: Trauma Alert Acknowledged JASMIN CAIN 04/06/252155 Type and Screen Start now Comments: Trauma Alert Final result JASMIN CAIN 04/06/252155 XR Chest 1 View One time imaging Comments: Trauma Alert, bedside exam Final result JASMIN CAIN 04/06/252155 XR Pelvis 1 or 2 Views Once Final result JOSE ANTONIO CAINАЛЕКСАНДР [place] 04/06/252155 Prepare/Release Uncrossmatched Blood Once Comments: I have ordered the release and transfusion of the blood products including the red cells,plasma, platelets and cryo during the medical emergency circumstance. IN THE EVENT uncrossmatched blood is transfused, I am certifying that the clinical situation was sufficiently urgent to require the release/transfusion of blood before completion of compatibility testing. I understand that the possibility of a hemolytic reaction or other untoward event exists with incomplete transfusion workup. Acknowledged JASMIN CAIN Joy 04/06/252155 Trauma Alert Notification Once Completed JASMIN CAIN [place] 04/06/252155 Blood gas panel, venous STAT Final result JASMIN CAIN [place] 04/06/252155 EKG now - STAT (adult) Once Preliminary result JASMIN CAIN ED Course as of 04/07/25 0016 Carolann Apr 06, [id number] Had interactive discussion with the orthopedic surgery team who recommended a repeat CT bony pelvis to ensure adequate image cuts for possible surgical intervention [] 2251 Ethanol Plasma(!): 126 [SH] ED Course User Index [SH] Jasmin Cain MD Clinical Impressions as of 04/07/25 0016 Multiple closed fractures of pelvis without disruption of pelvic ring, initial encounter ([facility]) Social Determinates of Health Risks (including Economic Stability, Education and level of understanding, Healthcare access and quality and concerning social factors): Poor health literacy Ultimately, this patient was Was admitted (Admission) The encounter diagnosis was Multiple closed fractures of pelvis without disruption of pelvic ring, initial encounter ([facility]).. Patient believed to require admission for the listed diagnoses. The Trauma Surgery service was consulted for admission and was agreeable to admit to Acute Floor (Med/Surg). ED Prescriptions None Disposition Admit Requested Location: [facility] [[id number]] - [1] No past medical history on file. [2] No past surgical history on file. [3] No family history on file. [4] [5] Not on File Jasmin Cain MD Resident 04/07/25 0050 Cosigned by Ricky Layne MD at 04/07/2025 8:32 AM EDT Associated attestation - Ricky Layne MD - 04/07/2025 8:32 AM EDT I saw and evaluated the patient with the resident/fellow. I discussed the case with the resident/fellow and agree with the findings and plan as documented. * ED Triage Notes - Pooja Martinez RN - 04/06/2025 9:46 PM EDT Patient arrives to [facility] via flight crew from OSH. Patient went to OSH for weakness and SOB. Patientstates he fell yesterday when he was drunk. He states he was getting out of his truck and fell on his L hip. OSH imaging shows multiple pelvic fxs and possible posterior occipital infarct, R lower lobe pneumonia. Pt is a daily drinker, last drink today around 4 PM, which was beer- pt drinks liquor and beer daily. Pt GCS 15 VSS on arrival to [facility]. * Significant Event - Javier Randall MD - 04/06/2025 9:45 PM EDT Images from the original note were not included. [facility] Department of Surgery Division of Trauma Surgery Trauma Alert Attestation I was present at the trauma activation. I have spoken with the EM physician. ATLS resuscitation is in process, and I have assessed the need for immediate surgery. Trauma/Surgical Critical Care will be available as needed. HPI: [id number] who presents from OSH with pelvic fractures; also noted to have possible L occipital ischemic stroke of unclear age. On arrival ABCs intact, HDS, EFAST deferred, XR demonstrates possible pubic ring fractures. Patient reportedly intoxicated with frequent alcohol use at home, COPD. Patient appears intoxicated in trauma bay Further care per ED, anticipate admission to Trauma Surgery documented in this encounter Plan of Treatment Upcoming Encounters Date Type Department Care Team (Late st Contact Info) Description 06/28/2025 8:45 AM EDT Appointment [facility] Radiology [address] [place] [address] 06/28/2025 9:30 AM EDT Office Visit [facility] Orthopaedic Surgery & Sports Medicine [address] [place] [address] Marie Ruffin PA [address] [place] [address] documented as of this encounter Procedures Procedure Name Priority Date/Time Associated Diagnosis Comments MAGNESIUM, PLASMA Routine 04/13/2025 5:4 7 AM EDT OXYGEN THERAPY STAT 04/12/2025 8:00 AM EDT MAGNESIUM, PLASMA Routine 04/12/2025 5:2 3 AM EDT OXYGEN THERAPY STAT 04/11/2025 8:00 PM EDT OXYGEN THERAPY STAT 04/11/2025 8:00 AM EDT MAGNESIUM, PLASMA Routine 04/11/2025 6:0 3 AM EDT OXYGEN THERAPY STAT 04/10/2025 8:00 PM EDT OXYGEN THERAPY STAT 04/10/2025 8:00 AM EDT PHOSPHORUS, PLASMA Pending Discharge 04/10/2025 4:18 AM EDT MAGNESIUM, PLASMA Pending Discharge 04/10/2025 4:18 AM EDT OXYGEN THERAPY STAT 04/09/2025 8:00 PM EDT XR PELVIS 3+ VIEWS Routine 04/09/2025 12:56 PM EDT OXYGEN THERAPY STAT 04/09/2025 8:00 AM EDT LACTATE, VENOUS Routine 04/09/2025 1:23 AM EDT PHOSPHORUS, PLASMA Routine 04/09/2025 1: 23 AM EDT MAGNESIUM, PLASMA Routine 04/09/2025 1:2 3 AM EDT OXYGEN THERAPY STAT 04/08/2025 8:00 PM EDT ECG ADULT STAT 04/08/2025 3:24 PM EDT CBC W/O DIFFERENTIAL Routine 04/08/2025 8:13 AM EDT PHOSPHORUS, PLASMA Routine 04/08/2025 8: 13 AM EDT MAGNESIUM, PLASMA Routine 04/08/2025 8:1 3 AM EDT BASIC METABOLIC PANEL, PLASMA Routine 04/08/2025 8:13 AM EDT OXYGEN THERAPY STAT 04/08/2025 8:00 AM EDT OXYGEN THERAPY STAT 04/07/2025 8:00 PM EDT OXYGEN THERAPY STAT 04/07/2025 8:[address] HEAD WO IV CONTRAST STAT 4:07 AM EDT PROTHROMBIN TIME(PT) / INR Routine 04/07/2025 3:43 AM EDT CBC W/O DIFFERENTIAL Routine 04/07/2025 3:43 AM EDT PHOSPHORUS, PLASMA Routine 04/07/2025 3: 43 AM EDT MAGNESIUM, PLASMA Routine 04/07/2025 3:4 3 AM EDT COMPREHENSIVE METABOLIC PANEL, PLASMA Routine 04/07/2025 3:43 AM EDT DRUG ABUSE SCREEN, URINE STAT 04/07/2025 12:41 AM EDT FENTANYL, URINE STAT 04/07/2025 12:41 AM EDT URINALYSIS WITH REFLEX MICROSCOPIC STAT 04/07/2025 12:41 AM EDT XR HIPS BILATERAL 2 VIEWS STAT 04/07/2025 12:[address] BONY PELVIS STAT 04/06/2025 11:28 PM EDT ECG ADULT STAT 04/06/2025 10:02 PM EDT ED HIV 1/2 ANTIBODY/ANTIGEN SCREEN WITH REFLEX TO HIV I/II DIFFERENTIATION STAT 04/06/2025 10:02 PM EDT ED PROTOCOL HIV 1/2 ANTIBODY/ANTIGEN SCREEN W/REFLEX TO HIV 1/2 ANTIBODY DIFFERENTIATION STAT 04/06/2025 10:02 PM EDT ETHYL ALCOHOL PLASMA STAT 04/06/2025 10:02 PM EDT HEPATITIS C ANTIBODY - ED W/REFLEX TO HCV QUANT PCR STAT 04/06/2025 10:02 PM EDT APTT STAT 04/06/2025 10:02 PM EDT PROTHROMBIN TIME(PT) / INR STAT 04/06/2025 10:02 PM EDT CBC W/O DIFFERENTIAL STAT 04/06/2025 10:02 PM EDT TYPE AND SCREEN STAT 04/06/2025 10:02 PM EDT BLOOD GAS PANEL, VENOUS STAT 04/06/2025 10:02 PM EDT COMPREHENSIVE METABOLIC PANEL, PLASMA STAT 04/06/2025 10:02 PM EDT XR PELVIS 1 OR 2 VIEWS STAT 10:00 PM EDT XR CHEST 1 VIEW STAT 04/06/2025 10:00 PM EDT OXYGEN THERAPY STAT 04/06/2025 9:56 PM EDT OXYGEN THERAPY STAT 04/06/2025 9:56 PM EDT OXYGEN THERAPY STAT 04/06/2025 9:56 PM EDT documented in this encounter Results * Magnesium, Plasma (04/13/2025 5:47 AM EDT) Magnesium, Plasma 2.0 1.9 - 2.4 mg/dL 04/13/2025 6:31 AM EDT [facility] Blood Venous blood specimen / Unknown Venipuncture / Unknown 04/13/2025 5:47 AM EDT 04/13/2025 6:05 AM EDT Priya Flores APRN, BECKY LAB BLOOD ORDERABLES Final Result Performing Organization Address City/[facility]/ZIP Co de Phone Number [facility] [address] [place] [address] * (ABNORMAL) Magnesium, Plasma (04/12/2025 5:23 AM EDT) Magnesium, Plasma 1.8(L) 1.9 - 2.4 mg/dL 04/12/2025 6:17 AM EDT [facility] Blood Venous blood specimen / Unknown Venipuncture / Unknown 04/12/2025 5:23 AM EDT 04/12/2025 5:52 AM EDT Priya Flores APRN, DNP LAB BLOOD [place] [address] * (ABNORMAL) Magnesium, Plasma (04/11/2025 6:03 AM EDT) Magnesium, Plasma 1.7(L) 1.9 - 2.4 mg/dL 04/11/2025 6:33 AM EDT [facility] Blood Venous blood specimen / Unknown Venipuncture / Unknown 04/11/2025 6:03 AM EDT 04/11/2025 6:09 AM EDT Priya Flores APRN, DNP LAB BLOOD ORDERABLES Final Result Performing Organization Address City/[facility]/[place] [address] * (ABNORMAL) Magnesium, Plasma (04/10/2025 4:18 AM EDT) Magnesium, Plasma 1.8(L) 1.9 - 2.4 mg/dL 04/10/2025 5:13 AM EDT [facility] Blood Venous blood specimen / Unknown Venipuncture / Unknown 04/10/2025 4:18 AM EDT 04/10/2025 4:40 AM EDT Priya Flores APRN, DNP LAB BLOOD ORDERABLES Final Result Performing Organization Address City/[facility]/[place] [address] * Phosphorus, Plasma (04/10/2025 4:18 AM EDT) Phosphorus, Plasma 2.9 2.5 - 4.5 mg/dL 04/10/2025 5:13 AM EDT [facility] Blood Venous blood specimen / Unknown Venipuncture / Unknown 04/10/2025 4:18 AM EDT 04/10/2025 4:40 AM EDT Priya Flores APRN, DNP LAB BLOOD ORDERABLES Final Result Performing Organization Address City/[facility]/[place] [address] * XR Pelvis 3+ Views (04/09/2025 12:56 PM EDT) Anatomical Region Laterality Modality Body, Pelvis Computed Radiogr aphy Impressions 04/09/2025 1:07 PM EDT Grossly similar appearance and alignment of the left superior-inferior pubic rami fractures. CRITICAL RESULT: No. COMMUNICATION: Per this written report. Drafted by Isabell Kessler MD on 04/09/2025 1:01 PM Final report signed by Isabell Kessler MD on 04/09/2025 1:07 PM Narrative 04/09/2025 1:07 PM EDT CLINICAL INDICATION: post mobilization films TECHNIQUE: XR PELVIS 3+ VIEWS COMPARISON: Radiographs and CT from 08/06/2025 FINDINGS: Grossly similar appearance and alignment of the left superior-inferior pubic rami fractures. Pubic symphysis is intact. Similar degenerative changes of the bilateral hips. Scattered vascular calcifications. Overlying stool, bowel gas and soft tissues obscure evaluation of the central pelvis. Procedure Note Isabell Kessler MD - 04/09/2025 CLINICAL INDICATION: post mobilization films TECHNIQUE: XR PELVIS 3+ VIEWS COMPARISON: Radiographs and CT from 08/06/2025 FINDINGS: Grossly similar appearance and alignment of the left superior-inferiorpubic rami fractures. Pubic symphysis is intact. Similar degenerativechanges of the bilateral hips. Scattered vascular calcifications.Overlying stool, bowel gas and soft tissues obscure evaluation of thecentral pelvis. IMPRESSION: Grossly similar appearance and alignment of the left superior-inferiorpubic rami fractures. CRITICAL RESULT: No. COMMUNICATION: Per this written report. Drafted by Isabell Kessler MD on 04/09/2025 1:01 PM Final report signed by Isabell Kessler MD on 04/09/2025 1:07 PM us Abby Dorado MD IMG XR PROCEDURES Final R esult * Lactate, venous (04/09/2025 1:23 AM EDT) Lactate, Venous, Whole Blood 1.4 0.5 - 2.2 mmol/L LAB HEMATOLOGY METHOD 04/09/2025 1:33 AM EDT [facility] Blood Venous blood specimen / Unknown Venipuncture / Unknown 04/09/2025 1:23 AM EDT 04/09/2025 1:32 AM EDT Priya Flores APRN, BECKY LAB BLOOD ORDERABLES Final Result Performing Organization Address City/[facility] Co de Phone Number [facility] [address] [place] [address] * (ABNORMAL) Phosphorus, Plasma (04/09/2025 1:23 AM EDT) Phosphorus, Plasma 2.4(L) 2.5 - 4.5 mg/dL 04/09/2025 2:07 AM EDT [facility] Blood Venous blood specimen / Unknown Venipuncture / Unknown 04/09/2025 1:23 AM EDT 04/09/2025 1:31 AM EDT Priya Flores APRN, BECKY LAB BLOOD ORDERABLES Final Result Performing Organization Address [facility] Co de Phone Number [facility] [address] [place] [address] * (ABNORMAL) Magnesium, Plasma (04/09/2025 1:23 AM EDT) Pathologist [facility] Magnesium, Plasma 1.8(L) 1.9 - 2.4 mg/dL 04/09/2025 2:07 AM EDT [facility] Blood Venous blood specimen / Unknown Venipuncture / Unknown 04/09/2025 1:23 AM EDT 04/09/2025 1:31 AM EDT Priya Flores APRN, BECKY LAB BLOOD ORDERABLES Final Result Performing Organization Address City/[facility]/[place] [address] * EKG now - STAT (adult) (04/08/2025 3:24 PM EDT) EKG DIAGNOSIS CLASS Abnormal MUSE ECG Ventricular Rate 79 BPM MUSE ECG Atrial Rate 79 BPM MUSE ECG UT Interval 118 ms MUSE ECG QRSD Interval 82 ms MUSE ECG QT Interval 418 ms MUSE ECG QTC Interval 479 ms MUSE ECG P [place] 82 degrees MUSE ECG R [place] 19 degrees MUSE ECG T Wave [place] 55 degrees MUSE ECG Diagnosis Normal sinus rhythm with sinus arrhythmia MUSE ECG Diagnosis Low voltage QRS MUSE ECG Diagnosis T wave abnormality, consider anterior ischemia MUSE ECG Diagnosis Abnormal ECG MUSE ECG Diagnosis MUSE ECG Diagnosis Compared to last ECG MUSE ECG Diagnosis No significant change was found MUSE ECG Diagnosis Confirmed by Brett Arenas ([id number]) on 04/09/2025 11:18:52 AM MUSE ECG 04/08/2025 3:24 PM EDT 04/09/2025 11:18 AM EDT Abby Dorado MD ECG ORDERABLES Final Res ult Performing Organization Address City/[facility]/ZIP Co de Phone Number MUSE ECG * (ABNORMAL) Magnesium (04/08/2025 8:13 AM EDT) Magnesium, Plasma 1.8(L) 1.9 - 2.4 mg/dL 04/08/2025 8:35 AM EDT [facility] Blood Venous blood specimen / Unknown Venipuncture / Unknown 04/08/2025 8:13 AM EDT 04/08/2025 8:17 AM EDT Priya Flores APRN, DNP LAB BLOOD ORDERABLES Final Result Performing Organization Address City/[facility] Co de Phone Number [facility] [address] [place] [address] * (ABNORMAL) Phosphorus (04/08/2025 8:13 AM EDT) Phosphorus, Plasma 1.8(L) 2.5 - 4.5 mg/dL 04/08/2025 8:35 AM EDT [facility] Blood Venous blood specimen / Unknown Venipuncture / Unknown 04/08/2025 8:13 AM EDT 04/08/2025 8:17 AM EDT Priya Flores APRN, DNP LAB BLOOD ORDERABLES Final Result Performing Organization Address City/[facility] Co de Phone Number [facility] [address] [place] [address] * (ABNORMAL) Basic metabolic panel (04/08/2025 8:13 AM EDT) Glucose, Plasma 109(H) 74 - 99 mg/dL 04/08/2025 8:35 AM EDT [facility] BUN, Plasma 12 8 - 23 mg/dL 04/08/2025 8:35 AM EDT [facility] Creatinine, Plasma 0.44(L) 0.70 - 1.20 mg/dL 04/08/2025 8:35 AM EDT [facility] BUN/Creatinine Ratio 27 04/08/2025 8:35 AM EDT [facility] Sodium, Plasma 131(L) 136 - 145 mmol/L 04/08/2025 8:35 AM EDT [facility] Potassium, Plasma 4.0 3.6 - 4.9 mmol/L 04/08/2025 8:35 AM EDT [facility] Chloride, Plasma 97 97 - 107 mmol/L 04/08/2025 8:35 AM EDT [facility] CO2, Plasma 27 22 - 29 mmol/L 04/08/2025 8:35 AM EDT [facility] Anion Gap 7 6 - 16 mmol/L 04/08/2025 8:35 AM EDT [facility] Total Calcium, Plasma 7.6(L) 8.9 - 10.2 mg/dL 04/08/2025 8:35 AM EDT [facility] eGFRcr 113.3 mL/min/1.7 3m*2 04/08/2025 8:35 AM EDT [facility] Comment:Reported eGFRcr in m L/min/1.73m2 is based the CKD-EPI 2020 equation that does not use a race coefficient. Blood Venous blood specimen / Unknown Venipuncture / Unknown 04/08/2025 8:13 AM EDT 04/08/2025 8:17 AM EDT us Priya Flores BIOLOGICAL SCIENCES PROFESSOR, DNP LAB BLOOD ORDERABLES Final Result [facility] [address] [place] [address] * (ABNORMAL) CBC W/O Differential (04/08/2025 8:13 AM EDT) WBC Count 7.10 3.70 - 10.30 10*3/uL LAB HEMATOLOGY METHOD 04/08/2025 8:21 AM EDT [facility] RBC Count 3.00(L) 4.60 - 6.10 10*6/uL LAB HEMATOLOGY METHOD 04/08/2025 8:21 AM EDT [facility] HGB 11.2(L) 13.7 - 17.5 g/dL LAB HEMATOLOGY METHOD 04/08/2025 8:21 AM EDT [facility] HCT 31.5(L) 40.0 - 51.0 % LAB HEMATOLOGY METHOD 04/08/2025 8:21 AM EDT [facility] Platelet Count 112(L) 155 - 369 10*3/uL LAB HEMATOLOGY METHOD 04/08/2025 8:21 AM EDT [facility] MCV 105(H) 79 - 98 fL LAB HEMATOLOGY METHOD 04/08/2025 8:21 AM EDT [facility] MCH 37.3(H) 26.0 - 32.0 pg LAB HEMATOLOGY METHOD 04/08/2025 8:21 AM EDT [facility] MCHC 35.6(H) 30.7 - 35.5 g/dL LAB HEMATOLOGY METHOD 04/08/2025 8:21 AM EDT [facility] RDW 13.8 11.5 - 14.5 % LAB HEMATOLOGY METHOD 04/08/2025 8:21 AM EDT [facility] MPV 10.8 8.8 - 12.5 fL LAB HEMATOLOGY METHOD 04/08/2025 8:21 AM EDT [facility] nRBC 0.0 <=0.0 per 100 WBCs LAB HEMATOLOGY METHOD 04/08/2025 8:21 AM EDT [facility] Blood Venous blood specimen / Unknown Venipuncture / Unknown 04/08/2025 8:13 AM EDT 04/08/2025 8:17 AM EDT us Priya Flores BIOLOGICAL SCIENCES PROFESSOR, DNP LAB BLOOD ORDERABLES Final Result [facility] [address] [place] [address] * CT Head wo IV Contrast (04/07/2025 4:07 AM EDT) Anatomical Region Laterality Modality Head Computed Tomogra phy Impressions 04/07/2025 4:55 AM EDT * There is no evidence of intracranial mass, hemorrhage, or acute territorial infarction. * Previously noted hypodensity in the left occipital lobe is not appreciated on this exam and was likely an artifact. CRITICAL RESULT: No. COMMUNICATION: Per this written report. Drafted by Dany Parks MD on 04/07/2025 4:42 AM Final report signed by Dany Parks MD on 04/07/2025 4:55 AM Narrative 04/07/2025 4:55 AM EDT CLINICAL INDICATION: follow up CT TECHNIQUE: Spiral axial CT images of the head were obtained without contrast administration. Total DLP (Dose-Length Product): 949.31 mGy.cm. Please note: The reported value represents the total of one or more individual components during the CT acquisition on this date and at this time, and as such, the same value may appear in more than one CT report depending on the interpreting/reporting physicians. COMPARISON: Outside head CT 04/06/2025 FINDINGS: Diagnostic Quality: Adequate. No midline shift, mass effect, parenchymal hemorrhage, or evidence of acute territorial infarct. There are nonspecific punctate and patchy hypodense foci in the periventricular and subcortical white matter which may represent sequela of small vessel disease. No extra-axial fluid collections. Basal cisterns are patent. No hydrocephalus. There is mild prominence of the sulci, cisterns, and ventricles suggestive of generalized brain parenchymal volume loss without a regional predominance. The callosal angle is obtuse. There are scattered atherosclerotic calcifications within the carotid siphons. Bilateral lens implants. Otherwise orbits and globes are unremarkable in appearance. Soft Tissues: No significant soft tissue swelling is present. Skull: There are no calvarial destructive lesions or fractures. Sinuses and Mastoids: Undulating nasal septum. Mild mucosal thickening of the frontal sinuses and anterior ethmoid air cells. The remaining paranasal sinuses, mastoid air cells, and middle ear canals are well-aerated. Procedure Note Dany Parks MD - 04/07/2025 CLINICAL INDICATION: follow up CT TECHNIQUE: Spiral axial CT images of the head were obtained without contrastadministration. Total DLP (Dose-Length Product): 949.31 mGy.cm. Please note: The reportedvalue represents the total of one or more individual components during theCT acquisition on this date and at this time, and as such, the same valuemay appear in more than one CT report depending on theinterpreting/reporting physicians. COMPARISON: Outside head CT 04/06/2025 FINDINGS: Diagnostic Quality: Adequate. No midline shift, mass effect, parenchymal hemorrhage, or evidence ofacute territorial infarct. There are nonspecific punctate and patchyhypodense foci in the periventricular and subcortical white matter whichmay represent sequela of small vessel disease. No extra-axial fluid collections. Basal cisterns are patent. Nohydrocephalus. There is mild prominence of the sulci, cisterns, andventricles suggestive of generalized brain parenchymal volume loss withouta regional predominance. The callosal angle is obtuse. There are scattered atherosclerotic calcifications within the carotidsiphons. Bilateral lens implants. Otherwise orbits and globes areunremarkable in appearance. Soft Tissues: No significant soft tissue swelling is present. Skull: There are no calvarial destructive lesions or fractures. Sinuses and Mastoids: Undulating nasal septum. Mild mucosal thickening ofthe frontal sinuses and anterior ethmoid air cells. The remainingparanasal sinuses, mastoid air cells, and middle ear canals arewell-aerated. IMPRESSION: *There is no evidence of intracranial mass, hemorrhage, or acuteterritorial infarction. *Previously noted hypodensity in the left occipital lobe is notappreciated on this exam and was likely an artifact. CRITICAL RESULT: No. COMMUNICATION: Per this written report. Drafted by Dany Parks MD on 04/07/2025 4:42 AM Final report signed by Dany Parks MD on 04/07/2025 4:55 AM us Kyle Ji MD IM CT PROCEDURES Final Resul t * Protime-INR (04/07/2025 3:43 AM EDT) Prothrombin Time 14.1 12.0 - 14.3 sec 04/07/2025 3:57 AM EDT [facility] INR 1.1 0.9 - 1.1 04/07/2025 3:57 AM EDT [facility] Blood Venous blood specimen / Unknown Venipuncture / Unknown 04/07/2025 3:43 AM EDT 04/07/2025 3:44 AM EDT Narrative [facility] - 04/07/2025 3:57 AM EDT OPTIMAL INR RANGES FOR PATIENT ON ORAL ANTICOAGULANT THERAPY Prevention of venous thromboembolism INR 2.0 to 3.0 In patients with heart disease: Atrial fibrillation INR 2.0 to 3.0 Valvular heart disease INR 2.0 to 3.0 Tissue heart valves INR 2.0 to 3.0 Mechanical prosthetic valves INR 2.5 to 3.5 Prevention of recurrent NH INR 2.5 to 3.5 us Tres Elaine MD LAB BLOOD ORDERABLES Final Resu lt [facility] [address] [place] [address] * (ABNORMAL) Magnesium (04/07/2025 3:43 AM EDT) Magnesium, Plasma 1.5(L) 1.9 - 2.4 mg/dL 04/07/2025 5:01 AM EDT [facility] Blood Venous blood specimen / Unknown Venipuncture / Unknown 04/07/2025 3:43 AM EDT 04/07/2025 4:11 AM EDT Tres Elaine MD LAB BLOOD ORDERABLES Final Resu lt [facility] [address] [place] [address] * (ABNORMAL) Phosphorus (04/07/2025 3:43 AM EDT) Phosphorus, Plasma 2.4(L) 2.5 - 4.5 mg/dL 04/07/2025 5:01 AM EDT [facility] Blood Venous blood specimen / Unknown Venipuncture / Unknown 04/07/2025 3:43 AM EDT 04/07/2025 4:11 AM EDT us Tres Elaine MD LAB BLOOD ORDERABLES Final Resu lt [facility] [address] [place] [address] * (ABNORMAL) Comprehensive Metabolic Panel (04/07/2025 3:43 AM EDT) Glucose, Plasma 165(H) 74 - 99 mg/dL 04/07/2025 5:01 AM EDT [facility] BUN, Plasma 5(L) 8 - 23 mg/dL 04/07/2025 5:01 AM EDT [facility] Creatinine, Plasma 0.38(L) 0.70 - 1.20 mg/dL 04/07/2025 5:01 AM EDT [facility] BUN/Creatinine Ratio 13 04/07/2025 5:01 AM EDT [facility] Sodium, Plasma 126(L) 136 - 145 mmol/L 04/07/2025 5:01 AM EDT [facility] Potassium, Plasma 4.3 3.6 - 4.9 mmol/L 04/07/2025 5:01 AM EDT [facility] Chloride, Plasma 92(L) 97 - 107 mmol/L 04/07/2025 5:01 AM EDT [facility] CO2, Plasma 21(L) 22 - 29 mmol/L 04/07/2025 5:01 AM EDT [facility] Anion Gap 13 6 - 16 mmol/L 04/07/2025 5:01 AM EDT [facility] Total Calcium, Plasma 8.1(L) 8.9 - 10.2 mg/dL 04/07/2025 5:01 AM EDT [facility] Total Protein 5.9(L) 6.3 - 7.9 g/dL 04/07/2025 5:01 AM EDT [facility] Albumin, Plasma 3.3(L) 3.5 - 5.2 g/dL 04/07/2025 5:01 AM EDT [facility] AST, Plasma 49 10 - 50 U/L 04/07/2025 5:01 AM EDT [facility] ALT, Plasma 21 10 - 50 U/L 04/07/2025 5:01 AM EDT [facility] Alkaline Phosphatase, Plasma 93 40 - 115 U/L 04/07/2025 5:01 AM EDT [facility] Total Bilirubin, Plasma 2.4(H) 0.2 - 1.1 mg/dL 04/07/2025 5:01 AM EDT [facility] eGFRcr 118.5 mL/min/1.7 3m*2 04/07/2025 5:01 AM EDT [facility] Comment:Reported eGFRcr in m L/min/1.73m2 is based the CKD-EPI 2020 equation that does not use a race coefficient. Blood Venous blood specimen / Unknown Venipuncture / Unknown 04/07/2025 3:43 AM EDT 04/07/2025 4:11 AM EDT us Tres Elaine MD LAB BLOOD ORDERABLES Final Resu lt [facility] [address] [place] [address] * (ABNORMAL) CBC (04/07/2025 3:43 AM EDT) WBC Count 8.36 3.70 - 10.30 10*3/uL LAB HEMATOLOGY METHOD 04/07/2025 3:48 AM EDT [facility] RBC Count 3.21(L) 4.60 - 6.10 10*6/uL LAB HEMATOLOGY METHOD 04/07/2025 3:48 AM EDT [facility] HGB 11.9(L) 13.7 - 17.5 g/dL LAB HEMATOLOGY METHOD 04/07/2025 3:48 AM EDT [facility] HCT 32.7(L) 40.0 - 51.0 % LAB HEMATOLOGY METHOD 04/07/2025 3:48 AM EDT [facility] Platelet Count 124(L) 155 - 369 10*3/uL LAB HEMATOLOGY METHOD 04/07/2025 3:48 AM EDT [facility] MCV 102(H) 79 - 98 fL LAB HEMATOLOGY METHOD 04/07/2025 3:48 AM EDT [facility] MCH 37.1(H) 26.0 - 32.0 pg LAB HEMATOLOGY METHOD 04/07/2025 3:48 AM EDT [facility] MCHC 36.4(H) 30.7 - 35.5 g/dL LAB HEMATOLOGY METHOD 04/07/2025 3:48 AM EDT [facility] RDW 13.7 11.5 - 14.5 % LAB HEMATOLOGY METHOD 04/07/2025 3:48 AM EDT [facility] MPV 9.8 8.8 - 12.5 fL LAB HEMATOLOGY METHOD 04/07/2025 3:48 AM EDT [facility] nRBC 0.0 <=0.0 per 100 WBCs LAB HEMATOLOGY METHOD 04/07/2025 3:48 AM EDT [facility] Blood Venous blood specimen / Unknown Venipuncture / Unknown 04/07/2025 3:43 AM EDT 04/07/2025 3:44 AM EDT us Tres Elaine MD LAB BLOOD ORDERABLES Final Resu lt [facility] [address] [place] [address] * (ABNORMAL) Fentanyl Urine Confirm (04/07/2025 12:41 AM EDT) Fentanyl 4(H) <1 ng/mL 04/08/2025 12:29 PM EDT [facility] Norfentanyl <2 <2 ng/mL 04/08/2025 12:29 PM EDT [facility] Urine Urine specimen obtained by clean catch procedure / Unknown Non-blood Collection / Unknown 04/07/2025 12:41 AM EDT 04/07/2025 12:44 AM EDT Narrative [facility] - 04/08/2025 12:29 PM EDT Drug analysis is confirmed by LC-MS/MS (LC Tandem Mass Spectrometry) on Urine specimens. This test was developed and its performance characteristics determined by [email or web address]. It has not been cleared or approved by the FDA. The laboratory is regulated under CLIA as qualified to perform high-complexity testing. This test is used for clinical purposes. Testing is performed at the [facility], Special Chemistry Laboratory. us Ricky Layne MD LAB URINE ORDERABLES Marichuy sherman Result [facility] [address] [place] [address] * (ABNORMAL) Urinalysis with reflex microscopic (Culture NOT Included) (04/07/2025 12:41 AM EDT) Color, Urine Jewell LAB URINALYSIS - AUTOMATED METHOD 04/07/2025 12:53 AM EDT [facility] Clarity, Urine Clear LAB URINALYSIS - AUTOMATED METHOD 04/07/2025 12:53 AM EDT [facility] Spec Braham, Urine >1.030(H) 1.005 - 1.030 LAB URINALYSIS - AUTOMATED METHOD 04/07/2025 12:53 AM EDT [facility] pH, Urine 5.5 5.0 - 8.0 LAB URINALYSIS - AUTOMATED METHOD 04/07/2025 12:53 AM EDT [facility] Protein, Urine Negative Negative mg/dL LAB URINALYSIS - AUTOMATED METHOD 04/07/2025 12:53 AM EDT [facility] Glucose, Urine Negative Negative mg/dL LAB URINALYSIS - AUTOMATED METHOD 04/07/2025 12:53 AM EDT [facility] Ketones, Urine Trace(A) Negative mg/dL LAB URINALYSIS - AUTOMATED METHOD 04/07/2025 12:53 AM EDT [facility] Blood, Urine Negative Negative LAB URINALYSIS - AUTOMATED METHOD 04/07/2025 12:53 AM EDT [facility] Bilirubin, Urine Negative Negative LAB URINALYSIS - AUTOMATED METHOD 04/07/2025 12:53 AM EDT [facility] Urobilinogen, Urine 1.0 0.2 to 1.0 mg/dL LAB URINALYSIS - AUTOMATED METHOD 04/07/2025 12:53 AM EDT [facility] Leukocytes, Urine Negative Negative LAB URINALYSIS - AUTOMATED METHOD 04/07/2025 12:53 AM EDT [facility] Nitrite, Urine Negative Negative LAB URINALYSIS - AUTOMATED METHOD 04/07/2025 12:53 AM EDT [facility] Urine Urine specimen obtained by clean catch procedure / Unknown Non-blood Collection / Unknown 04/07/2025 12:41 AM EDT 04/07/2025 12:44 AM EDT Narrative [facility] - 04/07/2025 12:53 AM EDT Urinalysis dipstick results may be inaccurate due to specimen color or an interfering substance in the specimen. us Ricky Layne MD LAB URINE ORDERABLES Marichuy sherman Result [facility] [address] [place] [address] * Drug Abuse Screen, Urine (04/07/2025 12:41 AM EDT) Amphetamine Screen Urine Negative Cutoff: 500 ng/mL 04/07/2025 1:05 AM EDT [facility] Benzodiazepines Screen Urine Negative Cutoff: 200 ng/mL 04/07/2025 1:05 AM EDT [facility] Cannabinoid Screen Urine Negative Cutoff: 50 ng/mL 04/07/2025 1:05 AM EDT [facility] Cocaine Screen Urine Negative Cutoff: 300 ng/mL 04/07/2025 1:05 AM EDT [facility] Barbiturate Screen Urine Negative Cutoff: 200 ng/mL 04/07/2025 1:05 AM EDT [facility] Opiate Screen Urine Negative Cutoff: 300 ng/mL 04/07/2025 1:05 AM EDT [facility] Methadone Screen Urine Negative Cutoff: 300 ng/mL 04/07/2025 1:05 AM EDT [facility] Buprenorphine Screen Urine Negative Cutoff: 10 ng/mL 04/07/2025 1:05 AM EDT [facility] Fentanyl Screen Urine Presumptive positive. Confirmation by LC-MS/MS to follow. Cutoff: 1 ng/mL 04/07/2025 1:05 AM EDT [facility] Oxycodone Screen Urine Negative Cutoff: 100 ng/mL 04/07/2025 1:05 AM EDT [facility] Urine Urine specimen obtained by clean catch procedure / Unknown Non-blood Collection / Unknown 04/07/2025 12:41 AM EDT 04/07/2025 12:44 AM EDT us Ricky Layne MD LAB URINE ORDERABLES Marichuy lane Result [facility] [address] [place] [address] * XR Hips Bilateral 2 Views (04/07/2025 12:13 AM EDT) Anatomical Region Laterality Modality Hip, Pelvis Bilateral Digital Radiogra phy Impressions 04/07/2025 12:45 AM EDT Mildly displaced superior and inferior left pubic rami fractures. Limited evaluation for sacral fractures given contrast within urinary bladder. CRITICAL RESULT: No. COMMUNICATION: Per this written report. Preliminary report signed by Mark Ordonez MD on 04/07/2025 12:40 AM By electronically signing this report, I, the attending physician, attest that I have personally reviewed the images/data for the above examination(s) and agree with the final edited report. Drafted by Mark Ordonez MD on 04/07/2025 12:38 AM Final report signed by Wilberto Zafar MD on 04/07/2025 12:45 AM Narrative 04/07/2025 12:45 AM EDT CLINICAL INDICATION: pelvic fx TECHNIQUE: XR HIPS BILATERAL 2 VIEWS COMPARISON: None. FINDINGS: Left mildly displaced superior and inferior pubic rami fractures. Contrast within the urinary bladder, which limits evaluation the associated structures. No widening the pubic symphysis or sacroiliac joints. No significant soft tissue abnormality. Procedure Note Wilberto Zafar MD - 04/07/2025 CLINICAL INDICATION: pelvic fx TECHNIQUE: XR HIPS BILATERAL 2 VIEWS COMPARISON: None. FINDINGS: Left mildly displaced superior and inferior pubic rami fractures. Contrastwithin the urinary bladder, which limits evaluation the associatedstructures. No widening the pubic symphysis or sacroiliac joints. Nosignificant soft tissue abnormality. IMPRESSION: Mildly displaced superior and inferior left pubic rami fractures. Limited evaluation for sacral fractures given contrast within urinarybladder. CRITICAL RESULT: No. COMMUNICATION: Per this written report. Preliminary report signed by Mark Ordonez MD on 04/07/2025 12:40 AM By electronically signing this report, I, the attending physician, osorioat I have personally reviewed the images/data for the aboveexamination(s) and agree with the final edited report. Drafted by Mark Ordonez MD on 04/07/2025 12:38 AM Final report signed by Wilberto Zafar MD on 04/07/2025 12:45 AM Zuhair Avilez MD IMG XR PROCEDURES Final Result * CT Bony Pelvis (04/06/2025 11:28 PM EDT) Anatomical Region Laterality Modality Pelvis Computed Tomogra phy Impressions 04/06/2025 11:48 PM EDT Left superior inferior pubic rami fractures also extending towards the left pubic body. No diastases or dislocation. Subtle fracture posterior at the left iliac bone extending anteriorly towards the left sacroiliac joint. For example image #52 series 4. Moderate degenerative changes in lumbar spine. Including advanced facet arthritis. Small extraperitoneal hematoma and soft tissue swelling associated with the pelvic fractures. The bladder is mildly trabeculated. CRITICAL RESULT: No. COMMUNICATION: Per this written report. Drafted by Wilberto Zafar MD on 04/06/2025 11:41 PM Final report signed by Wilberto Zafar MD on 04/06/2025 11:48 PM Narrative 04/06/2025 11:48 PM EDT CLINICAL INDICATION: pelvic fx TECHNIQUE: Multiple axial CT images of bony pelvis were obtained without contrast administration. Reformatted images in the coronal and/or sagittal plane(s) were generated from the axial data set to facilitate diagnostic accuracy and/or surgical planning. Total DLP (Dose-Length Product): 232.62 mGy.cm. Please note: The reported value represents the total of one or more individual components during the CT acquisition on this date and at this time, and as such, the same value may appear in more than one CT report depending on the interpreting/reporting physicians. COMPARISON: None. FINDINGS: Mildly displaced comminuted fracture of the left inferior pubic ramus. Fracture at the junction of the left superior pubic ramus and left pubic body. Vascular calcifications. Respiratory motion artifact. Mild extraperitoneal hematoma soft tissue swelling associated with the obturator ring fractures. Subtle fracture posterior left iliac bone extending towards the sacroiliac joint. For example image 31 254 series 4. Procedure Note Wilberto Zafar MD - 04/06/2025 CLINICAL INDICATION: pelvic fx TECHNIQUE: Multiple axial CT images of bony pelvis were obtained without contrastadministration. Reformatted images in the coronal and/or sagittal plane(s)were generated from the axial data set to facilitate diagnostic accuracyand/or surgical planning. Total DLP (Dose-Length Product): 232.62 mGy.cm. Please note: The reportedvalue represents the total of one or more individual components during theCT acquisition on this date and at this time, and as such, the same valuemay appear in more than one CT report depending on theinterpreting/reporting physicians. COMPARISON: None. FINDINGS: Mildly displaced comminuted fracture of the left inferior pubic ramus.Fracture at the junction of the left superior pubic ramus and left pubicbody. Vascular calcifications. Respiratory motion artifact. Mild extraperitoneal hematoma soft tissue swelling associated with theobturator ring fractures. Subtle fracture posterior left iliac bone extending towards the sacroiliacjoint. For example image 31 254 series 4. IMPRESSION: Left superior inferior pubic rami fractures also extending towards theleft pubic body. No diastases or dislocation. Subtle fracture posterior at the left iliac bone extending anteriorlytowards the left sacroiliac joint. For example image #52 series 4. Moderate degenerative changes in lumbar spine. Including advanced facetarthritis. Small extraperitoneal hematoma and soft tissue swelling associated withthe pelvic fractures. The bladder is mildly trabeculated. CRITICAL RESULT: No. COMMUNICATION: Per this written report. Drafted by Wilberto Zafar MD on 04/06/2025 11:41 PM Final report signed by Wilberto Zafar MD on 04/06/2025 11:48 PM us Ricky Layne MD IMG CT PROCEDURES Final R esult * EKG now - STAT (adult) (04/06/2025 10:02 PM EDT) EKG DIAGNOSIS CLASS Abnormal MUSE ECG Ventricular Rate 111 BPM MUSE ECG Atrial Rate 111 BPM MUSE ECG UT Interval 144 ms MUSE ECG QRSD Interval 74 ms MUSE ECG QT Interval 332 ms MUSE ECG QTC Interval 451 ms MUSE ECG P [place] 79 degrees MUSE ECG R [place] 59 degrees MUSE ECG T Wave [place] 94 degrees MUSE ECG Diagnosis Sinus tachycardia MUSE ECG Diagnosis Low voltage QRS MUSE ECG Diagnosis Nonspecific ST and T wave abnormality MUSE ECG Diagnosis Abnormal ECG MUSE ECG Diagnosis MUSE ECG Diagnosis Confirmed by Irving Mercedes ([id number]) on 04/07/2025 9:38:15 AM MUSE ECG 04/06/2025 10:0 2 PM EDT 04/07/2025 9:38 AM EDT Ricky Layne MD ECG ORDERABLES Final Res ult MUSE ECG * ED HIV 1/2 Antibody/Antigen Screen w/Reflex to HIV 1/2 Differentiation (04/06/2025 10:02 PM EDT) Pathologist [facility] HIV 1 & 2 Antibody/Antigen Screen Non Reactive Non Reactive 04/06/2025 11:01 PM EDT [facility] Comment:Screening for HIV 1 & 2 antibodies, and P24 antigen is NONREACTIVE. No confirmatory testing is required. Blood Venous blood specimen / Unknown Venipuncture / Unknown 04/06/2025 10:02 PM EDT 04/06/2025 10:20 PM EDT Ricky Layne MD LAB BLOOD ORDERABLES Marichuy l Result [facility] [address] [place] [address] * Hepatitis C Antibody - ED (04/06/2025 10:02 PM EDT) Pathologist [facility] Hepatitis C Antibody Negative Negative 04/06/2025 11:01 PM EDT [facility] Blood Venous blood specimen / Unknown Venipuncture / Unknown 04/06/2025 10:02 PM EDT 04/06/2025 10:20 PM EDT us Ricky Layne MD LAB BLOOD ORDERABLES Marichuy lane Result [facility] [address] [place] [address] * (ABNORMAL) Blood gas panel, venous (04/06/2025 10:02 PM EDT) pH, Venous 7.36 7.32 - 7.43 LAB HEMATOLOGY METHOD 04/06/2025 10:11 PM EDT [facility] pCO2, Venous 37(L) 40 - 55 mmHg LAB HEMATOLOGY METHOD 04/06/2025 10:11 PM EDT [facility] pO2, Venous 61(H) 25 - 40 mmHg LAB HEMATOLOGY METHOD 04/06/2025 10:11 PM EDT [facility] SO2, Measured, Venous 91(H) 65 - 80 % LAB HEMATOLOGY METHOD 04/06/2025 10:11 PM EDT [facility] Base Excess, Venous -4.2(L) -2.0 - 3.0 mmol/L LAB HEMATOLOGY METHOD 04/06/2025 10:11 PM EDT [facility] Bicarbonate, Calculated, Venous 21(L) 22 - 26 mmol/L LAB HEMATOLOGY METHOD 04/06/2025 10:11 PM EDT [facility] Hematocrit, Whole Blood 36.2(L) 40.0 - 51.0 % LAB HEMATOLOGY METHOD 04/06/2025 10:11 PM EDT [facility] Sodium, Whole Blood 125(L) 136 - 145 mmol/L LAB HEMATOLOGY METHOD 04/06/2025 10:11 PM EDT [facility] Potassium, Whole Blood 4.2 3.6 - 4.9 mmol/L LAB HEMATOLOGY METHOD 04/06/2025 10:11 PM EDT [facility] Chloride, Whole Blood 95(L) 97 - 107 mmol/L LAB HEMATOLOGY METHOD 04/06/2025 10:11 PM EDT [facility] Glucose, Whole Blood 118(H) 74 - 99 mg/dL LAB HEMATOLOGY METHOD 04/06/2025 10:11 PM EDT [facility] Lactate, Venous, Whole Blood 4.3(H) 0.5 - 2.2 mmol/L LAB HEMATOLOGY METHOD 04/06/2025 10:11 PM EDT [facility] Ionized Calcium, Whole Blood 4.3(L) 4.6 - 5.1 mg/dL LAB HEMATOLOGY METHOD 04/06/2025 10:11 PM EDT [facility] Blood Venous blood specimen / Unknown Venipuncture / Unknown 04/06/2025 10:02 PM EDT 04/06/2025 10:11 PM EDT Ricky Layne MD LAB BLOOD ORDERABLES Marichuy l Result [facility] [address] [place] [address] * Type and Screen (04/06/2025 10:02 PM EDT) ABO/Rh A Positive 04/06/2025 9:56 PM EDT BLOOD BANK Antibody Screen Negative 04/06/2025 9:56 PM EDT BLOOD BANK Specimen Expiration 04/09/2025 23:59 04/06/2025 9:56 PM EDT BLOOD BANK Blood Venous blood specimen / Unknown Venipuncture / Unknown 04/06/2025 10:02 PM EDT 04/06/2025 10:18 PM EDT Ricky Layne MD LAB BLOOD BANK TEST ORDER LYDIA Final Result Performing Organization Address City/[facility] Co de Phone Number BLOOD BANK [address] [place] [address], * (ABNORMAL) Ethyl Alcohol Plasma (04/06/2025 10:02 PM EDT) Ethanol Plasma 126(H) <10 mg/dL 04/06/2025 10:39 PM EDT [facility] Blood Venous blood specimen / Unknown Venipuncture / Unknown 04/06/2025 10:02 PM EDT 04/06/2025 10:11 PM EDT Narrative [facility] - 04/06/2025 10:39 PM EDT Enzymatic Assay: Performed on [employer]ena. us Ricky Layne MD LAB BLOOD ORDERABLES Marichuy l Result Performing Organization Address City/[facility]/ZIP Co de Phone Number [facility] [address] [place] [address] * APTT (PTT) (04/06/2025 10:02 PM EDT) aPTT 32 25 - 35 sec LAB COAGULATION METHOD 04/06/2025 11:01 PM EDT [facility] Blood Venous blood specimen / Unknown Venipuncture / Unknown 04/06/2025 10:02 PM EDT 04/06/2025 10:20 PM EDT us Ricky Layne MD LAB BLOOD ORDERABLES Marichuy l Result Performing Organization Address [facility] [place] [address] * (ABNORMAL) PT-INR (04/06/2025 10:02 PM EDT) Prothrombin Time 14.6(H) 12.0 - 14.3 sec LAB COAGULATION METHOD 04/06/2025 11:01 PM EDT [facility] INR 1.1 0.9 - 1.1 LAB COAGULATION METHOD 04/06/2025 11:01 PM EDT [facility] Blood Venous blood specimen / Unknown Venipuncture / Unknown 04/06/2025 10:02 PM EDT 04/06/2025 10:20 PM EDT Narrative [facility] - 04/06/2025 11:01 PM EDT OPTIMAL INR RANGES FOR PATIENT ON ORAL ANTICOAGULANT THERAPY Prevention of venous thromboembolism INR 2.0 to 3.0 In patients with heart disease: Atrial fibrillation INR 2.0 to 3.0 Valvular heart disease INR 2.0 to 3.0 Tissue heart valves INR 2.0 to 3.0 Mechanical prosthetic valves INR 2.5 to 3.5 Prevention of recurrent NH INR 2.5 to 3.5 us Ricky Layne MD LAB BLOOD ORDERABLES Marichuy l Result Performing Organization Address City/[facility]/ZIP Co de Phone Number [facility] [address] [place] [address] * (ABNORMAL) CBC w/o diff (04/06/2025 10:02 PM EDT) WBC Count 9.47 3.70 - 10.30 10*3/uL LAB HEMATOLOGY METHOD 04/06/2025 10:57 PM EDT [facility] RBC Count 3.12(L) 4.60 - 6.10 10*6/uL LAB HEMATOLOGY METHOD 04/06/2025 10:57 PM EDT [facility] HGB 11.9(L) 13.7 - 17.5 g/dL LAB HEMATOLOGY METHOD 04/06/2025 10:57 PM EDT [facility] HCT 32.2(L) 40.0 - 51.0 % LAB HEMATOLOGY METHOD 04/06/2025 10:57 PM EDT [facility] Platelet Count 130(L) 155 - 369 10*3/uL LAB HEMATOLOGY METHOD 04/06/2025 10:57 PM EDT [facility] MCV 103(H) 79 - 98 fL LAB HEMATOLOGY METHOD 04/06/2025 10:57 PM EDT [facility] MCH 38.1(H) 26.0 - 32.0 pg LAB HEMATOLOGY METHOD 04/06/2025 10:57 PM EDT [facility] MCHC 37.0(H) 30.7 - 35.5 g/dL LAB HEMATOLOGY METHOD 04/06/2025 10:57 PM EDT [facility] RDW 14.1 11.5 - 14.5 % LAB HEMATOLOGY METHOD 04/06/2025 10:57 PM EDT [facility] MPV 10.5 8.8 - 12.5 fL LAB HEMATOLOGY METHOD 04/06/2025 10:57 PM EDT [facility] nRBC 0.0 <=0.0 per 100 WBCs LAB HEMATOLOGY METHOD 04/06/2025 10:57 PM EDT [facility] Blood Venous blood specimen / Unknown Venipuncture / Unknown 04/06/2025 10:02 PM EDT 04/06/2025 10:11 PM EDT us Ricky Layne MD LAB BLOOD ORDERABLES Marichuy l Result [facility] [address] [place] [id number] * (ABNORMAL) CMP (04/06/2025 10:02 PM EDT) Glucose, Plasma 118(H) 74 - 99 mg/dL 04/06/2025 10:38 PM EDT [facility] BUN, Plasma 6(L) 8 - 23 mg/dL 04/06/2025 10:38 PM EDT [facility] Creatinine, Plasma 0.40(L) 0.70 - 1.20 mg/dL 04/06/2025 10:38 PM EDT [facility] BUN/Creatinine Ratio 15 04/06/2025 10:38 PM EDT [facility] Sodium, Plasma 129(L) 136 - 145 mmol/L 04/06/2025 10:38 PM EDT [facility] Potassium, Plasma 4.2 3.6 - 4.9 mmol/L 04/06/2025 10:38 PM EDT [facility] Chloride, Plasma 94(L) 97 - 107 mmol/L 04/06/2025 10:38 PM EDT [facility] CO2, Plasma 18(L) 22 - 29 mmol/L 04/06/2025 10:38 PM EDT [facility] Anion Gap 17(H) 6 - 16 mmol/L 04/06/2025 10:38 PM EDT [facility] Total Calcium, Plasma 8.2(L) 8.9 - 10.2 mg/dL 04/06/2025 10:38 PM EDT [facility] Total Protein 5.8(L) 6.3 - 7.9 g/dL 04/06/2025 10:38 PM EDT [facility] Albumin, Plasma 3.2(L) 3.5 - 5.2 g/dL 04/06/2025 10:38 PM EDT [facility] AST, Plasma 44 10 - 50 U/L 04/06/2025 10:38 PM EDT [facility] ALT, Plasma 18 10 - 50 U/L 04/06/2025 10:38 PM EDT [facility] Alkaline Phosphatase, Plasma 87 40 - 115 U/L 04/06/2025 10:38 PM EDT [facility] Total Bilirubin, Plasma 2.1(H) 0.2 - 1.1 mg/dL 04/06/2025 10:38 PM EDT [facility] eGFRcr 116.6 mL/min/1.7 3m*2 04/06/2025 10:38 PM EDT [facility] Comment:Reported eGFRcr in m L/min/1.73m2 is based the CKD-EPI 2020 equation that does not use a race coefficient. Blood Venous blood specimen / Unknown Venipuncture / Unknown 04/06/2025 10:02 PM EDT 04/06/2025 10:11 PM EDT Ricky Layne MD LAB BLOOD ORDERABLES Marichuy sherman Result [facility] [address] [place] [address] * XR Pelvis 1 or 2 Views (04/06/2025 10:00 PM EDT) Anatomical Region Laterality Modality Body, Pelvis Digital Radiogra phy Impressions 04/06/2025 10:33 PM EDT Mild ill-defined bibasilar opacities, atelectasis and/or infiltrate. Redemonstration comminuted minimally displaced left inferior pubic ramus fracture. Redemonstration comminuted minimally displaced left superior pubic ramus fracture with extension with left pubic bone. No significant pubic symphyseal widening. Evaluation of the sacrum and portions of the pelvis limited secondary to excrete contrast within the urinary bladder. Previously seen fracture left iliac bone adjacent to the left SI joint better visualized on prior CT. SI joints are grossly symmetric within the limitations of exam. CRITICAL RESULT: No. COMMUNICATION: Per this written report. Drafted by Mahin Delgado MD on 04/06/2025 10:28 PM Final report signed by Mahin Delgado MD on 04/06/2025 10:33 PM Narrative 04/06/2025 10:33 PM EDT CLINICAL INDICATION: Trauma Alert TECHNIQUE: XR CHEST 1 VIEW, XR PELVIS 1 OR 2 VIEWS COMPARISON: Outside pelvic radiographs 04/06/2025. Outside chest radiograph 04/06/2025. Outside CT pelvis 04/06/2025. FINDINGS: Mild ill-defined bibasilar opacities, atelectasis and/or infiltrate. No pneumothorax. Cardiomediastinal silhouette is grossly within normal limits. No acute osseous abnormality. Excreted contrast present within the urinary bladder. Redemonstration comminuted minimally displaced left inferior pubic ramus fracture. Redemonstration comminuted minimally displaced left superior pubic ramus fracture with extension with left pubic bone. No significant pubic symphyseal widening. Evaluation of the sacrum and portions of the pelvis limited secondary to excrete contrast within the urinary bladder. Previously seen fracture left iliac bone adjacent to the left SI joint better visualized on prior CT. SI joints are grossly symmetric within the limitations of exam. Procedure Note Mahin Delgado MD - 04/06/2025 CLINICAL INDICATION: Trauma Alert TECHNIQUE: XR CHEST 1 VIEW, XR PELVIS 1 OR 2 VIEWS COMPARISON: Outside pelvic radiographs 04/06/2025. Outside chest radiograph 04/06/2025.Outside CT pelvis 04/06/2025. FINDINGS: Mild ill-defined bibasilar opacities, atelectasis and/or infiltrate. Nopneumothorax. Cardiomediastinal silhouette is grossly within normallimits. No acute osseous abnormality. Excreted contrast present within the urinary bladder. Redemonstration comminuted minimally displaced left inferior pubic ramusfracture. Redemonstration comminuted minimally displaced left superiorpubic ramus fracture with extension with left pubic bone. No significantpubic symphyseal widening. Evaluation of the sacrum and portions of thepelvis limited secondary to excrete contrast within the urinary bladder.Previously seen fracture left iliac bone adjacent to the left SI jointbetter visualized on prior CT. SI joints are grossly symmetric within thelimitations of exam. IMPRESSION: Mild ill-defined bibasilar opacities, atelectasis and/or infiltrate. Redemonstration comminuted minimally displaced left inferior pubic ramusfracture. Redemonstration comminuted minimally displaced left superiorpubic ramus fracture with extension with left pubic bone. No significantpubic symphyseal widening. Evaluation of the sacrum and portions of thepelvis limited secondary to excrete contrast within the urinary bladder.Previously seen fracture left iliac bone adjacent to the left SI jointbetter visualized on prior CT. SI joints are grossly symmetric within thelimitations of exam. CRITICAL RESULT: No. COMMUNICATION: Per this written report. Drafted by Mahin Delgado MD on 04/06/2025 10:28 PM Final report signed by Mahin Delgado MD on 04/06/2025 10:33 PM Ricky Layne MD IMG XR PROCEDURES Final R esult * XR Chest 1 View (04/06/2025 10:00 PM EDT) Anatomical Region Laterality Modality Chest Digital Radiogra phy Impressions 04/06/2025 10:33 PM EDT Mild ill-defined bibasilar opacities, atelectasis and/or infiltrate. Redemonstration comminuted minimally displaced left inferior pubic ramus fracture. Redemonstration comminuted minimally displaced left superior pubic ramus fracture with extension with left pubic bone. No significant pubic symphyseal widening. Evaluation of the sacrum and portions of the pelvis limited secondary to excrete contrast within the urinary bladder. Previously seen fracture left iliac bone adjacent to the left SI joint better visualized on prior CT. SI joints are grossly symmetric within the limitations of exam. CRITICAL RESULT: No. COMMUNICATION: Per this written report. Drafted by Mahin Delgado MD on 04/06/2025 10:28 PM Final report signed by Mahin Delgado MD on 04/06/2025 10:33 PM Narrative 04/06/2025 10:33 PM EDT CLINICAL INDICATION: Trauma Alert TECHNIQUE: XR CHEST 1 VIEW, XR PELVIS 1 OR 2 VIEWS COMPARISON: Outside pelvic radiographs 04/06/2025. Outside chest radiograph 04/06/2025. Outside CT pelvis 04/06/2025. FINDINGS: Mild ill-defined bibasilar opacities, atelectasis and/or infiltrate. No pneumothorax. Cardiomediastinal silhouette is grossly within normal limits. No acute osseous abnormality. Excreted contrast present within the urinary bladder. Redemonstration comminuted minimally displaced left inferior pubic ramus fracture. Redemonstration comminuted minimally displaced left superior pubic ramus fracture with extension with left pubic bone. No significant pubic symphyseal widening. Evaluation of the sacrum and portions of the pelvis limited secondary to excrete contrast within the urinary bladder. Previously seen fracture left iliac bone adjacent to the left SI joint better visualized on prior CT. SI joints are grossly symmetric within the limitations of exam. Procedure Note Mahin Delgado MD - 04/06/2025 CLINICAL INDICATION: Trauma Alert TECHNIQUE: XR CHEST 1 VIEW, XR PELVIS 1 OR 2 VIEWS COMPARISON: Outside pelvic radiographs 04/06/2025. Outside chest radiograph 04/06/2025.Outside CT pelvis 04/06/2025. FINDINGS: Mild ill-defined bibasilar opacities, atelectasis and/or infiltrate. Nopneumothorax. Cardiomediastinal silhouette is grossly within normallimits. No acute osseous abnormality. Excreted contrast present within the urinary bladder. Redemonstration comminuted minimally displaced left inferior pubic ramusfracture. Redemonstration comminuted minimally displaced left superiorpubic ramus fracture with extension with left pubic bone. No significantpubic symphyseal widening. Evaluation of the sacrum and portions of thepelvis limited secondary to excrete contrast within the urinary bladder.Previously seen fracture left iliac bone adjacent to the left SI jointbetter visualized on prior CT. SI joints are grossly symmetric within thelimitations of exam. IMPRESSION: Mild ill-defined bibasilar opacities, atelectasis and/or infiltrate. Redemonstration comminuted minimally displaced left inferior pubic ramusfracture. Redemonstration comminuted minimally displaced left superiorpubic ramus fracture with extension with left pubic bone. No significantpubic symphyseal widening. Evaluation of the sacrum and portions of thepelvis limited secondary to excrete contrast within the urinary bladder.Previously seen fracture left iliac bone adjacent to the left SI jointbetter visualized on prior CT. SI joints are grossly symmetric within thelimitations of exam. CRITICAL RESULT: No. COMMUNICATION: Per this written report. Drafted by Mahin Delgado MD on 04/06/2025 10:28 PM Final report signed by Mahin Delgado MD on 04/06/2025 10:33 PM Ricky Layne MD IMG XR PROCEDURES Final R esult documented in this encounter Visit Diagnoses Diagnosis Fall- Primary Unspecified fall Multiple closed fractures of pelvis without disruption of pelvic ring, initial encounter ([facility] [place]) Multiple closed fractures of pelvis without disruption of pelvic ring, initial encounter ([facility] [place]) Alcohol use disorder COPD (chronic obstructive pulmonary disease) ([facility] [place]) Chronic airway obstruction, not elsewhere classified Community acquired pneumonia Pneumonia, organism unspecified Occipital cerebral infarction ([facility] [place]) Unspecified cerebral artery occlusion with cerebral infarction ABLA (acute blood loss anemia) Thrombocytopenia ([facility] [place]) Unspecified thrombocytopenia Hyperglycemia Other abnormal glucose Hyponatremia Hyposmolality and/or hyponatremia Hypocalcemia Protein malnutrition ([facility] [place]) [place] Total bilirubin, elevated High serum lactate EKG, abnormal Degenerative arthritis of lumbar spine Lumbosacral spondylosis without myelopathy Serum phosphorus decreased Disorders of phosphorus metabolism Hypomagnesemia Disorders of magnesium metabolism Smoker Tobacco use disorder documented in this encounter Admitting Diagnoses Diagnosis Multiple closed fractures of pelvis without disruption of pelvic ring, initial encounter ([facility] [place]) documented in this encounter Administered Medications Inactive Administered Medications - up to 3 most recent administrations Medication Order MAR Action Action Date Dose Rate Site acetaminophen (Tylenol) tablet 650 mg 650 mg, Oral, Every 6 hours scheduled, First dose on Thu04/07/25 at 0050, Until Discontinued, Routine Given 04/13/2025 12:14 PM EDT 650 mg Given 04/13/2025 5:43 AM EDT 650 mg Given 04/12/2025 11:41 PM EDT 650 mg azithromycin (Zithromax) 500 mg in sodium chloride 0.9% 250 mL IVPB (vial adapter required) 500 mg, Intravenous, Every 24 hours, 2 doses, First dose on Thu04/07/25 at 2100, Last dose on Thu04/08/25 at 2100, Routine New Bag 04/08/2025 9:26 PM EDT 500 mg 275 mL/ hr New Bag 04/07/2025 9:08 PM EDT 500 mg 275 mL/hr cefTRIAXone (Rocephin) 2 g in sodium chloride 0.9% 100 mL IVPB (vial adapter required) 2 g, Intravenous, Every 24 hours, 4 doses, First dose on Thu04/07/25 at 2100, Last dose on Thu04/10/25 at 2100, Routine New Bag 04/10/2025 8:10 PM EDT 2 g 220 mL/hr New Bag 04/09/2025 8:48 PM EDT 2 g 220 mL/hr New Bag 04/08/2025 9:27 PM EDT 2 g 220 mL/hr dextrose 5 % and lactated Ringer's infusion 75 mL/hr, Intravenous, Continuous, Starting on Thu04/07/25 at 0050, Until Thu04/07/25 at 1038, Routine New Bag 04/07/2025 1:18 AM EDT 75 mL/hr 75 mL/hr enoxaparin (Lovenox) syringe 30 mg 30 mg, Subcutaneous, 2 times daily, First dose on Thu04/07/25 at 1100, Until Discontinued, Routine Given 04/13/2025 8:03 AM EDT 30 mg Right Lower Abdomen Given 04/12/2025 9:30 PM EDT 30 mg Ri ght Upper Abdomen Given 04/12/2025 8:59 AM EDT 30 mg Le ft Lower Abdomen folic acid (Folvite) tablet 1 mg 1 mg, Oral, Daily, First dose on Thu04/06/25 at 2200, Until Discontinued, Routine Given 04/13/2025 8:03 AM EDT 1 mg Given 04/12/2025 8:59 AM EDT 1 mg Given 04/11/2025 8:48 AM EDT 1 mg ipratropium-albuterol (Duo-Neb) 0.5-2.5 mg/3 mL nebulizer solution - Pyxis Override Pull 1 dose, Starting on Thu04/07/25 at 0739, Until Thu04/07/25 at 0743 ipratropium-albuterol (Duo-Neb) 0.5-2.5 mg/3 mL nebulizer solution 3 mL 3 mL, Nebulization, Every 6 hours RT, First dose on Thu04/07/25 at 0900, Until Discontinued, Routine Given 04/13/2025 8:35 AM EDT 3 mL Given 04/13/2025 3:15 AM EDT 3 mL Given 04/12/2025 9:17 PM EDT 3 mL ipratropium-albuterol (Duo-Neb) 0.5-2.5 mg/3 mL nebulizer solution 3 mL 3 mL, Nebulization, Every 6 hours RT, First dose (after last modification) on Carolann 04/13/25 at 1400, Until Discontinued, Routine Given 04/13/2025 1:42 PM EDT 3 mL lactated Ringer's bolus 1,000 mL 1,000 mL, Intravenous, Once, 1 dose, On Carolann 04/06/25 at 2200, Administer over 2 Hours, Routine New Bag 04/06/2025 10:34 PM EDT 1,000 m L 500 mL/hr lactated Ringer's infusion 75 mL/hr, Intravenous, Continuous, Starting on Carolann 04/06/25 at 2200, Until Thu04/07/25 at 1038, Routine New Bag 04/07/2025 12:39 AM EDT 75 mL/hr 75 mL/hr magnesium sulfate IVPB 2 g 2 g, Intravenous, Once, 1 dose, On Thu04/07/25 at 0740, Routine New Bag 04/07/2025 8:28 AM EDT 2 g 25 mL/hr magnesium sulfate IVPB 2 g 2 g, Intravenous, Once, 1 dose, On 04/08/25 at 0950, Routine New Bag 04/08/2025 11:11 AM EDT 2 g 25 mL/hr magnesium sulfate IVPB 2 g 2 g, Intravenous, Once, 1 dose, On Thu04/09/25 at 0755, at 25 mL/hr, Administer over 2 Hours, Routine New Bag 04/09/2025 9:04 AM EDT 2 g 25 mL/hr magnesium sulfate IVPB 4 g 4 g, Intravenous, Once, 1 dose, On Thu04/11/25 at 0745, Routine New Bag 04/11/2025 8:46 AM EDT 4 g 25 mL/hr magnesium sulfate IVPB 4 g 4 g, Intravenous, Once, 1 dose, On Thu04/12/25 at 0745, Routine New Bag 04/12/2025 7:42 AM EDT 4 g 25 mL/hr melatonin tablet 6 mg 6 mg, Oral, Nightly, First dose on Thu04/09/25 at 2100, Until Discontinued, Routine Given 04/12/2025 9:30 PM EDT 6 mg Given 04/11/2025 8:47 PM EDT 6 mg Given 04/10/2025 8:10 PM EDT 6 mg methocarbamol (Robaxin) tablet 500 mg 500 mg, Oral, Every 8 hours, First dose on Thu04/07/25 at 0050, Until Discontinued, Routine Given 04/13/2025 7:59 AM EDT 500 mg Given 04/12/2025 11:42 PM EDT 500 mg Given 04/12/2025 4:30 PM EDT 500 mg mometasone-formoterol (Dulera 100) 100-5 MCG/ACT inhaler 2 puff 2 puff, Inhalation, 2 times daily, First dose on Thu04/07/25 at 1045, Until Discontinued, Routine Given 04/13/2025 8:02 AM EDT 2 puffs Given 04/12/2025 9:31 PM EDT 2 puffs Given 04/12/2025 9:00 AM EDT 2 puffs nicotine (Nicoderm CQ) 21 MG/24HR patch 1 patch 1 patch, Transdermal, Daily, First dose on Thu04/07/25 at 0910, Until Discontinued, Routine Medication Applied 04/13/2025 7:59 AM EDT 1 patch Right Arm Medication Applied 04/12/2025 8:59 AM EDT 1 patch Left Arm Medication Applied 04/11/2025 8:48 AM EDT 1 patch Left Arm ondansetron (Zofran) injection 4 mg 4 mg, Intravenous, Every 6 hours PRN, Starting on Thu04/07/25 at 0045, Until Thu04/13/25 at 1620, Routine, vomiting, nausea ondansetron ODT (Zofran-ODT) disintegrating tablet 4 mg 4 mg, Oral, Every 6 hours PRN, Starting on Thu04/07/25 at 0045, Until Thu04/13/25 at 1620, Routine, nausea, vomiting oxyCODONE (Roxicodone) immediate release tablet 2.5 mg 2.5 mg, Oral, Every 6 hours PRN, Starting on Thu04/07/25 at 0046, Until Thu04/10/25 at 1225, Routine, moderate pain Given 04/08/2025 4:03 PM EDT 2.5 mg oxyCODONE (Roxicodone) immediate release tablet 5 mg 5 mg, Oral, Every 6 hours PRN, Starting on Thu04/07/25 at 0046, Until Thu04/10/25 at 1225, Routine, severe pain Given 04/07/2025 6:24 PM EDT 5 mg Given 04/07/2025 7:14 AM EDT 5 mg PHENobarbital (Luminal) 754 mg in sodium chloride 0.9 % 100 mL IVPB 754 mg (rounded from 742 mg = 10 mg/kg 74.2 kg), Intravenous, Once, 1 dose, On Thu04/07/25 at 1040, Administer over 15 Minutes, Routine New Bag 04/07/2025 11:54 AM EDT 754 mg 463.2 mL/hr phosphorus (K Phos Neutral) tablet 1 tablet 1 tablet (250 mg), Oral, Once, 1 dose, On Thu04/07/25 at 0740, Routine Given 04/07/2025 8:30 AM EDT 1 tablet phosphorus (K Phos Neutral) tablet 1 tablet 1 tablet, Oral, Every 8 hours, 3 doses, First dose on 04/08/25 at 0950, Last dose on 04/09/25 at 0150, Routine Given 04/09/2025 1:07 AM EDT 1 tablet Given 04/08/2025 5:33 PM EDT 1 tablet Given 04/08/2025 11:30 AM EDT 1 tablet phosphorus (K Phos Neutral) tablet 1 tablet 1 tablet, Oral, Once, 1 dose, On Thu04/09/25 at 0755, Routine Given 04/09/2025 2:16 PM EDT 1 tablet polyethylene glycol (Miralax) packet 17 g 17 g, Oral, Daily, First dose on 04/09/25 at 1305, Until Discontinued, Routine Given 04/12/2025 8:59 AM EDT 17 g Given 04/11/2025 8:47 AM EDT 17 g Given 04/09/2025 2:16 PM EDT 17 g senna-docusate (Elenita-Colace) 8.6-50 MG per tablet 1 tablet 1 tablet, Oral, 2 times daily, First dose on 04/09/25 at 1305, Until Discontinued, Routine Given 04/12/2025 8:59 AM EDT 1 tablet Given 04/11/2025 8:47 PM EDT 1 tablet Given 04/11/2025 8:48 AM EDT 1 tablet sodium chloride 0.9 % flush 10 mL 10 mL, Intravenous, Every 12 hours, First dose on Thu04/07/25 at 0050, Until Discontinued, Routine Given 04/13/2025 8:03 AM EDT 10 mL Given 04/12/2025 9:31 PM EDT 10 mL Given 04/12/2025 8:59 AM EDT 10 mL sodium chloride 0.9 % flush 10 mL 10 mL, Intravenous, As needed, Starting on Thu04/07/25 at 0041, Until Thu04/13/25 at 1620, Routine, line care thiamine (Vitamin B-1) tablet 100 mg 100 mg, Oral, Daily, First dose on Thu04/09/25 at 0900, Until Discontinued, Routine Given 04/13/2025 8:03 AM EDT 100 mg Given 04/12/2025 8:59 AM EDT 100 mg Given 04/11/2025 8:48 AM EDT 100 mg thiamine (Vitamin B1) injection 200 mg 200 mg, Intravenous, Every 8 hours, 6 doses, First dose on Thu04/06/25 at 2200, Last dose on Thu04/08/25 at 1400, STAT Given 04/08/2025 1:29 PM EDT 200 mg Given 04/08/2025 5:16 AM EDT 200 mg Given 04/07/2025 9:08 PM EDT 200 mg documented in this encounter Active and Recently Administered Medications Times are shown in EDT. Scheduled Medication Order 04/11/2025 04/12/2025 04/13/2025 acetaminophen (Tylenol) tablet 650 mg 650 mg, Oral, Every 6 hours scheduled, First dose on Thu04/07/25 at 0050, Until Discontinued, Routine 0601 (Given - Provider: Eleonora Geller RN)1328 (Not Given - Provider: Bria Nogueira RN - Reason: Hold for condition: must add comment - Comment: .)1832 (Given - Provider: Bria Nogueira RN)2339 (Given - Provider: Eleonora Geller RN) 0518 (Given - Provider: Eleonora Geller RN)1149 (Given - Provider: Bria Nogueira RN)1840 (Given - Provider: Bria Nogueira RN)2341 (Given - Provider: Eleonora Geller RN) 0543 (Given - Provider: Eleonora Geller, MISSAEL)1214 (Given - Provider: Elsie Bailey, MISSAEL) enoxaparin (Lovenox) syringe 30 mg 30 mg, Subcutaneous, 2 times daily, First dose on Thu04/07/25 at 1100, Until Discontinued, Routine 0847 (Given - Provider: Bria Nogueira, RN)2046 (Given - Provider: Eleonora Geller, RN) 0859 (Given - Provider: Bria Nogueira RN)2130 (Given - Provider: Eleonora Geller, MISSAEL) 0803 (Given - Provider: Elsie Bailey, MISSAEL) folic acid (Folvite) tablet 1 mg 1 mg, Oral, Daily, First dose on Thu04/06/25 at 2200, Until Discontinued, Routine 0848 (Given - Provider: Bria Nogueira RN) 0859 (Given - Provider: Bria Nogueira RN) 0803 (Given - Provider: Elsie Bailey, MISSAEL) ipratropium-albuterol (Duo-Neb) 0.5-2.5 mg/3 mL nebulizer solution 3 mL (CANCELED) 3 mL, Nebulization, Every 6 hours RT, First dose on Thu04/07/25 at 0900, Until Discontinued, Routine 0308 (Given - Provider: Ewelina Weeks)0822 (Given - Provider: Zahraa Negron)1401 (Given - Provider: Zahraa Negron)2001 (Given - Provider: Jay Donis) 0308 (Given - Provider: Jay Donis)0925 (Given - Provider: Karo Renteria)1419 (Given - Provider: Karo Renteria)2117 (Given - Provider: Addy Waller) 0315 (Given - Provider: Addy Waller)0835 (Given - Provider: Miguel A Simon) ipratropium-albuterol (Duo-Neb) 0.5-2.5 mg/3 mL nebulizer solution 3 mL 3 mL, Nebulization, Every 6 hours RT, First dose (after last modification) on Thu04/13/25 at 1400, Until Discontinued, Routine 1342 (Given - Provider: Miguel A Simon) magnesium sulfate IVPB 4 g (COMPLETED) 4 g, Intravenous, Once, 1 dose, On Thu04/11/25 at 0745, Routine 0846 (New Bag - Provider: Bria Nogueira RN) magnesium sulfate IVPB 4 g (COMPLETED) 4 g, Intravenous, Once, 1 dose, On Thu04/12/25 at 0745, Routine 0742 (New Bag - Provider: Bria Nogueira RN) melatonin tablet 6 mg 6 mg, Oral, Nightly, First dose on Thu04/09/25 at 2100, Until Discontinued, Routine 204 (Given - Provider: Eleonora Geller RN) 2130 (Given - Provider: Eleonora Geller RN) methocarbamol (Robaxin) tablet 500 mg 500 mg, Oral, Every 8 hours, First dose on Thu04/07/25 at 0050, Until Discontinued, Routine 0848 (Given - Provider: Bria Nogueira RN)1615 (Given - Provider: Bria Nogueira RN)2339 (Given - Provider: Eleonora Geller, MISSAEL) 0859 (Given - Provider: Bria Nogueira RN)1630 (Given - Provider: Bria Nogueira RN)2342 (Given - Provider: Eleonora Geller RN) 0759 (Given - Provider: Elsie Bailey, MISSAEL) mometasone-formoterol (Dulera 100) 100-5 MCG/ACT inhaler 2 puff 2 puff, Inhalation, 2 times daily, First dose on Thu04/07/25 at 1045, Until Discontinued, Routine 0847 (Given - Provider: Bria Nogueira RN)2046 (Given - Provider: Eleonora Geller RN) 0900 (Given - Provider: Brai Nogueira RN)2131 (Given - Provider: Eleonora Geller RN) 0802 (Given - Provider: Elsie Bailey, MISSAEL) nicotine (Nicoderm CQ) 21 MG/24HR patch 1 patch 1 patch, Transdermal, Daily, First dose on Thu04/07/25 at 0910, Until Discontinued, Routine 0848 (Medication Applied - Provider: Bria Nogueira RN) 0859 (Medication Applied - Provider: Bria Nogueira RN) 0759 (Medication Applied - Provider: Elsie Bailey, MISSAEL) polyethylene glycol (Miralax) packet 17 g 17 g, Oral, Daily, First dose on 04/09/25 at 1305, Until Discontinued, Routine 0847 (Given - Provider: Bria Nogueira RN) 0859 (Given - Provider: Bria Nogueira RN) 0805 (Not Given - Provider: Elsie Bailey RN - Reason: Patient/family refused) senna-docusate (Elenita-Colace) 8.6-50 MG per tablet 1 tablet 1 tablet, Oral, 2 times daily, First dose on Thu04/09/25 at 1305, Until Discontinued, Routine 0848 (Given - Provider: Bria Nogueira RN)2046 (Given - Provider: Eleonora Geller, MISSAEL) 0859 (Given - Provider: Bria Nogueira RN)2129 (Not Given - Provider: Eleonora Geller RN - Reason: Patient/family refused) 0805 (Not Given - Provider: Elsie Bailey RN - Reason: Patient/family refused) sodium chloride 0.9 % flush 10 mL(Linked Group 1) 10 mL, Intravenous, Every 12 hours, First dose on Thu04/07/25 at 0050, Until Discontinued, Routine 0848 (Given - Provider: Bria Nogueira RN)2046 (Given - Provider: Eleonora Geller RN) 0859 (Given - Provider: Bria Nogueira RN)2130 (Given - Provider: Eleonora Geller RN) 0803 (Given - Provider: Elsie Bailey, MISSAEL) thiamine (Vitamin B-1) tablet 100 mg 100 mg, Oral, Daily, First dose on Thu04/09/25 at 0900, Until Discontinued, Routine 0848 (Given - Provider: Bria Nogueira RN) 0859 (Given - Provider: Bria Nogueira RN) 0803 (Given - Provider: Elsie Bailey, MISSAEL) PRN Medication Order 04/11/2025 04/12/2025 04/13/2025 ondansetron (Zofran) injection 4 mg(Linked Group 2) 4 mg, Intravenous, Every 6 hours PRN, Starting on Thu04/07/25 at 0045, Until Carolann 04/13/25 at 1620, Routine, vomiting, nausea ondansetron ODT (Zofran-ODT) disintegrating tablet 4 mg(Linked Group 2) 4 mg, Oral, Every 6 hours PRN, Starting on Thu04/07/25 at 0045, Until Thu04/13/25 at 1620, Routine, nausea, vomiting sodium chloride 0.9 % flush 10 mL(Linked Group 1) 10 mL, Intravenous, As needed, Starting on Thu04/07/25 at 0041, Until Thu04/13/25 at 1620, Routine, line care Linked Groups Order Group 1: Insert peripheral IV (CANCELED) Once, On Thu04/07/25 at 0042, For 1 occurrence And Saline lock IV (CANCELED) Once, On Thu04/07/25 at 0042, For 1 occurrence And sodium chloride 0.9 % flush 10 mLJump to med 10 mL, Intravenous, Every 12 hours, First dose on Thu04/07/25 at 0050, Until Discontinued, Routine And sodium chloride 0.9 % flush 10 mLJump to med 10 mL, Intravenous, As needed, Starting on Thu04/07/25 at 0041, Until Thu04/13/25 at 1620, Routine, line care Group 2: ondansetron ODT (Zofran-ODT) disintegrating tablet 4 mgJump to med 4 mg, Oral, Every 6 hours PRN, Starting on Thu04/07/25 at 0045, Until Thu04/13/25 at 1620, Routine, nausea, vomiting Or ondansetron (Zofran) injection 4 mgJump to med 4 mg, Intravenous, Every 6 hours PRN, Starting on Thu04/07/25 at 0045, Until Thu04/13/25 at 1620, Routine, vomiting, nausea Or ondansetron (Zofran) 4 MG/5ML solution 4 mg (CANCELED) 4 mg, Oral, Every 6 hours PRN, Starting on Thu04/07/25 at 0045, Until Thu04/11/25 at 0855, Routine, nausea, vomiting documented in this encounter Additional Health Concerns Assessment Noted Time A Body Mass Index follow-up plan has been documented for the patient 04/13/2025 1:08 PM EDT documented as of this encounter Care Teams Combine Operator Relationship Specialty Start Date End Date María Tirado APRN [address] [place] [address] PCP - General 04/06/25 documented as of this encounter
--- OUTSIDE RECORDS SUMMARY | 2025-05-03 11:10 | XMS_ITS | Encounter Summary ---
Author Organization Healthcare Address [address] [place] [address] Care Team Providers Care Wildlife Rehabilitator Name Role Phone María Tirado APRN Primary Care Provider +1- [phone] Kimberlee Naranjo LPN Unavailable Unavailabl e Encounter Details Date Type Department Care Team (Latest Contact Info) Description 05/03/2025 11:10 AM EDT - 05/03/2025 11:59 PM EDT [facility] [address], [address] [place] [address] Pain in pelvis Discharge Disposition: Home or Self Care Social History Tobacco Use Types Packs/Day Years Used Date Smoking Tobacco: Every Day Cigarettes Alcohol Use Standard Drinks/Week Comments Yes 40 [...] any time in the past 12 m [facility], were you homeless or living in a fci (including now)? No 04/07/2025 CAGE ASSESSMENT Answer [...] drink first t cherise in the morning (EYE-PROFESSIONAL HEALTHCARE REPRESENTATIVE) to steady your nerves or to get rid of a hangover? 1 04/08/2025 CAGE Questionnaire Score 1 025 Utilities Answer Date Recorded In the past 12 months has th e [employer], gas, oil, or water company threatened to shut off services in your home? No 04/07/2025 Sex and Gender Information Value Date Recorded Sex Assigned at Male 04/06/2025 9:49 PM EDT Legal Sex Male 6:01 PM EDT Gender Identity Not on file Sexual Orientation Not on file documented as of this encounter Medications at Time of Discharge acetaminophen (Tylenol) 325 MG tablet Take 2 tablets by mouth every 6 hours. Under [place] law, monthly prescriptions (30 days) can be [...] tablet Take 1 tablet by mouth daily. enoxaparin (Lovenox) 30 MG/0.3ML solution prefilled syringe Inject 0.3 mL under the skin 2 times a day for 21 days. 05/04/20 documented as of this encounter Plan of Treatment Upcoming Encounters Date Type Department Care Team (Late st Contact Info) Description 06/28/2025 8:45 AM EDT Appointment [facility] Radiology [address], [address] [place] [address] 06/28/2025 9:30 AM EDT Office Visit [facility] Orthopaedic Surgery & Sports Medicine [address], [address] [place] [address] Marie Ruffin PA [address] [place] [address] documented as of this encounter Procedures Procedure Name Priority Date/Time Associated Diagnosis Comments XR PELVIS 3+ VIEWS Routine 05/03/2025 12 :01 PM EDT Pain in pelvis documented in this encounter Results * XR Pelvis 3+ Views (05/03/2025 12:01 PM EDT) Anatomical Region Laterality Modality Body, Pelvis Digital Radiogra phy Impressions 05/03/2025 12:04 PM EDT Similar alignment of pelvic fractures. No acute bony findings. CRITICAL RESULT: No. COMMUNICATION: Per this written report. Drafted by Royer Noble MD on 05/03/2025 12:02 PM Final report signed by Royer Noble MD on 05/03/2025 12:04 PM Narrative 05/03/2025 12:04 PM EDT CLINICAL INDICATION: pain TECHNIQUE: XR PELVIS 3+ VIEWS COMPARISON: 05/09/2025 FINDINGS: Overlying stool, soft tissue, and bowel gas obscures bone detail. Left obturator ring fracture is redemonstrated. Alignment is similar to prior. Pubic symphysis appears similar to prior. Bilateral sacral deformity likely related to healing fractures. Procedure Note Royer Noble MD - 05/03/2025 CLINICAL INDICATION: pain TECHNIQUE: XR PELVIS 3+ VIEWS COMPARISON: 05/09/2025 FINDINGS: Overlying stool, soft tissue, and bowel gas obscures bone detail. Leftobturator ring fracture is redemonstrated. Alignment is similar to prior.Pubic symphysis appears similar to prior. Bilateral sacral deformitylikely related to healing fractures. IMPRESSION: Similar alignment of pelvic fractures. No acute bony findings. CRITICAL RESULT: No. COMMUNICATION: Per this written report. Drafted by Royer Noble MD on 05/03/2025 12:02 PM Final report signed by Royer Noble MD on 05/03/2025 12:04 PM Marie MCCLURE IMVipul XR PROCEDURES Final Resul t documented in this encounter Visit Diagnoses Diagnosis Pain in pelvis documented in this encounter Additional Health Concerns Assessment Noted Time A fall risk assessment has been complete d for the patient 05/03/2025 12:13 PM EDT A Body Mass Index follow-up plan has been documented for the patient 05/03/2025 12:40 PM EDT documented as of this encounter Care Teams Wildlife Rehabilitator Relationship Specialty Start Date End Date María Tirado APRN [address] [place] [address] PCP - General 04/06/25 Kimberlee Naranjo LPN [facility] TCM Nurse 04/24/25 05/24/25 documented as of this encounter
--- OUTSIDE RECORDS SUMMARY | 2025-05-03 11:50 | XMS_ITS | Encounter Summary ---
Author Organization Healthcare Address [address] [place] [address] Care Team Providers Care Director Of Early Childhood Education Name Role Phone María Tirado APRN Primary Care Provider +1- [phone] Kimberlee Naranjo LPN Unavailable Unavailabl e Reason for Referral * Consultation (Routine) - Pending Review Specialty Diagnoses / Procedures Referred By Juan cowan Referred To Contact Physical Therapy Diagnoses Pain in pelvis Marie Ruffin PA [address] [place] [address] Phone: tel: fax: Referral ID Status Reason Start Date Expiration Date Visits Requested Visits Authorized [id number] Pending Review Consult and Treat 05/03/2025 11/02/2026 1 1 Reason for Visit * Reason Comments Consult Fracture Encounter Details Date Type Department Care Team (Late st Contact Info) Description 05/03/2025 11:50 AM EDT [facility] [address], [address] [place] [address] Marie Ruffin PA [address] [place] [address] Pain in pelvis (Primary Dx) Social History Tobacco Use Types Packs/Day Years [...] any time in the past 12 m [facility], were you homeless or living in a [facility] (including now)? No 04/07/2025 CAGE ASSESSMENT Answer [...] drink first t cherise in the morning (EYE-VACUUM DRUM DRIER OPERATOR) to steady your nerves or to get rid of a hangover? 1 04/08/2025 CAGE Questionnaire Score 1 025 Utilities Answer Date Recorded In the past 12 months has e electric, gas, oil, or water company [...] Sign Reading Time Taken Comments Blood Pressure 124/75 05/03/2025 12:13 PM EDT Pulse 89 05/03/2025 12:13 PM EDT Temperature 36.9 C (98.4 F) 05/03/2025 12:13 PM EDT Respiratory Rate - - Oxygen Saturation 94% 05/03/2025 12:13 PM EDT Inhaled Oxygen Concentration - - Weight 73.9 kg (163 lb) 05/03/2025 12:13 PM EDT Height 180.3 cm (5' 11 ) 05/03/2025 12:13 PM EDT Body Mass Index 22.73 05/03/2025 12:13 PM EDT documented in this encounter Miscellaneous Notes * Progress Notes - Marie Ruffin PA - 05/03/2025 11:50 AM EDT 05/03/2025 ORTHOPEDIC TRAUMA CLINIC NOTE Injury/Tx: s/p left SPR/IPR, left sacral ala, left crescent fractures DOI: 04/07/2025 HPI: Antony Wells 69 y.o. male who presents to clinic for follow up 4 weeks s/p the above stated injury. Patient states that he has been doing well since his last visit. He has been compliant with TDWB on the LLE. He is hoping to start weightbearing soon. He denies any pain, numbness, tingling. He denies any further trauma to injury. PAST MEDICAL HISTORY: Past Medical History[1] Past Surgical History: Surgical History[2] Family History: Family History[3] Medications: Current Medications[4] Allergies: Allergies[5] Social History Social History Occupational History Not on file Tobacco Use Smoking status: Every Day Types: Cigarettes Smokeless tobacco: Not on file Substance and Sexual Activity Alcohol use: Yes Alcohol/week: 40.0 - 70.0 standard drinks of alcohol Types: 40 - 70 Standard drinks or equivalent per week Drug use: Not on file Sexual activity: Not on file Vital signs: Visit Vitals BP 124/75 Pulse 89 Temp 36.9 ??C (98.4 ??F) Ht 1.803 m (5' 11 ) Wt 73.9 kg (163 lb) SpO2 94% BMI 22.73 kg/m?? Smoking Status Every Day BSA 1.92 m?? Constitutional: Well developed. Well nourished. Psychologic: Mood is appropriate. Appropriate affect. Head and Face: Normocephalic. No obvious deformities. Eyes: Extraocular movements intact Pulmonary: Unlabored, normal effort. Cardiac: well perfused, extremities pink. Skin: No rashes on exposed skin surface. Neuro: No focal neuro deficit, normal coordination, normal muscle tone MUSCULOSKELETAL EXAM: Right lower extremity: No erythema, ecchymosis, edema Knee ROM 0-130 Ankle ROM 20 dorsiflexion, 30 plantarflexion Strength 5/5 GSC/TA/KF/KE/HF/HAbd/HAdd SILT L2-S1 +2 pt pulses Left lower extremity: No erythema, ecchymosis, edema Knee ROM 0-130 Ankle ROM 20 dorsiflexion, 30 plantarflexion Strength 5/5 GSC/TA/KF/KE/HF/HAbd/HAdd SILT L2-S1 +2 pt pulses IMAGIN views pelvis were ordered, reviewed, and interpreted by us, showing interval healing of fracturesin similar alignment to prior imaging ASSESSMENT: 69 year old male with multiple pelvic ring injuries. Continue non- operative management at this time. PLAN: -Progress to [facility] LLE -PT referral for RLE ROM, strengthening, gait training -FU 8 weeks with imaging The patients images were discussed with them. The patient was given an opportunity to ask questionsand all their questions were answered to their satisfaction. Marie Ruffin PA-C Department of Orthopaedic Surgery and Sports Medicine Consult Pager: [phone] Service Pager:[phone] [1] Past Medical History: Diagnosis Date COPD (chronic obstructive pulmonary disease) (CMS/HCC) Hypertension [2] Past Surgical History: Procedure Laterality Date HERNIA REPAIR [3] History reviewed. No pertinent family history. [4] Current Outpatient Medications: acetaminophen (Tylenol) 325 MG tablet, Take 2 tablets by mouth every 6 hours. Under [place] law, monthly prescriptions (30 days) can be refilled at 25 days and three-month prescriptions (90 days) at80 days. Please contact the insurance company with questions if refills are denied., Disp: , Rfl: albuterol 108 (90 Base) MCG/ACT inhaler, Inhale 2 puffs every 4 to 6 hours as needed for wheezing or shortness of breath., Disp: , Rfl: enoxaparin (Lovenox) 30 MG/0.3ML solution prefilled syringe, Inject 0.3 mL under the skin 2 times aday for 21 days., Disp: , Rfl: folic acid (Folvite) 1 MG tablet, Take 1 tablet by mouth daily., Disp: , Rfl: ipratropium-albuterol (Duo-Neb) 0.5-2.5 mg/3 mL nebulizer solution, Take 3 mL by nebulization every4 to 6 hours as needed for wheezing or shortness of breath., Disp: , Rfl: melatonin tablet, Take 2 tablets by mouth nightly., Disp: , Rfl: methocarbamol (Robaxin) 500 MG tablet, Take 1 tablet by mouth every 8 hours., Disp: , Rfl: mometasone-formoterol (Dulera 100) 100-5 MCG/ACT inhaler, Inhale 2 puffs 2 times a day. Rinse mouthwith water after use to reduce aftertaste and incidence of candidiasis. Do not swallow., Disp: , Rfl: nicotine (Nicoderm CQ) 21 MG/24HR patch, Place 1 patch on the skin daily., Disp: , Rfl: ondansetron ODT (Zofran-ODT) 4 MG disintegrating tablet, Dissolve 1 tablet on the tongue every 6 hours as needed for nausea or vomiting., Disp: , Rfl: polyethylene glycol (Miralax) 17 g packet, Take 17 g by mouth daily., Disp: , Rfl: senna-docusate (Elenita-Colace) 8.6-50 MG tablet, Take 1 tablet by mouth 2 times a day., Disp: , Rfl: thiamine (Vitamin B-1) 100 MG tablet, Take 1 tablet by mouth daily., Disp: , Rfl: [5] No Known Allergies documented in this encounter Plan of Treatment Upcoming Encounters Date Type Department Care Team (Late st Contact Info) Description 06/28/2025 8:45 AM EDT Appointment [facility] Radiology [address], [address] [place] [address] 06/28/2025 9:30 AM EDT Office Visit [facility] Orthopaedic Surgery & Sports Medicine [address], [address] [place] [address] Marie Ruffin PA [address] [place] [address] Scheduled Orders Name Type Priority Associated Diagnoses Orde r Schedule XR Pelvis 3+ Views Imaging Routine Pain in pelvis 1 Occurrences starting 05/03/2025 until 11/04/2026 Scheduled Referrals Name Type Priority Associated Diagnoses Order Schedule Physical Therapy (outgoing) Outpatient Referral Routine Pain in pelvis 1 Occurrences starting 05/03/2025 until 11/04/2026 documented as of this encounter Results * XR Pelvis 3+ [...] MD on 05/03/2025 12:04 PM Marie MCCLURE IMG XR PROCEDURES Final Resul t documented in this encounter Visit Diagnoses Diagnosis Pain in pelvis- Primary Pain in pelvis documented in this encounter Additional Health Concerns Assessment Noted Time A fall risk assessment has been complete d for the patient 05/03/2025 12:13 PM EDT A Body Mass Index follow-up plan has been documented for the patient 05/03/2025 12:40 PM EDT documented as of this encounter Care Teams Director Of Early Childhood Education Relationship Specialty Start Date End Date María Tirado APRN [address] [place] [address] PCP - General 04/06/25 Kimberlee Naranjo LPN [facility] TCM Nurse 04/24/25 05/24/25 documented as of this encounter
[2025-06-09 18:39] VITALS: BP 103/79; PULSE 84; RESP 18; TEMP 37; O2SAT 96; BMI 22.9
--- OUTSIDE RECORDS SUMMARY | 2025-06-09 18:54 | XMS_ITS | Encounter Summary ---
Author Organization Healthcare Address [address] [place] [address] Care Team Providers Care Groundskeeping Maintenance Worker Name Role Phone María Tirado APRN Primary Care Provider +1- [phone] Encounter Details Date Type Department Care Team (Late st Contact Info) Description 04/06/2025 Orders Only External Location [address] [place] [address] Provider, External Social History Tobacco Use Types Packs/Day Years Used Date Smoking Tobacco: Never Assessed Humiliation, Afraid, Rape, and Kick questionnair e [...] any time in the past 12 m [facility], were you homeless or living in a [place] [facility] (including now)? No 04/07/2025 CAGE ASSESSMENT Answer [...] drink first t cherise in the morning (EYE-PRECISION JIG GRINDER) to steady your nerves or to get [...] on file documented as of this encounter Functional Status * AUDIT-C Score [...] Date of Assessment Author No Risk Indicated 04/09/2025 7:30 AM EDT Astrid Dawkins RN * Question Answer Date of Assessment Author 1. Wish to be (Past 1 Month) No 04/09/2025 7:30 AM EDT Astrid Cortes RN 2. Non-Specific Active Suici efren Thoughts (Past 1 Month) No 04/09/2025 7:30 AM EDT Colt Cortes RN 6. Suicidal Behavior (Lifetime) No 7:30 AM EDT Astrid Cortes RN documented as of this encounter Plan of Treatment Upcoming Encounters Date Type Department Care Team (Late st Contact Info) Description 06/28/2025 8:[address] [facility] Radiology [address], [address] [place] [address] 06/28/2025 9:30 AM EDT Office Visit [facility] Orthopaedic Surgery & Sports Medicine [address], [address] [place] [address] Marie Ruffin PA [address] [place] [address] documented as of this encounter Procedures Procedure Name Priority Date/Time Associated Diagnosis Comments XR OUTSIDE IMAGES 04/06/2025 7:31 PM EDT documented in this encounter Results * XR OUTSIDE IMAGES (04/06/2025 7:31 PM EDT) Anatomical Region Laterality Modality Radiographic Pamela ging 04/06/2025 7:31 PM EDT External Provider IMG XR PROCEDURES Final Result documented in this encounter Visit Diagnoses Not on filedocumented in this encounter Additional Health Concerns Assessment Noted Time A Body Mass Index follow-up plan has been documented for the patient 04/13/2025 1:08 PM EDT documented as of this encounter Care Teams Groundskeeping Maintenance Worker Relationship Specialty Start Date End Date María Tirado APRN [address] [place] [address] PCP - General 04/06/25 documented as of this encounter
--- OUTSIDE RECORDS SUMMARY | 2025-06-09 18:54 | XMS_ITS | Encounter Summary ---
Author Organization Healthcare Address [address] [place] [address] Care Team Providers Care Supervisor Pumping Name Role Phone María Tirado APRN Primary Care Provider +1- [phone] Kimberlee Naranjo LPN Unavailable Unavailabl e Encounter Details Date Type Department Care Team (Latest Contact Info) Description 05/03/2025 Travel Social History Tobacco Use Types Packs/Day Years [...] any time in the past 12 m [facility], were you homeless or living in a custodial (including now)? No 04/07/2025 CAGE ASSESSMENT Answer [...] drink first t cherise in the morning (EYE-WASTEWATER OPERATOR) to steady your nerves or to [...] on file documented as of this encounter Plan of Treatment Upcoming Encounters Date Type Department Care Team (Late st Contact Info) Description 06/28/2025 8:45 AM EDT Appointment [facility] Radiology [address], [address] [place] [address] 06/28/2025 9:30 AM EDT Office Visit [facility] Orthopaedic Surgery & Sports Medicine [address], [address] [place] [address] Marie Ruffin PA [address] [place] [address] documented as of this encounter Visit Diagnoses Not on filedocumented in this encounter Additional Health Concerns Assessment Noted Time A fall risk assessment has been complete d for the patient 05/03/2025 12:13 PM EDT A Body Mass Index follow-up plan has been documented for the patient 05/03/2025 12:40 PM EDT documented as of this encounter Care Teams Supervisor Pumping Relationship Specialty Start Date End Date María Tirado APRN [address] [place] [address] PCP - General 04/06/25 Kimberlee Naranjo LPN [facility] TCM Nurse 04/24/25 05/24/25 documented as of this encounter
--- OUTSIDE RECORDS SUMMARY | 2025-06-09 18:54 | XMS_ITS | Encounter Summary ---
Author Organization Healthcare Address [address] [place] [address] Care Team Providers Care Parole Supervisor Name Role Phone María Tirado APRN Primary Care Provider +1- [phone] Kimberlee Naranjo LPN Unavailable Unavailabl e Reason for Visit * Reason Comments TCM Call Encounter Details Date Type Department Care Team (Late st Contact Info) Description 04/26/2025 Patient Outreach [facility] [address] [place] [address] Kimberlee Naranjo, [facility] TCM Call Social History Tobacco Use Types Packs/Day Years [...] any time in the past 12 m [facility], were you homeless or living in a senior care (including now)? No 04/07/2025 CAGE ASSESSMENT Answer [...] drink first t cherise in the morning (EYE-HOOKER UP) to steady your nerves or to get rid of a hangover? 1 04/08/2025 CAGE Questionnaire Score 1 025 Utilities Answer Date Recorded In the past 12 months has th e [employer], gas, oil, or water company threatened to shut off services in your home? No 04/07/2025 Sex and Gender Information Value Date Recorded Sex Assigned at Male 04/06/2025 9:49 PM EDT Legal Sex Male 6:01 PM EDT Gender Identity Not on file Sexual Orientation Not on file documented as of this encounter Miscellaneous Notes * Progress Notes - Kimberlee Naranjo LPN - 04/26/2025 1:59 PM EDT Admit Date: 04/06/2025 Discharge Date: 04/13/2025 [facility] Discharge Date: 04/23/2025 Hospital Service: General Surgery Discharge Diagnosis: fall04/25/2025 TCM call # 3 Patient Reached: No Outcome: Called patient for a TCM nurse call. Unable to reach patient. left with a call back number provided. Action: N/A Medications: per [facility] discharge clinic acetaminophen 650 mg oral tablet, extended release 650 mg = 1 tab, Oral, q8hr albuterol-ipratropium 2.5 mg-0.5 mg/3 mL inhalation solution See Instructions Breo Ellipta 100 mcg-25 mcg inhalation powder 1 puff, INH, Daily RT docusate-senna 50 mg-8.6 mg oral tablet 1 tab, Oral, BID folic acid 1 mg oral tablet 1 mg = 1 tab, Oral, Daily Lovenox 30 mg/0.3 mL injectable solution 30 mg = 0.3 mL, Subcutaneous, BID melatonin 3 mg oral tablet 3 mg = 1 tab, Oral, QHS methocarbamol 500 mg oral tablet 500 mg = 1 tab, PRN, Oral, QID MiraLax oral powder for reconstitution 17 gm, PRN, Oral, Daily nicotine 21 mg/24 hr transdermal film, extended release 21 mg = 1 patch, Transdermal, Daily thiamine 100 mg oral tablet 100 mg = 1 tab, Oral, Daily SILVIA appointment: 05/03/2025 at 3:20 pm with Sherman Items to address at SILVIA: N/A documented in this encounter Plan of Treatment Upcoming Encounters Date Type Department Care Team (Late st Contact Info) Description 06/28/2025 8:[address] [facility] Radiology [address], [address] [place] [address] 06/28/2025 9:30 AM EDT Office Visit [facility] Orthopaedic Surgery & Sports Medicine [address], [address] [place] [address] Marie Ruffin, KAMI [address] [place] [address] documented as of this encounter Visit Diagnoses Not on filedocumented in this encounter Additional Health Concerns Assessment Noted Time A Body Mass Index follow-up plan has been documented for the patient 04/13/2025 1:08 PM EDT documented as of this encounter Care Teams Parole Supervisor Relationship Specialty Start Date End Date María Tirado APRN [address] [place] [address] PCP - General 04/06/25 Kimberlee Naranjo LPN [facility] TCM Nurse 04/24/25 05/24/25 documented as of this encounter
--- OUTSIDE RECORDS SUMMARY | 2025-06-09 18:54 | XMS_ITS | Encounter Summary ---
Author Organization Healthcare Address [address] [place] [address] Care Team Providers Care Proj Engineer Name Role Phone María Tirado APRN Primary Care Provider +1- [phone] Encounter Details Date Type Department Care Team (Late st Contact Info) Description 04/06/2025 Orders Only External Location [address] [place] [address] Provider, External Social History Tobacco Use Types [...] any time in the past 12 m [facility], were you homeless or living in a care home (including now)? No 04/07/2025 CAGE ASSESSMENT Answer [...] first t cherise in the morning (EYE-PROFESSIONAL SPORTS SCOUT) to steady your nerves or to get [...] Info) Description 06/28/2025 8:45 AM EDT Appointment [facility] Radiology [address], [address] [place] [address] 06/28/2025 9:30 AM EDT Office Visit [facility] Orthopaedic Surgery & Sports Medicine [address], [address] [place] [address] Marie Ruffin PA [address] [place] [address] documented as of this encounter Procedures Procedure Name Priority Date/Time Associated Diagnosis Comments CT OUTSIDE IMAGES 04/06/2025 7:27 PM EDT documented in this encounter Results * CT OUTSIDE IMAGES (04/06/2025 7:27 PM EDT) Anatomical Region Laterality Modality Computed Tomogra phy 04/06/2025 7:27 PM EDT us External Provider IMG CT PROCEDURES Final Result documented in this encounter Visit Diagnoses Not on filedocumented in this encounter Additional Health Concerns Assessment Noted Time A Body Mass Index follow-up plan has been documented for the patient 04/13/2025 1:08 PM EDT documented as of this encounter Care Teams Proj Engineer Relationship Specialty Start Date End Date María Tirado APRN [address] [place] [address] PCP - General 04/06/25 documented as of this encounter
--- OUTSIDE RECORDS SUMMARY | 2025-06-09 18:54 | XMS_ITS | Encounter Summary ---
Author Organization Healthcare Address [address] [place] [address] Care Team Providers Care Lathe Mechanic Name Role Phone María Tirado APRN Primary Care Provider +1- [phone] Kimberlee Naranjo LPN Unavailable Unavailabl e Reason for Visit * Reason Comments TCM Call Encounter Details Date Type Department Care Team (Late st Contact Info) Description 04/24/2025 Patient Outreach POPULATION HEALTH [address] [facility] [address] [place] [address] Kimberlee Naranjo, [facility] TCM Call Social History Tobacco [...] any time in the past 12 m [facility], were you homeless or living in a snf (including now)? No 04/07/2025 CAGE ASSESSMENT Answer [...] drink first t cherise in the morning (EYE-ADMINISTRATOR) to steady your nerves or to get rid of a hangover? 1 04/08/2025 CAGE Questionnaire Score 1 025 Utilities Answer Date Recorded In the past 12 months has th e [employer], gas, oil, or water company threatened to shut off services in your home? No 04/07/2025 Sex and Gender Information Value Date Recorded Sex Assigned at Male 04/06/2025 9:49 PM EDT Legal Sex Male 6:01 PM EDT Gender Identity Not on file Sexual Orientation Not on file documented as of this encounter Miscellaneous Notes * Progress Notes - Kimberlee Naranjo LPN - 04/24/2025 9:59 AM EDT Admit Date: 04/06/2025 Discharge Date: 04/13/2025 [facility] Discharge Date: 04/23/2025 Hospital Service: General Surgery Discharge Diagnosis: fall04/24/2025 TCM call # 1 Patient Reached: No Outcome: Called patient for a TCM nurse call. Unable to reach patient. VM left with a call back number provided. Action: N/A Medications: per [facility] discharge clinic acetaminophen 650 mg oral [...] Info) Description 06/28/2025 8:45 AM EDT Appointment [facility] Radiology [address], [address] [place] [address] 06/28/2025 9:30 AM EDT Office Visit [facility] Orthopaedic Surgery & Sports Medicine [address], [address] [place] [address] Marie Ruffin PA [address] [place] [address] documented as of this encounter Visit Diagnoses Not on filedocumented in this encounter Additional Health Concerns Assessment Noted Time A Body Mass Index follow-up plan has been documented for the patient 04/13/2025 1:08 PM EDT documented as of this encounter Care Teams Lathe Mechanic Relationship Specialty Start Date End Date María Tirado APRN [address] [place] [address] PCP - General 04/06/25 Kimberlee Naranjo LPN [facility] TCM Nurse 04/24/25 05/24/25 documented as of this encounter
--- OUTSIDE RECORDS SUMMARY | 2025-06-09 18:54 | XMS_ITS ---
Author Organization [facility] Address [address] [place] [address] Care Team Providers Care Rounding Machine Tender Name Role Phone María Tirado APRN Primary Care Provider +1- [phone] Transitional Care Management Status:Closed (Closed) Start date:04/24/2025 Enrollment date:05/02/2025 Enrollment reason:Identified using hospital discharge data End date:05/24/2025 Close reason:Patient graduated Overview This episode type is for outpatient care managers enrolling patients in the CMS Transitional Care Management program. Continued Care and Services Coordination
--- OUTSIDE RECORDS SUMMARY | 2025-06-09 18:54 | XMS_ITS | Encounter Summary ---
Author Organization Healthcare Address [address] [place] [address] Care Team Providers Care Broomcorn Press Feeder Name Role Phone María Tirado APRN Primary Care Provider +1- [phone] Encounter Details Date Type Department Care Team (Late st Contact Info) Description 04/06/2025 Orders Only External Location [address] [place] [address] Provider, External Social History Tobacco Use Types [...] any time in the past 12 m [facility], were you homeless or living in a alf (including now)? No 04/07/2025 CAGE ASSESSMENT Answer [...] drink first t cherise in the morning (EYE-ELECTRONICS TEACHER) to steady your nerves or to get [...] Info) Description 06/28/2025 8:45 AM EDT Appointment [facility] Radiology [address], [address] [place] [address] 06/28/2025 9:30 AM EDT Office Visit [facility] Orthopaedic Surgery & Sports Medicine [address], [address] [place] [address] Marie Ruffin PA [address] [place] [address] documented as of this encounter Procedures Procedure Name Priority Date/Time Associated Diagnosis Comments CT OUTSIDE IMAGES 04/06/2025 7:20 PM EDT documented in this encounter Results * CT OUTSIDE IMAGES (04/06/2025 7:20 PM EDT) Anatomical Region Laterality Modality Computed Tomogra phy 04/06/2025 7:20 PM EDT us External Provider IMG CT PROCEDURES Final Result documented in this encounter Visit Diagnoses Not on filedocumented in this encounter Additional Health Concerns Assessment Noted Time A Body Mass Index follow-up plan has been documented for the patient 04/13/2025 1:08 PM EDT documented as of this encounter Care Teams Broomcorn Press Feeder Relationship Specialty Start Date End Date María Tirado APRN [address] [place] [address] PCP - General 04/06/25 documented as of this encounter
--- OUTSIDE RECORDS SUMMARY | 2025-06-09 18:54 | XMS_ITS | Encounter Summary ---
Author Organization Healthcare Address [address] [place] [address] Care Team Providers Care Jacquard Loom Weaver Name Role Phone María Tirado APRN Primary Care Provider +1- [phone] Kimberlee Naranjo LPN Unavailable Unavailabl e Reason for Visit * Reason Comments TCM Call Encounter Details Date Type Department Care Team (Late st Contact Info) Description 04/25/2025 Patient Outreach POPULATION HEALTH [address] [facility] [address] [place] [address] Kimberlee Naranjo, [facility] TCM Call Social History Tobacco [...] time in the past 12 m [facility], were you homeless or living in a assisted (including now)? No 04/07/2025 CAGE ASSESSMENT Answer [...] drink first t cherise in the morning (EYE-SKYLIGHTS ASSEMBLER) to steady your nerves or to get rid of a hangover? 1 04/08/2025 CAGE Questionnaire Score 1 025 Utilities Answer Date Recorded In the past 12 months has th e [employer], gas, oil, or water company threatened to shut off services in your home? No 04/07/2025 Sex and Gender Information Value Date Recorded Sex Assigned at Male 04/06/2025 9:49 PM EDT Legal Sex Male 6:01 PM EDT Gender Identity Not on file Sexual Orientation Not on file documented as of this encounter Miscellaneous Notes * Progress Notes - Kimberlee Naranjo LPN - 04/25/2025 11:51 AM EDT Admit Date: 04/06/2025 Discharge Date: 04/13/2025 [facility] Discharge Date: 04/23/2025 Hospital Service: General Surgery Discharge Diagnosis: fall04/25/2025 TCM call # 2 Patient Reached: No Outcome: Called patient for a TCM nurse call. Unable to reach patient. left with a call back number provided. Action: N/A Medications: per [facility] discharge clinic acetaminophen 650 mg oral [...] [facility] Radiology [address], [address] [place] [address] 06/28/2025 9:30 AM EDT Office Visit [facility] Orthopaedic Surgery & Sports Medicine [address], [address] [place] [address] Marie Ruffin, KAMI [address] [place] [address] documented as of this encounter Visit Diagnoses Not on filedocumented in this encounter Additional Health Concerns Assessment Noted Time A Body Mass Index follow-up plan has been documented for the patient 04/13/2025 1:08 PM EDT documented as of this encounter Care Teams Jacquard Loom Weaver Relationship Specialty Start Date End Date María Tirado APRN [address] [place] [address] PCP - General 04/06/25 Kimberlee Naranjo LPN [facility] TCM Nurse 04/24/25 05/24/25 documented as of this encounter
--- OUTSIDE RECORDS SUMMARY | 2025-06-09 18:54 | XMS_ITS | Encounter Summary ---
Author Organization Healthcare Address [address] [place] [address] Care Team Providers Care Seam Finisher Name Role Phone María Tirado APRN Primary Care Provider +1- [phone] Encounter Details Date Type Department Care Team (Latest Contact Info) Description 04/14/2025 Travel Social History Tobacco Use Types Packs/Day [...] any time in the past 12 m [facility], were you homeless or living in a long term (including now)? No 04/07/2025 CAGE ASSESSMENT Answer [...] drink first t cherise in the morning (EYE-SIX SIGMA PROJECT MANAGER) to steady your nerves or to get [...] Info) Description 06/28/2025 8:45 AM EDT Appointment [facility] Radiology [address], [address] [place] [address] 06/28/2025 9:30 AM EDT Office Visit [facility] Orthopaedic Surgery & Sports Medicine [address], [address] [place] [address] Marie Ruffin PA [address] [place] [address] documented as of this encounter Visit Diagnoses Not on filedocumented in this encounter Additional Health Concerns Assessment Noted Time A Body Mass Index follow-up plan has been documented for the patient 04/13/2025 1:08 PM EDT documented as of this encounter Care Teams Seam Finisher Relationship Specialty Start Date End Date María Tirado APRN [address] [place] [address] PCP - General 04/06/25 documented as of this encounter
--- OUTSIDE RECORDS SUMMARY | 2025-06-09 18:54 | XMS_ITS | Encounter Summary ---
Author Organization Healthcare Address [address] [place] [address] Care Team Providers Care Rn Telehealth Name Role Phone María Tirado APRN Primary Care Provider +1- [phone] Encounter Details Date Type Department Care Team (Late st Contact Info) Description 04/06/2025 Orders Only External Location [address] [place] [address] Provider, External Social History Tobacco Use Types [...] time in the past 12 m [facility], were you homeless or living in a [...] drink first t cherise in the morning (EYE-MANAGER CONTACT) to steady your nerves or to get [...] Description 06/28/2025 8:[address] [facility] Radiology [address], [address] [place] [address] 06/28/2025 9:30 AM EDT Office Visit [facility] Orthopaedic Surgery & Sports Medicine [address], [address] [place] [address] Marie Ruffin PA [address] [place] [address] documented as of this encounter Procedures Procedure Name Priority Date/Time Associated Diagnosis Comments CT OUTSIDE IMAGES 04/06/2025 7:22 PM EDT documented in this encounter Results * CT OUTSIDE IMAGES (04/06/2025 7:22 PM EDT) Anatomical Region Laterality Modality Computed Tomogra phy 04/06/2025 7:22 PM EDT us External Provider IMG CT PROCEDURES Final Result documented in this encounter Visit Diagnoses Not on filedocumented in this encounter Additional Health Concerns Assessment Noted Time A Body Mass Index follow-up plan has been documented for the patient 04/13/2025 1:08 PM EDT documented as of this encounter Care Teams Rn Telehealth Relationship Specialty Start Date End Date María Tirado APRN [address] [place] [address] PCP - General 04/06/25 documented as of this encounter
--- OUTSIDE RECORDS SUMMARY | 2025-06-09 18:54 | XMS_ITS | Clinical Summary ---
Author Organization [facility] Address [address] [place] [address] Care Team Providers Care Corn Cooker Name Role Phone María Tirado APRN Primary Care Provider [phone] Allergies No known active allergies Medications albuterol 108 (90 Base) MCG/ACT inhaler Inhale 2 puffs every 4 to 6 hours as needed for wheezing or shortness of breath. Active ipratropium-albute rol (Duo-Neb) 0.5-2.5 mg/3 mL nebulizer solution Take 3 mL by nebulization every 4 to 6 hours as needed for wheezing or shortness of breath. Active acetaminophen (Tylenol) 325 MG tablet Take 2 tablets by mouth every 6 hours. Under [place] law, monthly prescriptions (30 days) can be refilled at 25 days and three-month prescriptions (90 days) at 80 days. Please contact the insurance company with questions if refills are denied. 04/13/20 25 Active folic acid (Folvite) 1 MG tablet Take 1 tablet by mouth daily. 04/14/20 25 Active melatonin tablet Take 2 tablets by mouth nightly. 04/13/20 25 Active methocarbamol (Robaxin) 500 MG tablet Take 1 tablet by mouth every 8 hours. 04/13/20 25 Active mometasone-formote rol (Dulera 100) 100-5 MCG/ACT inhaler Inhale 2 puffs 2 times a day. Rinse mouth with water after use to reduce aftertaste and incidence of candidiasis. Do not swallow. 04/13/20 25 Active nicotine (Nicoderm CQ) 21 MG/24HR patch Place 1 patch on the skin daily. 04/14/20 Active ondansetron ODT (Zofran-ODT) 4 MG disintegrating tablet Dissolve 1 tablet on the tongue every 6 hours as needed for nausea or vomiting. 04/13/20 Active polyethylene glycol (Miralax) 17 g packet Take 17 g by mouth daily. 04/14/20 Active senna-docusate (Elenita-Colace) 8.6-50 MG tablet Take 1 tablet by mouth 2 times a day. 04/13/20 Active thiamine (Vitamin B-1) 100 MG tablet Take 1 tablet by mouth daily. 04/14/20 Active Active Problems Problem Noted Date Diagnosed Date Smoker 04/08/2025 Overview (04/08/2025): 1-2 PPD Education smoking cessation NRT offered Substance use 04/08/2025 Overview (04/08/2025): Former Per pt in the s and Multiple closed fractures of pelvis without disruption of pelvic ring, initial encounter 04/07/2025 Overview (04/10/2025): ORT consulted - Non-operative management - Ambulated 30 feet, PMF stable - TDWB LLE - MMPC - PT/OT Fall 04/07/2025 Overview (04/08/2025): Admitted SGT Tertiary exam 04/08 Alcohol use disorder 04/07/2025 Overview (04/10/2025): + alcohol use on arrival 10-15 drinks daily CIWA, bilateral hand tremors 04/10: Discontinued CIWA Declined ACES consult Monitor COPD (chronic obstructive pulmonary disease) 04/2025 Overview (04/07/2025): Baseline 2.5 L via NC at home Neb treatments Continue with supplemental oxygen Pulmonary hygiene/IS Community acquired pneumonia 04/07/2025 Overview (04/07/2025): On admission Pulmonary hygiene, IS, neb treatments 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 ABLA (acute blood loss anemia) 04/07/2025 Overview (04/07/2025): Likely r/t trauma Trend H&H Transfuse if Hgb < 7.0 if needed Thrombocytopenia 04/07/2025 Overview (04/07/2025): On admission Likely due to trauma Monitor Hyperglycemia 04/07/2025 Overview (04/07/2025): Likely reactive 2/2 trauma Monitor Hyponatremia 04/07/2025 Overview (04/07/2025): Likely chronic from alcohol use Monitor and treat when necessary Hypocalcemia 04/07/2025 Overview (04/07/2025): Likely reactive 2/2 trauma Monitor Protein malnutrition 04/07/2025 Overview (04/10/2025): Low total protein and albumin Optimize nutrition Nutritional supplements started 04/10 Total bilirubin, elevated 04/07/2025 Overview (04/07/2025): Likely due to daily alcohol intake Monitor High serum lactate 04/07/2025 Overview (04/09/2025): Lactate 4.3 6/8: 1.4 stable Fluid resuscitation Monitor EKG, abnormal 04/07/2025 Overview (04/08/2025): Sinus tachycardia with nonspecific ST and T wave abnormal Likely due to trauma Monitor Degenerative arthritis of lumbar spine Overview (04/07/2025): Moderate degenerative changes in lumbar spine. Including advanced facet arthritis Incidental finding on imaging Follow-up with PCP for surveillance Serum phosphorus decreased 04/07/2025 Overview (04/10/2025): Replete PRN Improved, stable 04/10 Monitor Hypomagnesemia 04/07/2025 Overview (04/07/2025): Replete PRN Monitor Encounters Date Type Department Care Team Description 05/03/2025 11:50 AM EDT Office Visit [facility] [address] [place] [address] Marie Ruffin PA Pain in pelvis (Primary Dx) 05/03/2025 11:10 AM EDT - 05/03/2025 11:59 PM EDT Hospital Encounter [facility] [address] [place] [address] Pain in pelvis Discharge Disposition: Home or Self Care 05/03/2025 Travel 05/02/2025 Patient Outreach [facility] [address] [place] [address], [address] [place] [address] KleKimberlee farias K, LICENSED PHYSICAL THERAPIST TCM Call 04/26/2025 Patient Outreach [facility] [address] [place] [address], [address] [phone] KleCorky fariasystal K, LICENSED PHYSICAL THERAPIST TCM Call 04/25/2025 Patient Outreach [facility] [address] [place] [address], [address] [place] [phone] KleCorky fariasystal K, LICENSED PHYSICAL THERAPIST TCM Call 04/24/2025 Patient Outreach [facility] [address] [place] [address], [address] [place] [phone] KleCorky fariasystal K, LICENSED PHYSICAL THERAPIST TCM Call 04/14/2025 Travel 04/09/2025 Travel 04/07/2025 Travel 04/06/2025 9:46 PM EDT - 04/13/2025 2:20 PM EDT Hospital Encounter [facility] [address] [place] [address] Ricky Layne MD Prabhu, MD [place] Hankins Andrea N, MD Wei, MD Ave Waterman, MD Fito Weller, Lolita Esqueda MD Multiple closed fractures of pelvis without disruption of pelvic ring, initial encounter ([facility]) (Primary Dx) Discharge Disposition: Rehab Facility 04/06/2025 Travel 04/06/2025 Orders Only External Location [address] [place] [address] Provider, External 04/06/2025 Orders Only External Location [address] [place] [address] Provider, External 04/06/2025 Orders Only External Location [address] [place] [address] Provider, External 04/06/2025 Orders Only External Location [address] [place] [address] Provider, External 04/06/2025 Orders Only External Location [address] [place] [address] Provider, External 04/06/2025 Orders Only External Location [address] [place] [address] Provider, External 04/06/2025 Orders Only External Location [address] [place] [address] Provider, External 04/06/2025 Orders Only External Location [address] [place] [address] Provider, External 04/06/2025 Orders Only External Location [address] [place] [address] Provider, External from Last 3 Months Social History Tobacco Use Types Packs/Day Years [...] were you homeless or living in a half-way (including now)? No 04/07/2025 CAGE ASSESSMENT Answer [...] drink first t cherise in the morning ([employer]ANT) to steady your nerves or to get [...] on file Sexual Orientation Not on file Last Filed Vital Signs Vital Sign Reading Time Taken Comments Blood Pressure 124/75 05/03/2025 12:13 PM EDT Pulse 89 05/03/2025 12:13 PM EDT Temperature 36.9 C (98.4 F) 05/03/2025 12:13 PM EDT Respiratory Rate 16 04/13/2025 1:42 PM EDT Oxygen Saturation 94% 05/03/2025 12:13 PM EDT Inhaled Oxygen Concentration - - Weight 73.9 kg (163 lb) 05/03/2025 12:13 PM EDT Height 180.3 cm (5' 11 ) 05/03/2025 12:13 PM EDT Body Mass Index 22.73 05/03/2025 12:13 PM EDT Plan of Treatment Upcoming Encounters Date Type Department Care Team (Late st Contact Info) Description 06/28/2025 8:45 AM EDT Appointment [facility] [address] [place] [address] 06/28/2025 9:30 AM EDT Office Visit [facility] [address] [place] [address] Marie Ruffin PA [address] [place] [address] Health Maintenance Due Date Last Done Comments [facility]-Depression Screening 1955 [facility]-Infant/Child/Adol SDOH Screenings [address] Colonography 1998 Colonoscopy 1998 FIT-DNA 1998 FIT 1998 FOBT 1998 Sigmoidoscopy 1998 [facility]-Colorectal Cancer Screening 1998 [facility]-Zoster Vaccines (2 of 3) 10/10/2014 08/15/2014 [facility]-Abdominal Aortic Aneurysm (AAA) Screening 2018 [facility]-Pneumococcal Vaccine: 50+ Years (2 of 2 - PCV) 04/15/2019 04/15/2018 [id number] Vaccine (5 - season) 2024 09/05/2022, 05/27/2022, 08/27/2021, Additional history exists [facility]-Influenza Vaccine (#1) 07/03/202508/20, 08/19/2018, 08/20/2017, Additional history exists [facility]- SDOH Screenings 10/07/2025 [facility]-Adult SDOH Screenings 10/07/2025 04/07/2025 [facility]-DTaP,Tdap,and Td Vaccines (2 - Td or Tdap) 12/09/2026 12/09/2016, 07/11/2005 [facility]-RSV Vaccine: 60+ Years or (1 - 1-dose 75+ series) 2028 [facility]-Hepatitis C Screening Completed 04/06/2025 HPV Vaccines Aged Out No longer eligi ble based on patient's age to complete this topic [facility]-HIB Vaccines Aged Out No longer e ligible based on patient's age to complete this topic [facility]-Hepatitis A Vaccines Aged Out No longer eligible based on patient's age to complete this topic [facility]-IPV Vaccines Aged Out No longer e ligible based on patient's age to complete this topic [facility]-Rotavirus Vaccines Aged Out No lo nger eligible based on patient's age to complete this topic Procedures Procedure Name Priority Date/Time Associated Diagnosis Comments XR PELVIS 3+ VIEWS Routine 05/03/2025 12:01 PM EDT Pain in pelvis MAGNESIUM, PLASMA Routine 04/13/2025 5:4 7 AM EDT OXYGEN THERAPY STAT 04/12/2025 8:00 AM EDT MAGNESIUM, PLASMA Routine 04/12/2025 5:2 3 AM EDT OXYGEN THERAPY STAT 04/11/2025 8:00 PM EDT OXYGEN THERAPY STAT 04/11/2025 8:00 AM EDT MAGNESIUM, PLASMA Routine 04/11/2025 6:0 3 AM EDT OXYGEN THERAPY STAT 04/10/2025 8:00 PM EDT OXYGEN THERAPY STAT 04/10/2025 8:00 AM EDT MAGNESIUM, PLASMA Pending Discharge 04/10/2025 4:18 AM EDT PHOSPHORUS, PLASMA Pending Discharge 04/10/2025 [...] ECG ADULT STAT 04/08/2025 3:24 PM EDT MAGNESIUM, PLASMA Routine 04/08/2025 8:1 3 AM EDT PHOSPHORUS, PLASMA Routine 04/08/2025 8: 13 AM EDT BASIC METABOLIC PANEL, PLASMA Routine 04/08/2025 8:13 AM EDT CBC W/O DIFFERENTIAL Routine 04/08/2025 8:13 AM EDT OXYGEN THERAPY STAT 04/08/2025 8:00 AM EDT OXYGEN THERAPY STAT 04/07/2025 8:00 PM EDT OXYGEN THERAPY STAT 04/07/2025 8:[address] HEAD WO IV CONTRAST STAT 4:07 AM EDT PROTHROMBIN TIME(PT) / INR Routine 04/07/2025 3:43 AM EDT MAGNESIUM, PLASMA Routine 04/07/2025 3:4 3 AM EDT PHOSPHORUS, PLASMA Routine 04/07/2025 3: 43 AM EDT COMPREHENSIVE METABOLIC PANEL, PLASMA Routine 04/07/2025 3:43 AM EDT CBC W/O DIFFERENTIAL Routine 04/07/2025 3:43 AM EDT FENTANYL, URINE STAT 04/07/2025 12:41 AM EDT URINALYSIS WITH REFLEX MICROSCOPIC STAT 04/07/2025 12:41 AM EDT DRUG ABUSE SCREEN, URINE STAT 04/07/2025 12:41 AM EDT XR HIPS BILATERAL 2 VIEWS STAT 04/07/2025 12:[address] BONY PELVIS STAT 04/06/2025 11:28 PM EDT ECG ADULT STAT 04/06/2025 10:02 PM EDT ED HIV 1/2 ANTIBODY/ANTIGEN SCREEN WITH REFLEX TO HIV I/II DIFFERENTIATION STAT 04/06/2025 10:02 PM EDT ED PROTOCOL HIV 1/2 ANTIBODY/ANTIGEN SCREEN W/REFLEX TO HIV 1/2 ANTIBODY DIFFERENTIATION STAT 04/06/2025 10:02 PM EDT HEPATITIS C ANTIBODY - ED W/REFLEX TO HCV QUANT PCR STAT 04/06/2025 10:02 PM EDT BLOOD GAS PANEL, VENOUS STAT 04/06/2025 10:02 PM EDT TYPE AND SCREEN STAT 04/06/2025 10:02 PM EDT ETHYL ALCOHOL PLASMA STAT 04/06/2025 10:02 PM EDT APTT STAT 04/06/2025 10:02 PM EDT PROTHROMBIN TIME(PT) / INR STAT 04/06/2025 10:02 PM EDT CBC W/O DIFFERENTIAL STAT 04/06/2025 10:02 PM EDT COMPREHENSIVE METABOLIC PANEL, PLASMA STAT 04/06/2025 10:02 PM EDT XR PELVIS 1 OR 2 VIEWS STAT 10:00 PM EDT XR CHEST 1 VIEW STAT 04/06/2025 10:00 PM EDT OXYGEN THERAPY STAT 04/06/2025 9:56 PM EDT OXYGEN THERAPY STAT 04/06/2025 9:56 PM EDT OXYGEN THERAPY STAT 04/06/2025 9:[address] OUTSIDE IMAGES 04/06/2025 8:[address] OUTSIDE IMAGES 04/06/2025 8:0 2 PM EDT XR OUTSIDE IMAGES 04/06/2025 7:3 1 PM EDT XR OUTSIDE IMAGES 04/06/2025 7:[address] OUTSIDE IMAGES 04/06/2025 7:[address] OUTSIDE IMAGES 04/06/2025 7:[address] OUTSIDE IMAGES 04/06/2025 7:[address] OUTSIDE IMAGES 04/06/2025 7:[address] OUTSIDE IMAGES 04/06/2025 7:2 0 PM EDT from Last 3 Months Results * XR Pelvis 3+ Views (05/03/2025 12:01 PM EDT) Only the most recent of2 resultswithin the time period is included. Anatomical Region Laterality Modality Body, Pelvis Digital [...] MCCLURE IMVipul XR PROCEDURES Final Resul t * Magnesium, Plasma (04/13/2025 5:47 AM EDT) Only the most recent of7 resultswithin the time period is included. Magnesium, Plasma 2.0 1.9 - 2.4 mg/dL 04/13/2025 6:31 AM EDT [facility] Blood Venous blood specimen / Unknown Venipuncture / Unknown 04/13/2025 5:47 AM EDT 04/13/2025 6:05 AM EDT Priya Flores APRN, BECKY LAB BLOOD ORDERABLES Final Result Performing Organization Address City/[facility]/ZIP Co de Phone Number [facility] [address] [place] [address] * Phosphorus, Plasma (04/10/2025 4:18 AM EDT) Only the most recent of4 resultswithin the time period is included. Pathologist [facility] Phosphorus, Plasma 2.9 2.5 - 4.5 mg/dL 04/10/2025 5:13 AM EDT [facility] Blood Venous blood specimen / Unknown Venipuncture / Unknown 04/10/2025 4:18 AM EDT 04/10/2025 4:40 AM EDT Priya Flores APRN, BECKY LAB BLOOD ORDERABLES Final Result Performing Organization Address [facility] Co de Phone Number [facility] [address] [place] [address] * Lactate, venous (04/09/2025 1:23 AM EDT) [facility] Lactate, Venous, Whole Blood 1.4 0.5 - 2.2 mmol/L LAB HEMATOLOGY METHOD 04/09/2025 1:33 AM EDT [facility] Blood Venous blood specimen / Unknown Venipuncture / Unknown 04/09/2025 1:23 AM EDT 04/09/2025 1:32 AM EDT Priya Flores APRN, BECKY LAB BLOOD ORDERABLES Final Result Performing Organization Address City/[facility]/ZIP [place] [address] * EKG now - STAT (adult) (04/08/2025 3:24 PM EDT) Only the most recent of2 resultswithin the time period is included. [facility] EKG DIAGNOSIS CLASS Abnormal MUSE ECG Ventricular Rate 79 BPM MUSE ECG Atrial Rate 79 BPM MUSE ECG KS Interval 118 ms MUSE ECG QRSD Interval 82 ms MUSE ECG QT Interval 418 ms MUSE ECG QTC Interval 479 ms MUSE ECG P [place] 82 degrees MUSE ECG R [place] 19 degrees MUSE ECG T Wave [place] 55 degrees MUSE ECG Diagnosis Normal sinus rhythm with sinus arrhythmia MUSE ECG Diagnosis Low voltage QRS MUSE ECG Diagnosis T wave abnormality, consider anterior ischemia MUSE ECG Diagnosis Abnormal ECG MUSE ECG Diagnosis MUSE ECG Diagnosis Compared to last ECG MUSE ECG Diagnosis No significant change was found MUSE ECG Diagnosis Confirmed by Brett Arenas ([id number]) on 04/09/2025 11:18:52 AM MUSE ECG 04/08/2025 3:24 PM EDT 04/09/2025 11:18 AM EDT us Abby Dorado MD ECG ORDERABLES Final Res ult MUSE ECG * (ABNORMAL) CBC W/O Differential (04/08/2025 8:13 AM EDT) Only the most recent of3 resultswithin the time period is included. WBC Count 7.10 3.70 - 10.30 10*3/uL LAB HEMATOLOGY METHOD 04/08/2025 8:21 AM EDT [facility] RBC Count 3.00(L) 4.60 - 6.10 10*6/uL LAB HEMATOLOGY METHOD 04/08/2025 8:21 AM EDT [facility] HGB 11.2(L) 13.7 - 17.5 g/dL LAB HEMATOLOGY METHOD 04/08/2025 8:21 AM EDT [facility] HCT 31.5(L) 40.0 - 51.0 % LAB HEMATOLOGY METHOD 04/08/2025 8:21 AM EDT [facility] Platelet Count 112(L) 155 - 369 10*3/uL LAB HEMATOLOGY METHOD 04/08/2025 8:21 AM EDT [facility] MCV 105(H) 79 - 98 fL LAB HEMATOLOGY METHOD 04/08/2025 8:21 AM EDT [facility] MCH 37.3(H) 26.0 - 32.0 pg LAB HEMATOLOGY METHOD 04/08/2025 8:21 AM EDT [facility] MCHC 35.6(H) 30.7 - 35.5 g/dL LAB HEMATOLOGY METHOD 04/08/2025 8:21 AM EDT [facility] RDW 13.8 11.5 - 14.5 % LAB HEMATOLOGY METHOD 04/08/2025 8:21 AM EDT [facility] MPV 10.8 8.8 - 12.5 fL LAB HEMATOLOGY METHOD 04/08/2025 8:21 AM EDT [facility] nRBC 0.0 <=0.0 per 100 WBCs LAB HEMATOLOGY METHOD 04/08/2025 8:21 AM EDT [facility] Blood Venous blood specimen / Unknown Venipuncture / Unknown 04/08/2025 8:13 AM EDT 04/08/2025 8:17 AM EDT us Priya Flores COMMUNICATION ARTS LECTURER, DNP LAB BLOOD ORDERABLES Final Result [facility] [address] [place] [address] * (ABNORMAL) Basic metabolic panel (04/08/2025 8:13 AM EDT) Glucose, Plasma 109(H) 74 - 99 mg/dL 04/08/2025 8:35 AM EDT [facility] BUN, Plasma 12 8 - 23 mg/dL 04/08/2025 8:35 AM EDT [facility] Creatinine, Plasma 0.44(L) 0.70 - 1.20 mg/dL 04/08/2025 8:35 AM EDT [facility] BUN/Creatinine Ratio 27 04/08/2025 8:35 AM EDT [facility] Sodium, Plasma 131(L) 136 - 145 mmol/L 04/08/2025 8:35 AM EDT [facility] Potassium, Plasma 4.0 3.6 - 4.9 mmol/L 04/08/2025 8:35 AM EDT [facility] Chloride, Plasma 97 97 - 107 mmol/L 04/08/2025 8:35 AM EDT [facility] CO2, Plasma 27 22 - 29 mmol/L 04/08/2025 8:35 AM EDT [facility] Anion Gap 7 6 - 16 mmol/L 04/08/2025 8:35 AM EDT [facility] Total Calcium, Plasma 7.6(L) 8.9 - 10.2 mg/dL 04/08/2025 8:35 AM EDT [facility] eGFRcr 113.3 mL/min/1.7 3m*2 04/08/2025 8:35 AM EDT [facility] Comment:Reported eGFRcr in m L/min/1.73m2 is based the CKD-EPI 2020 equation that does not use a race coefficient. Blood Venous blood specimen / Unknown Venipuncture / Unknown 04/08/2025 8:13 AM EDT 04/08/2025 8:17 AM EDT Priya Flores APRN, DNP LAB BLOOD ORDERABLES Final Result [facility] [address] [place] [address] * CT Head wo IV Contrast (04/07/2025 [...] 04/07/2025 4:55 AM us Kyle Ji MD IMG CT PROCEDURES Final Resul t * Protime-INR (04/07/2025 3:43 AM EDT) Only the most recent of2 resultswithin the time period is included. Prothrombin Time 14.1 12.0 - 14.3 sec 04/07/2025 3:57 AM EDT [facility] INR 1.1 0.9 - 1.1 04/07/2025 3:57 AM EDT [facility] Blood Venous blood specimen / Unknown Venipuncture / Unknown 04/07/2025 3:43 AM EDT 04/07/2025 3:44 AM EDT Narrative [facility] - 04/07/2025 3:57 AM EDT OPTIMAL INR RANGES FOR PATIENT ON ORAL ANTICOAGULANT THERAPY Prevention of venous thromboembolism INR 2.0 to 3.0 In patients with heart disease: Atrial fibrillation INR 2.0 to 3.0 Valvular heart disease INR 2.0 to 3.0 Tissue heart valves INR 2.0 to 3.0 Mechanical prosthetic valves INR 2.5 to 3.5 Prevention of recurrent [place] INR 2.5 to 3.5 us Tres Elaine MD LAB BLOOD ORDERABLES Final Resu lt [facility] [address] [place] [address] * (ABNORMAL) Comprehensive Metabolic Panel (04/07/2025 3:43 AM EDT) Only the most recent of2 resultswithin the time period is included. Glucose, Plasma 165(H) 74 - 99 mg/dL 04/07/2025 5:01 AM EDT [facility] BUN, Plasma 5(L) 8 - 23 mg/dL 04/07/2025 5:01 AM EDT [facility] Creatinine, Plasma 0.38(L) 0.70 - 1.20 mg/dL 04/07/2025 5:01 AM EDT [facility] BUN/Creatinine Ratio 13 04/07/2025 5:01 AM EDT [facility] Sodium, Plasma 126(L) 136 - 145 mmol/L 04/07/2025 5:01 AM EDT [facility] Potassium, Plasma 4.3 3.6 - 4.9 mmol/L 04/07/2025 5:01 AM EDT [facility] Chloride, Plasma 92(L) 97 - 107 mmol/L 04/07/2025 5:01 AM EDT [facility] CO2, Plasma 21(L) 22 - 29 mmol/L 04/07/2025 5:01 AM EDT [facility] Anion Gap 13 6 - 16 mmol/L 04/07/2025 5:01 AM EDT [facility] Total Calcium, Plasma 8.1(L) 8.9 - 10.2 mg/dL 04/07/2025 5:01 AM EDT [facility] Total Protein 5.9(L) 6.3 - 7.9 g/dL 04/07/2025 5:01 AM EDT [facility] Albumin, Plasma 3.3(L) 3.5 - 5.2 g/dL 04/07/2025 5:01 AM EDT [facility] AST, Plasma 49 10 - 50 U/L 04/07/2025 5:01 AM EDT [facility] ALT, Plasma 21 10 - 50 U/L 04/07/2025 5:01 AM EDT [facility] Alkaline Phosphatase, Plasma 93 40 - 115 U/L 04/07/2025 5:01 AM EDT [facility] Total Bilirubin, Plasma 2.4(H) 0.2 - 1.1 mg/dL 04/07/2025 5:01 AM EDT [facility] eGFRcr 118.5 mL/min/1.7 3m*2 04/07/2025 5:01 AM EDT [facility] Comment:Reported eGFRcr in m L/min/1.73m2 is based the CKD-EPI 2020 equation that does not use a race coefficient. Blood Venous blood specimen / Unknown Venipuncture / Unknown 04/07/2025 3:43 AM EDT 04/07/2025 4:11 AM EDT us Tres Elaine MD LAB BLOOD ORDERABLES Final Resu lt [facility] [address] [place] [address] * Drug Abuse Screen, Urine (04/07/2025 12:41 AM EDT) Amphetamine Screen Urine Negative Cutoff: 500 ng/mL 04/07/2025 1:05 AM EDT [facility] Benzodiazepines Screen Urine Negative Cutoff: 200 ng/mL 04/07/2025 1:05 AM EDT [facility] Cannabinoid Screen Urine Negative Cutoff: 50 ng/mL 04/07/2025 1:05 AM EDT [facility] Cocaine Screen Urine Negative Cutoff: 300 ng/mL 04/07/2025 1:05 AM EDT [facility] Barbiturate Screen Urine Negative Cutoff: 200 ng/mL 04/07/2025 1:05 AM EDT [facility] Opiate Screen Urine Negative Cutoff: 300 ng/mL 04/07/2025 1:05 AM EDT [facility] Methadone Screen Urine Negative Cutoff: 300 ng/mL 04/07/2025 1:05 AM EDT [facility] Buprenorphine Screen Urine Negative Cutoff: 10 ng/mL 04/07/2025 1:05 AM EDT [facility] Fentanyl Screen Urine Presumptive positive. Confirmation by LC-MS/MS to follow. Cutoff: 1 ng/mL 04/07/2025 1:05 AM EDT [facility] Oxycodone Screen Urine Negative Cutoff: 100 ng/mL 04/07/2025 1:05 AM EDT [facility] Urine Urine specimen obtained by clean catch procedure / Unknown Non-blood Collection / Unknown 04/07/2025 12:41 AM EDT 04/07/2025 12:44 AM EDT Ricky Layne MD LAB URINE ORDERABLES Marichuy l Result Performing Organization Address [facility] de Phone Number [facility] [address] [place] [address] * (ABNORMAL) Fentanyl Urine Confirm (04/07/2025 12:41 AM EDT) Fentanyl 4(H) <1 ng/mL 04/08/2025 12:29 PM EDT [facility] Norfentanyl <2 <2 ng/mL 04/08/2025 12:29 PM EDT [facility] Urine Urine specimen obtained by clean catch procedure / Unknown Non-blood Collection / Unknown 04/07/2025 12:41 AM EDT 04/07/2025 12:44 AM EDT Narrative [facility] - 04/08/2025 12:29 PM EDT Drug analysis is confirmed by LC-MS/MS (LC Tandem Mass Spectrometry) on Urine specimens. This test was developed and its performance characteristics determined by [facility]. It has not been cleared or approved by the FDA. The laboratory is regulated under CLIA as qualified to perform high-complexity testing. This test is used for clinical purposes. Testing is performed at the [facility]. us Ricky Layne MD LAB URINE ORDERABLES Marichuy l Result Performing Organization Address City/[facility] Co de Phone Number [facility] [address] [place] [address] * (ABNORMAL) Urinalysis with reflex microscopic (Culture NOT Included) (04/07/2025 12:41 AM EDT) Color, Urine [place] LAB URINALYSIS - AUTOMATED METHOD 04/07/2025 12:53 AM EDT [facility] Clarity, Urine Clear LAB URINALYSIS - AUTOMATED METHOD 04/07/2025 12:53 AM EDT [facility] Spec [place], Urine >1.030(H) 1.005 - 1.030 LAB URINALYSIS - AUTOMATED METHOD 04/07/2025 12:53 AM EDT [facility] pH, Urine 5.5 5.0 - 8.0 LAB URINALYSIS - AUTOMATED METHOD 04/07/2025 12:53 AM EDT [facility] Protein, Urine Negative Negative mg/dL LAB URINALYSIS - AUTOMATED METHOD 04/07/2025 12:53 AM EDT [facility] Glucose, Urine Negative Negative mg/dL LAB URINALYSIS - AUTOMATED METHOD 04/07/2025 12:53 AM EDT [facility] Ketones, Urine Trace(A) Negative mg/dL LAB URINALYSIS - AUTOMATED METHOD 04/07/2025 12:53 AM EDT [facility] Blood, Urine Negative Negative LAB URINALYSIS - AUTOMATED METHOD 04/07/2025 12:53 AM EDT [facility] Bilirubin, Urine Negative Negative LAB URINALYSIS - AUTOMATED METHOD 04/07/2025 12:53 AM EDT [facility] Urobilinogen, Urine 1.0 0.2 to 1.0 mg/dL LAB URINALYSIS - AUTOMATED METHOD 04/07/2025 12:53 AM EDT [facility] Leukocytes, Urine Negative Negative LAB URINALYSIS - AUTOMATED METHOD 04/07/2025 12:53 AM EDT [facility] Nitrite, Urine Negative Negative LAB URINALYSIS - AUTOMATED METHOD 04/07/2025 12:53 AM EDT [facility] Urine Urine specimen obtained by clean catch procedure / Unknown Non-blood Collection / Unknown 04/07/2025 12:41 AM EDT 04/07/2025 12:44 AM EDT Narrative [facility] - 04/07/2025 12:53 AM EDT Urinalysis dipstick results may be inaccurate due to specimen color or an interfering substance in the specimen. us Ricky Layne MD LAB URINE ORDERABLES Marichuy sherman Result [facility] [address] [place] [address] * XR Hips Bilateral 2 Views (04/07/2025 [...] signing this report, I, the attending physician, attestthat I have personally reviewed the images/data for [...] Wilberto Zafar MD on 04/06/2025 11:48 PM Ricky Layne MD IMG CT PROCEDURES Final R esult * ED HIV 1/2 Antibody/Antigen Screen w/Reflex to HIV 1/2 Differentiation (04/06/2025 10:02 PM EDT) HIV 1 & 2 Antibody/Antigen Screen Non Reactive Non Reactive 04/06/2025 11:01 PM EDT [facility] Comment:Screening for HIV 1 & 2 antibodies, and P24 antigen is NONREACTIVE. No confirmatory testing is required. Blood Venous blood specimen / Unknown Venipuncture / Unknown 04/06/2025 10:02 PM EDT 04/06/2025 10:20 PM EDT us Ricky Layne MD LAB BLOOD ORDERABLES Marichuy l Result Performing Organization Address City/[facility]/ZIP Co de Phone Number [facility] [address] [place] [address] * (ABNORMAL) Ethyl Alcohol Plasma (04/06/2025 10:02 PM EDT) Ethanol Plasma 126(H) <10 mg/dL 04/06/2025 10:39 PM EDT [facility] Blood Venous blood specimen / Unknown Venipuncture / Unknown 04/06/2025 10:02 PM EDT 04/06/2025 10:11 PM EDT Narrative [facility] - 04/06/2025 10:39 PM EDT Enzymatic Assay: Performed on [employer]iq Mena. us Ricky Layne MD LAB BLOOD ORDERABLES Marichuy l Result Performing Organization Address City/[facility] Co de Phone Number [facility] [address] [place] [address] * Hepatitis C Antibody - ED (04/06/2025 10:02 PM EDT) Hepatitis C Antibody Negative Negative 04/06/2025 11:01 PM EDT [facility] Blood Venous blood specimen / Unknown Venipuncture / Unknown 04/06/2025 10:02 PM EDT 04/06/2025 10:20 PM EDT us Ricky Layne MD LAB BLOOD ORDERABLES Marichuy l Result Performing Organization Address City/[facility]/ZIP Co de Phone Number [facility] [address] [place] [address] * APTT (PTT) (04/06/2025 10:02 PM EDT) aPTT 32 25 - 35 sec LAB COAGULATION METHOD 04/06/2025 11:01 PM EDT [facility] Blood Venous blood specimen / Unknown Venipuncture / Unknown 04/06/2025 10:02 PM EDT 04/06/2025 10:20 PM EDT us Ricky Layne MD LAB BLOOD ORDERABLES Marichuy l Result Performing Organization Address City/[facility]/ZIP Co de Phone Number [facility] [address] [place] [address] * Type and Screen (04/06/2025 10:02 PM EDT) ABO/Rh A Positive 04/06/2025 9:56 PM EDT BLOOD BANK Antibody Screen Negative 04/06/2025 9:56 PM EDT [facility]LO[facility] Specimen Expiration 04/09/2025 23:59 04/06/2025 9:56 PM EDT BLOOD BANK Blood Venous blood specimen / Unknown Venipuncture / Unknown 04/06/2025 10:02 PM EDT 04/06/2025 10:18 PM EDT us Ricky Layne MD LAB BLOOD BANK TEST ORDER LYDIA Final Result Performing Organization Address [facility] de Phone Number BLOOD BANK [address] * (ABNORMAL) Blood gas panel, venous (04/06/2025 10:02 PM EDT) pH, Venous 7.36 7.32 - 7.43 LAB HEMATOLOGY METHOD 04/06/2025 10:11 PM EDT [facility] pCO2, Venous 37(L) 40 - 55 mmHg LAB HEMATOLOGY METHOD 04/06/2025 10:11 PM EDT [facility] pO2, Venous 61(H) 25 - 40 mmHg LAB HEMATOLOGY METHOD 04/06/2025 10:11 PM EDT [facility] SO2, Measured, Venous 91(H) 65 - 80 % LAB HEMATOLOGY METHOD 04/06/2025 10:11 PM EDT [facility] Base Excess, Venous -4.2(L) -2.0 - 3.0 mmol/L LAB HEMATOLOGY METHOD 04/06/2025 10:11 PM EDT [facility] Bicarbonate, Calculated, Venous 21(L) 22 - 26 mmol/L LAB HEMATOLOGY METHOD 04/06/2025 10:11 PM EDT [facility] Hematocrit, Whole Blood 36.2(L) 40.0 - 51.0 % LAB HEMATOLOGY METHOD 04/06/2025 10:11 PM EDT [facility] Sodium, Whole Blood 125(L) 136 - 145 mmol/L LAB HEMATOLOGY METHOD 04/06/2025 10:11 PM EDT [facility] Potassium, Whole Blood 4.2 3.6 - 4.9 mmol/L LAB HEMATOLOGY METHOD 04/06/2025 10:11 PM EDT [facility] Chloride, Whole Blood 95(L) 97 - 107 mmol/L LAB HEMATOLOGY METHOD 04/06/2025 10:11 PM EDT [facility] Glucose, Whole Blood 118(H) 74 - 99 mg/dL LAB HEMATOLOGY METHOD 04/06/2025 10:11 PM EDT [facility] Lactate, Venous, Whole Blood 4.3(H) 0.5 - 2.2 mmol/L LAB HEMATOLOGY METHOD 04/06/2025 10:11 PM EDT [facility] Ionized Calcium, Whole Blood 4.3(L) 4.6 - 5.1 mg/dL LAB HEMATOLOGY METHOD 04/06/2025 10:11 PM EDT [facility] Blood Venous blood specimen / Unknown Venipuncture / Unknown 04/06/2025 10:02 PM EDT 04/06/2025 10:11 PM EDT Ricky Layne MD LAB BLOOD ORDERABLES Marichuy sherman Result [facility] [address] [place] [address] * XR Pelvis 1 or 2 Views [...] IMG XR PROCEDURES Final R esult * CT OUTSIDE IMAGES (04/06/2025 8:02 PM EDT) Only the most recent of7 resultswithin the time period is included. Anatomical Region Laterality Modality Computed Tomogra phy 04/06/2025 8:02 PM EDT us External Provider IMG CT PROCEDURES Final Result * XR OUTSIDE IMAGES (04/06/2025 7:31 PM EDT) Only the most recent of2 resultswithin the time period is included. Anatomical Region Laterality Modality Radiographic Pamela ging 04/06/2025 7:31 PM EDT us External Provider IMG XR PROCEDURES Final Result from Last 3 Months Insurance [facility] [place] [address] ANTHEM Advance Directives * Full Code (Latest Code Status on File) Date Activated Date Inactivated Comments 04/13/2025 12:55 PM * Full Code Date Activated Date Inactivated Comments 04/07/2025 12:47 AM 04/13/2025 12:55 PM Question Answer Comments I have reviewed the capacity from the link above and, if needed, have updated to appropriate status: Yes Care Teams Corn Cooker Relationship Specialty Start Date End Date María Tirado APRN [address] [place] [address] PCP - General 04/06/25
--- OUTSIDE RECORDS SUMMARY | 2025-06-09 18:54 | XMS_ITS | Encounter Summary ---
Author Organization Healthcare Address [address] [place] [address] Care Team Providers Care Ceo And President Name Role Phone María Tirado APRN Primary Care Provider +1- [phone] Kimberlee Naranjo LPN Unavailable Unavailabl e Reason for Visit * Reason Comments TCM Call Encounter Details Date Type Department Care Team (Late st Contact Info) Description 05/02/2025 Patient Outreach [facility] [address] [facility] [address] [place] [address] Kimberlee Naranjo, [facility] TCM Call Social History Tobacco [...] time in the past 12 m [facility], were you homeless or living [...] drink first t cherise in the morning (EYE-MACHINE SET UP TECHNICIAN) to steady your nerves or to get rid of a hangover? 1 04/08/2025 CAGE Questionnaire Score 1 025 Utilities Answer Date Recorded In the past 12 months has th e [employer], gas, oil, or water company threatened to shut off services in your home? No 04/07/2025 Sex and Gender Information Value Date Recorded Sex Assigned at Male 04/06/2025 9:49 PM EDT Legal Sex Male 6:01 PM EDT Gender Identity Not on file Sexual Orientation Not on file documented as of this encounter Miscellaneous Notes * Progress Notes - Kimberlee Naranjo LPN - 05/02/2025 3:41 PM EDT 05/02/2025 TCM Follow-up Call Patient reached: yes Outcome: Called patient for a follow up TCM nurse call. Patient reports he is doing okay. Patient requested his [facility] appointment be cancelled due to he has a PCP. Patient plans to follow up with orthopaedics tomorrow 05/03/2025 at 11:50 am. Patient aware of appointment time and address. Action: cancelled SILVIA appointment per patient request. documented in this encounter Plan of Treatment Upcoming Encounters Date Type Department Care Team (Late st Contact Info) Description 06/28/2025 8:[address] [facility] Radiology [address], [address] [place] [address] 06/28/2025 9:30 AM EDT Office Visit [facility] Orthopaedic Surgery & Sports Medicine [address], [address] [place] [address] Marie Ruffin PA [address] [place] [address] documented as of this encounter Visit Diagnoses Not on filedocumented in this encounter Additional Health Concerns Assessment Noted Time A Body Mass Index follow-up plan has been documented for the patient 04/13/2025 1:08 PM EDT documented as of this encounter Care Teams Ceo And President Relationship Specialty Start Date End Date María Tirado APRN [address] [place] [address] PCP - General 04/06/25 Kimberlee Naranjo LPN [facility] TCM Nurse 04/24/25 05/24/25 documented as of this encounter
--- OUTSIDE RECORDS SUMMARY | 2025-06-09 18:55 | XMS_ITS | Encounter Summary ---
Author Organization Healthcare Address [address] [place] [address] Care Team Providers Care Real Estate Professional Name Role Phone María Tirado APRN Primary Care Provider +1- [phone] Encounter Details Date Type Department Care Team (Late st Contact Info) Description 04/06/2025 Orders Only External Location [address] [place] [address] Provider, External Social History Tobacco Use Types [...] any time in the past 12 m [facility], were you homeless or living in a long-term (including now)? No 04/07/2025 CAGE ASSESSMENT Answer [...] drink first t cherise in the morning (EYE-HOSPITAL PHARMACY TECHNICIAN) to steady your nerves or to [...] Info) Description 06/28/2025 8:45 AM EDT Appointment [facility] Radiology [address], [address] [place] [address] 06/28/2025 9:30 AM EDT Office Visit [facility] Orthopaedic Surgery & Sports Medicine [address], [address] [place] [phone] Marie Ruffin PA [address] [place] [address] documented as of this encounter Procedures Procedure [...] documented as of this encounter Care Teams Real Estate Professional Relationship Specialty Start Date End Date María Tirado APRN [address] [place] [address] PCP - General 04/06/25 documented as of this encounter
--- OUTSIDE RECORDS SUMMARY | 2025-06-09 18:55 | XMS_ITS | Encounter Summary ---
Author Organization Healthcare Address [address] [place] [address] Care Team Providers Care Nude Model Name Role Phone María Tirado APRN Primary Care Provider +1- [phone] Encounter Details Date Type Department Care Team (Late st Contact Info) Description 04/06/2025 Orders Only External Location [address] [place] [address] Provider, External Social History Tobacco Use Types [...] any time in the past 12 m [facility], were you homeless or living in [...] drink first t cherise in the morning (EYE-SUPERVISOR PHOTOENGRAVING) to steady your nerves or to get [...] Info) Description 06/28/2025 8:45 AM EDT Appointment [facility] Radiology [address], 1[address] [place] [address] 06/28/2025 9:30 AM EDT Office Visit [facility] Orthopaedic Surgery & Sports Medicine [address] [place] [address] Marie Ruffin PA [address] [place] [address] documented as of this encounter Procedures Procedure Name Priority Date/Time Associated Diagnosis Comments CT OUTSIDE IMAGES 04/06/2025 7:24 PM EDT documented in this encounter Results * CT OUTSIDE IMAGES (04/06/2025 7:24 PM EDT) Anatomical Region Laterality Modality Computed Tomogra phy 04/06/2025 7:24 PM EDT us External Provider IMG CT PROCEDURES Final Result documented in this encounter Visit Diagnoses Not on filedocumented in this encounter Additional Health Concerns Assessment Noted Time A Body Mass Index follow-up plan has been documented for the patient 04/13/2025 1:08 PM EDT documented as of this encounter Care Teams Nude Model Relationship Specialty Start Date End Date María Tirado APRN [address] [place] [address] PCP - General 04/06/25 documented as of this encounter
--- OUTSIDE RECORDS SUMMARY | 2025-06-09 18:55 | XMS_ITS | Encounter Summary ---
Author Organization Healthcare Address [address] [place] [address] Care Team Providers Care Earth Science Professor Name Role Phone María Tirado APRN Primary Care Provider +1- [phone] Encounter Details Date Type Department Care Team (Late st Contact Info) Description 04/06/2025 Orders Only External Location [address] [place] [address] Provider, External Social History Tobacco Use Types [...] any time in the past [address] [facility], were you homeless or living in a longterm (including now)? No 04/07/2025 CAGE ASSESSMENT Answer [...] drink first t cherise in the morning (EYE-PUBLIC SERVICE OFFICER) to steady your nerves or to get [...] Info) Description 06/28/2025 8:45 AM EDT Appointment [facility] Radiology [address], [address] [place] [address] 06/28/2025 9:30 AM EDT Office Visit [facility] Orthopaedic Surgery & Sports Medicine [address], [address] [place] [address] Marie Ruffin PA [address] [place] [address] documented as of this encounter Procedures Procedure Name Priority Date/Time Associated Diagnosis Comments CT OUTSIDE IMAGES 04/06/2025 8:02 PM EDT documented in this encounter Results * CT OUTSIDE IMAGES (04/06/2025 8:02 PM EDT) Anatomical Region Laterality Modality Computed Tomogra phy 04/06/2025 8:02 PM EDT us External Provider IMG CT PROCEDURES Final Result documented in this encounter Visit Diagnoses Not on filedocumented in this encounter Additional Health Concerns Assessment Noted Time A Body Mass Index follow-up plan has been documented for the patient 04/13/2025 1:08 PM EDT documented as of this encounter Care Teams Earth Science Professor Relationship Specialty Start Date End Date María Tirado APRN [address] [place] [address] PCP - General 04/06/25 documented as of this encounter
--- OUTSIDE RECORDS SUMMARY | 2025-06-09 18:55 | XMS_ITS | Encounter Summary ---
Author Organization Healthcare Address [address] [place] [address] Care Team Providers Care Panel Flow Machine Operator Name Role Phone María Tirado APRN Primary Care Provider +1- [phone] Encounter Details Date Type Department Care Team (Late st Contact Info) Description 04/06/2025 Orders Only External Location [address] [place] [address] Provider, External Social History Tobacco Use Types [...] time in the past 12 m [facility], were you homeless or living in a detention (including now)? No 04/07/2025 CAGE ASSESSMENT Answer [...] drink first t cherise in the morning (EYE-BULLARD MACHINE OPERATOR) to steady your nerves or to [...] Info) Description 06/28/2025 8:45 AM EDT Appointment [facility] Radiology [address], [address] [place] [address] 06/28/2025 9:30 AM EDT Office Visit [facility] Orthopaedic Surgery & Sports Medicine [address], [address] [place] [address] Marie Ruffin PA [address] [place] [address] documented as of this encounter Procedures Procedure Name Priority Date/Time Associated Diagnosis Comments CT OUTSIDE IMAGES 04/06/2025 7:29 PM EDT documented in this encounter Results * CT OUTSIDE IMAGES (04/06/2025 7:29 PM EDT) Anatomical Region Laterality Modality Computed Tomogra phy 04/06/2025 7:29 PM EDT us External Provider IMG CT PROCEDURES Final Result documented in this encounter Visit Diagnoses Not on filedocumented in this encounter Additional Health Concerns Assessment Noted Time A Body Mass Index follow-up plan has been documented for the patient 04/13/2025 1:08 PM EDT documented as of this encounter Care Teams Panel Flow Machine Operator Relationship Specialty Start Date End Date María Tirado APRN [address] [place] [address] PCP - General 04/06/25 documented as of this encounter
--- OUTSIDE RECORDS SUMMARY | 2025-06-09 18:55 | XMS_ITS | Encounter Summary ---
Author Organization Healthcare Address [address] [place] [address] Care Team Providers Care Design Center Consultant Name Role Phone María Tirado APRN Primary Care Provider +1- [phone] Encounter Details Date Type Department Care Team (Late st Contact Info) Description 04/06/2025 Orders Only External Location [address] [place] [address] Provider, External Social History Tobacco Use Types [...] any time in the past 12 m [facility], were you homeless or living in [...] drink first t cherise in the morning (EYE-ROLLER LEVELER) to steady your nerves or to get [...] 06/28/2025 8:45 AM EDT Appointment [facility] Radiology [address], [address] [place] [address] 06/28/2025 9:30 AM EDT Office Visit [facility] Orthopaedic Surgery & Sports Medicine [address], [address] [place] [address] Marie Ruffin PA [address] [place] [address] documented as of this encounter Procedures Procedure [...] documented as of this encounter Care Teams Design Center Consultant Relationship Specialty Start Date End Date María Tirado APRN [address] [place] [address] PCP - General 04/06/25 documented as of this encounter
--- NOTE | 2025-06-09 19:52 | CT_ITS ---
PROCEDURE INFORMATION: Exam: CT Abdomen And Pelvis With Contrast Exam date and time: 06/09/2025 8:46 PM Age: 69 years old Clinical indication: Other: Left inguinal bulge/ hernia TECHNIQUE: Imaging protocol: Computed tomography of the abdomen and pelvis with contrast. Total images: 292 Radiation optimization: All CT scans at this facility use at least one of these dose optimization techniques: automated exposure control; mA and/or kV adjustment per patient size (includes targeted exams where dose is matched to clinical indication); or iterative reconstruction. Contrast material: ISOVUE; Contrast volume: 75 ml; Contrast route: IV; COMPARISON: CR XR HIP LT 2-3V W/PELVIS 04/06/2025 7:31 PM FINDINGS: Lungs: Minor right basilar atelectasis. Linear lingular scar. Heart: Normal heart size. Liver: Slight decreased liver attenuation from phase of contrast versus steatosis. Otherwise, unremarkable. Gallbladder and biliary ducts: Normal. No calcified stones. No ductal dilation. Pancreas: Normal. No ductal dilation. Spleen: Calcified splenic granuloma. No splenomegaly. Accessory splenule. Adrenal glands: Normal. No mass. Kidneys and ureters: No hydronephrosis, nephrolithiasis, or renal mass. Bilateral subcentimeter renal cortical hypodensities are too small to characterize but statistically cysts requiring no strict follow-up. Stomach and bowel: Unremarkable stomach and duodenum. No ileus or bowel obstruction. Fluid-filled nondilated small bowel with scattered air-fluid levels. No significant bowel wall thickening. Unremarkable colon and rectum. Appendix: No evidence for appendicitis. Intraperitoneal space: Unremarkable. No free air. No significant fluid collection. Vasculature: Moderate to severe atherosclerotic vascular disease. Nonaneurysmal abdominal aorta. Lymph nodes: Unremarkable. No enlarged lymph nodes. Urinary bladder: Partially collapsed bladder. Reproductive: Nonenlarged prostate. Bones/joints: Mild degenerative changes of the lumbar spine. Minor anterolisthesis L4-L5 is most likely degenerative. Subacute healing fracture deformities of the left sacral ala, medial left iliac bone, left superior and inferior pubic rami. No acute superimposed osseous abnormality. Soft tissues: 17 mm cystic lesion in the left scrotum, axial image 112. Small fat containing left inguinal hernia. No bowel loop involvement. Mild body wall edema/anasarca. IMPRESSION: 1. Small fat containing left inguinal hernia. No bowel loop involvement. 2. 17 mm cystic lesion in the left hemiscrotum. This can be followed with nonemergent ultrasound if clinically directed. 3. Subacute healing fracture deformities of the pelvis. 4. Cannot exclude acute mild enteritis. No complicating features. 5. Additional chronic and incidental findings. COMMENTS: Consistent with the [employer]'s Incidental Findings Committee white paper (J Am Ezekiel Radiol 2018): Any incidental renal lesion less than 1 cm or classified as too small to characterize, or any incidental cystic renal lesion characterized as simple-appearing, is likely benign. No follow-up imaging is recommended for these lesions per consensus recommendations based on imaging criteria.
[2025-06-09 20:13] LABS: Hematocrit 35.8 % (42.0-52.0); Hemoglobin 12.5 g/dL (14.1-18.0); Immature Granulocytes % 0.4 %; Mean Corpuscular HGB Conc 34.9 g/dL (31.8-35.4); Mean Corpuscular Hemoglobin 34.5 pg (27.0-31.2); Mean Corpuscular Volume 98.9 fl (80-94); Nucleated Red Blood Cells % 0 %; Platelet Count 271 K/mm3 (142-424); Red Blood Count 3.62 M/mm3 (4.60-6.20); Red Cell Distribution Width-SD 43.9 fL; White Blood Count 6.9 K/mm3 (4.8-10.8)
[2025-06-09 20:26] LABS: Alanine Aminotransferase 15 U/L (12-78); Albumin Level 4.0 g/dl (3.5-5.0); Albumin/Globulin Ratio 1.2 (1.1-1.8); Alkaline Phosphatase 102 U/L (38-126); Anion Gap 9.4 mEq/L (5-15); Aspartate Amino Transferase 27 U/L (17-59); Bilirubin,Total 1.3 mg/dl (0.2-1.3); Blood Urea Nitrogen 6 mg/dl (9-20); Calcium 8.9 mg/dl (8.4-10.2); Carbon Dioxide 29 mmol/L (22.0-30.0); Chloride 97 mmol/L (98-107); Creatinine Clearance Estimated 70 mL/min (50-200); Creatinine,Serum 0.50 mg/dl (0.66-1.25); Estimated Glomerular Filt Rate 164 ml/min (>60); GFR (African American) 198 ML/MIN (>60); Globulin 3.4 g/dL (1.3-3.2); Glucose 100 mg/dl (74-100); Potassium 4.4 mmoL/L (3.5-5.1); Sodium 131 mmol/L (136-145); Total Protein,Serum 7.4 g/dl (6.3-8.2)
[2025-06-09 20:31] VITALS: BP 130/63
[2025-06-09] MEDS: IOPAMIDOL-370 (76%);100ML BOTTLE 75 ML IV (20:45)
[2025-06-09] MEDS: SODIUM CHLORIDE 0.9% 10ML SYR (RAD ONLY) 10 ML IV (20:45)
[2025-06-09 21:12] VITALS: BP 145/82; PULSE 33; O2SAT 86
[2025-06-09 23:31] VITALS: BP 139/86; PULSE 74; RESP 15; TEMP 36.7; O2SAT 95
--- NOTE | 2025-06-09 23:44 | ED_ITS ---
<Statement entered by Christine Rosas DO - 06/10/25 01:21> I was consulted by the TANK, and we discussed the complexity of problems being addressed. I approve the treatment and management plan for this patient's care in the emergency department, thus performing a substantial portion of the medical decision making. Christine Rosas DO Discharge Plan Disposition Patient Disposition: Home, Self-Care Condition: Good Prescriptions Prescriptions: No Action multivitamin Tablet 1 tab PO DAILY ipratropium-albuterol 0.5 mg-3 mg(2.5 mg base)/3 mL solution for nebulization See Rx Instructions .ROUTE .COMPLEX Qty: 360 6RF Dose Instruction: INHALE 3 ML BY MOUTH EVERY 4 TO 6 HOURS NEEDED FOR SHORTNESS OF BREATH OR WHEEZING Rx Instructions: INHALE 3 ML BY MOUTH EVERY 4 TO 6 HOURS NEEDED FOR SHORTNESS OF BREATH OR WHEEZING albuterol sulfate 90 mcg/actuation HFA aerosol inhaler See Rx Instructions .ROUTE .COMPLEX Qty: 8.5 0RF Dose Instruction: INHALE 2 PUFFS BY MOUTH EVERY 4 TO 6 HOURS NEEDED FOR SHORTNESS OF BREATH OR WHEEZING Rx Instructions: INHALE 2 PUFFS BY MOUTH EVERY 4 TO 6 HOURS NEEDED FOR SHORTNESS OF BREATH OR WHEEZING Trelegy Ellipta 100-62.5-25 mcg Blister With Device 1 inh inhalation DAILY Qty: 60 0RF nicotine 21 mg/24 hr Patch 24 Hour 21 mg transdermal DAILYP PRN (Reason: Nicotine Cravings) Qty: 28 0RF azithromycin 250 mg Tablet 500 mg PO DAILY 3 Days Qty: 6 0RF cefdinir 300 mg capsule 300 mg PO BID 3 Days Qty: 6 0RF Referrals Follow up/Referrals: Ricky Wright MD [Staff Physician, General Surgery] - See instructions María Tirado APRN [Primary Care Provider, Medical] - See instructions Ace Fernández MD [Staff Physician, Urology] - See instructions Activity Restrictions/Add. Instructions Additional Instructions/Restrictions: You were seen for a hernia and scrotal cyst. You need a testicular ultrasound. You will also need to see a surgeon for your hernia. Please return to the ER if you have any pain, increased swelling or discoloration. Clinical Impressions Clinical Impression: Inguinal hernia Instructions Patient Instructions: DI for Groin Hernia Print Language Print Language: Latvian Discharge ED Provider: Christine Rosas Adult HPI <KAMI Bianchi - Last Filed: 06/09/25 23:48> General Chief complaint: Abdominal Pain Stated complaint: Left groin hernia Time Seen by Provider: 06/09/25 19:47 Mode of Arrival: Wheelchair Source of Information: Patient Description of Symptoms (Recalled from ER Triage Doc. by RN): pt to the ED with pain and an egg side knot located on his pelvis that appeared 3 days ago. pt reports a history of a hernia to the opposite side approx. 10 years ago that was surgically repaired. pt reports the pain is worse with coughing History of Present Illness HPI narrative: Patient presents with left inguinal swelling. He reports this has been going on for 5 days. He does have a history of inguinal hernia on the opposite side. Denies any pain. Denies any vomiting or constipation. He reports that the swelling improves with laying flat. Denies any fever. MD complaint: Hernia Onset (ago): day(s) (5) Location: pelvis Radiation: non-radiation Severity: mild Consistency: intermittent Relieving factors: other (laying flat ) Exacerbating factors: other (standing) Associated symptoms: denies other symptoms Treatments prior to arrival: none Related Data Home Medications ?Medication ?Instructions ?Recorded ?Confirmed multivitamin 1 tab PO DAILY 04/26/2007/04 Previous Rx's ?Medication ?Instructions ?Recorded azithromycin 250 mg tablet 500 mg (2 x 250 mg) PO LUBNA Y 3 07/27/24 days #6 tabs cefdinir 300 mg capsule 300 mg PO BID 3 days #6 caps 07/27/24 fluticasone fur. 100 mcg-umeclid 1 inh inhalation LUBNA Y #60 ea 07/27/24 62.5 mcg-vilant 25 mcg inhalat.powder (Trelegy Ellipta) nicotine 21 mg/24 hr daily 21 mg transdermal DAILYP NE N 07/27/24 transdermal patch Nicotine Cravings #28 ea ipratropium 0.5 mg-albuterol 3 mg See Rx Instructions .Route 02/27/25 (2.5 mg base)/3 mL nebulization .COMPLEX #360 mL soln albuterol sulfate 90 mcg/actuation See Rx Instructions .Route 05/08/25 aerosol inhaler .COMPLEX #8.5 grams Allergies Allergy/AdvReac Type Severity Reaction Status Date / Time No Known Allergies Allergy Verified 03/18/24 15:11 PFSH <KAMI Bianchi - Last Filed: 06/09/25 23:48> [facility] Disclaimer: The information contained in this section may have been updated after the patient was seen, as this information can be updated by other users. Medical History (Updated 06/09/25 @ 23:02 by KAMI Bianchi) Acute and chronic respiratory failure with hypoxia Dyspnea Abnormal EKG HTN (hypertension) Cardiomyopathy, alcoholic Hyponatremia Non-STEMI (non-ST elevated myocardial infarction) Surgical History History of hernia repair History of right knee surgery Family History Family/Other No significant family history Social History (Updated 07/25/24 @ 22:57 by Krys Aguilera RN) Smoking Status: Current every day smoker tobacco type: cigarettes packs per day: 2 second hand exposure: Yes alcohol intake: current alcohol intake frequency: other substance use type: marijuana, crack/cocaine and amphetamines current occupational status: retired Travel in the last 8 weeks?: Inside the [place] household members: spouse housing: house 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 Have you lived/traveled outside [place] in past 30 days?: No Contact w/someone who lives/traveled outside [place] past 30 days?: No Exposure to someone with infectious disease in past 14 days?: No Do you have a fever (greater than 100.4 F or 38 C)?: No Have you tested positive for COVID-19?: No Exposed to someone with COVID-19 in past 14 days?: No Do you have a sore throat?: No Do you have a cough?: No Do you have any weakness?: No Do you have any diarrhea?: No Are you experiencing any unusual bleeding?: No Do you have any muscle aches/pain?: No Do you have any abdominal pain?: No Are you experiencing loss of taste or smell?: No Other Medical History Have you received the Flu Vaccine for this season: No Have you received the Pneumonia Vaccine: No <KAMI Bianchi - Last Filed: 06/09/25 23:48> ROS Obtained: Yes Systems reviewed as appropriate & no additional complaints except as documented Physical Exam <KAMI Bianchi - Last Filed: 08/08/25 23:48> General General appearance: alert and in no apparent distress Head Head exam: atraumatic and normocephalic Eye Eye exam: Present normal appearance and EOMI Chest Chest inspection: Present symmetric chest wall rise Respiratory Respiratory exam: Present normal lung sounds bilaterally; Absent wheezes or stridor Cardiovascular Cardiovascular exam: Present regular rate and normal rhythm; Absent systolic murmur Abdominal Exam Abdominal exam: Present soft; Absent distention, tenderness, guarding or rebound Comment: Left inguinal hernia palpable with laying flat Extremities Exam Extremities exam: Present full ROM Neurological Exam Neurological exam: Present alert and oriented X3 Psychiatric Psychiatric exam: Present normal affect and normal mood Skin Skin exam: Present warm, dry and intact Medical Decision Making <KAMI Bianchi - Last Filed: 06/09/25 23:48> Medical Records Screening: Per USPSTF and CDC recommendations, given the prevalence of disease in our region, it is our hospital?s policy to screen for HIV and viral Hepatitis for all patients aged 18 and over and those with ongoing risk factors. [place] Inquiry Pt receiving controlled substance: No Vital Signs: 06/09/25 18:39 06/09/25 20:31 06/09/25 21:12 Temperature 98.6 F Temperature Source Oral Pulse Rate 33 L Pulse Rate [Left Radial] 84 Respiratory Rate 18 Blood Pressure 130/63 145/82 H Blood Pressure [Right Arm] 103/79 L Blood Pressure Mean 85 Blood Pressure Mean [Right Arm] 87 Blood Pressure Source Blood Pressure Source [Right Arm] Automatic Cuff Blood Pressure Position Blood Pressure Position [Right Arm] Sitting 02 Sat by Pulse Oximetry 96 86 L Oxygen Delivery Method 06/09/25 23:31 Temperature 98.0 F Temperature Source Oral Pulse Rate 74 Pulse Rate [Left Radial] Respiratory Rate 15 Blood Pressure 139/86 Blood Pressure [Right Arm] Blood Pressure Mean Blood Pressure Mean [Right Arm] Blood Pressure Source Automatic Cuff Blood Pressure Source [Right Arm] Blood Pressure Position Sitting Blood Pressure Position [Right Arm] 02 Sat by Pulse Oximetry Oxygen Delivery Method Room Air Lab Data Lab Results 06/09/25 20:07: WBC 6.9, RBC 3.62 L, Hgb 12.5 L, Hct 35.8 L, MCV 98.9 H, MCH 34.5 H, MCHC 34.9, RDW 12.0, Plt Count 271, MPV 9.7, Neut % (Auto) 54.3, Lymph % (Auto) 28.2, [place] % (Auto) 15.9 H, Eos % (Auto) 0.0 L, Baso % (Auto) 1.2, Neut # (Auto) 3.8, Lymph # (Auto) 2.0, [place] # (Auto) 1.1 H, Eos # (Auto) 0.0, Baso # (Auto) 0.1, Sodium 131 L, Potassium 4.4, Chloride 97 L, Carbon Dioxide 29, Anion Gap 9.4, BUN 6 L, Creatinine 0.50 L, Estimated Creat Clear 70, Estimated GFR 164, Est GFR ( Amer) 198, Glucose 100, Calcium 8.9, Total Bilirubin 1.3, AST 27, ALT 15, Alkaline Phosphatase 102, Total Protein 7.4, Albumin 4.0, G lobulin 3.4 H, Albumin/Globulin Ratio 1.2 06/09/25 20:07 06/09/25 20:07 Orders (Tests/Meds): ED MEDICATIONS Discontinued Medications Generic Name Dose Route Start Last Admin Trade Name Pascualq PRN Reason Stop Dose Admin Iopamidol 75 ml 06/09/25 20:44 06/09/25 20:45 Iopamidol-370 (76%);100ml Bottle IV 06/09/25 20:45 75 ml ONCE ONE Administration Sodium Chloride 10 ml 06/09/25 19:52 Sodium Chloride 0.9% 10ml Flush Syringe IV 07/09/25 19:51 NEEDED PRN Maintain IV Site Sodium Chloride 10 ml 06/09/25 20:44 06/09/25 20:45 Sodium Chloride 0.9% 10ml Syr (Rad Only) IV 06/09/25 20:45 10 ml ONCE ONE Administration ORDERS Category Date Time Status CT abdomen pelvis w con Stat Cat Scan 06/09/25 19:52 Completed CBC w/Auto Diff [Complete Blood Count Auto Diff] Stat Lab 06/09/25 20:07 Completed CMP [Comprehensive Metabolic Panel] Stat Lab 06/09/25 20:07 Completed Medical Decision Narrative: In summary patient is a 69-year-old male who presents the emergency department for evaluation of inguinal swelling. Patient is hemodynamically upon arrival, heme. Mild bulging noted in the left inguinal region. Differential diagnosis includes hernia, lipoma, soft tissue swelling. Initial workup will be conducted with CT, hematologic lab. Patient does have an inguinal hernia however no bowel loop involvement. He also has a scrotal cyst and outpatient ultrasound was recommended. Given this patient is appropriate for discharge home at this time with instructions follow-up with general surgery.. <Christine Rosas, DO - Last Filed: 06/10/25 01:21> Vital Signs: 06/09/25 18:39 06/09/25 20:31 06/09/25 21:12 Temperature 98.6 F Temperature Source Oral Pulse Rate 33 L Pulse Rate [Left Radial] 84 Respiratory Rate 18 Blood Pressure 130/63 145/82 H Blood Pressure [Right Arm] 103/79 L Blood Pressure Mean 85 Blood Pressure Mean [Right Arm] 87 Blood Pressure Source Blood Pressure Source [Right Arm] Automatic Cuff Blood Pressure Position Blood Pressure Position [Right Arm] Sitting 02 Sat by Pulse Oximetry 96 86 L Oxygen Delivery Method 06/09/25 23:31 Temperature 98.0 F Temperature Source Oral Pulse Rate 74 Pulse Rate [Left Radial] Respiratory Rate 15 Blood Pressure 139/86 Blood Pressure [Right Arm] Blood Pressure Mean Blood Pressure Mean [Right Arm] Blood Pressure Source Automatic Cuff Blood Pressure Source [Right Arm] Blood Pressure Position Sitting Blood Pressure Position [Right Arm] 02 Sat by Pulse Oximetry Oxygen Delivery Method Room Air Lab Data Lab results reviewed: Yes I reviewed the patient's lab results. Lab Results 06/09/25 20:07: WBC 6.9, RBC 3.62 L, Hgb 12.5 L, Hct 35.8 L, MCV 98.9 H, MCH 34.5 H, MCHC 34.9, RDW 12.0, Plt Count 271, MPV 9.7, Neut % (Auto) 54.3, Lymph % (Auto) 28.2, [place] % (Auto) 15.9 H, Eos % (Auto) 0.0 L, Baso % (Auto) 1.2, Neut # (Auto) 3.8, Lymph # (Auto) 2.0, [place] # (Auto) 1.1 H, Eos # (Auto) 0.0, Baso # (Auto) 0.1, Sodium 131 L, Potassium 4.4, Chloride 97 L, Carbon Dioxide 29, Anion Gap 9.4, BUN 6 L, Creatinine 0.50 L, Estimated Creat Clear 70, Estimated GFR 164, Est GFR ( Amer) 198, Glucose 100, Calcium 8.9, Total Bilirubin 1.3, AST 27, ALT 15, Alkaline Phosphatase 102, Total Protein 7.4, Albumin 4.0, G lobulin 3.4 H, Albumin/Globulin Ratio 1.2 Orders (Tests/Meds): ED MEDICATIONS Discontinued Medications Generic Name Dose Route Start Last Admin Trade Name Pascualq PRN Reason Stop Dose Admin Iopamidol 75 ml 06/09/25 20:44 06/09/25 20:45 Iopamidol-370 (76%);100ml Bottle IV 06/09/25 20:45 75 ml ONCE ONE Administration Sodium Chloride 10 ml 06/09/25 19:52 Sodium Chloride 0.9% 10ml Flush Syringe IV 07/09/25 19:51 NEEDED PRN Maintain IV Site Sodium Chloride 10 ml 06/09/25 20:44 06/09/25 20:45 Sodium Chloride 0.9% 10ml Syr (Rad Only) IV 06/09/25 20:45 10 ml ONCE ONE Administration ORDERS Category Date Time Status CT abdomen pelvis w con Stat Cat Scan 06/09/25 19:52 Completed CBC w/Auto Diff [Complete Blood Count Auto Diff] Stat Lab 06/09/25 20:07 Completed CMP [Comprehensive Metabolic Panel] Stat Lab 06/09/25 20:07 Completed Medical Decision Narrative: In summary patient is a 69-year-old male who presents the emergency department for evaluation of inguinal swelling. Patient is hemodynamically upon arrival, heme. Mild bulging noted in the left inguinal region. Differential diagnosis includes hernia, lipoma, soft tissue swelling. Initial workup will be conducted with CT, hematologic lab. Patient's labs were reviewed and interpreted by myself: Patient was given a referral to GI patient was given a referral patient CBC showed no leukocytosis, hemoglobin was stable. CMP was unremarkable. CT scan was reviewed and interpreted by myself showed left inguinal hernia with fat-containing, no bowel loop involvement. No concern for strangulation or incarceration. Patient also had a scrotal cyst noted on CT scan. At this time, I felt the patient was appropriate for outpatient management with referral to general surgery. Patient was sent with urology follow-up for cyst. Patient was otherwise discharged home in stable condition. Return precautions were discussed Critical Care <KAMI Bianchi - Last Filed: 06/09/25 23:48> Critical Care Time Critical Care Time: No
== END 2025-06-09 23:31 | disposition home or self-care (01) ==
PROVIDERS: Physician Assistant; Emergency Provider Student in an Organized Health Care Education/Training Program; PCP Nurse Practitioner Family
DX: K40.90 Unilateral inguinal hernia, without obstruction or gangrene, not specified as recurrent (principal)
CPT/HCPCS: 74177; 80053; 85025; 99284; Q9967